=== PATIENT | female | born 2000 | race Hispanic/Latino ===

== ENCOUNTER 2022-11-05 12:38 | Emergency (ER) | payer OTHER ==
--- OUTSIDE RECORDS SUMMARY | 2022-11-05 12:47 | XMS REPORT | Continuity of Care Document ---
:2000 Author Organization [facility] t Address [address] [place] [address] Care Team Providers Name Role Phone MICHELLE HEATON Primary Care Physician Unavailable ROM PETERSON Attending Clinician Unavailable MICHELLE HEATON Attending Clinician Unavailable Michelle Cullen Attending Clinician TASHI CUEVAS Attending Clinician Unavailable Tashi Cuevas MD Attending Clinician Johnathan De Los Santos MD Attending Clinician Yehuda Segura MD Attending Clinician Doctor Unassigned, [place] Attending Clinician Unavailable AILIN GANN Attending Clinician Unavailable Risk, Cfz-Ifsoo-He/High Attending Clinician Unavailable Ailin Monte Attending Clinician Ivone Castañeda Attending Clinician [phone] IVONE NAYAK Attending Clinician Unavailable UltrasoundDillon Attending Clinician Unavailable Latonya Townsend MD Attending Clinician [phone] LATONYA TOWNSEND Attending Clinician Unavailable White_M Attending Clinician Unavailable VISIT, NURSE SCO RN NEW GRAD Attending Clinician Unavail able Archana Chung Attending Clinician Scarlet Caraballo Attending Clinician Chase Douglas Attending Clinician TASHI CUEVAS Admitting Clinician Unavailable Tashi Cuevas MD Admitting Clinician White_M Admitting Clinician Unavailable Scarlet Caraballo Admitting Clinician Payers Payer Name Policy Type Policy Number Effective Date Expiration Date S ourharriet SUPERIOR STAR [id number] 2021 00:00:00 [place] - SUPERIOR [id number] HEALTHPLAN - STAR (MEDICAID REPLACEMENT - [place] [id number] [place] Problems Condition Condition Condition Status Onset Resolution Last Treating Co mments Source Name Details Category Date Date Treatment Clinician Date Group B 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 06-29 it y of cus cus 00:00: [place] carrier, carrier, 00 Medica l +RV +RV Branch culture, culture, currently currently Disease Active Univers (spontaneo (spontaneo 06-29 it y of [place] vaginal [place] delivery[place] delivery[place] 00 [facility] Single Single Disease Active Univers liveborn liveborn 06-29 ity of infant 00:00: [place] 00 Medical Branch Obstetrica Obstetrica Disease Active U nivers l l 06-29 ity of laceration laceration 00:00: [place] 00 [place] Rubella Rubella Disease Active Univers nonimmune nonimmune 06-29 ity of status, status, 00:00: [place] delivered, delivered, 00 Me dical current current Branch hospitaliz hospitaliz ation ation Encounter Encounter Disease Active Uni vers for for 06-28 ity of induction induction 00:[place] of labor of labor 00 Medica l Branch Obesity Obesity Disease Active Univers (BMI (BMI 06-28 ity of 30-39.9) 30-39.9) 00:00: [place] 00 Medical Branch Supervisio Supervisio Disease Active U nivers n of high n of high 05-29 ity of risk risk 00:00: [place] 00 Medi debbie in third in third Branch trimester trimester Multiparit Multiparit Disease Active U nivers y y 05-29 ity of 00:00: Medical Branch Insufficie Insufficie Disease Active U nivers nt nt 8 ity of 00:00: [place] care in care in 00 Medical third third Branch trimester trimester Diet Diet Disease Active Univers controlled controlled 05-29 it y of gestationa gestationa 00:00[place] l diabetes l diabetes 00 Me dical mellitus mellitus Branch (GDM) in (GDM) in third third trimester trimester Obesity in Obesity in Disease Active U nivers 05-29 ity of 00:00: [place] 00 Medical Branch BMI BMI Disease Active Univers 34.0-34.9, 34.0-34.9, 8 it y of adult adult 00:00: [place] Medical [facility] Large for Large for Problem Active [facility] [place] gestation Gestation 6-16 da age fetus Age Fetus 00:00: Medi debbie 00 Group Gastroesop Gastroesop Problem Active M at[place] hageal hageal 6-15 da reflux Reflux 00:00: Medical disease Disease 00 Group without without esophagiti Esophagiti s s Rubella Rubella Problem Active [place] non-immune Non-immune 2-03 da 00:00: Medical 00 Group URETEROLIT Diagnosis Active 2018-01-28 [facility] HIASIS URETEROLIT 01-20 15:37:00 l HIASIS 00:00: [place] Active 01/20/2018 [facility] ABD ABD Diagnosis Active 2018-01-20 Mem oria PAIN/FLANK PAIN/FLANK 01-20 12:54:00 l PAIN PAIN 00:00: [place] Active 00 01/20/2018 [facility] BACK PAIN BACK PAIN Diagnosis Active 2018-01-04 Memoria Active 01-04 21:40:00 l 01/04/2018 00:00: Mervin perez [address] Family Family Problem Active [place] history of History of da cleft Cleft Medical palate Palate Group with cleft with Cleft lip Lip Personal Personal [facility] of history of 12:35:49 l urinary urinary [place] calculi calculi 04/12/2018 [facility] Bacteremia Bacteremi Problem 2018-05-01 Memoria a 12:43:01 l 05/01/2018 Mervin perez [facility] Hematuria, Hematuria Problem 2018-05-01 Memoria unspecifie , 12:43:01 l d unspecifie Mervin perez d 05/01/2018 [facility] CALCULUS CALCULUS Diagnosis Active 2018-01-28 Memoria OF URETER OF URETER 15:37:00 l Active [facility] History of Past Illness Condition Condition Condition Status Onset Resolution Last Treating Co mments Source Name Details Category Date Date Treatment Clinician Date Pyonephros Pyonephro Problem 2017-2018-05-01 2018-05-01 Memoria is sis 4-05 12:43:01 12:43:01 l 01/29/2018 04:11: Mervin peerz 05/01/2018 18 [facility] Urinary Urinary Problem 2017-2018-04-12 2018-04-12 Memoria tract tract 01-04 12:35:49 12:35:49 l infection, infection, 06:00: [place] site not site not 00 specified specified 01/04/2018 8 [facility] Unspecifie Unspecifi Problem 2018-04-12 2018-04-12 Memoria d ed 01-04 12:35:49 12:35:49 l abdominal abdominal 06:00: Herm paul pain pain 00 01/04/2018 8 [facility] Fatty Fatty Problem 2017-2018-04-12 2018-04-12 M emoria (change (change 01-04 12:35:49 12:35:49 l of) liver, of) liver, 06:00: [place] not not 00 elsewhere elsewhere classified classified 01/04/2018 04/12/2018 [facility] Allergies, Adverse Reactions, Alerts Allergy Allergy Status Severity Reaction(s) Onset Inactive Treating Comm ents Source Name Type Date Date Clinician NO KNOWN Drug Active Univers ALLERGIE Class ity of S [place] [facility] Social History Social Habit Start Date Stop Date Quantity Comments Source ASSERTION 2021-10-10 University of 00:00:00 [place] [facility] History SDOH University o f Alcohol Frequency [place] M edical Branch History SDME University o f Alcohol Std [place] Medical Drinks Branch History SDME University o f Alcohol Binge [place] Medic al Branch Exposure to 2022-07-12 2022-07-22 Not sure [facility] SARS-CoV-2 00:00:00 11:04:00 [facility] (event) [place] Alcohol intake 2022-06-29 2022-06-29 Ex-drinker [facility] 00:00:00 00:00:00 (finding) [facility] Education 2022-06-28 2022-06-28 13 [facility] 00:00:00 00:00:00 [facility] Tobacco use and 2022-05-29 2022-05-29 Smokeless tobacco Un iversity of exposure 00:00:00 00:00:00 non-user [facility] Alcohol Comment 2022-05-29 2022-05-29 on occassion, not Un iversity of 00:00:00 00:00:00 during [facility] Social History 2018-01-21 2018-01-21 [facility] 02:06:56 02:06:56 Sex Assigned At [birth year] Universit y of 00:00:00 00:00:00 [facility] Smoking Status Start Date Stop Date Source Never smoked tobacco [facility] Medications Ordered Filled Start Stop Current Ordering Indication Dosage Frequency Signature Comments Components Source Medication Medication Date Date Medication? Clinician (SIG) Name Name 2021- Take by Unive rs vit 9-04 - mouth. ity of no.124/iron 06:40: 00:00 [place] /folic 57 :00 Medical ( Branch VITAMIN ORAL) Yes [id number] 1{tbl} Take 1 Univers vitamin 9-04 tablet by ity of w/FA tablet 00:00: mouth in [place] 00 the Medical morning. Branch docusate Yes [id number] 200mg Take 2 U nivers 100 mg 9-04 capsules ity of capsule 00:00: by mouth [place] 00 once daily Medical as needed Branch for Constipati on. ferrous Yes [id number] 325mg Take 1 Un juliette sulfate 325 9-04 tablet by ity of mg (65 mg 00:00: [facility] Medical tablet morning Branch and 1 tablet in the evening. ibuprofen Yes [id number] 600mg Take 1 Univers 600 mg 9-04 tablet by ity of tablet 00:00: mouth [place] 00 every 6 Medical (six) Branch hours as needed (Pain). Take with food or milk. 2021-0 Yes [id number] 1{tbl} Take 1 Univers vitamin 9-04 tablet by ity of w/FA tablet 00:00: mouth in [place] 00 the Medical morning. Branch docusate 0 Yes [id number] 200mg Take 2 U nivers 100 mg 9-04 capsules ity of capsule 00:00: by mouth [place] 00 once daily Medical as needed Branch for Constipati on. ferrous 0 Yes [id number] 325mg Take 1 Un juliette sulfate 325 9-04 tablet by ity of mg (65 mg 00:00: [place] iron[place] 00 the Medical tablet morning Branch and 1 tablet in the evening. ibuprofen 0 Yes [id number] 600mg Take 1 Univers 600 mg 9-04 tablet by ity of tablet 00:00: mouth [place] 00 every 6 Medical (six) Branch hours as needed (Pain). Take with food or milk. 2021-0 Yes [id number] 1{tbl} Take 1 Univers vitamin 9-04 tablet by ity of w/FA tablet 00:00: mouth in [place] 00 the Medical morning. Branch docusate 0 Yes [id number] 200mg Take 2 U nivers 100 mg 9-04 capsules ity of capsule 00:00: by mouth [place] 00 once daily Medical as needed Branch for Constipati on. ferrous 2021-0 Yes [id number] 325mg Take 1 Un juliette sulfate 325 9-04 tablet by ity of mg (65 mg 00:00: mouth [place] iron[place] 00 the Medical tablet morning Branch and 1 tablet in the evening. ibuprofen 2021-0 Yes [id number] 600mg Take 1 Univers 600 mg 9-04 tablet by ity of tablet 00:00: mouth [place] 00 every 6 Medical (six) Branch hours as needed (Pain). Take with food or milk. 2021-0 Yes [id number] 1{tbl} Take 1 Univers vitamin 9-04 tablet by ity of w/FA tablet 00:00: mouth in [place] 00 the Medical morning. Branch docusate 0 Yes [id number] 200mg Take 2 U nivers 100 mg 9-04 capsules ity of capsule 00:00: by mouth [place] 00 once daily Medical as needed Branch for Constipati on. ferrous Yes [id number] 325mg Take 1 Un [place] sulfate 325 06-30 tablet by ity of mg (65 mg 00:00: [place] iron[place] 00 the Medical tablet morning Branch and 1 tablet in the evening. ibuprofen Yes [id number] 600mg Take 1 Univers 600 mg 06-30 tablet by ity of tablet 00:00: mouth [place] 00 every 6 Medical (six) Branch hours as needed (Pain). Take with food or milk. oxytocin Yes 300mL/h 300 mL/hr, Univers (PITOCIN) 06-29 IV ity of 30 units in 20:15: Infusion, [place] NS 500 mL 57 SEE-INSTRU Medi debbie IV infusion CTIONS, Branc h Starting on 06/29/[address] art at 300 mL/hr for 1 hr then 150 mL/hr for 1 hr. & nbsp; For post delivery uterotonic
rho(D) Yes 300ug 300 mcg, Univer s immune 06-29 Intramuscu ity of globulin 17:11: lar, ONCE, [place] as (RHOGAM) 17 For 1 Medical syringe 300 dose, Branch mcg Conditiona l, Routine HYDROcodone Yes 1{tbl} 1 tablet, Univers -acetaminop 06-29 Oral, ity of hen (NORCO 17:11: Q6HPRN, [place] 5) 5-325 mg 11 Starting Medi debbie tablet 1 on Sat Branch tablet 06/29/22 at 1211, Until Discontinu ed, Routine, Pain (scale 7-10) ibuprofen Yes 600mg 600 mg, Univ ers (IBU) 06-29 Oral, ity of tablet 600 17:11: Q6HPRN, [place] mg 11 Starting Medical on Sat Branch 06/29/22 at 1211, Until Discontinu ed, Routine, Pain (scale 4-6) acetaminoph Yes 650mg 650 mg, Un juliette en 06-29 Oral, ity of (TYLENOL) 17:11: Q6HPRN, [place] tablet 650 11 Starting Medic al mg on Sat Branch 06/29/22 at 1211, Until Discontinu ed, Routine, Pain (scale 1-3) diphenhydrA 2021-0 Yes 25mg 25 mg, Univ ers MINE 06-29 Oral, ity of (BENADRYL) 17:11: Q6HPRN, [place] tablet 25 11 Starting Medica l mg on [facility] Branch 06/29/22 at 1211, Until Discontinu ed, Routine, Sleep, Itching ondansetron 2021-0 Yes 4mg 4 mg, Slow Univers (ZOFRAN 06-29 IV Push, ity of (PF)) 17:11: Q8HPRN, [place] injection 4 11 Starting Medi debbie mg on Sat Branch 06/29/22 at 1211, Until Discontinu ed, Routine, Nausea and Vomiting (N/V) simethicone 2021-0 Yes 160mg 160 mg, Un juliette (GAS RELIEF 06-29 Oral, ity of (SIMETHICON 17:11: PC+HSPRN, [place] E)) 11 Starting Medical chewable on [facility] Branch tablet 160 06/29/22 at mg 1211, Until Discontinu ed, Routine, Gas docusate 2021-0 Yes 200mg 200 mg, Unive rs (COLACE) 06-29 Oral, ity of capsule 200 17:11: QDAILYPRN, [place] mg 11 Starting Medical on [facility] Branch 06/29/22 at 1211, Until Discontinu ed, Routine, Constipati on magnesium 2021-0 Yes 30mL 30 mL, Univer s hydroxide 06-29 Oral, ity of (MILK OF 17:11: QDAILYPRN, [place] MAGNESIA) 11 Starting Medica l 400 mg/5 mL on [facility] Branch suspension 06/29/22 at 30 mL 1211, Until Discontinu ed, Routine, Constipati on benzocaine- 2021-0 Yes Topical, Un juliette menthol 06-29 PRN, ity of (DERMOPLAST 17:11: Starting [place] ) 20-0.5 % 11 on [facility] Medical topical 06/29/22 at Branch spray 1211, Until Discontinu ed, Routine, Perineum discomfort ondansetron 2021-0 2022- No 4mg 4 mg, Slow Univers (ZOFRAN 06-29- IV Push, ity of (PF)) 14:45: 15:08 ONCE, On [place] injection 4 00 :00 06/29/22 Me dical mg at 0945, Branch For 1 dose
Do ses of ondansetro n 16 mg and above need to be administer ed via IV piggyback. For Dose >=24mg ECG monitoring is advisable.
lactated 2021- No 500mL at 999 Unive rs ringers IV 06-29 mL/hr, 500 it y of infusion 07:45: 07:21 mL, IV [place] 500 mL 00 :00 Infusion, Medical ONCE, 1 Branch dose, On 06/29/22 at 0245, Routine ropivacaine 2021- No Epidural, Univers 0.2 % 06-29 ONCE INTRA ity of (NAROPIN 07:20: 16:09 PROCEDURE, [place] (PF)) 00 :23 Starting Medical epidural on [facility] Branch infusion 06/29/22 at 0220, Until 06/29/22 at 1109, Routine, Intra-op lidocaine-e No Epidural, Univers pinephrine 06-29 ONCE INTRA it y of (XYLOCAINE 07:20: 16:09 PROCEDURE, [place] W/EPINEPHRI 00 :23 Starting Medi debbie NE) 1.5 on [facility] Branch %-1:200,000 06/29/22 at injection 0220, Until 06/29/22 at 1109, Routine, Intra-op butorphanol 2021- No 1mg 1 mg, IV U nivers (STADOL) 06-29 Push, ity of injection 1 05:00: 03:57 ONCE, 1 [place] mg 00 :00 dose, On Medical 06/29/22 Branch at 0000, Routine oxytocin 2021- No 2mU/min at 2-40 Un juliette (PITOCIN) 06-29 mL/hr, IV ity of 30 units in 01:40: 17:11 Infusion, [place] NS 500 mL 04 :13 TITRATE, Medica l IV infusion Starting Bran ch on Fri06/28/22 at 2040, Until 06/29/22 at 1211, NILAY butorphanol 2021- No 1mg 1 mg, IV U nivers (STADOL) 06-28 Push, ity of injection 1 21:45: 21:13 ONCE, 1 [place] mg 00 :00 dose, On Medical 06/28/22 Branch at 1645, Routine sodium 2021- No 30mL 30 mL, Univers citrate-cit 06-28 Oral, ity of dave acid 14:12: 07:21 PRE-PROCED [place] (BICITRA) 35 :00 URE ONCE, Medic al 500-334 1 dose, Branch mg/5 mL Starting solution 30 on Fri mL 06/28/22 at 0912, Until Discontinu ed, Routine, Surgery/Pr ocedure [id number] IV 2021- No 1000mL at 1-125 U nivers infusion 06-28 mL/hr, IV ity o f 1,000 mL 14:12: 17:11 Infusion, [place] as 35 :13 TITRATE, Medical Starting Branch on 06/28/22 at 0912, Until 06/29/22 at 1211, Routine Yes Take by [employer] vit 06-28 mouth. ity of no.124/iron 09:14: [place] /folic 22 Medical ( Branch VITAMIN ORAL) Yes Take by [employer] vit 8-03 mouth. ity of no.124/iron 09:53: [place] /folic 12 Medical ( Branch VITAMIN ORAL) Yes Take by [employer] vit 8-03 mouth. ity of no.124/iron 09:53: [place] /folic 12 Medical ( Branch VITAMIN ORAL) Yes Take by [employer] vit 8-03 mouth. ity of no.124/iron 09:53: [place] /folic 12 Medical ( Branch VITAMIN ORAL) Yes Take by [employer] vit 8-03 mouth. ity of no.124/iron 09:53: [place] /folic 12 Medical ( Branch VITAMIN ORAL) Yes Take by [employer] vit 8-03 mouth. ity of no.124/iron 09:53: [place] /folic 12 Medical ( Branch VITAMIN ORAL) Yes Take by [employer] vit 8-03 mouth. ity of no.124/iron 09:53: [place] /folic 12 Medical ( Branch VITAMIN ORAL) Yes Take by [employer] vit 8-03 mouth. ity of no.124/iron 09:53: [place] /folic 12 Medical ( Branch VITAMIN ORAL) Yes Take by [employer] vit 8-03 mouth. ity of no.124/iron 09:53: [place] /folic 12 Medical ( Branch VITAMIN ORAL) Yes Take by [employer] vit 8-03 mouth. ity of no.124/iron 09:53: [place] /folic 12 Medical ( Branch VITAMIN ORAL) Blood-Gluco Yes [id number] Use as Univers se Meter 8-03 directed ity of (FREESTYLE 00:00: [place] FREEDOM 00 Medical LITE) Kit Branch blood sugar Yes [id number] Use as Univers diagnostic 8-03 directed ity o f (FREESTYLE 00:00: [place] LITE 00 Medical STRIPS) Branch strip lancets 17 Yes [id number] Use as U nivers gauge Misc 8-03 directed ity o f 00:00: [place] 00 Medical Branch Blood-Gluco Yes [id number] Use as Univers se Meter 8-03 directed ity of (FREESTYLE 00:00: [place] FREEDOM 00 Medical LITE) Kit Branch blood sugar Yes [id number] Use as Univers diagnostic 8-03 directed ity o f (FREESTYLE 00:00: [place] LITE 00 Medical STRIPS) Branch strip lancets 17 0 Yes [id number] Use as U nivers gauge Misc 8-03 directed ity o f 00:00: [place] 00 Medical Branch Blood-Gluco Yes [id number] Use as Univers se Meter 8-03 directed ity of (FREESTYLE 00:00: [place] FREEDOM 00 Medical LITE) Kit Branch blood sugar Yes [id number] Use as Univers diagnostic 8-03 directed ity o f (FREESTYLE 00:00: [place] LITE 00 Medical STRIPS) Branch strip lancets 17 0 Yes [id number] Use as U nivers gauge Misc 8-03 directed ity o f 00:00: [place] 00 Medical Branch Blood-Gluco 0 Yes [id number] Use as Univers se Meter 8-03 directed ity of (FREESTYLE 00:00: [place] FREEDOM 00 Medical LITE) Kit Branch blood sugar 2021-0 Yes [id number] Use as Univers diagnostic 8-03 directed ity o f (FREESTYLE 00:00: [place] LITE 00 Medical STRIPS) Branch strip lancets 17 2021-0 Yes [id number] Use as U nivers gauge Misc 8-03 directed ity o f 00:00: [place] 00 Medical Branch Blood-Gluco 2021-0 Yes [id number] Use as Univers se Meter 8-03 directed ity of (FREESTYLE 00:00: [place] FREEDOM 00 Medical LITE) Kit Branch blood sugar 0 Yes [id number] Use as Univers diagnostic 8-03 directed ity o f (FREESTYLE 00:00: [place] LITE 00 Medical STRIPS) Branch strip lancets 17 2021-0 Yes [id number] Use as U nivers gauge Misc 8-03 directed ity o f 00:00: [place] 00 Medical Branch Blood-Gluco 2021-0 Yes [id number] Use as Univers se Meter 8-03 directed ity of (FREESTYLE 00:00: [place] FREEDOM 00 Medical LITE) Kit Branch blood sugar 2021-0 Yes [id number] Use as Univers diagnostic 8-03 directed ity o f (FREESTYLE 00:00: [place] LITE 00 Medical STRIPS) Branch strip lancets 17 2021-0 Yes [id number] Use as U nivers gauge Misc 8-03 directed ity o f 00:00: [place] 00 Medical Branch Blood-Gluco 2021-0 Yes [id number] Use as Univers se Meter 8-03 directed ity of (FREESTYLE 00:00: [place] FREEDOM 00 Medical LITE) Kit Branch blood sugar 2021-0 Yes [id number] Use as Univers diagnostic 8-03 directed ity o f (FREESTYLE 00:00: [place] LITE 00 Medical STRIPS) Branch strip lancets 17 2021-0 Yes [id number] Use as U nivers gauge Misc 8-03 directed ity o f 00:00: [place] 00 Medical Branch Blood-Gluco 2021-0 Yes [id number] Use as Univers se Meter 8-03 directed ity of (FREESTYLE 00:00: [place] FREEDOM 00 Medical LITE) Kit Branch blood sugar 2021-0 Yes [id number] Use as Univers diagnostic 8-03 directed ity o f (FREESTYLE 00:00: [place] LITE 00 Medical STRIPS) Branch strip lancets 17 2021-0 Yes [id number] Use as U nivers gauge Misc 8-03 directed ity o f 00:00: [place] 00 Medical Branch Blood-Gluco 0 Yes [id number] Use as Univers se Meter - directed ity of (FREESTYLE 00:00: [place] FREEDOM 00 Medical LITE) Kit Branch blood sugar 0 Yes [id number] Use as Univers diagnostic 05-29 directed ity o f (FREESTYLE 00:00: [place] LITE 00 Medical STRIPS) Branch strip lancets 17 2021-0 Yes [id number] Use as U nivers gauge Misc 8- directed ity o f 00:00: [place] 00 Medical Branch Blood-Gluco 0 Yes [id number] Use as Univers se Meter - directed ity of (FREESTYLE 00:00: [place] FREEDOM 00 Medical LITE) Kit Branch blood sugar 0 Yes [id number] Use as Univers diagnostic - directed ity o f (FREESTYLE 00:00: [place] LITE 00 Medical STRIPS) Branch strip lancets 17 2021-0 Yes [id number] Use as U nivers gauge Misc 8- directed ity o f 00:00: [place] 00 Medical Branch Blood-Gluco 2021-0 2021- No [id number] Use as Univers se Meter 05-29- directed ity of (FREESTYLE 00:00: 00:00 [place] FREEDOM 00 :00 Medical LITE) Kit Branch blood sugar 2021-0 2021- No [id number] Use as Univers diagnostic 05-29 directed ity of (FREESTYLE 00:00: 00:00 [place] LITE 00 :00 Medical STRIPS) Branch strip lancets 17 2021-0 2021- No [id number] Use as Univers gauge Misc 05-29 directed ity of 00:00: 00:00 [place] 00 :00 Medical Branch vancomycin 2017-0 No vancomycin M emoria 3- , trough l 13:00: due, Drug [place] form: MISC, Route: MISC, ONCE, 01/24/18 8:00:00 CDT, Stop date: 01/24/18 8:00:00 CDT vancomycin 2017-0 No vancomycin M emoria 3-31 , trough l 13:00: due, Drug form: MISC, Route: MISC, ONCE, 01/24/18 8:00:00 CDT, Stop date: 01/24/18 8:00:00 CDT tramadol 2018-0 Yes 50 mg = 1 Christiano avelino hydrochlori 3-30 tab, PO, l de 50 MG 15:36: Q6H, PRN [place] nn Oral Tablet 00 Pain Score 7-10, # 24 tab, 0 Refill(s) Promethazin 2018-0 Yes 12.5 mg = M emoria e 3-30 1 tab, PO, l Hydrochlori 15:36: Q6H, PRN He rmann de 12.5 MG 00 Nausea & Oral Tablet Vomiting, [Phenergan] # 28 tab, 0 Refill(s), Pharmacy: [facility] Re[facility] Sulfamethox 2017- No 1 tab, PO, Memoria azole 800 3-30 BID, X 10 l MG / 15:36: day, # 20 [place] Trimethopri 00 tab, 0 m 160 MG Refill(s), Oral Tablet Pharmacy: [Bactri] [facility] tramadol 2017-0 Yes 50 mg = 1 Christiano avelino hydrochlori 3-30 tab, PO, l de 50 MG 15:36: Q6H, PRN [place] nn Oral Tablet 00 Pain Score 7-10, # 24 tab, 0 Refill(s) Promethazin 2018-0 Yes 12.5 mg = M emoria e 3-30 1 tab, PO, l Hydrochlori 15:36: Q6H, PRN He rmann de 12.5 MG 00 Nausea & Oral Tablet Vomiting, [Phenergan] # 28 tab, 0 Refill(s), Pharmacy: [facility] Replaced [facility] Sulfamethox 2018-0 No 1 tab, PO, Memoria azole 800 3-30 BID, X 10 l MG / 15:36: day, # 20 [place] Trimethopri 00 tab, 0 m 160 MG Refill(s), Oral Tablet Pharmacy: [Bactri] [facility]placed [facility] vancomycin No vancomycin M emoria 3-30 , trough l 13:00: due, Drug form: MISC, Route: MISC, ONCE, 01/23/18 8:00:00 CDT, Stop date: 01/23/18 8:00:00 CDT vancomycin 2017- No vancomycin M emoria 3-30 , trough l 13:00: due, Drug form: MISC, Route: MISC, ONCE, 01/23/18 8:00:00 CDT, Stop date: 01/23/18 8:00:00 CDT vancomycin 2017- No 2000 mg: Me moria + Dextrose 3-29 infuse l 5% in Water 14:00: over 2.5 He rmann IV 250 mL 00 hours For adult patients only: Round to nearest 250 mg per Medical Staff approval MEDICATION WASTE Product Size: 1000 mg Product Wasted: ___ mg vancomycin 2017- No 2000 mg: Me moria + Dextrose 3-29 infuse l 5% in Water 14:00: over 2.5 He rmann IV 250 mL 00 hours For adult patients only: Round to nearest 250 mg per Medical Staff approval MEDICATION WASTE Product Size: 1000 mg Product Wasted: ___ mg Benadryl 2017-0 No Notes: Memoria - (Same as: l 02:37: Benadryl) Benadryl 2017-0 No Notes: Memoria 3-29 (Same as: l 02:37: Benadryl) Vancomycin 2017-0 No 1 gm, Memori a 01-22 Route: IV, l 02:00: Q12H, Dosing Weight 93.864, kg, Start date: 01/21/18 21:00:00 CDT, Duration: 14 day, Stop date: 02/04/18 9:00:00 CDT, Pharmacy to dose, ABX Indication : Bacteremia vancomycin 2017-0 No Notes: Memor ia 3-29 TIME l 02:00: CRITICAL MEDICATION Same as: Vancocin Vancomycin 0 No 1 gm, Memori a 01-22 Route: IV, l 02:00: Q12H, Dosing Weight 93.864, kg, Start date: 01/21/18 21:00:00 CDT, Duration: 14 day, Stop date: 02/04/18 9:00:00 CDT, Pharmacy to dose, ABX Indication : Bacteremia vancomycin No Notes: Memor ia -29 TIME l 02:00: CRITICAL [place] 00 MEDICATION Same as: Vancocin Ceftriaxone No Notes: Christiano avelino - (Same As: l 01:00: Rocephin). [place] 00 Use with 100 mL NS and infuse over 30 min MEDICATION WASTE Product Size: 1000 mg Product Wasted: ___ mg Ceftriaxone No Notes: Christiano avelino 01-22 (Same As: l 01:00: Rocephin). [place] 00 Use with 100 mL NS and infuse over 30 min MEDICATION WASTE Product Size: 1000 mg Product Wasted: ___ mg influenza No Notes: Memori a virus - (Same as: l vaccine, 14:00: Fluzone Mervin n inactivated 00 Quadrivale nt, Fluarix Quadrivale nt) For 3 years of age and older (0.5 mL IM) Shake well before use influenza No Notes: Memori a virus - (Same as: l vaccine, 14:00: Fluzone Mervin n inactivated 00 Quadrivale nt, Fluarix Quadrivale nt) For 3 years of age and older (0.5 mL IM) Shake well before use Saline No Notes: Memoria Flush 0.9% 01-21 (Same as: l :28: BD [place] 00 Posiflush) Sodium No 1,000 mL, Memori a Chloride 01-21 Rate: 125 l 0.9% IV 01:28: ml/hr, [place] 1,000 mL 00 Infuse over: 8 hr, Route: IV, Dosing Weight 93.045 kg, Total Volume: 1,000, Start date: 01/20/18 20:28:00 CDT, Duration: 30 day, Stop date: 02/19/18 20:27:00 CDT, 2.07, m2 Morphine No Notes: Memoria 3-28 (Same l :28: as:MORPhin [place] 00 e Sulfate) Ondansetron No Notes: Christiano avelino - (Same as: l :28: Zofran) [place] 00 MEDICATION WASTE Product Size: 4 mg Product Wasted: ___ mg Acetaminoph No Notes: Christiano avelino en 325 MG / 01-21 (Same as: l Hydrocodone 01:28: [place] nn Bitartrate 00 325/5) Do 5 MG Oral not exceed Tablet 4gm/day of acetaminop hen. Acetaminoph No Notes: Do M emoria en 01-21 not exceed l 01:28: 4 gm/day. [place] 00 (Same as: Tylenol) Saline No Notes: Memoria Flush 0.9% 01-21 (Same as: l 01:28: BD [place] 00 Posiflush) Sodium No 1,000 mL, Memori a Chloride 01-21 Rate: 125 l 0.9% IV 01:28: ml/hr, [place] 1,000 mL 00 Infuse over: 8 hr, Route: IV, Dosing Weight 93.045 kg, Total Volume: 1,000, Start date: 01/20/18 20:28:00 CDT, Duration: 30 day, Stop date: 02/19/18 20:27:00 CDT, 2.07, m2 Morphine No Notes: Memoria 01-21 (Same l :28: as:MORPhin [place] 00 e Sulfate) Ondansetron No Notes: Christiano avelino 01-21 (Same as: l :28: Zofran) [place] 00 MEDICATION WASTE Product Size: 4 mg Product Wasted: ___ mg Acetaminoph No Notes: Christiano avelino en 325 MG / 01-21 (Same as: l Hydrocodone 01:28: [place] nn Bitartrate 00 325/5) Do 5 MG Oral not exceed Tablet 4gm/day of acetaminop hen. Acetaminoph No Notes: Do M emoria en 01-21 not exceed l 01:28: 4 gm/day. [place] 00 (Same as: Tylenol) NS 1,000 mL No 1,000 mL, M emoria 01-21 Rate: 150 l 00:46: ml/hr, [place] 00 Infuse over: 6.7 hr, Route: IV, Dosing Weight 93.045 kg, Total Volume: 1,000, Start date: 01/20/18 19:46:00 CDT, Duration: 30 day, Stop date: 02/19/18 19:45:00 CDT, 2.07, m2 NS 1,000 mL 2017- No 1,000 mL, M emoria 01-21 Rate: 150 l 00:46: ml/hr, Infuse over: 6.7 hr, Route: IV, Dosing Weight 93.045 kg, Total Volume: 1,000, Start date: 01/20/18 19:46:00 CDT, Duration: 30 day, Stop date: 02/19/18 19:45:00 CDT, 2.07, m2 Ceftriaxone No Notes: Christiano avelino 3-28 (Same As: l 00:45: Rocephin). Use with 100 mL NS and infuse over 30 min MEDICATION WASTE Product Size: 1000 mg Product Wasted: 0 mg Ceftriaxone No Notes: Christiano avelino 3-28 (Same As: l 00:45: Rocephin). Use with 100 mL NS and infuse over 30 min MEDICATION WASTE Product Size: 1000 mg Product Wasted: 0 mg Prochlorper 2017-0 No 10 mg, Christiano avelino azine 01-21 Route: l 00:36: IVP, ONCE, Dosing Weight 93.045, kg, Priority: STAT, Start date: 01/20/18 19:36:00 CDT, Stop date: 01/20/18 19:36:00 CDT Prochlorper 2017-0 No 10 mg, Christiano avelino azine 01-21 Route: l 00:36: IVP, ONCE, Dosing Weight 93.045, kg, Priority: STAT, Start date: 01/20/18 19:36:00 CDT, Stop date: 01/20/18 19:36:00 CDT Promethazin 2017- No 12.5 mg, Me moria e 01-20 50 mL, l 21:57: Route: IVPB, Drug form: SOLN, ONCE, Dosing Weight 93.045, kg, Priority: STAT, Start date: 01/20/18 16:57:00 CDT, Stop date: 01/20/18 16:57:00 CDT Promethazin 2017-0 No 12.5 mg, Me moria e 3-27 50 mL, l 21:57: Route: [place] 00 IVPB, Drug form: SOLN, ONCE, Dosing Weight 93.045, kg, Priority: STAT, Start date: 01/20/18 16:57:00 CDT, Stop date: 01/20/18 16:57:00 CDT Ondansetron 2017-0 No Notes: Christiano avelino 3-27 (Same as: l 21:32: Zofran) [place] 00 MEDICATION WASTE Product Size: 4 mg Product Wasted:0mg Ondansetron 2017-0 No Notes: Christiano avelino 3-27 (Same as: l 21:32: Zofran) MEDICATION WASTE Product Size: 4 mg Product Wasted:0mg Omnipaque 2017-0 No Notes: Memori a 300 3-27 (Same l injectable 20:44: as:Omnipaq H ermann solution 00 ue 300). WASTE: F/P - Black; E - Municipal Trash Bin Omnipaque 2017-0 No Notes: Memori a 300 3-27 (Same l injectable 20:44: as:Omnipaq H ermann solution 00 ue 300). WASTE: F/P - Black; E - Municipal Trash Bin Morphine 2018-0 No 15 mg, 1 Memor ia Sulfate 15 3-27 tab, l MG Oral 20:24: Route: PO, Herm paul Tablet 00 ONCE, Dosing Weight 93.045, kg, Start date: 01/20/18 15:24:00 CDT, Stop date: 01/20/18 15:24:00 CDT Morphine 2018-0 No 15 mg, 1 Memor ia Sulfate 15 3-27 tab, l MG Oral 20:24: Route: PO, Herm paul Tablet 00 ONCE, Dosing Weight 93.045, kg, Start date: 01/20/18 15:24:00 CDT, Stop date: 01/20/18 15:24:00 CDT Ketorolac 2018-0 No 4 days. Christiano avelino 3-27 l 18:16: [place] Ketorolac 2018-0 No 4 days. Christiano avelino 3-27 l 18:16: [place] 00 Ondansetron 2018-0 No Notes: Christiano avelino 3-27 (Same as: l 18:08: Zofran) [place] 00 MEDICATION WASTE Product Size: 4 mg Product Wasted: 0 mg Ondansetron 2018-0 No Notes: Christiano avelino 3-27 (Same as: l 18:08: Zofran) [place] 00 MEDICATION WASTE Product Size: 4 mg Product Wasted: 0 mg Sodium 2018-0 No 1,000 mL, Memori a Chloride 3-27 1000 l 0.9% 17:24: ml/hr, [place] (Bolus) IV 00 Infuse Over: 1 hr, Route: IV, 1,000, Drug form: INJ, ONCE, Priority: STAT, Dosing Weight 93.045 kg, Start date: 01/20/18 12:24:00 CDT, Stop date: 01/20/18 12:24:00 CDT Sodium 2018-0 No 1,000 mL, Memori a Chloride 3-27 1000 l 0.9% 17:24: ml/hr, [place] (Bolus) IV 00 Infuse Over: 1 hr, Route: IV, 1,000, Drug form: INJ, ONCE, Priority: STAT, Dosing Weight 93.045 kg, Start date: 01/20/18 12:24:00 CDT, Stop date: 01/20/18 12:24:00 CDT Ketorolac 2018-0 No 4 days Memor ia 3-11 l 22:46: MEDICATION [place] WASTE Product Size: 30 mg Product Wasted: 0 mg Ketorolac 2018-0 No 4 days Memor ia 3-11 l 22:46: MEDICATION [place] WASTE Product Size: 30 mg Product Wasted: 0 mg Cephalexin 2018-0 No 500 mg = 1 M emoria 500 MG Oral 3-11 cap, PO, l Capsule 22:21: QID, X 10 [place] nn [Keflex] 00 day, # 40 cap, 0 Refill(s) Cephalexin 2018-0 No 500 mg = 1 M emoria 500 MG Oral 3-11 cap, PO, l Capsule 22:21: QID, X 10 [place] nn [Keflex] 00 day, # 40 cap, 0 Refill(s) Omnipaque 2018-0 No 45 Memoria 300 3-11 mL/min, l injectable 21:28: STAT, Mervin n solution 00 Start date: 01/04/18 16:28:00 CDT, Stop date: 01/04/18 16:28:00 CDT Omnipaque 0 No 45 Memoria 300 3-11 mL/min, l injectable 21:28: STAT, Mervin n solution 00 Start date: 01/04/18 16:28:00 CDT, Stop date: 01/04/18 16:28:00 CDT Saline No Notes: Memoria Flush 0.9% 3-11 (Same as: l 19:21: BD [place] Posiflush) Saline No Notes: Memoria Flush 0.9% 3-11 (Same as: l 19:21: BD [place] Posiflush) metoclopram metoclopram No metoclopra [facility] rosalia 10 mg rosalia 10 mg mide 10 mg da tablet TAKE tablet TAKE tablet Medical 1 TABLET BY 1 TABLET BY TAKE 1 Group MOUTH EVERY MOUTH EVERY TABLET BY 6 HOURS 6 HOURS MOUTH NEEDED FOR NEEDED FOR EVERY 6 FOR NAUSEA FOR NAUSEA HOURS AND AND NEEDED FOR VOMITING VOMITING FOR NAUSEA AND VOMITING omeprazole omeprazole No omeprazole [place] 40 mg 40 mg 40 mg da capsule,del capsule,del capsule,de Medical ayed ayed layed Group release release release TAKE 1 TAKE 1 TAKE 1 CAPSULE BY CAPSULE BY CAPSULE BY MOUTH EVERY MOUTH EVERY MOUTH DAY DAY EVERY DAY + + No + [facility] Medical Group Vitafol-One Vitafol-One No Vitafol-On [place] 29 mg 29 mg e 29 mg da iron-1 iron-1 iron-1 Medical mg-200 mg mg-200 mg mg-200 mg Group capsule capsule capsule TAKE 1 TAKE 1 TAKE 1 CAPSULE BY CAPSULE BY CAPSULE BY MOUTH MOUTH MOUTH EVERYDAY AT EVERYDAY AT EVERYDAY BEDTIME BEDTIME AT BEDTIME Immunizations Ordered Filled Immunization Date Status Comments Sourc e Immunization Name Name [facility] 2022-05-29 Completed [facility] 00:00:00 [facility] 2022-05-29 Completed [facility] 00:00:00 [facility] 2022-05-29 Completed [facility] 00:00:00 [facility] 2022-05-29 Completed [facility] 00:00:00 [facility] 2022-05-29 Completed [facility] 00:00:00 [facility] 2022-05-29 Completed [facility] 00:00:00 [facility] TDAP 2022-05-29 Completed [facility] 00:00:00 [facility] TDAP 2022-05-29 Completed [facility] 00:00:00 [facility] TDAP 2022-05-29 Completed [facility] 00:00:00 [facility] TDAP 2022-05-29 Completed [facility] 00:00:00 [facility] TDAP 2022-05-29 Completed [facility] 00:00:00 [facility] TDAP 2022-05-29 Completed [facility] 00:00:00 [facility] TDAP 2022-05-29 Completed [facility] 00:00:00 [facility] TDAP 2022-05-29 Completed [facility] 00:00:00 [facility] Vital Signs Vital Name Observation Time Observation Value Comments Source Systolic blood 2022-07-22 16:05:00 113 mm[Hg] Univer sity of pressure [facility] Diastolic blood 2022-07-22 16:05:00 65 mm[Hg] Unive rsity of pressure [facility] Heart rate 2022-07-22 16:05:00 67 /min [facility] ty [facility] Body temperature 2022-07-22 16:05:00 36.56 [place] Respiratory rate 2022-07-22 16:05:00 18 /min [facility] 2022-07-22 16:05:00 81.285 kg [facility] BMI 2022-07-22 16:05:00 31.74 kg/m2 [facility] Systolic blood 2022-06-30 13:59:00 112 mm[Hg] Univer sity of pressure [facility] Diastolic blood 2022-06-30 13:59:00 76 mm[Hg] Unive rsity of pressure [facility] Heart rate 2022-06-30 13:59:00 82 [facility] 2022-06-30 13:59:00 36.33 [place] [facility] Res[facility] rate 2022-06-30 13:59:00 18 /min Univ ersity [facility] Oxygen saturation in 2022-06-30 13:59:00 98 /min [facility] of Arterial blood by [employer] Pulse oximetry Branch Body height 2022-06-28 14:27:00 160 cm [facility] Body weight 2022-06-28 14:27:00 91.173 kg [facility] BMI 2022-06-28 14:27:00 35.61 kg/m2 [facility] Systolic blood 2022-06-25 19:04:00 131 mm[Hg] Univer sity of pressure [facility] Diastolic blood 2022-06-25 19:04:00 81 mm[Hg] Unive rsity of pressure [facility] Heart rate 2022-06-25 19:04:00 79 /min [facility] Body temperature 2022-06-25 19:04:00 35.94 [place]ie Univ [facility] Respiratory rate 2022-06-25 19:04:00 18 /min Univ ers[facility] Body weight 2022-06-25 19:04:00 91.218 kg [facility] BMI 2022-06-25 19:04:00 35.62 kg/m2 [facility] Systolic blood 2022-06-20 15:23:00 138 mm[Hg] Univer sity of pressure [facility] Diastolic blood 2022-06-20 15:23:00 81 mm[Hg] Unive rsity of pressure [facility] Heart rate 2022-06-20 15:23:00 77 /min [facility] Body temperature 2022-06-20 15:23:00 36.22 [place] Univ [facility] Respiratory rate 2022-06-20 15:23:00 17 /min Univ ers[facility] Body height 2022-06-20 15:23:00 160 cm [facility] Body weight 2022-06-20 15:23:00 89.858 kg [facility] BMI 2022-06-20 15:23:00 35.09 kg/m2 [facility] Oxygen saturation in 2022-06-20 15:23:00 100 /min University of Arterial blood by [facility] Pulse oximetry Branch Systolic blood 2022-06-18 14:48:00 128 mm[Hg] Univer sity of pressure [facility] Diastolic blood 2022-06-18 14:48:00 85 mm[Hg] Unive rsity of pressure [facility] Heart rate 2022-06-18 14:45:00 87 /min [facility] Respiratory rate 2022-06-18 14:45:00 18 /min Univ ersity [facility] Body weight 2022-06-18 14:45:00 88.996 kg [facility] BMI 2022-06-18 14:45:00 34.76 kg/m2 Universi ty of [facility] Systolic blood 2022-06-14 14:07:00 123 mm[Hg] Univer sity of pressure [facility] Diastolic blood 2022-06-14 14:07:00 83 mm[Hg] Unive rsity of pressure [facility] Heart rate 2022-06-14 14:05:00 89 /min [facility] Body temperature 2022-06-14 14:05:00 35.61 [place]ie Univ ers[facility] Respiratory rate 2022-06-14 14:05:00 18 /min Univ ers[facility] Body weight 2022-06-14 14:05:00 89.721 kg [facility] BMI 2022-06-14 14:05:00 35.04 kg/m2 [facility] Systolic blood 2022-06-10 17:55:00 120 mm[Hg] Univer sity of pressure [facility] Diastolic blood 2022-06-10 17:55:00 76 mm[Hg] Unive rsity of pressure [facility] Heart rate 2022-06-10 17:55:00 87 /min [facility] Respiratory rate 2022-06-10 17:55:00 18 /min Univ ers[facility] Body weight 2022-06-10 17:55:00 88.361 kg [facility] BMI 2022-06-10 17:55:00 34.51 kg/m2 [facility] BP Diastolic 2022-04-11 00:00:00 64 mm[Hg] [facility] Height 2022-04-11 00:00:00 63 [in_i] [facility] BMI (Body Mass 2022-04-11 00:00:00 32.8 kg/m2 [facility] Index) Group BP Systolic 2022-04-11 00:00:00 115 mm[Hg] [facility] Body Weight 2022-04-11 00:00:00 185.3 [lb_av] [facility] BP Diastolic 2022-03-14 00:00:00 70 mm[Hg] [facility] Height 2022-03-14 00:00:00 63 [in_i] [facility] BMI (Body Mass 2022-03-14 00:00:00 33.2 kg/m2 [facility] Medical Index) Group BP Systolic 2022-03-14 00:00:00 114 mm[Hg] [facility] Body Weight 2022-03-14 00:00:00 187.4 [facility]av[facility] Diastolic 2022-02-14 00:00:00 63 mm[Hg] [facility] Height 2022-02-14 00:00:00 63 [in_i] [facility] BMI (Body Mass 2022-02-14 00:00:00 31.9 kg/m2 [facility] Medical Index) Group BP Systolic 2022-02-14 00:00:00 102 mm[Hg] [facility] Body Weight 2022-02-14 00:00:00 180.2 [facility]lb_av] [facility] BP Diastolic 2022-02-05 00:00:00 64 mm[Hg] [facility] Height 2022-02-05 00:00:00 63 [in_i] [facility] BMI (Body Mass 2022-02-05 00:00:00 32 kg/m2 [facility] Medical Index) Group BP Systolic 2022-02-05 00:00:00 100 mm[Hg] [facility] Body Weight 2022-02-05 00:00:00 180.8 [lb_av] [facility] Height 2022-01-17 00:00:00 63 [in_i] [facility] BMI (Body Mass 2022-01-17 00:00:00 31.5 kg/m2 [facility] Medical Index) Group Body Weight 2022-01-17 00:00:00 177.7 [lb_av] [facility] BP Diastolic 2021-12-20 00:00:00 78 mm[Hg] [facility] Height 2021-12-20 00:00:00 63 [in_i] [facility] BMI (Body Mass 2021-12-20 00:00:00 31.2 kg/m2 [facility] Medical Index) Group BP Systolic 2021-12-20 00:00:00 126 mm[Hg] [facility] Body Weight 2021-12-20 00:00:00 176 [lb_av] [facility] Temperature Oral (F) 2018-01-23 17:00:00 98.2 F [facility] [place] Heart Rate 2018-01-23 17:00:00 [facility] [place] Systolic (mm Hg) 2018-01-23 17:00:00 Christiano rial [place] Diastolic (mm Hg) 2018-01-23 17:00:00 Mem o[facility] [place] Respitory Rate 2018-01-23 17:00:00 Memori al [place] Respitory Rate 2018-01-23 12:34:00 Memori al [place] Systolic (mm Hg) 2018-01-23 12:34:00 Christiano rial [place] Diastolic (mm Hg) 2018-01-23 12:34:00 Mem orial [place] Heart Rate 2018-01-23 12:34:00 [facility] [place] Temperature Oral (F) 2018-01-23 12:34:00 97.5 F [facility] [place] Respitory Rate 2018-01-23 12:30:00 Memori al [place] Systolic (mm Hg) 2018-01-23 04:39:00 Christiano rial [place] Diastolic (mm Hg) 2018-01-23 04:39:00 Mem orial [place] Heart Rate 2018-01-23 04:39:00 [facility] [place] Temperature Oral (F) 2018-01-23 04:39:00 98.2 F [facility] [place] BMI Calculated 2018-01-21 02:03:00 Memori al [place] Weight 2018-01-21 02:03:00 [facility] [place] Height 2018-01-21 02:03:00 160.02 cm [facility] [place] Weight 2018-01-20 16:57:00 [facility] [place] Height 2018-01-20 16:57:00 160.02 cm [facility] [place] BMI Calculated 2018-01-20 16:57:00 Memori al [place] Systolic (mm Hg) 2018-01-04 23:18:00 Christiano rial [place] Diastolic (mm Hg) 2018-01-04 23:18:00 Mem orial [place] Respitory Rate 2018-01-04 23:18:00 Memori al [place] Heart Rate 2018-01-04 23:18:00 [facility] [place] Respitory Rate 2018-01-04 22:01:00 Memori al [place] Heart Rate 2018-01-04 22:01:00 [facility] [place] Systolic (mm Hg) 2018-01-04 22:01:00 Christiano rial [place] Diastolic (mm Hg) 2018-01-04 22:01:00 Mem orial [place] Respitory Rate 2018-01-04 21:00:00 Memori [facility] [place] Heart Rate 2018-01-04 21:00:00 [facility] [place] Systolic (mm Hg) 2018-01-04 21:00:00 Christiano rial [place] Diastolic (mm Hg) 2018-01-04 21:00:00 Mem orial [place] Temperature Oral (F) 2018-01-04 19:20:00 98.1 F [facility] [place] Weight 2018-01-04 19:20:00 [facility] [place] BMI Calculated 2018-01-04 19:20:00 Memori al [place] Height 2018-01-04 19:20:00 160.02 cm [facility] [place] Procedures Procedure Date / Time Performing Clinician Source Performed POCT GLUCOSE (AUTOMATED) 2022-06-30 11:18:00 Tashi Cuevas [facility] CBC WITH DIFF 2022-06-30 09:45:00 Jasmin Murphy [facility] VENOUS CORD GAS 2022-06-29 14:00:00 Martha Ochoa [facility] POCT GLUCOSE (AUTOMATED) 2022-06-29 12:18:00 Tashi Cuevas [facility] POCT GLUCOSE (AUTOMATED) 2022-06-29 07:49:00 [facility] 2022-06-29 07:28:51 Johnathan De Los Santos [facility] POCT GLUCOSE (AUTOMATED) 2022-06-29 06:00:00 [facility] ([facility]OMATED) 2022-06-29 03:42:00 Mason [facility] POCT GLUCOSE (AUTOMATED) 2022-06-29 00:55:00 Mason [facility] POCT GLUCOSE (AUTOMATED) 2022-06-28 20:28:00 Mason [facility] POCT GLUCOSE (AUTOMATED) 2022-06-28 16:55:00 Mason [facility] CBC WITH DIFF 2022-06-28 15:02:00 [facility]FACE 2022-06-28 15:02:00 Gabriela [facility] ANTIGEN [facility] HIV 1/2 AG-AB WITH REFLEX 2022-06-28 15:02:00 [facility] GALV ONLY - SYPHILIS 2022-06-28 15:02[facility] HB ABO GROUPING 2022-06-28 15:01:00 [facility] RHO (D) IMMUNE GLOBULIN 2022-06-28 15:01:00 Jasmin Murphy [facility] DIABETES TESTING REPORTS 2022-06-26 05:01:00 Doctor Unassigned, [facility] [place] [facility] POCT URINALYSIS 2022-06-25 19:04:[address] [facility] POCT URINALYSIS 2022-06-20 00:00:[address] [facility] NON-STRESS TEST 2022-06-18 15:39:34 Michelle Heaton [facility] POCT URINALYSIS 2022-06-18 14:49:[address] [facility] DIABETES TESTING REPORTS 2022-06-18 05:01:00 Doctor Unassigned, [facility] NON-STRESS TEST 2022-06-14 15:18:57 Michelle Heaton [facility] POCT URINALYSIS 2022-06-14 14:17:[address] [facility] DIABETES TESTING REPORTS 2022-06-14 05:01:00 Doctor Unassigned, [facility] NON-STRESS TEST 2022-06-10 18:54:08 Michelle Heaton [facility] POCT URINALYSIS 2022-06-10 18:01:[address] [facility] DIABETES TESTING REPORTS 2022-06-10 05:01:00 Doctor Tanishassigned, [facility] ULTRASOUND REPEAT 2022-04-11 00:00:00 [facility] non-stress test 2022-03-14 00:00:[facility] ULTRASOUND, 2022-01-17 00:00:00 Archana Yenifer UTERUS REAL TIME WITH Group IMAGE DOC, AND MATERNAL EVAL PLUS DETAILED ANATOMIC EXAMINATION, TRANSABDOMINAL APPROACH; SINGLE OR FIRST GESTATION US, obstetric, limited 2022-01-17 00:00:00 [facility] US, obstetric, limited 2021-12-20 00:00:00 [facility] US, obstetric, limited 2021-11-28 00:00:00 [facility] Plan of Care Planned Activity Planned Date Details Comments Source Diagnostic Test 2022-04-11 urinalysis, [facility] 00:00:00 dipstick [code = Group urinalysis, dipstick] Diagnostic Test 2022-04-11 CBC w/ auto diff [facility] Pending 00:00:00 [code = CBC w/ auto Group diff] Diagnostic Test 2022-04-11 HIV (1+2) Ab [facility] 00:00:00 screen, serum [code Group = HIV (1+2) Ab screen, serum] Diagnostic Test 2022-04-11 glucose tolerance [facility] Pending 00:00:00 test, 1-hour [code Group = glucose tolerance test, 1-hour] Diagnostic Test 2022-04-11 RPR (rapid plasma [facility] Pending 00:00:00 reagin), serum Group [code = RPR (rapid plasma reagin), serum] Diagnostic Test 2022-04-11 Blood group [facility] 00:00:00 antibody screen Group [Presence] in Serum or Plasma [code = 890-4] Diagnostic Test 2022-04-11 culture, urine [facility] Pending 00:00:00 [code = culture, Group urine] Encounters Start End Encounter Admission Attending Care Care Encounter Source Date/Time Date/Time Type Type Clinicians Facility Department ID 2022-09-02 2022-09-02 Outpatient R [facility] [id number] Univers 09:00:00 09:00:00 ity [facility] 2022-08-31 2022-08-31 [id number] Univers 10:15:00 10:15:00 [facility]22-[facility]-12 2022-08-12 Outpatient Job HEATON [facility] [id number] Univers 08:30:00 08:30:00 MICHELLE waite o [facility] 2022-07-22 2022-07-22 [facility] [id number] Univers 11:00:00 11:15:06 ROBERNDA itolivia o f [facility] 2022-07-22 2022-07-22 [facility] [id number] Univers 11:00:00 11:15:06 Michelle Kaiser [employer] [id number] ity of [facility] [id number] Nakul as MATERNAL [id number] Med ical & CHILD [address] [place] [address] 2022-06-28 2022-06-30 Inpatient P [facility] [id number] Univers 08:37:00 15:21:00 TASHI ity of [facility] 2022-06-28 2022-06-30 Hospital GRECIA Cuevas [id number] Univers 08:37:00 15:21:00 Encounter Tashi Hoffmann ANDREW [id number] ity of HOSPITAL [id number] Nakul as [id number] [facility] [address] 2022-06-29 2022-06-29 Anesthesia Filiberto Alejenna PAIGE [id number] Univers 02:15:00 11:09:00 Event Yehuda Segura ANDREW [id number] ity of HOSPITAL [id number] Nakul as [id number] [facility] [address] 2022-06-26 2022-06-26 Orders Doctor GRECIA 1.2.840.114 [id number] Univers 00:00:00 00:00:00 Only Unassigned, ANDREW 350.1.13.10 ity of [place] [employer] [facility] [facility] 4.2.7.2.686 Nakul as [phone] [facility] [address] 2022-06-25 2022-06-25 Routine Florina TNLYUDMILA 1.2.840.114 [id number] Univers 14:00:00 14:15:00 Annaleea R SOLAR MANUFACTURER'S REPRESENTATIVE 350.1.13.10 ity of Visit [facility] 4.2.7.2.686 Nakul as MATERNAL [phone] [facility] ical & CHILD [address] [place] [address] 2022-06-25 2022-06-25 Outpatient Job HEATON [facility] [id number] Univers 14:00:00 14:00:00 ROSHUNDA itolivia o f [facility] 2022-06-21 2022-06-21 Outpatient R FLORINA [facility] [id number] Univers 10:30:00 10:30:00 ROSHUNDA ity o f [facility] 2022-06-20 2022-06-20 Outpatient R SANJUANITA [facility] [id number] Univers 10:15:00 10:33:41 AILIN ity [facility] 2022-06-20 2022-06-20 Routine Risk, Skv-Uxhoe-Wv/High [facility] 1. 2.840.114 [id number] Univers 10:15:00 10:33:41 Ailin Gann SOLAR MANUFACTURER'S REPRESENTATIVE 350.1.13.10 ity of Visit [facility] 4.2.7.2.686 Nakul as MATERNAL [id number] [facility] [address] [place] [address] 2022-06-18 2022-06-18 Routine [facility] 1.2.840.114 [id number] Univers 10:30:00 10:45:00 Roshunda R SOLAR MANUFACTURER'S REPRESENTATIVE 350.1.13.10 ity of Visit [facility] 4.2.7.2.686 Nakul as MATERNAL [id number] [facility] & [address] 2022-06-18 2022-06-18 [facility] [id number] Univers 10:15:00 10:15:00 MICHELLE waite o f [facility] 2022-06-18 2022-06-18 Orders Doctor PAIGE 1.2.840.114 [id number] Univers 00:00:00 00:00:00 Only Unassigned, ANDREW 350.1.13.10 ity of [place] [employer] [facility] 4.2.7.2.686 Nakul as [phone] [address] 2022-06-14 2022-06-14 Outpatient [facility] [id number] Univers 09:30:00 09:51:04 ROSGIOVANYNDGerson waite o f [facility] 2022-06-14 2022-06-14 Routine [facility] 1.2.840.114 [id number] Univers 09:30:00 09:51:04 Roshunda R SOLAR MANUFACTURER'S REPRESENTATIVE 350.1.13.10 ity of Visit [facility] 4.2.7.2.686 Nakul as MATERNAL [id number] [facility] & CHILD [address] [place] [address] 2022-06-14 2022-06-14 Outpatient [facility] [id number] Univers 09:00:00 09:00:00 ROSCLIFFA mariann o f [facility] 2022-06-14 2022-06-14 Orders Doctor GRECIA 1.2.840.114 [id number] Univers 00:00:00 00:00:00 Only Unassigned, ANDREW 350.1.13.10 ity of [place] [employer] [facility] 4.2.7.2.686 Nakul as [phone] [address] 2022-06-13 2022-06-13 Outpatient R FLORINA [facility] [id number] Univers 15:15:00 15:15:00 ROSHUNDA ity o [facility] 2022-06-13 2022-06-13 [facility] [id number] Univers 14:45:00 14:45:00 ROSHUNDA ity o [facility] 2022-06-13 2022-06-13 Outpatient R [facility] [id number] Univers 09:00:00 09:00:00 ity of [facility] 2022-06-10 2022-06-10 Outpatient Job HEATON [facility] [id number] Univers 15:45:00 15:45:00 ROSHUNDA ity o [facility] 2022-06-10 2022-06-10 [facility] 1.2.840.114 [id number] Univers 15:45:00 15:45:00 Roshunda R SOLAR MANUFACTURER'S REPRESENTATIVE 350.1.13.10 ity of Visit [facility] 4.2.7.2.686 Nakul as MATERNAL [id number] [facility] [address] [place] [address] 2022-06-10 2022-06-10 Outpatient R FLORINA [facility] [id number] Univers 15:15:00 15:15:00 ROSHUNDA ity o [facility] 2022-06-10 2022-06-10 Outpatient R FLORINA [facility] [id number] Univers 15:45:00 14:25:10 ROSHUNDA ity o [facility] 2022-06-10 2022-06-10 Telephone Florina TNLYUDMILA 1.2.286.243 [id number] Univers 00:00:00 00:00:00 Roshunda R SOLAR MANUFACTURER'S REPRESENTATIVE 350.1.13.10 ity of REGIONAL 4.2.7.2.686 Nakul as MATERNAL [phone] [facility] & CHILD [address] [place] [address] 2022-06-10 2022-06-10 Orders Doctor GRECIA 1.2.840.114 [id number] Univers 00:00:00 00:00:00 Only Unassigned, ANDREW 350.1.13.10 ity of [place] [employer] 4.2.7.2.686 Nakul as [id number] [address] 2022-06-07 2022-06-07 Telephone [facility] 1.2.011.997 [id number] Univers 00:00:00 00:00:00 Roshunda R SOLAR MANUFACTURER'S REPRESENTATIVE 350.1.13.10 ity of [facility] 4.2.7.2.686 Nakul as MATERNAL [id number] [address] 2022-06-06 2022-06-06 [facility] [id number] Univers 15:30:00 16:25:59 ROSHUNDA ity o f [facility] 2022-06-06 2022-06-06 Routine [facility] 1.2.840.114 [id number] Univers 15:30:00 16:25:59 Roshunda R SOLAR MANUFACTURER'S REPRESENTATIVE 350.1.13.10 ity of Visit [facility] 4.2.7.2.686 Nakul as MATERNAL [id number] [address] 2022-06-06 2022-06-06 [facility] [id number] Univers 15:30:00 15:30:00 ROSHUNDA ity o f [facility] 2022-06-04 2022-06-04 Abstract [facility] 1.2.840.114 [id number] Univers 00:00:00 00:00:00 Roshunda R SOLAR MANUFACTURER'S REPRESENTATIVE 350.1.13.10 ity of [facility] 4.2.7.2.686 Nakul as MATERNAL [id number] [address] 2022-06-04 2022-06-04 Telephone [facility] 1.2.840.114 [id number] Univers 00:00:00 00:00:00 Ivone C SOLAR MANUFACTURER'S REPRESENTATIVE 350.1.13.10 ity of REGIONAL 4.2.7.2.686 Nakul as MATERNAL [id number] [facility] & [address] 2022-06-03 2022-06-03 Outpatient [facility] [id number] Univers 10:00:00 10:00:00 ROSNDA mariann o [facility] 2022-05-31 2022-05-31 [facility] 1.2.608.984 [id number] Univers 14:00:00 14:33:25 Ivone C SOLAR MANUFACTURER'S REPRESENTATIVE 350.1.13.10 ity of Visit REGIONAL 4.2.7.2.686 Nakul as MATERNAL [id number] [facility] & [address] 2022-05-31 2022-05-31 Outpatient R AKINGEORGEPE, [facility] [id number] Univers 14:00:00 14:00:00 IVONE waite o [facility] 2022-05-31 2022-05-31 Outpatient R AKINSIPE, [facility] [id number] Univers 14:00:00 14:00:00 IVONE waite o [facility] 2022-05-31 2022-05-31 Injection Machine Operator Ultrasound, [facility] 1.2 .840.114 [id number] Univers 10:00:00 11:00:00 Visit Latonya Townsend SOLAR MANUFACTURER'S REPRESENTATIVE 350.1. 13.10 ity of [place]ION[place] 4.2.7.2.686 Nakul as MATERNAL [id number] [facility] & CHILD [address] [place] [address] 2022-05-31 2022-05-31 Outpatient P KRISTIAN [facility] [id number] Univers 10:00:00 10:47:14 LATONYA y [facility] 2022-05-31 2022-05-31 Outpatient P [facility] [id number] Univers 10:00:00 10:00:00 ity [facility] 2022-05-30 2022-05-30 [facility]icitas [facility] 1.2.725.131 [id number] Univers 00:00:00 00:00:00 Roshunda R SOLAR MANUFACTURER'S REPRESENTATIVE 350.1.13.10 ity of [facility] 4.2.7.2.686 Nakul as MATERNAL [id number] [facility] & CHILD [address] [place] [address] 2022-05-29 2022-05-29 [facility] 1.2.840.114 [id number] Univers 09:15:00 11:35:26 Roshunda R SOLAR MANUFACTURER'S REPRESENTATIVE 350.1.13.10 ity of Visit [facility] 4.2.7.2.686 Nakul as MATERNAL [id number] [address] 2022-05-29 2022-05-29 Outpatient Job HEATON [facility] [id number] Univers 09:15:00 11:35:26 [facility] 2022-05-29 2022-05-29 Outpatient Job HEATON [facility] [id number] Univers 09:15:00 11:35:26 [facility] wilnery o [facility] 2022-05-29 2022-05-29 Outpatient Job GÓMEZE [facility] [id number] Univers 08:45:00 09:11:38 [facility] 2022-05-29 2022-05-29 Orders Doctor GRECIA 1.2.840.114 [id number] Univers 00:00:00 00:00:00 Only Unassigned, ANDREW 350.1.13.10 ity of [place] [employer] 4.2.7.2.686 Nakul as [id number] [address] 2022-05-03 2022-05-03 Outpatient White_M MMG [facility] [id number] [place] 12:15:00 12:15:00 0708 [facility] 2022-04-11 2022-04-11 [place] [id number] 022 [place] 09:52:00 09:52:00 0616 [facility] 2022-04-11 2022-04-11 Outpatient White_M MMG [facility] [id number] [place] 09:52:00 09:52:00 0617 [facility] 2022-04-11 2022-04-11 Selvin MMG [place] - [id number] M atagor 00:00:00 00:00:00 Discovery elizabeth Castro MD: [address] [place] [address] , Ph. [phone] 2022-03-14 2022-03-14 Outpatient White_M MMG MMG [id number] [place] 09:03:00 09:03:00 0520 [facility] 2022-03-14 2022-03-14 Outpatient White_M MMG MMG [id number] [place] 09:03:00 09:03:00 0523 [facility] 2022-03-14 2022-03-14 Outpatient White_M MMG MMG [id number] [place] 09:03:00 09:03:00 0614 [facility] 2022-03-14 2022-03-14 Outpatient White_M MMG MMG [id number] [place] 01:59:00 01:59:00 0519 [facility] 2022-03-14 2022-03-14 Selvin MMG [place] - [id number] M at[place]or 00:00:00 00:00:00 Discovery elizabeth Castro MD: [address] [place] [address] , Ph. [phone] 2022-03-08 2022-03-08 Outpatient White_M MMG MMG [id number] 022 [place] 02:30:00 02:30:00 0513 [facility] 2022-02-14 2022-02-14 Outpatient White_M MMG MMG [id number] 022 [place] 02:45:00 02:45:00 0421 [facility] 2022-02-14 2022-02-14 Ladan TRANG [place] - [id number] M at[place]or 00:00:00 00:00:00 Discovery elizabeth Schwartz [facility]-: [address] [address] , Ph. [phone] 2022-02-08 2022-02-08 [place] [id number] 022 [place] 06:47:00 06:47:00 0415 [facility] 2022-02-05 2022-02-05 Outpatient White_M MMG MMG [id number] 022 [place] 03:19:00 03:19:00 0412 [facility] 2022-02-05 2022-02-05 Ladan [facility] [place] - [id number] M atagor 00:00:00 00:00:00 Discovery elizabeth Schwartz [facility]: [address] [address] , Ph. [phone] 2022-02-04 2022-02-04 Outpatient White_M MMG MMG [id number] [place] 04:14:00 04:14:00 0411 [facility] 2022-01-17 2022-01-17 [place] [id number] 022 [place] 02:24:00 02:24:00 0324 [facility] 2022-01-17 2022-01-17 Selvin [facility] [place] - [id number] M atagor 00:00:00 00:00:00 Discovery elizabeth Castro MD: [address] [place] [address] , Ph. [phone] 2022-01-14 2022-01-14 [place] [id number] 022 [place] 11:46:00 11:46:00 0321 [facility] 2021-12-20 2021-12-20 [place] [id number] [place] 02:39:00 02:39:00 0224 [facility] 2021-12-20 2021-12-20 Selvin TRAN [place] - [id number] M at[place]or 00:00:00 00:00:00 Discovery elizabeth Castro MD: [address] [place] [address] , Ph. [phone] 2021-12-14 2021-12-14 Outpatient White_M MMG MMG [id number] [place] 01:45:00 01:45:00 0218 Medical Group 2021-11-28 2021-11-28 Outpatient White_M MMG MMG [id number] 022 [place] 03:09:00 03:09:00 0202 [facility] Group 2021-11-28 2021-11-28 Ladan MMG [place] - [id number] M at[place]or 00:00:00 00:00:00 Discovery Efren da [facility]: [address], [place] [address] , Ph. [phone] 2021-11-27 2021-11-27 Outpatient White_M MMG MMG [id number] [place] 02:12:00 02:12:00 0201 [facility] 2021-11-26 2021-11-26 Outpatient White_M MMG MMG [id number] 022 [place] 11:08:00 11:08:00 0131 [facility] 2018-02-10 2018-02-10 Ambulatory nullFlavo MG engineering programmer 4 [id number] Memoria 20:30:00 20:30:00 Pre-Reg r [facility] 2018-02-10 2018-02-10 Ambulatory nullFlavo MHMG engineering programmer 4 [id number] Memoria 20:30:00 20:30:00 Pre-Reg r [facility] 2018-02-10 2018-02-10 Ambulatory nullFlavo [facility]MG engineering programmer 4 [id number] Memoria 20:00:00 20:00:00 Pre-Reg r [facility] 2018-02-10 2018-02-10 Ambulatory nullFlavo [facility] engineering programmer 4 [id number] Memoria 20:00:00 20:00:00 Pre-Reg r [facility] 2018-02-10 2018-02-10 Outpatient VISIT, [facility] [id number] 15:30:00 15:30:00 NURSE SCO 01 RN [facility] GR[facility] 2018-02-10 2018-02-10 Outpatient Sheldon, [facility] [id number] 15:00:00 15:00:00 Archana Rider 2018-01-20 2018-01-23 Inpatient [facility]Flavo [facility] [id number] Memoria 16:54:00 17:24:00 r Tulio 01 l [facility] 2018-01-20 2018-01-23 Inpatient nullFlavo [facility] [id number] Memoria 16:54:00 17:24:00 r Tulio 01 l [facility] 2018-01-20 2018-01-23 Outpatient Ilya, [facility] [id number] 11:54:00 12:24:00 Scarlet 2018-01-04 2018-01-04 Emergency nullFlavo [facility] [id number] Memoria 19:10:00 23:59:00 r Tulio 00 l [facility] 2018-01-04 2018-01-04 Emergency nullFlavo [facility] [id number] Memoria 19:10:00 23:59:00 r Tulio 00 l [facility] 2018-01-04 2018-01-04 Outpatient Misael, [facility] [id number] 14:10:00 18:59:00 Cahse Paige 00 Results Test Description Test Time Test Comments Results Result Comments Source CBC with Differential 2022-06-30 11:42:46 Test Item Value Reference Range Interpretation Comme nts WBC (test code = 6690-2) See_Comment H [A utomated message] The system which [email or web address] nerated this result transmit abdoul reference range: 4.30 - 1 1.10 10*3/?L. The reference r kary was not used to interpr et this result as normal/abnor mal. RBC (test code = 789-8) See_Comment L [Au tomated message] The system which [email or web address] nerated this result transmit abdoul reference range: 3.93 - 5 .25 10*6/?L. The reference r kary was not used to interpr et this result as normal/abnor mal. HGB (test code = 718-7) 7.2 g/dL 11.6-15 L HCT (test code = 4544-3) 21.7 % 35.7-45.2 L MCV (test code = 787-2) 86.5 fL 80.6-95.5 MCH (test code = 785-6) 28.7 pg 25.9-32.8 MCHC (test code = 786-4) 33.2 g/dL 31.6-35.1 RDW-SD (test code = 19591-8) 43.2 fL 39-49.9 RDW-CV (test code = 788-0) 13.8 % 12-15.5 PLT (test code = 777-3) See_Comment [Au tomated message] The system which ge nerated this result transmit abdoul reference range: 166 - 35 8 10*3/?L. The reference range was not used to interpret th is result as normal/abnormal . MPV (test code = 66557-5) 12.1 fL 9.5-12.9 NRBC/100 WBC (test code = See_Comment [ Automated message] The 0082481409) system which ge nerated this result transmit abdoul reference range: 0.0 - 10 .0 /100 WBCs. The reference r kary was not used to interpr et this result as normal/abnor mal. NRBC x10^3 (test code = See_Comment [Au tomated message] The 4301219661) system which ge nerated this result transmit abdoul reference range: 10*3/?L. The reference range was not u sed to interpret this result as normal/abnormal . GRAN MAT (NEUT) % (test code 69.5 % = 770-8) IMM GRAN % (test code = 0.50 % 5968626344) LYMPH % (test code = 736-9) 22.8 % MONO % (test code = 5905-5) 5.9 % EOS % (test code = 713-8) 1.0 % BASO % (test code = 706-2) 0.3 % GRAN MAT x10^3(ANC) (test 8.61 10*3/uL 1.88-7.09 H code = 8264022516) IMM GRAN x10^3 (test code = 0.06 10*3/uL 0-0.06 5440818596) LYMPH x10^3 (test code = 2.83 10*3/uL 1.32-3.29 731-0) MONO x10^3 (test code = 0.73 10*3/uL 0.33-0.92 742-7) EOS x10^3 (test code = 0.12 10*3/uL 0.03-0.39 711-2) BASO x10^3 (test code = 0.04 10*3/uL 0.01-0.07 704-7) Lab Interpretation (test Abnormal code = 21920-4) [facility]2022-06-30 11:19:29 Test Item Value Reference Range Interpretation Comments POCT GLU (test code = 0889402692) 80 mg/dL 70-110 Lab Interpretation (test code = Normal 18096-8) [facility]D) IMMUNE [id number] 17:37:49 Test Item Value Reference Range Interpretation Comments RHIG CANDIDATE? No- see comment Patient i s not a (test code = candidate for R hIg- 5055) Patient is Rh Positive.Perfor med at [facility] Laboratory Services - [facility] Blood [address] [address]Piop Free: [phone] A No. [id number] [facility] ONLY - SYPHILIS [id number] 15:57:19 Test Item Value Reference Range Interpretation Comments Syphilis IgG/IgM (test Non-reactive Non-reactive code = 40061-0) YAYA (test code = YAYA) Non-reactive - No serologic evidence of T. pallidum infection. Cannot exclude incubating or early syphilis. Submit a second specimen in 2-4 weeks if syphilis is clinically suspected. Equivocal - Further testing to follow. Reactive - Further testing to follow. Lab Interpretation (test Normal code = 94141-4) [facility]ORD [id number] 14:30:40 Test Item Value Reference Range Interpretation Comments VENOUS BASE EXCESS, mEq/L CORD (test code = 2425441220) VENOUS PH, CORD (test 7.25-7.45 code = 0237204875) VENOUS PC02, CORD See_Comment [Automate d message] The (test code = system which ge nerated 8777920577) this result tra nsmitted reference range : 27 - 49 mmHg. The refer ence range was not used to interpret this result as normal/abnormal . VENOUS PO2, CORD (test See_Comment [Aut omated message] The code = 7802477748) system [facility] generated this result tra nsmitted reference range : 17 - 41 mmHg. The refer ence range was not used to interpret this result as normal/abnormal . VENOUS BICARBONATE, See_Comment [Automa abdoul message] The CORD (test code = system whi ch generated 8736101147) this result tra nsmitted reference range : 12 - 29 mEq/L. The refe rence range was not used to interpret this result as normal/abnormal . [facility] CORD [id number] 14:30:10 Test Item Value Reference Range Interpretation Comments BASE EXCESS, CORD mEq/L (test code = 6923787271) AC PH, CORD (BEAKER) 7.18-7.38 (test code = 2847303617) PC02, CORD (test code See_Comment [Auto mated message] The = 6469151712) system which g enerated this result transmit abdoul reference range : 32 - 66 mmHg. The refer ence range was not used to interpret this result as normal/abnormal . PO2, CORD (test code See_Comment [Autom ated message] The = 7332887043) system which g enerated this result transmit abdoul reference range : 10 - 30 mmHg. The refer ence range was not used to interpret this result as normal/abnormal . BICARBONATE, CORD See_Comment [Automate d message] The (test code = system which ge nerated this 0005699161) result transmit abdoul reference range : 17 - 27 mEq/L. The refe rence range was not used to interpret this result as normal/abnormal . [facility] GLUCOSE (AUTOMATED)2022-06-29 12:19:17 Test Item Value Reference Range Interpretation Comments POCT GLU (test code = 3752278701) 108 mg/dL 70-110 Lab Interpretation (test code = Normal 27653-9) [facility] GLUCOSE (AUTOMATED)2022-06-29 07:50:08 Test Item Value Reference Range Interpretation Comments POCT GLU (test code = 1995289617) 106 mg/dL 70-110 Lab Interpretation (test code = Normal 96850-5) [facility] GLUCOSE (AUTOMATED)2022-06-29 06:01:55 Test Item Value Reference Range Interpretation Comments POCT GLU (test code = 7192236734) 89 mg/dL 70-110 Lab Interpretation (test code = Normal 43149-3) [facility] GLUCOSE (AUTOMATED)2022-06-29 03:42:54 Test Item Value Reference Range Interpretation Comments POCT GLU (test code = 8665568110) 85 mg/dL 70-110 Lab Interpretation (test code = Normal 74813-3) [facility] GLUCOSE (AUTOMATED)2022-06-29 00:56:49 Test Item Value Reference Range Interpretation Comments POCT GLU (test code = 9322525192) 78 mg/dL 70-110 Lab Interpretation (test code = Normal 13304-2) [facility] GLUCOSE (AUTOMATED)2022-06-28 20:29:37 Test Item Value Reference Range Interpretation Comments POCT GLU (test code = 2382031933) 88 mg/dL 70-110 Lab Interpretation (test code = Normal 48745-3) [facility]HIV [facility]/2 AG-AB WITH [id number] 19:39:07 Test Item Value Reference Range Interpretation Comments HIV Negative Negative Semi-quantitative (test code = 65259-9) YAYA (test code = Non-reactive for HIV-1 YAYA) antigen and HIV-1/HIV-2 antibodies. ?No laboratory evidence of HIV infection. ?Repeat in 2-4 weeks if acute HIV infection is suspected. [facility] GLUCOSE (AUTOMATED)2022-06-28 16:56:56 Test Item Value Reference Range Interpretation Comments POCT GLU (test code = 1606188438) 84 mg/dL 70-110 Lab Interpretation (test code = Normal 94976-5) [facility] DistrictHepatitis B Surface [id number] 16:36:03 Test Item Value Reference Range Interpretation Comments HBsAg Semi-Quantitative (test code = Negative Negative 5195-3) [facility] DistrictType and Screen - ONCE [id number] 16:07:16 Test Item Value Reference Range Interpretation Comments ABO & RH (test code O POSITIVE Performe d at [facility] = 20) Laboratory Serv [facility] Blood [facility] [place] [address]Lwnl Free: [phone] A No. [id number] IAT (test code = Negative Performed a t [facility] 1185) Laboratory Serv [facility] [address] [place], [place] [address]Valencia rudolph [id number] Free: [phone] A No. [id number] [facility] with [id number] 15:43:14 Test Item Value Reference Range Interpretation Comments WBC (test code = See_Comment [Automated 6690-2) message] The sy stem which generated this result transmitted reference range : 4.30 - 11.10 10*3/?L. The reference range was not used to interpret this result as normal/abnormal . RBC (test code = See_Comment L [Automated 789-8) message] The sy stem which generated this result transmitted reference range : 3.93 - 5.25 10*6/?L. The reference range was not used to interpret this result as normal/abnormal . HGB (test code = 10.2 g/dL 11.6-15 L 718-7) HCT (test code = 30.7 % 35.7-45.2 L 4544-3) MCV (test code = 86.2 fL 80.6-95.5 787-2) MCH (test code = 28.7 pg 25.9-32.8 785-6) MCHC (test code = 33.2 g/dL 31.6-35.1 786-4) RDW-SD (test code = 42.5 fL 39-49.9 42949-8) RDW-CV (test code = 13.4 % 12-15.5 788-0) PLT (test code = See_Comment [Automated 777-3) message] The sy stem which generated this result transmitted reference range : 166 - 358 10*3/ ?L. The reference r kary was not used to interpret this result as normal/abnormal . MPV (test code = 12.3 fL 9.5-12.9 89442-6) NRBC/100 WBC (test See_Comment [Automat ed code = [id number]) message] The system which generated this result transmitted reference range : 0.0 - 10.0 /100 WBCs. The refer ence range was not u sed to interpret th is result as normal/abnormal . NRBC x10^3 (test code See_Comment [Auto mated = [id number]) message] The s ystem which generated this result transmitted reference range : 10*3/?L. The reference range was not used to interpret this result as normal/abnormal . GRAN MAT (NEUT) % 56.8 % (test code = 770-8) IMM GRAN % (test code 1.10 % = [id number]) LYMPH % (test code = 33.5 % 736-9) MONO % (test code = 7.5 % 5905-5) EOS % (test code = 0.8 % 713-8) BASO % (test code = 0.3 % 706-2) GRAN MAT x10^3(ANC) 3.73 10*3/uL 1.88-7.09 (test code = 0024499909) IMM GRAN x10^3 (test 0.07 10*3/uL 0-0.06 H code = [id number]) LYMPH x10^3 (test code 2.20 10*3/uL 1.32-3.29 = 731-0) MONO x10^3 (test code 0.49 10*3/uL 0.33-0.92 = 742-7) EOS x10^3 (test code = 0.05 10*3/uL 0.03-0.39 711-2) BASO x10^3 (test code 0.01-0.07 = 704-7) Lab Interpretation Abnormal (test code = 09087-2) [facility] URINALYSIS W SPECIFIC [id number] 19:04:00 Test Item Value Reference Range Interpretation Comments POCT U SP GRAV (test code = * 1.005-1.025 3255) POCT PH U (test code = 3254) * 5-8 POCT U LEUK EST (test code = * Negative - Negative 3263) POCT U NIT (test code = 3262) * Negative - Negative POCT U PROT (test code = 3259) 1+ Negative - Negative POCT U GLU (test code = 3256) negative Negative - Negative POCT U KETONE (test code = 3258) * Negative - Negative POCT U UROBILI (test code = * 0.2-1 3260) POCT U BILI (test code = 3261) * Negative - Negative POCT U BLD (test code = 3257) * Negative - Negative POCT U COLOR (test code = 3266) POCT U APPEAR (test code = 3267) [facility] URINALYSIS W SPECIFIC [id number] 15:26:00 Test Item Value Reference Range Interpretation Comments POCT U SP GRAV (test code = . 1.005-1.025 3255) POCT PH U (test code = 3254) 6 mg/dl 5-8 POCT U LEUK EST (test code = ++ Negative - Negative 3263) POCT U NIT (test code = 3262) negative Negative - Negative POCT U PROT (test code = 3259) trace Negative - Negative POCT U GLU (test code = 3256) negative Negative - Negative POCT U KETONE (test code = 3258) negative Negative - Negative POCT U UROBILI (test code = negative 0.2-1 3260) POCT U BILI (test code = 3261) negative Negative - Negative POCT U BLD (test code = 3257) negative Negative - Negative POCT U COLOR (test code = 3266) yellow POCT U APPEAR (test code = 3267) [facility] URINALYSIS W SPECIFIC [id number] 14:49:00 Test Item Value Reference Range Interpretation Comments POCT U SP GRAV (test code = * 1.005-1.025 3255) POCT PH U (test code = 3254) * 5-8 POCT U LEUK EST (test code = * Negative - Negative 3) POCT U NIT (test code = 3262) * Negative - Negative POCT U PROT (test code = 3259) trace Negative - Negative POCT U GLU (test code = 3256) negative Negative - Negative POCT U KETONE (test code = 3258) * Negative - Negative POCT U UROBILI (test code = * 0.2-1 3260) POCT U BILI (test code = 3261) * Negative - Negative POCT U BLD (test code = 3257) * Negative - Negative POCT U COLOR (test code = 3266) POCT U APPEAR (test code = 3267) [facility] URINALYSIS W SPECIFIC [id number] 14:18:00 Test Item Value Reference Range Interpretation Comments POCT U SP GRAV (test code = * 1.005-1.025 3255) POCT PH U (test code = 3254) * 5-8 POCT U LEUK EST (test code = Negative - Negative 3263) POCT U NIT (test code = 3262) * Negative - Negative POCT U PROT (test code = 3259) trace Negative - Negative POCT U GLU (test code = 3256) negative Negative - Negative POCT U KETONE (test code = 3258) * Negative - Negative POCT U UROBILI (test code = * 0.2-1 3260) POCT U BILI (test code = 3261) * Negative - Negative POCT U BLD (test code = 3257) * Negative - Negative POCT U COLOR (test code = 3266) * POCT U APPEAR (test code = 3267) * [facility] [id number] 18:01:00 Test Item Value Reference Range Interpretation Comments POCT U SP GRAV (test code = * 1.005-1.025 3255) POCT PH U (test code = 3254) * 5-8 POCT U LEUK EST (test code = * Negative - Negative 3263) POCT U NIT (test code = 3262) * Negative - Negative POCT U PROT (test code = 3259) Negative - Negative POCT U GLU (test code = 3256) negative Negative - Negative POCT U KETONE (test code = 3258) * Negative - Negative POCT U UROBILI (test code = * 0.2-1 3260) POCT U BILI (test code = 3261) * Negative - Negative POCT U BLD (test code = 3257) * Negative - Negative POCT U COLOR (test code = 3266) * POCT U APPEAR (test code = 3267) * [facility] [Mass/volume] in Serum or Plasma --1 hour post dose [id number] 11:26:00 Test Item Value Reference Range Interpretation Comments Results (test code = Results) 143 [facility] GroupUrinalysis macro (dipstick) panel - [id number] 09:45:40 Test Item Value Reference Range Interpretation Comments Leukocytes (test code = Large Leukocytes) Nitrite (test code = Nitrite) negative Urobilinogen (test code = 1 Urobilinogen) Protein (test code = Protein) Trace pH (test code = pH) 6.0 Blood (test code = Blood) Moderate Specific [place] (test code = 1.025 Specific [place]) Ketone (test code = Ketone) Large (80) Bilirubin (test code = Bilirubin) Small Glucose (test code = Glucose) Negative Appearance (test code = Clear Appearance) Color (test code = Color) Yellow [place] [facility] GroupMicroscopic observation [Identifier] in Vaginal fluid by Wet [id number] 14:21:09 Test Item Value Reference Range Interpretation Comments Clue Cells (test code = Clue Cells) positive WBCs (test code = WBCs) negative Trichomonads (test code = negative Trichomonads) Epithelial cells (test code = abnormal Epithelial cells) RBCs (test code = RBCs) negative [place] [facility] GroupMicroscopic observation [Identifier] in Vaginal fluid by Wet [id number] 14:21:09 Test Item Value Reference Range Interpretation Comments Clue Cells (test code = Clue Cells) positive WBCs (test code = WBCs) negative Trichomonads (test code = negative Trichomonads) Epithelial cells (test code = abnormal Epithelial cells) RBCs (test code = RBCs) negative [place] [facility] GroupUrinalysis macro (dipstick) panel - [id number] 13:32:42 Test Item Value Reference Range Interpretation Comments Leukocytes (test code = Leukocytes) Small Nitrite (test code = Nitrite) negative Urobilinogen (test code = 1 Urobilinogen) Protein (test code = Protein) 30 pH (test code = pH) 7.5 Blood (test code = Blood) Small Specific [place] (test code = 1.020 Specific [place]) Ketone (test code = Ketone) Trace Bilirubin (test code = Bilirubin) Small Glucose (test code = Glucose) Negative Appearance (test code = Appearance) Clear Color (test code = Color) Yellow [place] [facility] GroupUrinalysis macro (dipstick) panel - [id number] 13:32:42 Test Item Value Reference Range Interpretation Comments Leukocytes (test code = Leukocytes) Small Nitrite (test code = Nitrite) negative Urobilinogen (test code = 1 Urobilinogen) Protein (test code = Protein) 30 pH (test code = pH) 7.5 Blood (test code = Blood) Small Specific [place] (test code = 1.020 Specific [place]) Ketone (test code = Ketone) Trace Bilirubin (test code = Bilirubin) Small Glucose (test code = Glucose) Negative Appearance (test code = Appearance) Clear Color (test code = Color) Yellow [facility] macro (dipstick) panel - [id number] 14:19:38 Test Item Value Reference Range Interpretation Comments Leukocytes (test code = Small Leukocytes) Nitrite (test code = negative Nitrite) Urobilinogen (test code = .2 Urobilinogen) Protein (test code = Trace Protein) pH (test code = pH) 7.0 Blood (test code = Blood) Hemolyzed: Trace Specific [place] (test code 1.020 = Specific [place]) Ketone (test code = Ketone) Negative Bilirubin (test code = Negative Bilirubin) Glucose (test code = Negative Glucose) Appearance (test code = Clear Appearance) Color (test code = Color) Dark Yellow [facility]aks[facility]inalysis macro (dipstick) panel - [id number] 14:19:38 Test Item Value Reference Range Interpretation Comments Leukocytes (test code = Small Leukocytes) Nitrite (test code = negative Nitrite) Urobilinogen (test code = .2 Urobilinogen) Protein (test code = Trace Protein) pH (test code = pH) 7.0 Blood (test code = Blood) Hemolyzed: Trace Specific [place] (test code 1.020 = Specific [place]) Ketone (test code = Ketone) Negative Bilirubin (test code = Negative Bilirubin) Glucose (test code = Negative Glucose) Appearance (test code = Clear Appearance) Color (test code = Color) Dark Yellow [facility]CT + NG + TV, DNA, urine/[id number] 00:00:00 Test Item Value Reference Range Interpretation Comments lacy - swab (test code = lacy abnormal A - swab) gardnerella (test code = abnormal A gardnerella) CT/NG (test code = CT/NG) normal trichomonas vaginalis addon - swab abnormal A (test code = trichomonas vaginalis addon - swab) [facility]aks[facility]ysis macro (dipstick) panel - [id number] 15:47:23 Test Item Value Reference Range Interpretation Comments Leukocytes (test code = Leukocytes) Large Nitrite (test code = Nitrite) negative Urobilinogen (test code = .2 Urobilinogen) Protein (test code = Protein) Negative pH (test code = pH) 7.0 Blood (test code = Blood) Small Specific [place] (test code = 1.020 Specific [place]) Ketone (test code = Ketone) Negative Bilirubin (test code = Bilirubin) Negative Glucose (test code = Glucose) Negative Appearance (test code = Appearance) Clear Color (test code = Color) [facility] macro (dipstick) panel - [id number] 15:47:23 Test Item Value Reference Range Interpretation Comments Leukocytes (test code = Leukocytes) Large Nitrite (test code = Nitrite) negative Urobilinogen (test code = .2 Urobilinogen) Protein (test code = Protein) Negative pH (test code = pH) 7.0 Blood (test code = Blood) Small Specific [place] (test code = 1.020 Specific [place]) Ketone (test code = Ketone) Negative Bilirubin (test code = Bilirubin) Negative Glucose (test code = Glucose) Negative Appearance (test code = Appearance) Clear Color (test code = Color) Yellow [facility]aksUrinalysis macro (dipstick) panel - [id number] 13:54:05 Test Item Value Reference Range Interpretation Comments Leukocytes (test code = Small Leukocytes) Nitrite (test code = negative Nitrite) Urobilinogen (test code = 1 Urobilinogen) Protein (test code = Negative Protein) pH (test code = pH) 8.0 Blood (test code = Blood) Non-Hemolyzed: Trace Specific [place] (test 1.020 code = Specific [place]) Ketone (test code = Negative Ketone) Bilirubin (test code = Negative Bilirubin) Glucose (test code = Negative Glucose) Appearance (test code = Clear Appearance) Color (test code = Color) Yellow [facility] HealthUrinalysis macro (dipstick) panel - [id number] 13:54:05 Test Item Value Reference Range Interpretation Comments Leukocytes (test code = Small Leukocytes) Nitrite (test code = negative Nitrite) Urobilinogen (test code = 1 Urobilinogen) Protein (test code = Negative Protein) pH (test code = pH) 8.0 Blood (test code = Blood) Non-Hemolyzed: Trace Specific [place] (test 1.020 code = Specific [place]) Ketone (test code = Negative Ketone) Bilirubin (test code = Negative Bilirubin) Glucose (test code = Negative Glucose) Appearance (test code = Clear Appearance) Color (test code = Color) Yellow [facility]aksUrinalysis macro (dipstick) panel - [id number] 13:54:05 Test Item Value Reference Range Interpretation Comments Leukocytes (test code = Small Leukocytes) Nitrite (test code = negative Nitrite) Urobilinogen (test code = 1 Urobilinogen) Protein (test code = Negative Protein) pH (test code = pH) 8.0 Blood (test code = Blood) Non-Hemolyzed: Trace Specific [place] (test 1.020 code = Specific [place]) Ketone (test code = Negative Ketone) Bilirubin (test code = Negative Bilirubin) Glucose (test code = Negative Glucose) Appearance (test code = Clear Appearance) Color (test code = Color) Yellow [facility]aksUrinalysis macro (dipstick) panel - [id number] 14:16:13 Test Item Value Reference Range Interpretation Comments Leukocytes (test code = Small Leukocytes) Nitrite (test code = negative Nitrite) Urobilinogen (test code = .2 Urobilinogen) Protein (test code = Negative Protein) pH (test code = pH) 7.5 Blood (test code = Blood) Hemolyzed: Trace Specific [place] (test code 1.020 = Specific [place]) Ketone (test code = Ketone) Negative Bilirubin (test code = Negative Bilirubin) Glucose (test code = Negative Glucose) Appearance (test code = Clear Appearance) Color (test code = Color) Yellow [facility]aksUrinalysis macro (dipstick) panel - [id number] 14:16:13 Test Item Value Reference Range Interpretation Comments Leukocytes (test code = Small Leukocytes) Nitrite (test code = negative Nitrite) Urobilinogen (test code = .2 Urobilinogen) Protein (test code = Negative Protein) pH (test code = pH) 7.5 Blood (test code = Blood) Hemolyzed: Trace Specific [place] (test code 1.020 = Specific [place]) Ketone (test code = Ketone) Negative Bilirubin (test code = Negative Bilirubin) Glucose (test code = Negative Glucose) Appearance (test code = Clear Appearance) Color (test code = Color) Yellow [facility]aksChromosome 13+18+21+X+Y aneuploidy in Blood by Molecular genetics method [id number] 00:00:00 Test Item Value Reference Range Interpretation Comments report summary (test code see notes = report summary) report note (test code = see notes report note) trisomy 13 age-based risk 17,826 (0.01%) text (test code = trisomy 13 age-based risk text) trisomy 13 risk score text <1/10,000 (<0.01%) (test code = trisomy 13 risk score text) trisomy 13 result text low risk (test code = trisomy 13 result text) trisomy 18 age-based risk 1/2,484 (0.04%) text (test code = trisomy 18 age-based risk text) trisomy 18 risk score text <1/10,000 (<0.01%) (test code = trisomy 18 risk score text) trisomy 18 result text low risk (test code = trisomy 18 result text) trisomy 21 age-based risk 1/1,068 (0.09%) text (test code = trisomy 21 age-based risk text) trisomy 21 risk score text <1/10,000 (<0.01%) (test code = trisomy 21 risk score text) trisomy 21 result text low risk (test code = trisomy 21 result text) monosomy X age-based risk 1/255 (0.39%) text (test code = monosomy X age-based risk text) monosomy X risk score text <1/10,000 (<0.01%) (test code = monosomy X risk score text) monosomy X result text low risk (test code = monosomy X result text) triploidy result text low risk (test code = triploidy result text) gender of fetus (test code female = gender of fetus) fraction (test code 10.0% = fraction) footnotes (test code = see notes footnotes) [facility] screen in Specimen by Molecular genetics method [id number] 00:00:00 Test Item Value Reference Range Interpretation Comments report summary (test code = report negative summary) alpha-thalassemia (test code = negative alpha-thalassemia) beta-hemoglobinopathies (test code negative = beta-hemoglobinopathies) darleen disease (test code = negative darleen disease) cystic fibrosis (test code = cystic negative fibrosis) duchenne/hutson muscular dystrophy negative (test code = duchenne/hutson muscular dystrophy) familial dysautonomia (test code = negative familial dysautonomia) fragile X syndrome (test code = negative fragile X syndrome) galactosemia (test code = negative galactosemia) gaucher disease (test code = negative gaucher disease) medium chain acyl-coa dehydrogenase negative deficiency (test code = medium chain acyl-coa dehydrogenase deficiency) polycystic kidney disease, negative autosomal recessive (test code = polycystic kidney disease, autosomal recessive) dtwyc-neqwe-voltg syndrome (test negative code = jtdjd-ldmlu-cazhc syndrome) spinal muscular atrophy (test code negative = spinal muscular atrophy) wanda-sachs disease (test code = negative wanda-sachs disease) panel notes (test code = panel see notes notes) report note (test code = report see notes note) footnotes (test code = footnotes) see notes [facility] Oakspap, LB + reflex to HR HPV if [id number] 00:00:00 Test Item Value Reference Range Interpretation Comments liquid Pap test with reflex to HPV normal type-detect 4.0 if ASCUS or greater (test code = liquid Pap test with reflex to HPV type-detect 4.0 if ASCUS or greater) [facility] + NG + TV, DNA, urine/[id number] 00:00:00 Test Item Value Reference Range Interpretation Comments chlamydia trachomatis by real-time negative PCR (reflex to azithromycin resistance by pyrosequencing) (test code = chlamydia trachomatis by real-time PCR (reflex to azithromycin resistance by pyrosequencing)) trichomonas vaginalis by real-time positive A PCR (reflex to metronidazole resistance) (test code = trichomonas vaginalis by real-time PCR (reflex to metronidazole resistance)) neisseria gonorrhoeae by real-time negative PCR (reflex to antibiotic resistance by molecular analysis) (test code = neisseria gonorrhoeae by real-time PCR (reflex to antibiotic resistance by molecular analysis)) [facility]aksUrinalysis macro (dipstick) panel - [id number] 13:57:00 Test Item Value Reference Range Interpretation Comments Leukocytes (test code = Leukocytes) Trace Nitrite (test code = Nitrite) negative Urobilinogen (test code = .2 Urobilinogen) Protein (test code = Protein) Negative pH (test code = pH) 8.0 Blood (test code = Blood) Negative Specific [place] (test code = 1.020 Specific [place]) Ketone (test code = Ketone) Negative Bilirubin (test code = Bilirubin) Negative Glucose (test code = Glucose) Negative Appearance (test code = Appearance) Clear Color (test code = Color) Yellow [facility] Oakspregnancy test, [id number] 13:56:00 Test Item Value Reference Range Interpretation Comments Test (test code = positive Test) [facility]aksBacteria identified in Urine by [id number] 02:17:00Bacteria Ur [facility] W Auto Differential panel - [id number] 02:17:00 Test Item Value Reference Range Interpretation Comments white blood count (test code = 11.8 K/uL 4.0-11.5 H white blood count) red blood count (test code = red 4.28 M/uL 3.80-5.20 blood count) hemoglobin (test code = 13.2 g/dL 10.5-15.7 hemoglobin) hematocrit (test code = 40.3 % 34.0-50.0 hematocrit) MCV [Entitic volume] (test code = 94.2 fL 86.0-100.0 64462-4) mean corpuscular hemoglobin (test 30.8 pg 26.2-33.4 code = mean corpuscular hemoglobin) mean corpuscular HGB conc (test 32.8 g/dL 30.0-34.0 code = mean corpuscular HGB conc) red cell distribution width (test 13.0 % 12.0-15.5 code = red cell distribution width) platelet count (test code = 329 K/uL 165-450 platelet count) mean platelet volume (test code = 9.3 fL 9.4-12.6 L mean platelet volume) Segmented neutrophils/100 75.4 % 44.4-80.1 leukocytes in Blood (test code = 74682-1) Immature granulocytes [#/volume] 0.09 K/uL 0.00-0.03 H in Blood (test code = 79018-1) lymphocyte% (test code = 16.2 % 10.0-50.0 lymphocyte%) mono % (test code = mono %) 5.7 % 3.6-12.0 eos % (test code = eos %) 1.4 % 0.0-5.4 Basophils/100 leukocytes in 0.5 % 0.1-1.2 Specimen (test code = 57912-8) Band form neutrophils [#/volume] 8.89 K/uL 1.56-6.13 H in Blood (test code = 01023-0) Lymphocytes [#/volume] in Specimen 1.91 K/uL 1.18-3.74 by Automated count (test code = 52521-2) mono # (test code = mono #) 0.67 K/uL 0.24-0.86 eos # (test code = eos #) 0.17 K/uL 0.04-0.36 basophil # (test code = basophil 0.06 K/uL 0.01-0.08 #) NRBC% (test code = NRBC%) 0 /100 WBC 0-0.2 NRBC# (test code = NRBC#) 0 K/uL [facility]aksAB[facility] Rh group [Type] in [id number] 02:17:00 Test Item Value Reference Range Interpretation Comments Rh [Type] in Blood (test code = 4+ 34866-9) ABO and Rh group panel - Blood O positive (test code = 01056-5) [facility] antibody screen [Presence] in Serum or Plasma 2021-11-28 02:17:00 Test Item Value Reference Range Interpretation Comments Blood group antibody screen negative [Presence] in Serum or Plasma (test code = 890-4) [facility]aksTSH, serum, reflex free [id number] 00:00:00 Test Item Value Reference Range Interpretation Comments TSH w/reflex (test code = TSH 0.74 uIU/mL 0.36-3.74 w/reflex) [facility]aksHIV 1+2 Ab [Presence] in [id number] 00:00:00HIV P24 AgHIV-1/2 [facility]MaPark[facility] SystemHepatitis B virus surface Ag [Presence] in [id number] 00:00:00 Test Item Value Reference Range Interpretation Comments .hepatitis B surface antigen (test negative negative code = .hepatitis B surface antigen) [facility]aksReagin Ab [Presence] in Serum by [id number] 00:00:00 Test Item Value Reference Range Interpretation Comments Reagin Ab [Presence] in Serum by nonreactive nonreactive RPR (test code = 43787-8) [facility] [id number] 13:04:00 Test Item Value Reference Range Interpretation Comments Vanco Tr TND (test code = Vanco Tr see EMAR TND) [place] [id number] 13:04:00 Test Item Value Reference Range Interpretation Comments Vanco Tr (test code = Vanco Tr) 7.5 [place] [id number] 13:04:00 Test Item Value Reference Range Interpretation Comments Vanco Tr TND (test code = Vanco Tr see EMAR TND) [place] [id number] 13:04:00 Test Item Value Reference Range Interpretation Comments Vanco Tr (test code = Vanco Tr) 7.[address] [facility] [place] [place]2018-03-30 07:53:00 Test Item Value Reference Range Interpretation Comments Chloride Lvl (test code = Chloride Lvl) 108 95-[address] [facility] [place]2018-03-30 07:53:00 Test Item Value Reference Range Interpretation Comments Sodium Lvl (test code = Sodium Lvl) 141 135-[address] [facility] [place]2018-03-30 07:53:00 Test Item Value Reference Range Interpretation Comments BUN (test code = BUN) 5 7-[address] [facility] [place]2018-03-30 07:53:00 Test Item Value Reference Range Interpretation Comments Creatinine Lvl (test code = Creatinine 0.69 0.50-1.40 Lvl) [facility] [place] [place]2018-03-30 07:53:00 Test Item Value Reference Range Interpretation Comments Calcium Lvl (test code = Calcium Lvl) 8.7 8.5-10.[address] [facility] [place]2018-03-30 07:53:00 Test Item Value Reference Range Interpretation Comments CO2 (test code = CO2) 26 24-[address] [facility] [place]2018-03-30 07:53:00 Test Item Value Reference Range Interpretation Comments Glucose Lvl (test code = Glucose Lvl) 84 70-[address] [facility] [place]2018-03-30 07:53:00 Test Item Value Reference Range Interpretation Comments AGAP (test code = AGAP) 10.5 10.0-20.0 [id number] 07:53:00 Test Item Value Reference Range Interpretation Comments RDW (test code = RDW) 13.3 11.5-14.5 [id number] 07:53:00 Test Item Value Reference Range Interpretation Comments Platelet (test code = Platelet) 287 133-450 [id number] 07:53:00 Test Item Value Reference Range Interpretation Comments MPV (test code = MPV) 8.6 7.4-10.4 [facility] [place]SvedhyjACIYYLHBZI9486-19-52 07:53:00 Test Item Value Reference Range Interpretation Comments Hgb (test code = Hgb) 13.4 12.0-16.0 [facility] McAllenYadtguoKWZNUYWMNB5634-56-51 07:53:00 Test Item Value Reference Range Interpretation Comments Hct (test code = Hct) 40.1 36.0-48.0 [facility] [place]AllenSugjqhcTOCAQBQGJW7141-44-54 07:53:00 Test Item Value Reference Range Interpretation Comments RBC (test code = RBC) 4.52 4.20-5.40 [facility] McAllenZeywprsAMPMENGFJQ1211-82-06 07:53:00 Test Item Value Reference Range Interpretation Comments WBC (test code = WBC) 11.5 3.7-10.4 [facility] McAllenQyawmboTIYGVLEGAJ4904-21-56 07:53:00 Test Item Value Reference Range Interpretation Comments MCV (test code = MCV) 88.8 80.0-98.0 [facility] McAllenRvsjuhnWBUKCLSSQN1276-34-64 07:53:00 Test Item Value Reference Range Interpretation Comments MCH (test code = MCH) 29.6 pg 27.0-31.0 [facility] McAllenBhzkvucSTKCPENCKA2254-47-25 07:53:00 Test Item Value Reference Range Interpretation Comments MCHC (test code = MCHC) 33.3 32.0-36.0 [facility] McAllenLvahenyANANRSWTMP8499-90-89 07:53:00 Test Item Value Reference Range Interpretation Comments Segs-Bands # (test code = Segs-Bands #) 6.2 1.5-8.1 [facility] McAllenJfdujbqDYVNRTHKMI4730-29-43 07:53:00 Test Item Value Reference Range Interpretation Comments Basophils (test code = 0.4 See_Comment [Aut omated message] The Basophils) system which ge nerated this result tra nsmitted reference range : <=1.0. The reference r kary was not used to int erpret this result as normal/abnormal . [facility] McAllenKmbmqmdJMFQYNSKYN6620-37-68 07:53:00 Test Item Value Reference Range Interpretation Comments Lymphocytes # (test code = Lymphocytes 4.0 1.0-5.5 #) [facility] McAllenSirwbxnDAETULFFUB0600-62-65 07:53:00 Test Item Value Reference Range Interpretation Comments Monocytes # (test code 0.8 See_Comment [Aut omated message] The = Monocytes #) system which generated this result tra nsmitted reference range : <=0.8. The reference r kary was not used to int erpret this result as normal/abnormal . [facility] McAllenFfaotcpNLKIYSJZAA3205-08-61 07:53:00 Test Item Value Reference Range Interpretation Comments Eosinophils # (test code 0.4 See_Comment [A utomated message] The = Eosinophils #) system whic h generated this result tra nsmitted reference range : <=0.5. The reference r kary was not used to int erpret this result as normal/abnormal . [facility] McAllenBlhcmhyZXYSDLARMP1438-27-14 07:53:00 Test Item Value Reference Range Interpretation Comments Segs (test code = Segs) 53.9 45.0-75.0 [facility] McAllenDxhahysLQDFEGJKUK6352-20-21 07:53:00 Test Item Value Reference Range Interpretation Comments Lymphocytes (test code = Lymphocytes) 35.1 20.0-40.0 [facility] McAllenGehqamwPZOUQXKCGF9339-32-57 07:53:00 Test Item Value Reference Range Interpretation Comments Monocytes (test code = Monocytes) 7.2 2.0-12.0 [facility] McAllenJbtejwrZMFFVZIQOO5134-09-51 07:53:00 Test Item Value Reference Range Interpretation Comments Eosinophils (test code = 3.4 See_Comment [A utomated message] The Eosinophils) system which ge nerated this result tra nsmitted reference range : <=4.0. The reference r kary was not used to int erpret this result as normal/abnormal . [facility] [place] [place]2018-03-30 07:53:00 Test Item Value Reference Range Interpretation Comments eGFR (test code = eGFR) [address] [facility] [place] [place]2018-03-30 07:53:00 Test Item Value Reference Range Interpretation Comments eGFR (test code = eGFR) [address] [facility] [place] [place]2018-03-30 07:53:00 Test Item Value Reference Range Interpretation Comments Potassium Lvl (test code = Potassium 3.5 3.5-5.1 Lvl) [facility] [place] [place]2018-03-30 07:53:00 Test Item Value Reference Range Interpretation Comments Chloride Lvl (test code = Chloride Lvl) 108 95-[address] [facility] [place] [place]2018-03-30 07:53:00 Test Item Value Reference Range Interpretation Comments Sodium Lvl (test code = Sodium Lvl) 141 135-[address] [facility] [place] [place]2018-03-30 07:53:00 Test Item Value Reference Range Interpretation Comments BUN (test code = BUN) 5 7-[address] [facility] [place] [place]2018-03-30 07:53:00 Test Item Value Reference Range Interpretation Comments Creatinine Lvl (test code = Creatinine 0.69 0.50-1.40 Lvl) [facility] [place] [place]2018-03-30 07:53:00 Test Item Value Reference Range Interpretation Comments Calcium Lvl (test code = Calcium Lvl) 8.7 8.5-10.[address] [facility] [place] [place]2018-03-30 07:53:00 Test Item Value Reference Range Interpretation Comments CO2 (test code = CO2) 26 24-[address] [facility] [place] [place]2018-03-30 07:53:00 Test Item Value Reference Range Interpretation Comments Glucose Lvl (test code = Glucose Lvl) 84 70-[address] [facility] [place] [place]2018-03-30 07:53:00 Test Item Value Reference Range Interpretation Comments AGAP (test code = AGAP) 10.5 10.0-20.0 [facility] McAllenAjfkhnlFTPPJYNHKW1006-02-97 07:53:00 Test Item Value Reference Range Interpretation Comments RDW (test code = RDW) 13.3 11.5-14.5 [facility] McAllenTbeadpyMLSSRXHWPO9122-77-11 07:53:00 Test Item Value Reference Range Interpretation Comments Platelet (test code = Platelet) 287 133-450 [facility] McAllenVfxnozvZTJRFRIZMS3947-29-20 07:53:00 Test Item Value Reference Range Interpretation Comments MPV (test code = MPV) 8.6 7.4-10.4 [facility] McAllenXkjcfitHDYKZHEPDB2227-41-21 07:53:00 Test Item Value Reference Range Interpretation Comments Hgb (test code = Hgb) 13.4 12.0-16.0 [facility] McAllenIcfmqkyTASNZPDVWR5935-59-31 07:53:00 Test Item Value Reference Range Interpretation Comments Hct (test code = Hct) 40.1 36.0-48.0 [facility] McAllenJxevrmjSRYIOQIDBE1323-39-74 07:53:00 Test Item Value Reference Range Interpretation Comments RBC (test code = RBC) 4.52 4.20-5.40 [facility] McAllenUumwzfoWNCWPHFWNH1392-79-20 07:53:00 Test Item Value Reference Range Interpretation Comments WBC (test code = WBC) 11.5 3.7-10.4 [facility] [place]AllenXswwdubUDGHGHEVYN0714-60-95 07:53:00 Test Item Value Reference Range Interpretation Comments MCV (test code = MCV) 88.8 80.0-98.0 [facility] McAllenQmirzwrKXQOAWQWYB6374-04-41 07:53:00 Test Item Value Reference Range Interpretation Comments MCH (test code = MCH) 29.6 pg 27.0-31.0 [facility] McAllenJhkaejaQIGSJELVDD6903-04-32 07:53:00 Test Item Value Reference Range Interpretation Comments MCHC (test code = MCHC) 33.3 32.0-36.0 [facility] McAllenEtltijpNYWJDQZMBT4070-13-72 07:53:00 Test Item Value Reference Range Interpretation Comments Segs-Bands # (test code = Segs-Bands #) 6.2 1.5-8.1 [facility] McAllenFdwlgmiOLSNVFTAYT6107-18-84 07:53:00 Test Item Value Reference Range Interpretation Comments Basophils (test code = 0.4 See_Comment [Aut omated message] The Basophils) system which ge nerated this result tra nsmitted reference range : <=1.0. The reference r kary was not used to int erpret this result as normal/abnormal . [facility] McAllenKikpmswJWADIRVSSM7608-40-54 07:53:00 Test Item Value Reference Range Interpretation Comments Lymphocytes # (test code = Lymphocytes 4.0 1.0-5.5 #) [facility] McAllenYwmmgqsUKXLRFUWOE8368-80-39 07:53:00 Test Item Value Reference Range Interpretation Comments Monocytes # (test code 0.8 See_Comment [Aut omated message] The = Monocytes #) system which generated this result tra nsmitted reference range : <=0.8. The reference r kary was not used to int erpret this result as normal/abnormal . [facility] McAllenKvyrchhJIOMSVOHOA0093-90-06 07:53:00 Test Item Value Reference Range Interpretation Comments Eosinophils # (test code 0.4 See_Comment [A utomated message] The = Eosinophils #) system whic h generated this result tra nsmitted reference range : <=0.5. The reference r kary was not used to int erpret this result as normal/abnormal . [facility] McAllenDmpqpnmHBTNFXJVIV7201-17-19 07:53:00 Test Item Value Reference Range Interpretation Comments Segs (test code = Segs) 53.9 45.0-75.0 [facility] McAllenLuwpbalZELZHIZFAU8347-89-49 07:53:00 Test Item Value Reference Range Interpretation Comments Lymphocytes (test code = Lymphocytes) 35.1 20.0-40.0 [facility] McAllenJisxjeiZGDAJLMYJP2468-98-35 07:53:00 Test Item Value Reference Range Interpretation Comments Monocytes (test code = Monocytes) 7.2 2.0-12.0 [facility] McAllenUhtllfwELEBOTABLI9280-48-47 07:53:00 Test Item Value Reference Range Interpretation Comments Eosinophils (test code = 3.4 See_Comment [A utomated message] The Eosinophils) system which ge nerated this result tra nsmitted reference range : <=4.0. The reference r kary was not used to int erpret this result as normal/abnormal . [facility] ALWGQ5728-98-59 07:53:00 Test Item Value Reference Range Interpretation Comments Potassium Lvl (test code = Potassium 3.5 3.5-5.1 Lvl) [facility] [place] [place]2018-03-29 07:56:00 Test Item Value Reference Range Interpretation Comments eGFR (test code = eGFR) [address] [facility] [place] [place]2018-03-29 07:56:00 Test Item Value Reference Range Interpretation Comments CO2 (test code = CO2) 24 24-32 [facility] MGXND7508-68-63 07:56:00 Test Item Value Reference Range Interpretation Comments Calcium Lvl (test code = Calcium Lvl) 8.5 8.5-10.[address] [facility] [place] [place]2018-03-29 07:56:00 Test Item Value Reference Range Interpretation Comments AGAP (test code = AGAP) 12.9 10.0-20.0 [place] [id number] 07:56:00 Test Item Value Reference Range Interpretation Comments Glucose Lvl (test code = Glucose Lvl) 86 70-[address] [facility] [place] [place]2018-03-29 07:56:00 Test Item Value Reference Range Interpretation Comments Chloride Lvl (test code = Chloride Lvl) 111 95-109 [place] 985168-03-29 07:56:00 Test Item Value Reference Range Interpretation Comments Sodium Lvl (test code = Sodium Lvl) 144 135-145 [place] 985168-03-29 07:56:00 Test Item Value Reference Range Interpretation Comments Potassium Lvl (test code = Potassium 3.9 3.5-5.1 Lvl) [facility] [place] [place]2018-03-29 07:56:00 Test Item Value Reference Range Interpretation Comments Creatinine Lvl (test code = Creatinine 0.64 0.50-1.40 Lvl) [facility] [place] [place]2018-03-29 07:56:00 Test Item Value Reference Range Interpretation Comments BUN (test code = BUN) 7 7-22 [facility] McAllenKqwfwjdSVAXKINHBT7610-25-55 07:56:00 Test Item Value Reference Range Interpretation Comments Basophils # (test code 0.1 See_Comment [Aut omated message] The = Basophils #) system which generated this result tra nsmitted reference range : <=0.2. The reference r kary was not used to int erpret this result as normal/abnormal . [facility] McAllenJzzmnuuNKKZJLXHKS9346-86-26 07:56:00 Test Item Value Reference Range Interpretation Comments Eosinophils # (test code 0.3 See_Comment [A utomated message] The = Eosinophils #) system whic h generated this result tra nsmitted reference range : <=0.5. The reference r kary was not used to int erpret this result as normal/abnormal . [facility] McAllenTlmvwkqLWTWMDUPOD0303-89-88 07:56:00 Test Item Value Reference Range Interpretation Comments Basophils (test code = 0.7 See_Comment [Aut omated message] The Basophils) system which ge nerated this result tra nsmitted reference range : <=1.0. The reference r kary was not used to int erpret this result as normal/abnormal . [facility] McAllenNbgjoucWDHZEZVDAN4040-00-61 07:56:00 Test Item Value Reference Range Interpretation Comments Eosinophils (test code = 2.9 See_Comment [A utomated message] The Eosinophils) system which ge nerated this result tra nsmitted reference range : <=4.0. The reference r kary was not used to int erpret this result as normal/abnormal . [facility] McAllenNhlnclfZFMHCDRSXW2310-45-37 07:56:00 Test Item Value Reference Range Interpretation Comments Monocytes # (test code 0.8 See_Comment [Aut omated message] The = Monocytes #) system which generated this result tra nsmitted reference range : <=0.8. The reference r kary was not used to int erpret this result as normal/abnormal . [facility] McAllenCdglagfAZAKBSNUDX9391-88-91 07:56:00 Test Item Value Reference Range Interpretation Comments Lymphocytes # (test code = Lymphocytes 4.2 1.0-5.5 #) [facility] McAllenAlcmcqaJQMBRNFQFO0531-61-07 07:56:00 Test Item Value Reference Range Interpretation Comments Segs-Bands # (test code = Segs-Bands #) 6.1 1.5-8.1 [facility] McAllenYzewprhDGZBELMHJR0325-06-28 07:56:00 Test Item Value Reference Range Interpretation Comments Monocytes (test code = Monocytes) 7.0 2.0-12.0 [facility] McAllenJzqegigMVYGRRARUE7987-90-34 07:56:00 Test Item Value Reference Range Interpretation Comments Lymphocytes (test code = Lymphocytes) 36.5 20.0-40.0 [facility] McAllenEaalhrkGRWPLYYHWL2130-69-47 07:56:00 Test Item Value Reference Range Interpretation Comments Segs (test code = Segs) 52.9 45.0-75.0 [facility] McAllenHlswxywFRKAYZUZQP0299-39-19 07:56:00 Test Item Value Reference Range Interpretation Comments RDW (test code = RDW) 13.7 11.5-14.5 [facility] McAllenMpsjwpaODRNFKKMUC8488-68-46 07:56:00 Test Item Value Reference Range Interpretation Comments MCHC (test code = MCHC) 33.5 32.0-36.0 [facility] McAllenWfkjlsjTNBBBNQZXC6603-24-34 07:56:00 Test Item Value Reference Range Interpretation Comments MCH (test code = MCH) 30.1 pg 27.0-31.0 [facility] McAllenMizrjmvGVDDLUULTE1099-16-63 07:56:00 Test Item Value Reference Range Interpretation Comments MCV (test code = MCV) 89.9 80.0-98.0 [facility] McAllenWserjywHYBLMTCVLQ1410-73-88 07:56:00 Test Item Value Reference Range Interpretation Comments MPV (test code = MPV) 8.9 7.4-10.4 [facility] McAllenZpxccumTMTIJUMBOK2152-43-15 07:56:00 Test Item Value Reference Range Interpretation Comments Platelet (test code = Platelet) 272 133-450 [facility] McAllenUvrvkqbSYRRAYNBQG2165-92-66 07:56:00 Test Item Value Reference Range Interpretation Comments WBC (test code = WBC) 11.6 3.7-10.4 [facility] McAllenFgmfjmnQYUZMHXJHX2264-42-50 07:56:00 Test Item Value Reference Range Interpretation Comments Segs (test code = Segs) 52.9 45.0-75.0 [facility] McAllenHefidrqBPEFPROYLX2169-70-27 07:56:00 Test Item Value Reference Range Interpretation Comments RDW (test code = RDW) 13.7 11.5-14.5 [facility] McAllenRyixyhsFSXBKHHIJR2957-84-08 07:56:00 Test Item Value Reference Range Interpretation Comments Hct (test code = Hct) 39.1 36.0-48.0 [facility] McAllenJaamfitJPWDRCDSIB9824-17-64 07:56:00 Test Item Value Reference Range Interpretation Comments MCHC (test code = MCHC) 33.5 32.0-36.0 [facility] McAllenYrplqoqFSEDIPXXGL5484-13-28 07:56:00 Test Item Value Reference Range Interpretation Comments MCH (test code = MCH) 30.1 pg 27.0-31.0 [facility] McAllenLjceimcLWBXQJYGFT6004-45-79 07:56:00 Test Item Value Reference Range Interpretation Comments MCV (test code = MCV) 89.9 80.0-98.0 [facility] McAllenDjhnvrsOMWXNWQSVV2682-72-52 07:56:00 Test Item Value Reference Range Interpretation Comments MPV (test code = MPV) 8.9 7.4-10.4 [place] 573548-03-29 07:56:00 Test Item Value Reference Range Interpretation Comments Platelet (test code = Platelet) 272 133-450 [facility] McAllenJlngqmvGXJOYHYXPW4182-83-31 07:56:00 Test Item Value Reference Range Interpretation Comments WBC (test code = WBC) 11.6 3.7-10.4 [facility] McAllenWzurlvgJNSDOOLPDC7184-38-27 07:56:00 Test Item Value Reference Range Interpretation Comments Hct (test code = Hct) 39.1 36.0-48.0 [facility] McAllenJpmkemjZTRCFHNKSE6297-83-95 07:56:00 Test Item Value Reference Range Interpretation Comments Hgb (test code = Hgb) 13.1 12.0-16.0 [facility] McAllenPmyqhlgFSVCZMMQED9123-40-10 07:56:00 Test Item Value Reference Range Interpretation Comments RBC (test code = RBC) 4.35 4.20-5.[address] [facility] [place] [place]2018-03-29 07:56:00 Test Item Value Reference Range Interpretation Comments eGFR (test code = eGFR) [address] [facility] [place] [place]2018-03-29 07:56:00 Test Item Value Reference Range Interpretation Comments CO2 (test code = CO2) 24 24-[address] [facility] [place] [place]2018-03-29 07:56:00 Test Item Value Reference Range Interpretation Comments Calcium Lvl (test code = Calcium Lvl) 8.5 8.5-10.[address] [facility] [place] [place]2018-03-29 07:56:00 Test Item Value Reference Range Interpretation Comments AGAP (test code = AGAP) 12.9 10.0-20.[address] [facility] [place] [place]2018-03-29 07:56:00 Test Item Value Reference Range Interpretation Comments Glucose Lvl (test code = Glucose Lvl) 86 70-[address] [facility] [place] [place]2018-03-29 07:56:00 Test Item Value Reference Range Interpretation Comments Chloride Lvl (test code = Chloride Lvl) 111 95-[address] [facility] [place] [place]2018-03-29 07:56:00 Test Item Value Reference Range Interpretation Comments Sodium Lvl (test code = Sodium Lvl) 144 135-[address] [facility] [place] [place]2018-03-29 07:56:00 Test Item Value Reference Range Interpretation Comments Potassium Lvl (test code = Potassium 3.9 3.5-5.1 Lvl) [facility] [place] [place]2018-03-29 07:56:00 Test Item Value Reference Range Interpretation Comments Creatinine Lvl (test code = Creatinine 0.64 0.50-1.40 Lvl) [facility] [place] [place]2018-03-29 07:56:00 Test Item Value Reference Range Interpretation Comments BUN (test code = BUN) 7 7-22 [facility] McAllenXmrulmkTQLBGHKNEW2848-15-75 07:56:00 Test Item Value Reference Range Interpretation Comments Basophils # (test code 0.1 See_Comment [Aut omated message] The = Basophils #) system which generated this result tra nsmitted reference range : <=0.2. The reference r kary was not used to int erpret this result as normal/abnormal . [facility] McAllenAwajpbaZKQVZIAOXG4631-83-90 07:56:00 Test Item Value Reference Range Interpretation Comments Hgb (test code = Hgb) 13.1 12.0-16.0 [facility] McAllenBsoqxwbBGYHOWPCTA0996-76-24 07:56:00 Test Item Value Reference Range Interpretation Comments Eosinophils # (test code 0.3 See_Comment [A utomated message] The = Eosinophils #) system whic h generated this result tra nsmitted reference range : <=0.5. The reference r kary was not used to int erpret this result as normal/abnormal . [facility] McAllenNzqtouiYWUYFEGKFU2912-38-72 07:56:00 Test Item Value Reference Range Interpretation Comments Basophils (test code = 0.7 See_Comment [Aut omated message] The Basophils) system which ge nerated this result tra nsmitted reference range : <=1.0. The reference r kary was not used to int erpret this result as normal/abnormal . [facility] McAllenUhjkuciGCIOLJCUMP5098-31-48 07:56:00 Test Item Value Reference Range Interpretation Comments Eosinophils (test code = 2.9 See_Comment [A utomated message] The Eosinophils) system which ge nerated this result tra nsmitted reference range : <=4.0. The reference r kary was not used to int erpret this result as normal/abnormal . [facility] McAllenUcxtprmWLJDSYYOTZ5122-57-61 07:56:00 Test Item Value Reference Range Interpretation Comments Monocytes # (test code 0.8 See_Comment [Aut omated message] The = Monocytes #) system which generated this result tra nsmitted reference range : <=0.8. The reference r kary was not used to int erpret this result as normal/abnormal . [facility] McAllenZklfexnQIUAHKFIQX2518-41-54 07:56:00 Test Item Value Reference Range Interpretation Comments Lymphocytes # (test code = Lymphocytes 4.2 1.0-5.5 #) [facility] McAllenEtinfxxCAZMKCXFET2123-42-93 07:56:00 Test Item Value Reference Range Interpretation Comments Segs-Bands # (test code = Segs-Bands #) 6.1 1.5-8.1 [facility] McAllenNmvuqczPYIEUZKETE5692-19-50 07:56:00 Test Item Value Reference Range Interpretation Comments Monocytes (test code = Monocytes) 7.0 2.0-12.0 [facility] McAllenWblgyqoJBKUHXHAYO8544-60-03 07:56:00 Test Item Value Reference Range Interpretation Comments Lymphocytes (test code = Lymphocytes) 36.5 20.0-40.0 [facility] McAllenTkqurdrMCGWLGXHOJ6991-94-65 07:56:00 Test Item Value Reference Range Interpretation Comments RBC (test code = RBC) 4.35 4.20-5.40 [facility] [id number] 22:00:00 Test Item Value Reference Range Interpretation Comments Culture: Urine (test code = No Growth Culture: Urine) [facility]: [id number] 22:00:00 Test Item Value Reference Range Interpretation Comments Culture: Urine (test code = No Growth Culture: Urine) [facility] [id number] 07:57:00 Test Item Value Reference Range Interpretation Comments Glucose Lvl (test code = Glucose Lvl) 102 70-[address] [facility] [place] [place]2018-03-28 07:57:00 Test Item Value Reference Range Interpretation Comments BUN (test code = BUN) 7 7-[address] [facility] [place] [place]2018-03-28 07:57:00 Test Item Value Reference Range Interpretation Comments CO2 (test code = CO2) 25 24-[address] [facility] [place] [place]2018-03-28 07:57:00 Test Item Value Reference Range Interpretation Comments Chloride Lvl (test code = Chloride Lvl) 111 95-109 [facility] [id number] 07:57:00 Test Item Value Reference Range Interpretation Comments Potassium Lvl (test code = Potassium 4.1 3.5-5.1 Lvl) [facility] [place] [place]2018-03-28 07:57:00 Test Item Value Reference Range Interpretation Comments AGAP (test code = AGAP) 10.1 10.0-20.[address] [facility] [place] [place]2018-03-28 07:57:00 Test Item Value Reference Range Interpretation Comments Phosphorus (test code = Phosphorus) 3.8 2.5-4.5 [facility] McAllenHvvxiipVXLASKQVJB5010-77-02 07:57:00 Test Item Value Reference Range Interpretation Comments Basophils # (test code 0.1 See_Comment [Aut omated message] The = Basophils #) system which generated this result tra nsmitted reference range : <=0.2. The reference r kary was not used to int erpret this result as normal/abnormal . [place] [id number] 07:57:00 Test Item Value Reference Range Interpretation Comments Segs-Bands # (test code = Segs-Bands #) 11.4 1.5-8.1 [facility] McAllenZmmbzywXBCVGUCFDE2308-69-08 07:57:00 Test Item Value Reference Range Interpretation Comments Lymphocytes (test code = Lymphocytes) 14.6 20.0-40.0 [facility] McAllenMicgtfnJLEFDMCPCY0186-41-38 07:57:00 Test Item Value Reference Range Interpretation Comments Monocytes # (test code 1.1 See_Comment [Aut omated message] The = Monocytes #) system which generated this result tra nsmitted reference range : <=0.8. The reference r kary was not used to int erpret this result as normal/abnormal . [facility] McAllenIdteancGFWXNZHWYX9872-89-25 07:57:00 Test Item Value Reference Range Interpretation Comments Lymphocytes # (test code = Lymphocytes 2.1 1.0-5.5 #) [facility]JS[facility]OXTJED6842[facility]-05 07:57:00 Test Item Value Reference Range Interpretation Comments Basophils (test code = 0.5 See_Comment [Aut omated message] The Basophils) system which ge nerated this result tra nsmitted reference range : <=1.0. The reference r kary was not used to int erpret this result as normal/abnormal . [facility]AllenMzqtckuFKEFVMVEXP9354-53-11 07:57:00 Test Item Value Reference Range Interpretation Comments Eosinophils (test code = 0.3 See_Comment [A utomated message] The Eosinophils) system which ge nerated this result tra nsmitted reference range : <=4.0. The reference r kary was not used to int erpret this result as normal/abnormal . [facility]AllenIchmjfvLNWPGCOHRK9999-35-50 07:57:00 Test Item Value Reference Range Interpretation Comments Monocytes (test code = Monocytes) 7.7 2.0-12.0 [facility]AllenUdrzrceGVPHNEIQFV0107-18-29 07:57:00 Test Item Value Reference Range Interpretation Comments Segs (test code = Segs) 76.9 45.0-75.0 [facility]AllenJrysfzaDALIBMNCFW4656-84-03 07:57:00 Test Item Value Reference Range Interpretation Comments Hgb (test code = Hgb) 13.3 12.0-16.0 [facility]AllenZegshadOJRJARHRKX7374-26-20 07:57:00 Test Item Value Reference Range Interpretation Comments Hct (test code = Hct) 38.9 36.0-48.0 [facility]AllenBctibyqVXOLPMNEGL3398-14-03 07:57:00 Test Item Value Reference Range Interpretation Comments RBC (test code = RBC) 4.40 4.20-5.40 [facility]AllenJutlsluBKZKNMFINA5563-94-16 07:57:00 Test Item Value Reference Range Interpretation Comments Platelet (test code = Platelet) 288 133-450 [facility] McAllenJzuupovPMAAVAMPPU1412-06-55 07:57:00 Test Item Value Reference Range Interpretation Comments MCV (test code = MCV) 88.6 80.0-98.0 [facility]AllenQfibkyvFHDPPEWBDH1828-00-95 07:57:00 Test Item Value Reference Range Interpretation Comments MPV (test code = MPV) 8.6 7.4-10.4 [facility]AllenAsjiiztDVJMXZNTKN4429-00-95 07:57:00 Test Item Value Reference Range Interpretation Comments MCHC (test code = MCHC) 34.1 32.0-36.0 [facility]AllenTqdbwrjGBLZKGZSXC0026-52-68 07:57:00 Test Item Value Reference Range Interpretation Comments RDW (test code = RDW) 13.4 11.5-14.5 [facility]AllenHghfdfgGVUFHOERJD9789-21-33 07:57:00 Test Item Value Reference Range Interpretation Comments MCH (test code = MCH) 30.2 pg 27.0-31.0 [facility]AllenDbkokvsOJOGNYOZPZ5863-45-27 07:57:00 Test Item Value Reference Range Interpretation Comments WBC (test code = WBC) 14.7 3.7-10.[address] [facility] [place] [place]2018-03-28 07:57:00 Test Item Value Reference Range Interpretation Comments Magnesium Lvl (test code = Magnesium 1.8 1.8-2.4 Lvl) [facility] [place] [place]2018-03-28 07:57:00 Test Item Value Reference Range Interpretation Comments eGFR (test code = eGFR) [address] [facility] [place] [place]2018-03-28 07:57:00 Test Item Value Reference Range Interpretation Comments Calcium Lvl (test code = Calcium Lvl) 8.6 8.5-10.[address] [facility] [place] [place]2018-03-28 07:57:00 Test Item Value Reference Range Interpretation Comments Creatinine Lvl (test code = Creatinine 1.07 0.50-1.40 Lvl) [facility] [place] [place]2018-03-28 07:57:00 Test Item Value Reference Range Interpretation Comments Sodium Lvl (test code = Sodium Lvl) 142 135-[address] [facility] [place] [place]2018-03-28 07:57:00 Test Item Value Reference Range Interpretation Comments Glucose Lvl (test code = Glucose Lvl) 102 70-[address] [facility] [place] [place]2018-03-28 07:57:00 Test Item Value Reference Range Interpretation Comments BUN (test code = BUN) 7 7-[address] [facility] [place] [place]2018-03-28 07:57:00 Test Item Value Reference Range Interpretation Comments CO2 (test code = CO2) 25 24-[address] [facility] [place] [place]2018-03-28 07:57:00 Test Item Value Reference Range Interpretation Comments Chloride Lvl (test code = Chloride Lvl) 111 95-[address] [facility] [place] [place]2018-03-28 07:57:00 Test Item Value Reference Range Interpretation Comments Potassium Lvl (test code = Potassium 4.1 3.5-5.1 Lvl) [facility] [place] [place]2018-03-28 07:57:00 Test Item Value Reference Range Interpretation Comments AGAP (test code = AGAP) 10.1 10.0-20.[address] [facility] [place] [place]2018-03-28 07:57:00 Test Item Value Reference Range Interpretation Comments Phosphorus (test code = Phosphorus) 3.8 2.5-4.5 [facility]All[id number] 07:57:00 Test Item Value Reference Range Interpretation Comments Basophils # (test code 0.1 See_Comment [Aut omated message] The = Basophils #) system which generated this result tra nsmitted reference range : <=0.2. The reference r kary was not used to int erpret this result as normal/abnormal . [facility]AllenUzxjatrCUVZUKIEZT4568-76-54 07:57:00 Test Item Value Reference Range Interpretation Comments Segs-Bands # (test code = Segs-Bands #) 11.4 1.5-8.1 [facility]AllenSwzrokkSVVMSNNUWH7225-81-00 07:57:00 Test Item Value Reference Range Interpretation Comments Lymphocytes (test code = Lymphocytes) 14.6 20.0-40.0 [facility]AllenWurcnjxMBOMMTXTPG8670-71-33 07:57:00 Test Item Value Reference Range Interpretation Comments Monocytes # (test code 1.1 See_Comment [Aut omated message] The = Monocytes #) system which generated this result tra nsmitted reference range : <=0.8. The reference r kary was not used to int erpret this result as normal/abnormal . [facility] McAllenXaqbeqhXTDGKTHJCJ1924-71-98 07:57:00 Test Item Value Reference Range Interpretation Comments Lymphocytes # (test code = Lymphocytes 2.1 1.0-5.5 #) [facility]AllenBwzqdphOYVIZTTEMG0757-98-92 07:57:00 Test Item Value Reference Range Interpretation Comments Basophils (test code = 0.5 See_Comment [Aut omated message] The Basophils) system which ge nerated this result tra nsmitted reference range : <=1.0. The reference r kary was not used to int erpret this result as normal/abnormal . [facility] McAllenKeyhdawJVKAJUOPQM8109-92-43 07:57:00 Test Item Value Reference Range Interpretation Comments Eosinophils (test code = 0.3 See_Comment [A utomated message] The Eosinophils) system which ge nerated this result tra nsmitted reference range : <=4.0. The reference r kary was not used to int erpret this result as normal/abnormal . [facility]AllenHdejjzjJMXQFXXVVQ6733-33-92 07:57:00 Test Item Value Reference Range Interpretation Comments Monocytes (test code = Monocytes) 7.7 2.0-12.0 [place] [id number] 07:57:00 Test Item Value Reference Range Interpretation Comments Segs (test code = Segs) 76.9 45.0-75.0 [facility]AllenOfzouzwKAIJQVLKDE2140-70-23 07:57:00 Test Item Value Reference Range Interpretation Comments Hgb (test code = Hgb) 13.3 12.0-16.0 [facility] McAllenPyguyraRFKBWJRJRA7759-63-19 07:57:00 Test Item Value Reference Range Interpretation Comments Hct (test code = Hct) 38.9 36.0-48.0 [facility]AllenKefjqdjHLXWGLIYWG7979-59-51 07:57:00 Test Item Value Reference Range Interpretation Comments RBC (test code = RBC) 4.40 4.20-5.40 [facility]AllenPffyfoaWPLIKRFGZE6067-73-74 07:57:00 Test Item Value Reference Range Interpretation Comments Platelet (test code = Platelet) 288 133450 [facility] McAllenJnpjaqpDDTENYECWF8485-40-62 07:57:00 Test Item Value Reference Range Interpretation Comments MCV (test code = MCV) 88.6 80.0-98.0 [facility]AllenOdrwrxhLDUDFBLPBU4626-13-97 07:57:00 Test Item Value Reference Range Interpretation Comments MPV (test code = MPV) 8.6 7.4-10.4 [facility]AllenOlakktnIKVEFVIAZF9820-88-44 07:57:00 Test Item Value Reference Range Interpretation Comments MCHC (test code = MCHC) 34.1 32.0-36.0 [facility]AllenThdsjciHENANJNSET9771-26-24 07:57:00 Test Item Value Reference Range Interpretation Comments RDW (test code = RDW) 13.4 11.5-14.5 [facility]AllenQnkzkabJFETGLSKIG4069-45-84 07:57:00 Test Item Value Reference Range Interpretation Comments MCH (test code = MCH) 30.2 pg 27.0-31.0 [facility] McAllenOnoygskHLDJRZLWXL1900-40-45 07:57:00 Test Item Value Reference Range Interpretation Comments WBC (test code = WBC) 14.7 3.7-10.[address] [facility] [place] [place]2018-03-28 07:57:00 Test Item Value Reference Range Interpretation Comments Magnesium Lvl (test code = Magnesium 1.8 1.8-2.4 Lvl) [facility] [place] [place]2018-03-28 07:57:00 Test Item Value Reference Range Interpretation Comments eGFR (test code = eGFR) [address] [facility] [place] [place]2018-03-28 07:57:00 Test Item Value Reference Range Interpretation Comments Calcium Lvl (test code = Calcium Lvl) 8.6 8.5-10.[address] [facility] [place] [place]2018-03-28 07:57:00 Test Item Value Reference Range Interpretation Comments Creatinine Lvl (test code = Creatinine 1.07 0.50-1.40 Lvl) [facility] [place] [place]2018-03-28 07:57:00 Test Item Value Reference Range Interpretation Comments Sodium Lvl (test code = Sodium Lvl) 142 135-[address] [facility] [place] [place]2018-03-28 02:49:00 Test Item Value Reference Range Interpretation Comments Lactic Acid Lvl (test code = Lactic 1.3 0.5-2.2 Acid Lvl) [facility] [place] [place]2018-03-28 02:49:00 Test Item Value Reference Range Interpretation Comments Lactic Acid Lvl (test code = Lactic 1.3 0.5-2.2 Acid Lvl) [facility] [place] [place]2018-03-28 01:04:00 Test Item Value Reference Range Interpretation Comments Lactic Acid Lvl (test code = Lactic 1.6 0.5-2.2 Acid Lvl) [facility]2018-03-28 01:04:00 Test Item Value Reference Range Interpretation Comments S. aureus (test code = Not Detected (01/20/18 S. aureus) 8:04 PM) [facility]2018-03-28 01:04:00 Test Item Value Reference Range Interpretation Comments Andrey Vancomycin Not Detected (01/20/18 Resistance (test code = 8:04 PM) Andrey Vancomycin Resistance) [facility]2018-03-28 01:04:00 Test Item Value Reference Range Interpretation Comments vanB Vancomycin Not Detected (01/20/18 Resistance (test code = 8:04 PM) vanB Vancomycin Resistance) [facility]2018-03-28 01:04:00 Test Item Value Reference Range Interpretation Comments S. anginosus grp (test Not Detected (01/20/18 code = S. anginosus 8:04 PM) grp) [facility]2018-03-28 01:04:00 Test Item Value Reference Range Interpretation Comments S. agalactiae (test code Not Detected (01/20/18 = S. agalactiae) 8:04 PM) [facility]2018-03-28 01:04:00 Test Item Value Reference Range Interpretation Comments S. pyogenes (test code Not Detected (01/20/18 = S. pyogenes) 8:04 PM) [facility]2018-03-28 01:04:00 Test Item Value Reference Range Interpretation Comments S. pneumoniae (test code Not Detected (01/20/18 = S. pneumoniae) 8:04 PM) [facility]2018-03-28 01:04:00 Test Item Value Reference Range Interpretation Comments S. epidermidis (test Detected code = S. epidermidis) *ABN*(01/20/18 8:04 PM) [facility]2018-03-28 01:04:00 Test Item Value Reference Range Interpretation Comments S. lugdunensis (test Not Detected (01/20/18 code = S. lugdunensis) 8:04 PM) [facility]2018-03-28 01:04:00 Test Item Value Reference Range Interpretation Comments Listeria spp. (test Not Detected (01/20/18 code = Listeria spp.) 8:04 PM) [facility]2018-03-28 01:04:00 Test Item Value Reference Range Interpretation Comments mecA Methicillin Not Detected (01/20/18 Resistance (test code = 8:04 PM) mecA Methicillin Resistance) [facility]2018-03-28 01:04:00 Test Item Value Reference Range Interpretation Comments E. faecalis (test code Not Detected (01/20/18 = E. faecalis) 8:04 PM) [facility]2018-03-28 01:04:00 Test Item Value Reference Range Interpretation Comments Streptococcus spp. (test Not Detected code = Streptococcus (01/20/18 8:04 PM) spp.) [facility]2018-03-28 01:04:00 Test Item Value Reference Range Interpretation Comments Staphylococcus spp. (test Detected code = Staphylococcus *ABN*(01/20/18 8:04 spp.) PM) [facility]2018-03-28 01:04:00 Test Item Value Reference Range Interpretation Comments E. faecium (test code Not Detected (01/20/18 = E. faecium) 8:04 PM) [facility] [place] [place]2018-03-28 01:04:00 Test Item Value Reference Range Interpretation Comments Lactic Acid Lvl (test code = Lactic 1.6 0.5-2.2 Acid Lvl) [facility]2018-03-28 01:04:00 Test Item Value Reference Range Interpretation Comments S. aureus (test code = Not Detected (01/20/18 S. aureus) 8:04 PM) [facility]2018-03-28 01:04:00 Test Item Value Reference Range Interpretation Comments Andrey Vancomycin Not Detected (01/20/18 Resistance (test code = 8:04 PM) Andrey Vancomycin Resistance) [facility]2018-03-28 01:04:00 Test Item Value Reference Range Interpretation Comments vanB Vancomycin Not Detected (01/20/18 Resistance (test code = 8:04 PM) vanB Vancomycin Resistance) [facility]2018-03-28 01:04:00 Test Item Value Reference Range Interpretation Comments S. anginosus grp (test Not Detected (01/20/18 code = S. anginosus 8:04 PM) grp) [facility]2018-03-28 01:04:00 Test Item Value Reference Range Interpretation Comments S. agalactiae (test code Not Detected (01/20/18 = S. agalactiae) 8:04 PM) [facility]2018-03-28 01:04:00 Test Item Value Reference Range Interpretation Comments S. pyogenes (test code Not Detected (01/20/18 = S. pyogenes) 8:04 PM) [facility]2018-03-28 01:04:00 Test Item Value Reference Range Interpretation Comments S. pneumoniae (test code Not Detected (01/20/18 = S. pneumoniae) 8:04 PM) [facility]2018-03-28 01:04:00 Test Item Value Reference Range Interpretation Comments S. epidermidis (test Detected code = S. epidermidis) *ABN*(01/20/18 8:04 PM) [facility]2018-03-28 01:04:00 Test Item Value Reference Range Interpretation Comments S. lugdunensis (test Not Detected (01/20/18 code = S. lugdunensis) 8:04 PM) [facility]2018-03-28 01:04:00 Test Item Value Reference Range Interpretation Comments Listeria spp. (test Not Detected (01/20/18 code = Listeria spp.) 8:04 PM) [facility]2018-03-28 01:04:00 Test Item Value Reference Range Interpretation Comments mecA Methicillin Not Detected (01/20/18 Resistance (test code = 8:04 PM) mecA Methicillin Resistance) [facility]2018-03-28 01:04:00 Test Item Value Reference Range Interpretation Comments E. faecalis (test code Not Detected (01/20/18 = E. faecalis) 8:04 PM) [facility]2018-03-28 01:04:00 Test Item Value Reference Range Interpretation Comments Streptococcus spp. (test Not Detected code = Streptococcus (01/20/18 8:04 PM) spp.) [facility]2018-03-28 01:04:00 Test Item Value Reference Range Interpretation Comments Staphylococcus spp. (test Detected code = Staphylococcus *ABN*(01/20/18 8:04 spp.) PM) [facility]2018-03-28 01:04:00 Test Item Value Reference Range Interpretation Comments E. faecium (test code Not Detected (01/20/18 = E. faecium) 8:04 PM) [facility] [id number] 17:00:00 Test Item Value Reference Range Interpretation Comments Lactic Acid Lvl (test code = Lactic 2.7 0.5-2.2 Acid Lvl) [facility] [id number] 17:00:00 Test Item Value Reference Range Interpretation Comments Bili Total (test code = Bili Total) 0.4 0.2-1.[address] [facility] [place] [place]2018-03-27 17:00:00 Test Item Value Reference Range Interpretation Comments Alk Phos (test code = Alk Phos) 81 39-[address] [facility] [place] [place]2018-03-27 17:00:00 Test Item Value Reference Range Interpretation Comments AST (test code = AST) 68 See_Comment [Auto mated message] The system which ge nerated this result transmit abdoul reference range : <=37. The reference range was not used to interpr et this result as neftali l/abnormal. [facility] [place] [place]2018-03-27 17:00:00 Test Item Value Reference Range Interpretation Comments Albumin Lvl (test code = Albumin Lvl) 4.1 3.5-5.0 [facility] [id number] 17:00:00 Test Item Value Reference Range Interpretation Comments Total Protein (test code = Total 8.3 6.4-8.4 Protein) [facility] [place] [place]2018-03-27 17:00:00 Test Item Value Reference Range Interpretation Comments ALT (test code = ALT) 116 See_Comment [Auto mated message] The system which ge nerated this result transmit abdoul reference range : <=65. The reference range was not used to interpr et this result as neftali l/abnormal. [facility] [id number] 17:00:00 Test Item Value Reference Range Interpretation Comments B/C Ratio (test code = B/C Ratio) 9 1 6-[address] [facility] [place] [place]2018-03-27 17:00:00 Test Item Value Reference Range Interpretation Comments Globulin (test code = Globulin) 4.2 2.7-4.[address] [facility] [place] [place]2018-03-27 17:00:00 Test Item Value Reference Range Interpretation Comments A/G Ratio (test code = A/G Ratio) 1.0 1 0.7-1.6 [id number] 17:00:00 Test Item Value Reference Range Interpretation Comments S Preg (test code = S Negative *NA*(01/20/18 Preg) 12:00 PM) [facility] [id number] 17:00:00 Test Item Value Reference Range Interpretation Comments UA Bacteria (test code = UA Occasional /HPF Bacteria) [facility] [id number] 17:00:00 Test Item Value Reference Range Interpretation Comments UA RBC (test code = 52 See_Comment [Automa abdoul message] The UA RBC) system which ge nerated this result transmit abdoul reference range : <=2. The reference range was not used to interpr et this result as neftali l/abnormal. [facility] AND [id number] 17:00:00 Test Item Value Reference Range Interpretation Comments UA WBC (test code = 4 See_Comment [Automa abdoul message] The UA WBC) system which ge nerated this result transmit abdoul reference range : <=5. The reference range was not used to interpr et this result as neftali l/abnormal. [facility] AND [id number] 17:00:00 Test Item Value Reference Range Interpretation Comments UA Leuk Est (test Negative (01/20/18 12:00 code = UA Leuk Est) PM) [facility] [id number] 17:00:00 Test Item Value Reference Range Interpretation Comments UA Sq Epi (test code = UA Sq Epi) Few /LPF [facility] [id number] 17:00:00 Test Item Value Reference Range Interpretation Comments UA Nitrite (test code Negative (01/20/18 12:00 = UA Nitrite) PM) [facility] AND [id number] 17:00:00 Test Item Value Reference Range Interpretation Comments UA Blood (test code = Moderate *ABN*(01/20/18 UA Blood) 12:00 PM) [facility] AND [id number] 17:00:00 Test Item Value Reference Range Interpretation Comments UA Spec Grav (test code = UA Spec 1.024 1 Grav) [facility] [id number] 17:00:00 Test Item Value Reference Range Interpretation Comments UA pH (test code = UA pH) 5.0 1 5.0-8.0 [facility] [id number] 17:00:00 Test Item Value Reference Range Interpretation Comments UA Protein (test code = UA Protein) 30 mg/dL [facility] [id number] 17:00:00 Test Item Value Reference Range Interpretation Comments UA Color (test code = Yellow *NA*(01/20/18 UA Color) 12:00 PM) [facility] AND [id number] 17:00:00 Test Item Value Reference Range Interpretation Comments UA Mucus (test code = UA Mucus) Few /LPF [facility] [id number] 17:00:00 Test Item Value Reference Range Interpretation Comments UA Turbidity (test code = Clear (01/20/18 12:00 UA Turbidity) PM) [facility] AND [id number] 17:00:00 Test Item Value Reference Range Interpretation Comments UA Urobilinogen (test code = UA <=1.0 mg/dL 0.1-1.0 Urobilinogen) [facility] [id number] 17:00:00 Test Item Value Reference Range Interpretation Comments UA Ketones (test code = UA Negative mg/dL Ketones) [facility] AND [id number] 17:00:00 Test Item Value Reference Range Interpretation Comments UA Bili (test code = Negative *NA*(01/20/18 UA Bili) 12:00 PM) [facility] AND [id number] 17:00:00 Test Item Value Reference Range Interpretation Comments UA Glucose (test code = UA Negative mg/dL Glucose) [facility] [place] [place]2018-03-27 17:00:00 Test Item Value Reference Range Interpretation Comments Lactic Acid Lvl (test code = Lactic 2.7 0.5-2.2 Acid Lvl) [facility] [place] [place]2018-03-27 17:00:00 Test Item Value Reference Range Interpretation Comments Bili Total (test code = Bili Total) 0.4 0.2-1.[address] [facility] [place] [place]2018-03-27 17:00:00 Test Item Value Reference Range Interpretation Comments Alk Phos (test code = Alk Phos) 81 39-[address] [facility] [place] [place]2018-03-27 17:00:00 Test Item Value Reference Range Interpretation Comments AST (test code = AST) 68 See_Comment [Auto mated message] The system which ge nerated this result transmit abdoul reference range : <=37. The reference range was not used to interpr et this result as neftali l/abnormal. [facility] [id number] 17:00:00 Test Item Value Reference Range Interpretation Comments Albumin Lvl (test code = Albumin Lvl) 4.1 3.5-5.[address] [facility] [place] [place]2018-03-27 17:00:00 Test Item Value Reference Range Interpretation Comments Total Protein (test code = Total 8.3 6.4-8.4 Protein) [facility] [id number] 17:00:00 Test Item Value Reference Range Interpretation Comments ALT (test code = ALT) 116 See_Comment [Auto mated message] The system which ge nerated this result transmit abdoul reference range : <=65. The reference range was not used to interpr et this result as neftali l/abnormal. [facility] [id number] 17:00:00 Test Item Value Reference Range Interpretation Comments B/C Ratio (test code = B/C Ratio) 9 1 6-25 [facility] [id number] 17:00:00 Test Item Value Reference Range Interpretation Comments Globulin (test code = Globulin) 4.2 2.7-4.2 [facility] [id number] 17:00:00 Test Item Value Reference Range Interpretation Comments A/G Ratio (test code = A/G Ratio) 1.0 1 0.7-1.6 [place] [id number] 17:00:00 Test Item Value Reference Range Interpretation Comments S Preg (test code = S Negative *NA*(01/20/18 Preg) 12:00 PM) [facility] AND [id number] 17:00:00 Test Item Value Reference Range Interpretation Comments UA Bacteria (test code = UA Occasional /HPF Bacteria) [facility] [id number] 17:00:00 Test Item Value Reference Range Interpretation Comments UA RBC (test code = 52 See_Comment [Automa abdoul message] The UA RBC) system which ge nerated this result transmit abdoul reference range : <=2. The reference range was not used to interpr et this result as neftali l/abnormal. [facility] [facility] [id number] 17:00:00 Test Item Value Reference Range Interpretation Comments UA WBC (test code = 4 See_Comment [Automa abdoul message] The UA WBC) system which ge nerated this result transmit abdoul reference range : <=5. The reference range was not used to interpr et this result as neftali l/abnormal. [facility] [id number] 17:00:00 Test Item Value Reference Range Interpretation Comments UA Leuk Est (test Negative (01/20/18 12:00 code = UA Leuk Est) PM) [facility] [id number] 17:00:00 Test Item Value Reference Range Interpretation Comments UA Sq Epi (test code = UA Sq Epi) Few /LPF [facility] [id number] 17:00:00 Test Item Value Reference Range Interpretation Comments UA Nitrite (test code Negative (01/20/18 12:00 = UA Nitrite) PM) [facility] [id number] 17:00:00 Test Item Value Reference Range Interpretation Comments UA Blood (test code = Moderate *ABN*(01/20/18 UA Blood) 12:00 PM) [facility] [id number] 17:00:00 Test Item Value Reference Range Interpretation Comments UA Spec Grav (test code = UA Spec 1.024 1 Grav) [facility] [id number] 17:00:00 Test Item Value Reference Range Interpretation Comments UA pH (test code = UA pH) 5.0 1 5.0-8.0 [facility] [id number] 17:00:00 Test Item Value Reference Range Interpretation Comments UA Protein (test code = UA Protein) 30 mg/dL [facility] [id number] 17:00:00 Test Item Value Reference Range Interpretation Comments UA Color (test code = Yellow *NA*(01/20/18 UA Color) 12:00 PM) [facility] [id number] 17:00:00 Test Item Value Reference Range Interpretation Comments UA Mucus (test code = UA Mucus) Few /LPF [facility] [id number] 17:00:00 Test Item Value Reference Range Interpretation Comments UA Turbidity (test code = Clear (01/20/18 12:00 UA Turbidity) PM) [facility] [id number] 17:00:00 Test Item Value Reference Range Interpretation Comments UA Urobilinogen (test code = UA <=1.0 mg/dL 0.1-1.0 Urobilinogen) [facility] [id number] 17:00:00 Test Item Value Reference Range Interpretation Comments UA Ketones (test code = UA Negative mg/dL Ketones) [facility] [id number] 17:00:00 Test Item Value Reference Range Interpretation Comments UA Bili (test code = Negative *NA*(01/20/18 UA Bili) 12:00 PM) [facility] [id number] 17:00:00 Test Item Value Reference Range Interpretation Comments UA Glucose (test code = UA Negative mg/dL Glucose) [facility] [id number] 20:29:00 Test Item Value Reference Range Interpretation Comments Lipase Lvl (test code = Lipase Lvl) 134 73-393 [facility]YjsjhhmDBBKNPAKQEGM0338-05-94 20:29:00 Test Item Value Reference Range Interpretation Comments AGAP (test code = AGAP) 11.7 10.0-20.0 [facility] HospitalZafhrtcYPDJTNRXQURI3733-15-48 20:29:00 Test Item Value Reference Range Interpretation Comments B/C Ratio (test code = B/C Ratio) 9 1 6-25 [facility] HospitalNkugjfnPGIRMKZQKKPR8045-22-06 20:29:00 Test Item Value Reference Range Interpretation Comments A/G Ratio (test code = A/G Ratio) 1.0 1 0.7-1.6 [facility] HospitalRncebxdNEPFJCIWUEYO6094-64-44 20:29:00 Test Item Value Reference Range Interpretation Comments Globulin (test code = Globulin) 4.5 2.7-4.2 [facility] HospitalVpclcpxQNXSYWSSORGY5811-21-32 20:29:00 Test Item Value Reference Range Interpretation Comments eGFR (test code = eGFR) 128 [facility] HospitalItwikldVLPEZQKIGTIJ0081-05-78 20:29:00 Test Item Value Reference Range Interpretation Comments Albumin Lvl (test code = Albumin Lvl) 4.4 3.5-5.0 [facility] HospitalFfjptjgUUYEAMHRGOWK2793-17-90 20:29:00 Test Item Value Reference Range Interpretation Comments ALT (test code = ALT) 145 See_Comment [Auto mated message] The system which ge nerated this result transmit abdoul reference range : <=65. The reference range was not used to interpr et this result as neftali l/abnormal. [facility] RockZjbgpvbMOEBQLARIHUO5159-52-67 20:29:00 Test Item Value Reference Range Interpretation Comments AST (test code = AST) 84 See_Comment [Auto mated message] The system which ge nerated this result transmit abdoul reference range : <=37. The reference range was not used to interpr et this result as neftali l/abnormal. [facility] HospitalKmsjicqVEVDICAIAXCA5068-26-94 20:29:00 Test Item Value Reference Range Interpretation Comments Alk Phos (test code = Alk Phos) 92 39-136 [facility] HospitalAziiajcJCXBLBBZFXHL9957-70-61 20:29:00 Test Item Value Reference Range Interpretation Comments Bili Total (test code = Bili Total) 0.5 0.2-1.3 [facility] HospitalHvldxceRVITGQZNHSZK7376-61-15 20:29:00 Test Item Value Reference Range Interpretation Comments Creatinine Lvl (test code = Creatinine 0.69 0.50-1.40 Lvl) [facility] HospitalEycraceDLZLIKQOYBOP6228-78-15 20:29:00 Test Item Value Reference Range Interpretation Comments Sodium Lvl (test code = Sodium Lvl) 139 135-145 [facility] HospitalIitpaflEASNJLWNTJGS5227-26-65 20:29:00 Test Item Value Reference Range Interpretation Comments Chloride Lvl (test code = Chloride Lvl) 104 95-109 [facility] HospitalAyrgxybXSROHUENGVUL0109-32-57 20:29:00 Test Item Value Reference Range Interpretation Comments Calcium Lvl (test code = Calcium Lvl) 9.5 8.5-10.5 [facility] HospitalRokndbdLWTGEOOCXBCX5063-27-76 20:29:00 Test Item Value Reference Range Interpretation Comments Total Protein (test code = Total 8.9 6.4-8.4 Protein) [facility] HospitalHmevxsqMSLVKEVQZHMT3959-73-87 20:29:00 Test Item Value Reference Range Interpretation Comments CO2 (test code = CO2) 27 24-32 [facility] HospitalTitjfggOSLVXUAZXXQB8965-71-75 20:29:00 Test Item Value Reference Range Interpretation Comments Potassium Lvl (test code = Potassium 3.7 3.5-5.1 Lvl) [facility] HospitalVdcdnyoVDHORBNRRDMV9714-61-61 20:29:00 Test Item Value Reference Range Interpretation Comments BUN (test code = BUN) 6 7-22 [facility] HospitalRanhlvwKKWGKWUQJWGS1448-28-32 20:29:00 Test Item Value Reference Range Interpretation Comments Glucose Lvl (test code = Glucose Lvl) 95 70-99 [facility] HospitalUlgmmizUXEMGMJKZNEWW8982-51-59 20:29:00 Test Item Value Reference Range Interpretation Comments S Preg (test code = S Negative *NA*(01/04/18 Preg) 3:29 PM) [facility]AllenDlbammcQJTJOTAFIB5921-23-96 20:29:00 Test Item Value Reference Range Interpretation Comments Lymphocytes # (test code = Lymphocytes 2.6 1.0-5.5 #) [facility] McAllenAgampytSBOLCVJNXW4264-11-34 20:29:00 Test Item Value Reference Range Interpretation Comments Monocytes # (test code 0.6 See_Comment [Aut omated message] The = Monocytes #) system which generated this result tra nsmitted reference range : <=0.8. The reference r kary was not used to int erpret this result as normal/abnormal . [facility] McAllenDhwbdcnECZRTKQVPA7545-80-96 20:29:00 Test Item Value Reference Range Interpretation Comments Eosinophils # (test code 0.2 See_Comment [A utomated message] The = Eosinophils #) system whic h generated this result tra nsmitted reference range : <=0.5. The reference r kary was not used to int erpret this result as normal/abnormal . [facility] McAllenLautttiDJWCPBKRCN2110-29-87 20:29:00 Test Item Value Reference Range Interpretation Comments Basophils # (test code 0.1 See_Comment [Aut omated message] The = Basophils #) system which generated this result tra nsmitted reference range : <=0.2. The reference r kary was not used to int erpret this result as normal/abnormal . [facility] McAllenUvbmkyxEKNXEKTNVA9199-27-17 20:29:00 Test Item Value Reference Range Interpretation Comments Eosinophils (test code = 1.8 See_Comment [A utomated message] The Eosinophils) system which ge nerated this result tra nsmitted reference range : <=4.0. The reference r kary was not used to int erpret this result as normal/abnormal . [facility]AllenHmmquuoWKEVUVTALC0817-84-91 20:29:00 Test Item Value Reference Range Interpretation Comments Monocytes (test code = Monocytes) 5.7 2.0-12.0 [facility] McAllenLgsloebLGDQSQDBNT0099-26-35 20:29:00 Test Item Value Reference Range Interpretation Comments Lymphocytes (test code = Lymphocytes) 23.3 20.0-40.0 [facility] McAllenSepabpdVBKBNPSZGO1788-39-05 20:29:00 Test Item Value Reference Range Interpretation Comments Segs (test code = Segs) 68.7 45.0-75.0 [facility] McAllenZcpvvrtZYGDWQCUOH0207-58-63 20:29:00 Test Item Value Reference Range Interpretation Comments Segs-Bands # (test code = Segs-Bands #) 7.7 1.5-8.1 [facility] McAllenKhwohfyIGZYSFXMOM7553-50-45 20:29:00 Test Item Value Reference Range Interpretation Comments Basophils (test code = 0.5 See_Comment [Aut omated message] The Basophils) system which ge nerated this result tra nsmitted reference range : <=1.0. The reference r kary was not used to int erpret this result as normal/abnormal . [facility] McAllenSihzfdqKDWRLODVAK1683-00-01 20:29:00 Test Item Value Reference Range Interpretation Comments MPV (test code = MPV) 8.4 7.4-10.4 [facility] McAllenPcpabwxNGTSSAORPG8695-04-73 20:29:00 Test Item Value Reference Range Interpretation Comments WBC (test code = WBC) 11.2 3.7-10.4 [facility] McAllenPelsfmiHHGINNPKPB4579-51-47 20:29:00 Test Item Value Reference Range Interpretation Comments Hgb (test code = Hgb) 16.2 12.0-16.0 [facility] McAllenWmnnbgtNHVNKNDSRW5138-13-25 20:29:00 Test Item Value Reference Range Interpretation Comments RBC (test code = RBC) 5.39 4.20-5.40 [facility] McAllenBdfpeeaRHBZLYJBDO2739-62-10 20:29:00 Test Item Value Reference Range Interpretation Comments RDW (test code = RDW) 13.4 11.5-14.5 [facility] McAllenUkzauzyBLWVDRNLPT5136-97-10 20:29:00 Test Item Value Reference Range Interpretation Comments MCH (test code = MCH) 30.1 pg 27.0-31.0 [facility] McAllenJhxiqicMORHIICFIA7906-82-78 20:29:00 Test Item Value Reference Range Interpretation Comments MCHC (test code = MCHC) 33.9 32.0-36.0 [facility] McAllenCslreidENGOFESXTV8230-20-44 20:29:00 Test Item Value Reference Range Interpretation Comments Platelet (test code = Platelet) 311 133-450 [facility] McAllenYkjfhjoIDECFDWZPJ9290-10-36 20:29:00 Test Item Value Reference Range Interpretation Comments Hct (test code = Hct) 47.8 36.0-48.0 [facility] McAllenKhbnxfiUHNZIERDMH2334-20-28 20:29:00 Test Item Value Reference Range Interpretation Comments MCV (test code = MCV) 88.6 80.0-98.0 [facility] [id number] 20:29:00 Test Item Value Reference Range Interpretation Comments UA Urobilinogen (test code = UA <=1.0 mg/dL 0.1-1.0 Urobilinogen) [facility] AND [id number] 20:29:00 Test Item Value Reference Range Interpretation Comments UA Sq Epi (test code = UA Sq Occasional /LPF Epi) [facility] AND [id number] 20:29:00 Test Item Value Reference Range Interpretation Comments UA Leuk Est (test code Small *ABN*(01/04/18 = UA Leuk Est) 3:29 PM) [facility] AND [id number] 20:29:00 Test Item Value Reference Range Interpretation Comments UA Nitrite (test code Negative (01/04/18 3:29 = UA Nitrite) PM) [facility] [id number] 20:29:00 Test Item Value Reference Range Interpretation Comments UA Blood (test code = Moderate *ABN*(01/04/18 UA Blood) 3:29 PM) [facility] [id number] 20:29:00 Test Item Value Reference Range Interpretation Comments UA Bacteria (test code = UA Few /HPF Bacteria) [facility] [id number] 20:29:00 Test Item Value Reference Range Interpretation Comments UA RBC (test code = 17 See_Comment [Automa abdoul message] The UA RBC) system which ge nerated this result transmit abdoul reference range : <=2. The reference range was not used to interpr et this result as neftali l/abnormal. [facility] [id number] 20:29:00 Test Item Value Reference Range Interpretation Comments UA WBC (test code = 60 See_Comment [Automa abdoul message] The UA WBC) system which ge nerated this result transmit abdoul reference range : <=5. The reference range was not used to interpr et this result as neftali l/abnormal. [facility] [id number] 20:29:00 Test Item Value Reference Range Interpretation Comments UA [place] Yeast (test code = UA [place] Few /HPF Yeast) [facility] AND [id number] 20:29:00 Test Item Value Reference Range Interpretation Comments UA Amorph Shanna (test code = Occasional /HPF UA Amorph Shanna) [facility] AND [id number] 20:29:00 Test Item Value Reference Range Interpretation Comments UA Mucus (test code = UA Mucus) Few /LPF [facility] [id number] 20:29:00 Test Item Value Reference Range Interpretation Comments UA Spec Grav (test code = UA Spec 1.012 1 Grav) [facility] [id number] 20:29:00 Test Item Value Reference Range Interpretation Comments UA pH (test code = UA pH) 7.0 1 5.0-8.0 [facility] [id number] 20:29:00 Test Item Value Reference Range Interpretation Comments UA Protein (test code = UA Negative mg/dL Protein) [facility] [id number] 20:29:00 Test Item Value Reference Range Interpretation Comments UA Glucose (test code = UA Negative mg/dL Glucose) [facility] [id number] 20:29:00 Test Item Value Reference Range Interpretation Comments UA Bili (test code = Negative *NA*(01/04/18 UA Bili) 3:29 PM) [facility] [id number] 20:29:00 Test Item Value Reference Range Interpretation Comments UA Ketones (test code = UA Negative mg/dL Ketones) [facility] [id number] 20:29:00 Test Item Value Reference Range Interpretation Comments UA Color (test code = Yellow *NA*(01/04/18 UA Color) 3:29 PM) [facility] AND [id number] 20:29:00 Test Item Value Reference Range Interpretation Comments UA Turbidity (test code Slight *ABN*(01/04/18 = UA Turbidity) 3:29 PM) [facility] [id number] 20:29:00 Test Item Value Reference Range Interpretation Comments Lipase Lvl (test code = Lipase Lvl) 134 73-393 [facility] QkvhsbuWGMVSCRAENVF7090-56-60 20:29:00 Test Item Value Reference Range Interpretation Comments AGAP (test code = AGAP) 11.7 10.0-20.0 [facility] JjubobkBNQWUQUOLMMY8769-16-10 20:29:00 Test Item Value Reference Range Interpretation Comments B/C Ratio (test code = B/C Ratio) 9 1 6-25 [facility] HospitalSqswaahMOBDHMQWGWYI7595-70-96 20:29:00 Test Item Value Reference Range Interpretation Comments A/G Ratio (test code = A/G Ratio) 1.0 1 0.7-1.6 [facility] HospitalIejmfxaOGDRKDQHXBPS4475-67-46 20:29:00 Test Item Value Reference Range Interpretation Comments Globulin (test code = Globulin) 4.5 2.7-4.2 [facility] HospitalTvueonsBWXWJUGDNSJV0663-51-92 20:29:00 Test Item Value Reference Range Interpretation Comments eGFR (test code = eGFR) 128 [facility] HospitalBzdfcbcPCGKHGMIDNKG5461-96-96 20:29:00 Test Item Value Reference Range Interpretation Comments Albumin Lvl (test code = Albumin Lvl) 4.4 3.5-5.0 [facility] HospitalOdiggeqFWNIDQZNZZWZ2523-53-39 20:29:00 Test Item Value Reference Range Interpretation Comments ALT (test code = ALT) 145 See_Comment [Auto mated message] The system which ge nerated this result transmit abdoul reference range : <=65. The reference range was not used to interpr et this result as neftali l/abnormal. [facility] HospitalZzafdgbEPLXPYEVACWM7404-17-45 20:29:00 Test Item Value Reference Range Interpretation Comments AST (test code = AST) 84 See_Comment [Auto mated message] The system which ge nerated this result transmit abdoul reference range : <=37. The reference range was not used to interpr et this result as neftali l/abnormal. [facility] HospitalQailcubRIBUZHARNDSI4656-97-49 20:29:00 Test Item Value Reference Range Interpretation Comments Alk Phos (test code = Alk Phos) 92 39-136 [facility] HospitalJjkvamyPWQWZARTLBGG0672-81-19 20:29:00 Test Item Value Reference Range Interpretation Comments Bili Total (test code = Bili Total) 0.5 0.2-1.3 [facility] HospitalEifkcwmUPFNUHEDLMHX5280-21-26 20:29:00 Test Item Value Reference Range Interpretation Comments Creatinine Lvl (test code = Creatinine 0.69 0.50-1.40 Lvl) [facility] HospitalAfpbxrhFDBXRQLWOMZE1665-56-00 20:29:00 Test Item Value Reference Range Interpretation Comments Sodium Lvl (test code = Sodium Lvl) 139 135-145 [facility] HospitalYefpzofDHITHJCGUYSC2250-03-94 20:29:00 Test Item Value Reference Range Interpretation Comments Chloride Lvl (test code = Chloride Lvl) 104 95-109 [facility] HospitalYzlgdnmKVCEODPFECOV8878-61-49 20:29:00 Test Item Value Reference Range Interpretation Comments Calcium Lvl (test code = Calcium Lvl) 9.5 8.5-10.5 [facility] HospitalHpbisunDJLJYCUONXBP7782-77-96 20:29:00 Test Item Value Reference Range Interpretation Comments Total Protein (test code = Total 8.9 6.4-8.4 Protein) [facility] HospitalXrcskidVEVHGGFCVKWY8014-23-43 20:29:00 Test Item Value Reference Range Interpretation Comments CO2 (test code = CO2) 27 24-32 [facility] HospitalPgxyaweDCCSXHZSKGAM9692-21-54 20:29:00 Test Item Value Reference Range Interpretation Comments Potassium Lvl (test code = Potassium 3.7 3.5-5.1 Lvl) [facility] HospitalSunwegxAKMOWVGNACSG8112-33-88 20:29:00 Test Item Value Reference Range Interpretation Comments BUN (test code = BUN) 6 7-22 [facility] HospitalLbhfrswKOPSMDHPJCBG6378-90-19 20:29:00 Test Item Value Reference Range Interpretation Comments Glucose Lvl (test code = Glucose Lvl) 95 70-99 [place] [id number] 20:29:00 Test Item Value Reference Range Interpretation Comments S Preg (test code = S Negative *NA*(01/04/18 Preg) 3:29 PM) [facility]AllenNrhuxwzYWGMDZDNEA0232-01-76 20:29:00 Test Item Value Reference Range Interpretation Comments Lymphocytes # (test code = Lymphocytes 2.6 1.0-5.5 #) [facility]AllenUkddvqlSAZZRGODFY9014-38-81 20:29:00 Test Item Value Reference Range Interpretation Comments Monocytes # (test code 0.6 See_Comment [Aut omated message] The = Monocytes #) system which generated this result tra nsmitted reference range : <=0.8. The reference r kary was not used to int erpret this result as normal/abnormal . [facility] McAllenAwrfbqmXITQZOERYH0432-30-40 20:29:00 Test Item Value Reference Range Interpretation Comments Eosinophils # (test code 0.2 See_Comment [A utomated message] The = Eosinophils #) system whic h generated this result tra nsmitted reference range : <=0.5. The reference r kary was not used to int erpret this result as normal/abnormal . [facility] McAllenNhwvlucNOLWPSJXIR7878-68-43 20:29:00 Test Item Value Reference Range Interpretation Comments Basophils # (test code 0.1 See_Comment [Aut omated message] The = Basophils #) system which generated this result tra nsmitted reference range : <=0.2. The reference r kary was not used to int erpret this result as normal/abnormal . [facility] McAllenNekwmoyDIWCUEUXWO6049-19-61 20:29:00 Test Item Value Reference Range Interpretation Comments Eosinophils (test code = 1.8 See_Comment [A utomated message] The Eosinophils) system which ge nerated this result tra nsmitted reference range : <=4.0. The reference r kary was not used to int erpret this result as normal/abnormal . [facility] McAllenGopgbnoENYEPTWKXZ9670-79-33 20:29:00 Test Item Value Reference Range Interpretation Comments Monocytes (test code = Monocytes) 5.7 2.0-12.0 [facility] McAllenPfrqiecWEMODSYJGP5480-79-76 20:29:00 Test Item Value Reference Range Interpretation Comments Lymphocytes (test code = Lymphocytes) 23.3 20.0-40.0 [facility] McAllenUojysevTMJKLDXAUD1449-47-35 20:29:00 Test Item Value Reference Range Interpretation Comments Segs (test code = Segs) 68.7 45.0-75.0 [facility] McAllenJarwpztIXSACDRAVP7246-48-93 20:29:00 Test Item Value Reference Range Interpretation Comments Segs-Bands # (test code = Segs-Bands #) 7.7 1.5-8.1 [facility] McAllenHnhvexjHWIJIAGFCP8375-74-94 20:29:00 Test Item Value Reference Range Interpretation Comments Basophils (test code = 0.5 See_Comment [Aut omated message] The Basophils) system which ge nerated this result tra nsmitted reference range : <=1.0. The reference r kary was not used to int erpret this result as normal/abnormal . [facility] McAllenUntihhvXQOFLXIITR5301-41-51 20:29:00 Test Item Value Reference Range Interpretation Comments MPV (test code = MPV) 8.4 7.4-10.4 [facility] McAllenFqvqarwUSNVKLZZQD4707-67-51 20:29:00 Test Item Value Reference Range Interpretation Comments WBC (test code = WBC) 11.2 3.7-10.4 [facility] McAllenQutcdjbPYYUXYMFRY4281-24-43 20:29:00 Test Item Value Reference Range Interpretation Comments Hgb (test code = Hgb) 16.2 12.0-16.0 [facility] McAllenNsujculHBGRDFPHTJ2789-72-63 20:29:00 Test Item Value Reference Range Interpretation Comments RBC (test code = RBC) 5.39 4.20-5.40 [facility] McAllenKxfxrkzJKIPCCZHOY7524-34-66 20:29:00 Test Item Value Reference Range Interpretation Comments RDW (test code = RDW) 13.4 11.5-14.5 [facility] McAllenYwyqrtfXCQDVVYGDP2636-42-94 20:29:00 Test Item Value Reference Range Interpretation Comments MCH (test code = MCH) 30.1 pg 27.0-31.0 [facility] McAllenPzjxnroUZDQAUGXMY2135-63-92 20:29:00 Test Item Value Reference Range Interpretation Comments MCHC (test code = MCHC) 33.9 32.0-36.0 [facility] McAllenHzwcymxYBMUTHBWVQ4634-62-01 20:29:00 Test Item Value Reference Range Interpretation Comments Platelet (test code = Platelet) 311 133-450 [facility] McAllenThghlcnQDFRBDPTTW1155-04-48 20:29:00 Test Item Value Reference Range Interpretation Comments Hct (test code = Hct) 47.8 36.0-48.0 [facility] McAllenSdswwbyPCXVDJOWZW1889-77-83 20:29:00 Test Item Value Reference Range Interpretation Comments MCV (test code = MCV) 88.6 80.0-98.0 [facility] AND [id number] 20:29:00 Test Item Value Reference Range Interpretation Comments UA Urobilinogen (test code = UA <=1.0 mg/dL 0.1-1.0 Urobilinogen) [facility] [id number] 20:29:00 Test Item Value Reference Range Interpretation Comments UA Sq Epi (test code = UA Sq Occasional /LPF Epi) [facility] AND [id number] 20:29:00 Test Item Value Reference Range Interpretation Comments UA Leuk Est (test code Small *ABN*(01/04/18 = UA Leuk Est) 3:29 PM) [facility] AND [id number] 20:29:00 Test Item Value Reference Range Interpretation Comments UA Nitrite (test code Negative (01/04/18 3:29 = UA Nitrite) PM) [facility] AND [id number] 20:29:00 Test Item Value Reference Range Interpretation Comments UA Blood (test code = Moderate *ABN*(01/04/18 UA Blood) 3:29 PM) [facility] [facility] AND [id number] 20:29:00 Test Item Value Reference Range Interpretation Comments UA Bacteria (test code = UA Few /HPF Bacteria) [facility] AND [id number] 20:29:00 Test Item Value Reference Range Interpretation Comments UA RBC (test code = 17 See_Comment [Automa abdoul message] The UA RBC) system which ge nerated this result transmit abdoul reference range : <=2. The reference range was not used to interpr et this result as neftali l/abnormal. [facility] AND [id number] 20:29:00 Test Item Value Reference Range Interpretation Comments UA WBC (test code = 60 See_Comment [Automa abdoul message] The UA WBC) system which ge nerated this result transmit abdoul reference range : <=5. The reference range was not used to interpr et this result as neftali l/abnormal. [facility] AND [id number] 20:29:00 Test Item Value Reference Range Interpretation Comments UA [place] Yeast (test code = UA [place] Few /HPF Yeast) [facility] AND [id number] 20:29:00 Test Item Value Reference Range Interpretation Comments UA Amorph Shanna (test code = Occasional /HPF UA Amorph Shanna) [facility] AND [id number] 20:29:00 Test Item Value Reference Range Interpretation Comments UA Mucus (test code = UA Mucus) Few /LPF [facility] AND [id number] 20:29:00 Test Item Value Reference Range Interpretation Comments UA Spec Grav (test code = UA Spec 1.012 1 Grav) [facility] AND [id number] 20:29:00 Test Item Value Reference Range Interpretation Comments UA pH (test code = UA pH) 7.0 1 5.0-8.0 [facility] AND [id number] 20:29:00 Test Item Value Reference Range Interpretation Comments UA Protein (test code = UA Negative mg/dL Protein) [facility] AND [id number] 20:29:00 Test Item Value Reference Range Interpretation Comments UA Glucose (test code = UA Negative mg/dL Glucose) [facility] AND [id number] 20:29:00 Test Item Value Reference Range Interpretation Comments UA Bili (test code = Negative *NA*(01/04/18 UA Bili) 3:29 PM) [facility] AND [id number] 20:29:00 Test Item Value Reference Range Interpretation Comments UA Ketones (test code = UA Negative mg/dL Ketones) [facility] AND [id number] 20:29:00 Test Item Value Reference Range Interpretation Comments UA Color (test code = Yellow *NA*(01/04/18 UA Color) 3:29 PM) [facility] AND [id number] 20:29:00 Test Item Value Reference Range Interpretation Comments UA Turbidity (test code Slight *ABN*(01/04/18 = UA Turbidity) 3:29 PM) [facility]
[2022-11-05] MEDS ORDERED: PROMETHAZINE INJ 25 MG/ML AMP ONE (13:51)
[2022-11-05] MEDS ORDERED: NA CHLORIDE 0.9% 1,000 ML ONE (13:51)
[2022-11-05 14:17] LABS: Absolute Lymphocytes (CBC) 1.9 K/uL (0.7-4.9); Hematocrit 35.2 % (36.0-45.0); Lymphocytes % 22.6 % (15.3-44.8); MCV 82.1 fL (80-100); MPV 7.7 fL (7.6-11.3); RBC Red Blood Cell Count 4.28 M/uL (3.86-4.86)
[2022-11-05 14:50] LABS: Urine Blood Negative (Negative); Urine Glucose Negative (Negative); Urine Protein Negative (Negative); Urine Specific Gravity 1.015 (1.005-1.030); Urine pH 7.5 (5.0-7.0)
[2022-11-05 15:00] LABS: Urine Bacteria None Seen /HPF (<20); Urine Mucus Slight /HPF (None Seen); Urine RBC <5 /HPF (None Seen)
[2022-11-05 15:03] LABS: Urine Specific Gravity/Preg 1.015 (1.005-1.030)
--- NOTE | 2022-11-05 16:41 | RAD REPORT ---
EXAM DESCRIPTION: US - Pelvis Complete - 11/05/2022 4:01 pm CLINICAL HISTORY: FLANK PAIN COMPARISON: Transvaginal OB dated 11/05/2022 TECHNIQUE: Transabdominal pelvic sonography was performed. FINDINGS: Transabdominal and endovaginal pelvic sonography performed. Findings from both examination s are incorporated into a single report attached to this transabdominal examination. Normal size uterus is identifiable with no myometrial mass identifiable. There is a single normal sha ped intrauterine gestational sac containing yolk sac and pole. [place]-rump length measurements c orrespond to a 7 week 2 day gestational age. Cardiac activity is seen at a rate of 154 BPM. No hemato ma or mass within the endometrial cavity. Cervical canal appears closed. No blood or fluid in the cul de sac. Left ovary was not identifiable on either transabdominal or endovaginal approach. Ovary may be obscur ed by bowel. There is no left adnexal mass identifiable. Normal size right ovary is identified with blood flow seen in the ovarian stroma. Small sub centimete r cysts or follicles are present. In the right adnexa there is a 5 x 3 centimeter oval mixed echogenicity focus of tissue that appears to be discrete from the right ovary. This was seen only on transabdominal approach. An adnexal terato ma or dermoid would be possible. This does not have the typical appearance for bowel. Hemorrhagic mat erial in the cyst would be possible. No fallopian tube dilatation. IMPRESSION: A single 7 week 2 day IUP is seen with heart rate of 154 BPM. No intrauterine hematoma o r mass. Nonvisualization of the left ovary possibly due to prominent bowel in the adnexa. There is no adnexal mass. A normal right ovary with normal blood flow was seen. There is an additional right adnexal 5 x 3 cent imeter mixed echogenicity mass that appears discrete from the ovary. Complex or hemorrhagic adnexal c yst is possible. Dermoid/ teratoma is possible. With normal blood flow in the right ovary, this is probably not an emergent finding and could be yasmeen tored with follow-up imaging over the course of the .
--- NOTE | 2022-11-05 16:42 | RAD REPORT ---
EXAM DESCRIPTION: US - Transvaginal OB - 11/05/2022 4:12 pm CLINICAL HISTORY: FLANK PAIN COMPARISON: Transabdominal pelvic sonography same-day FINDINGS: Transabdominal and endovaginal sonogram examinations were performed. Findings from both ex aminations were incorporated into a single report and attached to the transabdominal examination. IMPRESSION: Please see separate transabdominal pelvic ultrasound report.
[2022-11-05] MEDS ORDERED: ACETAMINOPHEN 500 MG TAB ONE (17:20)
--- NOTE | 2022-11-05 17:20 | ER ---
Nurse's Notes [facility] Name: Tiffany Chaudhry Age: 21 yrs Sex: Female : 2000 Arrival Date: 11/05/2022 Time: 12:41 Bed 11 Private MD: Diagnosis: Syncope Near;Low back pain;7 weeks of gestation prregnancy - IUP Presentation: 11/05 12:47 Chief complaint: Patient states: B lower back pain for 1 week. Worse today. Syncopal ll1 event Friday. LMP , wants to make sure she isn't . Coronavirus screen: Vaccine status: Patient reports being unvaccinated. Client denies travel out of the [place] in the last 14 days. At this time, the client does not indicate any symptoms associated with coronavirus-19. Ebola Screen: Patient denies travel to an Ebola-affected area in the 21 days before illness onset. Initial Sepsis Screen: Does the patient meet any 2 criteria? No. Patient's initial sepsis screen is negative. Does the patient have a suspected source of infection? No. Patient's initial sepsis screen is negative. Risk Assessment: Do you want to hurt yourself or someone else? Patient reports no desire to harm self or others. Onset of symptoms was October 29, 2022. 12:47 Method Of Arrival: Wheelchair ll1 12:47 Acuity: AMRIK 3 ll1 Historical: - Allergies: 12:48 No Known Allergies; ll1 - PSHx: 12:48 None; ll1 - Immunization history:: Client reports having NOT received the Covid vaccine. - Social history:: Smoking status: Patient denies any tobacco usage or history of. Screenin:45 [facility] ED Fall Risk Assessment (Adult) History of falling in the last 3 months, eh3 including since admission No falls in past 3 months (0 pts) Confusion or Disorientation No (0 pts) Intoxicated or Sedated No (0 pts) Impaired Gait No (0 pts) Mobility Assist Device Used No (0 pt) Altered Elimination Yes (1 pt) Score/Fall Risk Level 0 - 2 = Low Risk. Abuse screen: Denies threats or abuse. Denies injuries from another. Nutritional screening: Has had N/V for 3 or more days. Tuberculosis screening: No symptoms or risk factors identified. Assessment: 13:45 General: Appears in no apparent distress. uncomfortable, Behavior is calm, cooperative, eh3 appropriate for age. Pain: Complains of pain in left low back and right low back Pain currently is 8 out of 10 on a pain scale. Neuro: Level of Consciousness is awake, alert, obeys commands, Oriented to person, place, time, situation. Cardiovascular: Capillary refill < 3 seconds Patient's skin is warm and dry. Respiratory: Airway is patent Respiratory effort is even, unlabored, Respiratory pattern is regular, symmetrical. GI: Abdomen is round non-distended, Reports intolerance of fluids, intolerance of food, nausea, vomiting. : No signs and/or symptoms were reported regarding the genitourinary system. EENT: No signs and/or symptoms were reported regarding the EENT system. Derm: No signs and/or symptoms reported regarding the dermatologic system. Musculoskeletal: No signs and/or symptoms reported regarding the musculoskeletal system. 14:45 Reassessment: Patient appears in no apparent distress at this time. Patient and/or 3 family updated on plan of care and expected duration. Pain level reassessed. Patient is alert, oriented x 3, equal unlabored respirations, skin warm/dry/pink. Patient states symptoms have improved. 15:45 Reassessment: Patient appears in no apparent distress at this time. Patient and/or eh3 family updated on plan of care and expected duration. Pain level reassessed. Patient is alert, oriented x 3, equal unlabored respirations, skin warm/dry/pink. 16:45 Reassessment: Patient appears in no apparent distress at this time. Patient and/or eh3 family updated on plan of care and expected duration. Pain level reassessed. Patient is alert, oriented x 3, equal unlabored respirations, skin warm/dry/pink. Vital Signs: 12:47 BP 116 / 70; Pulse 80; Resp 17; Temp 97.7; Pulse Ox 100% ; Weight 81.65 kg; Height 5 ll1 ft. 2 in. (157.48 cm); Pain 10/10; 13:46 BP 106 / 71; Pulse 86; Resp 18; Pulse Ox 99% on R/A; eh3 14:45 BP 107 / 70; Pulse 78; Resp 18; Pulse Ox 100% on R/A; eh3 15:45 BP 100 / 59; Pulse 68; Resp 16; Pulse Ox 100% on R/A; eh3 16:45 BP 104 / 57; Pulse 64; Resp 16; Pulse Ox 100% on R/A; eh3 12:47 Body Mass Index 32.92 (81.65 kg, 157.48 cm) ll1 ED Course: 12:41 Patient arrived in ED. rg4 12:48 Triage completed. ll1 12:49 Arm band placed on. ll1 13:22 Italo Berrios, JOSHUA is PHCP. pm1 13:23 Jose De Los Santos MD is Attending Physician. pm1 13:25 Abiola Lima, JUAQUIN is Primary Nurse. eh3 13:45 Patient has correct armband on for positive identification. Bed in low position. Call 3 light in reach. Side rails up X2. Adult w/ patient. Pulse ox on. NIBP on. Door closed. Noise minimized. Lights dimmed. Warm blanket given. 13:56 Initial lab(s) drawn, by id, sent to lab. Inserted saline lock: 20 gauge in right tm3 antecubital area, using aseptic technique. 16:02 Pelvis Complete In Process Unspecified. EDMS 16:14 Transvaginal OB In Process Unspecified. EDMS 17:32 No provider procedures requiring assistance completed. IV discontinued, intact, eh3 bleeding controlled, No redness/swelling at site. Pressure dressing applied. Administered Medications: 14:03 Drug: NS 0.9% 1000 ml Route: IV; Rate: 1000 ml; Site: right antecubital; eh3 17:32 Follow up: IV Status: Completed infusion; IV Intake: 900ml eh3 14:03 Drug: Phenergan (promethazine) 12.5 mg Route: IVP; Site: right antecubital; eh3 15:00 Follow up: Response: Nausea is decreased eh3 17:19 Drug: Tylenol 500 mg Route: PO; eh3 17:31 Follow up: Response: Medication administered at discharge. eh3 Medication: 17:32 VIS not applicable for this client. eh3 Intake: 17:32 IV: 900ml; Total: 900ml. eh3 Outcome: 17:19 Discharge ordered by . pm1 17:32 Discharged to home ambulatory, with significant other. eh3 17:32 Condition: stable 17:32 Discharge instructions given to patient, significant other, Instructed on discharge instructions, follow up and referral plans. medication usage, Demonstrated understanding of instructions, follow-up care, medications, Prescriptions given X 1. 17:32 Patient left the ED. eh3 Signatures: Dispatcher [employer] EDTelly Coronel tm3 Italo Berrios, JOSHUA BARREL RIFLER OPERATOR pm1 Ivelisse Rivera rg4 Wilmer Young, JUAQUIN RN 1 Abiola Lima RN RN 3 Corrections: (The following items were deleted from the chart) 12:49 12:47 Chief complaint: Patient states: B lower back pain for 1 week. Worse today. ll1 Syncopal event Friday. ll1 13:23 12:47 Chief complaint: Patient states: B lower back pain for 1 week. Worse today. eh3 Syncopal event Friday. LMP Nov. 10, wants to iverson sure she isn't . ll1
--- NOTE | 2022-11-05 17:20 | EDPHYS ---
Physician Documentation [facility] Name: Tiffany Chaudhry Age: 21 yrs Sex: Female : 2000 Arrival Date: 11/05/2022 Time: 12:41 Bed 11 Private MD: ED Physician Jose De Los Santos HPI: 11/05 13:42 This 21 yrs old Female presents to ER via Wheelchair with complaints of Back pm1 Pain. 13:42 The patient presents with pain that is acute. The symptoms are located in the low back. pm1 Onset: The symptoms/episode began/occurred 1 week(s) ago. The pain does not radiate. Associated signs and symptoms: Pertinent positives: abdominal pain, suprapubic area, Pertinent negatives: dysuria. The problem was sustained during a fall, syncopal episode one week ago with fall onto low back. Patient reports decreased PO intake as a result of nausea. Patient is concerned she may be . LMP mid August. Patient took test at home and came back positive. Modifying factors: The patient symptoms are alleviated by nothing, the patient symptoms are aggravated by nothing. Severity of symptoms: in the emergency department the symptoms are unchanged. The patient has not experienced similar symptoms in the past. The patient has not recently seen a physician. Historical: - Allergies: 12:48 No Known Allergies; ll1 - PSHx: 12:48 None; ll1 - Immunization history:: Client reports having NOT received the Covid vaccine. - Social history:: Smoking status: Patient denies any tobacco usage or history of. ROS: 13:42 Constitutional: Negative for fever, chills, and weight loss, Cardiovascular: Negative pm1 for chest pain, palpitations, and edema, Respiratory: Negative for shortness of breath, cough, wheezing, and pleuritic chest pain, Abdomen/GI: Negative for abdominal pain, nausea, vomiting, diarrhea, and constipation. 13:42 MS/Extremity: Negative for injury and deformity, Skin: Negative for injury, rash, and discoloration. 13:42 Back: Positive for of the low back area. 13:42 : Positive for missed period, Negative for urinary symptoms, vaginal bleeding, vaginal discharge. 13:42 Neuro: Positive for syncope, 1 week ago, Negative for headache. 13:42 All other systems are negative. Exam: 13:42 Constitutional: This is a well developed, well nourished patient who is awake, alert, pm1 and in no acute distress. Head/Face: Normocephalic, atraumatic. 13:42 Skin: Warm, dry with normal turgor. Normal color with no rashes, no lesions, and no evidence of cellulitis. MS/ Extremity: Pulses equal, no cyanosis. Neurovascular intact. Full, normal range of motion. 13:42 Cardiovascular: Exam negative for acute changes, Rate: normal, Rhythm: regular, Pulses: no pulse deficits are appreciated. 13:42 Respiratory: Exam negative for acute changes, respiratory distress, shortness of breath. 13:42 Abdomen/GI: Inspection: abdomen appears normal, Palpation: abdomen is soft and non-tender, in all quadrants. 13:42 Back: muscle spasm, is appreciated in the left low back and right low back. 13:42 Neuro: Exam negative for acute changes, Orientation: is normal, Mentation: is normal, Motor: is normal, moves all fours, Sensation: no obvious gross deficits. Vital Signs: 12:47 BP 116 / 70; Pulse 80; Resp 17; Temp 97.7; Pulse Ox 100% ; Weight 81.65 kg; Height 5 ll1 ft. 2 in. (157.48 cm); Pain 10/10; 13:46 BP 106 / 71; Pulse 86; Resp 18; Pulse Ox 99% on R/A; eh3 14:45 BP 107 / 70; Pulse 78; Resp 18; Pulse Ox 100% on R/A; eh3 15:45 BP 100 / 59; Pulse 68; Resp 16; Pulse Ox 100% on R/A; eh3 16:45 BP 104 / 57; Pulse 64; Resp 16; Pulse Ox 100% on R/A; eh3 12:47 Body Mass Index 32.92 (81.65 kg, 157.48 cm) ll1 MDM: 13:26 Patient medically screened. pm1 13:43 ED course: Patient reports positive home test will order lab works as pm1 appropriate and pending verification with beta-hCG will order ultrasound if required. 17:14 Data reviewed: vital signs. pm1 17:14 Differential diagnosis: ectopic , IUP, UTI, ovarian cyst. pm1 17:14 I considered the following discharge prescriptions or medication management in the pm1 emergency department Pain Medications: At this time, prescription pain medications are not recommended, due to patient's diagnosis of , recommended Tylenol only as needed for pain. 17:14 Test considered but Not performed: X-ray: Due to of 7 weeks and patient pm1 without any signs of spinal cord injury, recommended therapeutic measures to address back pain and follow up with OB. 17:14 Counseling: I had a detailed discussion with the patient and/or guardian regarding: the pm1 historical points, exam findings, and any diagnostic results supporting the discharge/admit diagnosis, lab results, radiology results, the need for outpatient follow up, an OB/Gyne specialist, to return to the emergency department if symptoms worsen or persist or if there are any questions or concerns that arise at home. 17:14 Special discussion: I discussed with the patient the need to follow-up with the pm1 PCP/specialist for the noted incidental finding on X-ray/CT scanning. U/S finding of mass next to right ovary for further evaluation by OB. 11/05 12:56 Order name: Urine Microscopic Only; Complete Time: 15:03 kb 11/05 13:42 Order name: Abo/rh Typing; Complete Time: 15:03 pm1 11/05 13:42 Order name: Basic Metabolic Panel; Complete Time: 15:03 pm1 11/05 13:42 Order name: CBC with Diff; Complete Time: 15:03 pm1 11/05 13:42 Order name: Quantitative Hcg; Complete Time: 15:03 pm1 11/05 14:50 Order name: Urine --Ancillary (enter results); Complete Time: 15:03 bd 11/05 14:51 Order name: Urine Dipstick-Ancillary; Complete Time: 15:03 EDMS 11/05 15:07 Order name: ABO/RH no charge; Complete Time: 15:07 EDMS 11/05 16:02 Order name: Pelvis Complete; Complete Time: 16:43 EDMS 11/05 16:04 Order name: Transvaginal OB; Complete Time: 16:43 EDMS 11/05 12:56 Order name: Urine Dipstick-Ancillary (obtain specimen); Complete Time: 16:58 kb 11/05 12:56 Order name: Urine Test (obtain specimen); Complete Time: 16:58 kb 11/05 13:42 Order name: IV Saline Lock; Complete Time: 13:53 pm1 11/05 13:42 Order name: Labs collected and sent; Complete Time: 13:53 pm1 11/05 13:42 Order name: NPO; Complete Time: 13:47 pm1 Administered Medications: 14:03 Drug: NS 0.9% 1000 ml Route: IV; Rate: 1000 ml; Site: right antecubital; 3 17:32 Follow up: IV Status: Completed infusion; IV Intake: 900ml 3 14:03 Drug: Phenergan (promethazine) 12.5 mg Route: IVP; Site: right antecubital; 3 15:00 Follow up: Response: Nausea is decreased 3 17:19 Drug: Tylenol 500 mg Route: PO; 3 17:31 Follow up: Response: Medication administered at discharge. 3 Disposition Summary: 11/05/22 17:19 Discharge Ordered Location: Home pm1 Problem: new pm1 Symptoms: have improved pm1 Condition: Stable pm1 Diagnosis - Syncope Near pm1 - Low back pain pm1 - 7 weeks of gestation prregnancy - IUP pm1 Followup: pm1 - With: Emergency Department - When: As needed - Reason: Worsening of condition Followup: pm1 - With: Private Physician - When: 2 - 3 days - Reason: Recheck today's complaints, Continuance of care, Re-evaluation by your physician Discharge Instructions: - Discharge Summary Sheet pm1 - Near-Syncope pm1 - Back Pain in pm1 - First Trimester of pm1 Forms: - Medication Reconciliation Form pm1 - Thank You Letter pm1 - Antibiotic Education pm1 - Prescription Opioid Use pm1 Prescriptions: - promethazine 25 mg Oral Tablet - take 1 tablet by ORAL route every 6 hours As needed; 20 tablet; Refills: 0, pm1 Product Selection Permitted Signatures: Dispatcher [employer] EDMS Georgia Lofton, JONAHC RESIN PAINTER-Italo Avelar, JOSHUA SOFTWARE PROJECT MANAGER pm1 Wilmer Young RN RN 1 Abiola Lima RN RN 3 Corrections: (The following items were deleted from the chart) 16:02 15:05 Transvaginal Ob+US.RAD.BRZ ordered. EDMS EDMS
[2022-11-05 17:37] VITALS: TEMP 97.7
[2022-11-05 17:39] VITALS: O2SAT 100
[2022-11-05 17:41] VITALS: BP 104/57
== END 2022-11-05 17:32 | disposition home or self-care (01) ==
LOC: ER 12:38
DX: M54.50 Low back pain, unspecified (principal); R55 Syncope and collapse; Z33.1 Pregnant state, incidental
CPT/HCPCS: 85025; 80048; 36415; 86900; 81025; 86901; 84702; 76856; 76817; J2550; J7030; 81003; 81015; 96361; 96374; 99284

== ENCOUNTER 2023-01-13 21:38 | Emergency (ER) | payer OTHER ==
--- OUTSIDE RECORDS SUMMARY | 2023-01-13 21:54 | XMS REPORT | Continuity of Care Document ---
:2000 Author Organization [facility] t Address [address] [place] [address] [address] [place] [address] Care Team Providers Name Role Phone MUNIRA WATSON Primary Care Physician Unavailable IVONE NAYAK Attending Clinician Unavailable MUNIRA WATSON Attending Clinician Unavailable Mer Costa RN Attending Clinician Unavailable Munira Watson CNM Attending Clinician Provider, Mary Flores Attending Clinician Unavailable Doctor Unassigned, [place] Attending Clinician Unavailable Selvin Castro Attending Clinician Unavailable White_M Attending Clinician Unavailable ROM PETERSON Attending Clinician Unavailable MICHELLE HEATON Attending Clinician Unavailable Michelle Cullen Attending Clinician TASHI CUEVAS Attending Clinician Unavailable Tashi Cuevas MD Attending Clinician Johnathan De Los Santos MD Attending Clinician Yehuda Segura MD Attending Clinician AILIN GANN Attending Clinician Unavailable Risk, Upf-Fdstl-Yq/High Attending Clinician Unavailable Gann WHAilin JAEGER Attending Clinician Akinsipe WHCNP, Ivone David Attending Clinician [phone] Ultrasound, [place] Attending Clinician Unavailable Latonya Townsend MD Attending Clinician [phone] LATONYA TOWNSEND Attending Clinician Unavailable LADAN SCHWARTZ Attending Clinician Unavailable VISIT, NURSE SCO ENGINEER AND GEOLOGIST Attending Clinician Unavail able Archana Chung Attending Clinician Scarlet Caraballo Attending Clinician Chase Douglas Attending Clinician Rubén Admitting Clinician Unavailable TASHI CUEVAS Admitting Clinician Unavailable Tashi Cuevas MD Admitting Clinician Scarlet Caraballo Admitting Clinician Payers Payer Name Policy Type Policy Number Effective Date Expiration Date [facility] [id number] 2021 00:00:00 [facility] [id number] [facility] (MEDICAID REPLACEMENT - HMO) MEDICAID-ID [id number] (MEDICAID) Problems Condition Condition Condition Status Onset Resolution Last Treating Co mments Source Name Details Category Date Date Treatment Clinician Date ASCUS with ASCUS with Disease Active Overview : Univers positive positive 2-24 Formattin ity of high risk high risk 00:00: [place] HPV HPV 00 note Medical cervical cervical might be Bran ch different from the original. 3 see external records, repeat 1 year History of History of Disease Active U nivers gestationa gestationa 2-23 it y of l diabetes l diabetes 00:[place] in prior in prior 00 Medica l , , Br anch currently currently Family Family Disease Active Overview: Univer s history of history of 2-23 Formattin ity of congenital congenital 00:00: g of this [place] anomalies anomalies 00 note Medi debbie might be Branch different from the original. 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-29 it y of cus cus 00:00: [place] carrier, carrier, 00 Medica l +RV +RV Branch culture, culture, currently currently Disease Active Univers (spontaneo (spontaneo 06-29 it y of us vaginal [place] vaginal 00:[place]: [place] delivery[place] delivery[place] 00 [facility] Branch Single Single Disease Active Univers liveborn liveborn 06-29 ity of infant 00:00: [place] 00 Medical Branch Obstetrica Obstetrica Disease Active U nivers l l 06-29 ity of laceration laceration 00:00: [place] 00 [place] Rubella Rubella Disease Active Univers nonimmune nonimmune 06-29 ity of status, status, 00:00: [place] delivered, delivered, 00 Me dical current current Branch hospitaliz hospitaliz ation ation Encounter Encounter Disease Active Uni vers for for 06-28 ity of induction induction 00:00[place] of labor of labor 00 Medica l Branch Obesity Obesity Disease Active Univers (BMI (BMI 06-28 ity of 30-39.9) 30-39.9) 00:00: [place] 00 Medical Branch Supervisio Supervisio Disease Active Overview : Univers n of n of 8-03 Formattin ity of high-risk high-risk 00:00: [place] 00 note [facility] might be Branch different from the original. Reviewed records from [facility] in [place]. Labs: 3 O+/neg, RPR NR, UC neg, Hep B neg, HIV neg, GC/CH neg, RNI, PAP ASCUS with +HPV Multiparit Multiparit Disease Active U nivers y y 05-29 ity of 00:00: [place] [address] Medical Branch Insufficie Insufficie Disease Active U nivers nt nt 05-29 ity of 00:00: [place] care in care in 00 Medical third third Branch trimester trimester Diet Diet Disease Active Univers controlled controlled 05-29 it y of gestationa gestationa 00:00[place] l diabetes l diabetes 00 Me dical mellitus mellitus Branch (GDM) in (GDM) in third third trimester trimester Obesity in Obesity in Disease Active U nivers 05-29 ity of 00:00: [address] Branch BMI BMI Disease Active Univers 34.0-34.9, 34.0-34.9, 05-29 it y of adult adult 00:00: [address] Branch URETEROLIT Diagnosis Active 2018-01-28 [facility] HIASIS URETEROLIT 01-20 15:37:00 l HIASIS 00:00: [place] Active 00 01/20/2018 [facility] ABD ABD Diagnosis Active 2018-01-20 [facility] oria PAIN/FLANK PAIN/FLANK 01-20 12:54:00 l PAIN PAIN 00:00: [place] Active 00 01/20/2018 [facility] BACK PAIN BACK PAIN Diagnosis Active 2018-01-04 Memoria Active 01-04 21:40:00 l 01/04/2018 00:00: Mervin perez [address] Personal Personal Problem 2018-04-12 [facility] history of history of 12:35:49 l urinary urinary [place] calculi calculi 04/12/2018 [facility] Bacteremia Bacteremi Problem 2018-05-01 Memoria a 12:43:01 l 05/01/2018 Mervin perez [facility] Hematuria, Hematuria Problem 2018-05-01 [facility] unspecifie , 12:43:01 l d unspecifie Mervin perez d 05/01/2018 [facility] CALCULUS CALCULUS Diagnosis Active 2018-01-28 [facility]oria OF URETER OF URETER 15:37:00 l Active Mervin perez [facility] Family Family Problem Active [place] history of History of da cleft Cleft Medical palate Palate Group with cleft with Cleft lip Lip History of Past Illness Condition Condition Condition Status Onset Resolution Last Treating Co mments Source Name Details Category Date Date Treatment Clinician Date Pyonephros Pyonephro Problem 2018-05-01 2018-05-01 [facility] is sis 4-05 12:43:01 12:43:01 l 01/29/2018 04:11: Mervin n 05/01/2018 18 [facility] Urinary Urinary Problem 2018-04-12 2018-04-12 Memoria tract tract 01-04 12:35:49 12:35:49 l infection, infection, 06:00: [place] r[place] site not site not 00 specified specified 01/04/2018 04/12/2018 [facility] Unspecifie Unspecifi Problem 2018-04-12 2018-04-12 Memoria d ed 01-04 12:35:49 12:35:49 l abdominal abdominal 06:00: Herm paul pain pain 00 01/04/2018 04/12/2018 [facility] Fatty Fatty Problem 2018-04-12 2018-04-12 [facility]oria (change (change 01-04 12:35:49 12:35:49 l of) liver, of) liver, 06:00: [place] r[place] not not 00 elsewhere elsewhere classified classified 01/04/2018 04/12/2018 [facility] Allergies, Adverse Reactions, Alerts Allergy Allergy Status Severity Reaction(s) Onset Inactive Treating Comm ents Source Name Type Date Date Clinician NO KNOWN Drug Active Univers ALLERGIE Class ity of S [place] [facility] [place] Social History Social Habit Start Date Stop Date Quantity Comments Source ASSERTION 2022-09-26 [facility] 00:00:00 [place] [facility] History [facility] o f Alcohol Frequency [place] M edical Branch History [facility] o f Alcohol Std [place] Medical Drinks Branch History [facility] o f Alcohol Binge [place] Medic al Branch Alcohol intake 2022-12-20 2022-12-20 Ex-drinker [facility] 00:00:00 00:00:00 (finding) [facility] Exposure to 2022-12-09 2022 Not sure [facility] SARS-CoV-2 00:00:00 12:27:00 [facility] (event) Branch Education 2022-06-28 2022-06-[address] [place] [address] 00:00:00 00:00:00 [facility] Tobacco use and 2022-05-29 2022-05-29 Smokeless tobacco Un iversity of exposure 00:00:00 00:00:00 non-user [facility] Alcohol Comment 2022-05-29 2022-05-29 on occassion, not Un iversity of 00:00:00 00:00:[address] [facility] Social History 2018-01-21 2018-01-21 [facility] carter 02:06:56 02:06:56 Sex Assigned At [birth year] Universit y of 00:00:00 00:00:00 [facility] Smoking Status Start Date Stop Date Source Never smoked tobacco [facility] Medications Ordered Filled Start Stop Current Ordering Indication Dosage Frequency Signature Comments Components Source Medication Medication Date Date Medication? Clinician (SIG) Name Name Yes [id number] 1{tbl} Take 1 U nivers vit 2-27 tablet by ity of no.130-iron 00:00: [place] -folic 00 the Medical ( morning. Branch VITAMIN) Dispense insurance preferred. promethazin 2022- No Take by Un juliette e HCl 2-23 02-23 mouth. ity of (PROMETHAZI 14:45: 00:00 [place] NE ORAL) 08 :00 [facility] FOLIC ACID Yes Take by [facility] ers ORAL 2-23 mouth. ity of 14:21: [address] FOLIC ACID 0 Yes [id number] Take by [facility] ORAL 2-23 mouth. ity of 14:21: [address] FOLIC ACID 2022-0 Yes [id number] Take by Univers ORAL 2-23 mouth. ity of 14:21: [address] FOLIC ACID 2022-0 Yes [id number] Take by [facility] ORAL 2-23 mouth. ity of 14:21: [address] proMETHazin 2022-0 Yes [id number] 25mg Insert 1 Univers e 25 mg 2-23 Suppositor ity of suppository 00:[place] rectum Medical every 4 Branch (four) hours as needed for Nausea and Vomiting (N/V). proMETHazin 2022-0 Yes [id number] 25mg Insert 1 Univers e 25 mg 2-23 Suppositor ity of suppository 00:00: [place] 00 rectum Medical every 4 Branch (four) hours as needed for Nausea and Vomiting (N/V). proMETHazin Yes [id number] 25mg Insert 1 Univers e 25 mg 2-23 Suppositor ity of suppository 00:00: [place] 00 rectum Medical every 4 Branch (four) hours as needed for Nausea and Vomiting (N/V). proMETHazin Yes [id number] 25mg Insert 1 Univers e 25 mg 2-23 Suppositor ity of suppository 00:00: [place] 00 rectum Medical every 4 Branch (four) hours as needed for Nausea and Vomiting (N/V). 2021- No Take by Unive rs vit 9-04 09-04 mouth. ity of no.124/iron 06:40: 00:00 [place] /folic 57 :00 Medical ( Branch VITAMIN ORAL) Yes [id number] 1{tbl} Take 1 Univers vitamin 9-04 tablet by ity of w/FA tablet 00:00: [place] 00 the Medical morning. Branch docusate Yes [id number] 200mg Take 2 U nivers 100 mg 9-04 capsules ity of capsule 00:00: by mouth [place] 00 once daily Medical as needed Branch for Constipati on. ferrous Yes [id number] 325mg Take 1 Un juliette sulfate 325 9-04 tablet by ity of mg (65 mg 00:00: [place] iron) 00 the Medical tablet morning Branch and 1 tablet in the evening. ibuprofen Yes [id number] 600mg Take 1 Univers 600 mg 9-04 tablet by ity of tablet 00:00: mouth [place] 00 every 6 Medical (six) Branch hours as needed (Pain). Take with food or milk. 0 Yes [id number] 1{tbl} Take 1 Univers vitamin 9-04 tablet by ity of w/FA tablet 00:00: [place] 00 the Medical morning. Branch docusate 0 Yes [id number] 200mg Take 2 U nivers 100 mg 9-04 capsules ity of capsule 00:00: by mouth [place] 00 once daily Medical as needed Branch for Constipati on. ferrous 2021-0 Yes [id number] 325mg Take 1 Un juliette sulfate 325 9-04 tablet by ity of mg (65 mg 00:00: [place] iron) 00 the Medical tablet morning Branch and 1 tablet in the evening. ibuprofen 2021-0 Yes [id number] 600mg Take 1 Univers 600 mg 9-04 tablet by ity of tablet 00:00: mouth [place] 00 every 6 Medical (six) Branch hours as needed (Pain). Take with food or milk. 2021-0 Yes [id number] 1{tbl} Take 1 Univers vitamin 9-04 tablet by ity of w/FA tablet 00:00: [place] 00 the Medical morning. Branch docusate 0 Yes [id number] 200mg Take 2 U nivers 100 mg 9-04 capsules ity of capsule 00:00: by mouth [place] 00 once daily Medical as needed Branch for Constipati on. ferrous 2021-0 Yes [id number] 325mg Take 1 Un juliette sulfate 325 9-04 tablet by ity of mg (65 mg 00:00: [place] iron) 00 the Medical tablet morning Branch and 1 tablet in the evening. ibuprofen 2021-0 Yes [id number] 600mg Take 1 Univers 600 mg 9-04 tablet by ity of tablet 00:00: mouth [place] 00 every 6 Medical (six) Branch hours as needed (Pain). Take with food or milk. 2021-0 Yes [id number] 1{tbl} Take 1 Univers vitamin 9-04 tablet by ity of w/FA tablet 00:00: [place] 00 the Medical morning. Branch docusate 2021-0 Yes [id number] 200mg Take 2 U nivers 100 mg 9-04 capsules ity of capsule 00:00: by mouth [place] 00 once daily Medical as needed Branch for Constipati on. ferrous 2021-0 Yes [id number] 325mg Take 1 Un juliette sulfate 325 9-04 tablet by ity of mg (65 mg 00:00: [place] iron) 00 the Medical tablet morning Branch and 1 tablet in the evening. ibuprofen 2021-0 Yes [id number] 600mg Take 1 Univers 600 mg 9-04 tablet by ity of tablet 00:00: mouth [place] 00 every 6 Medical (six) Branch hours as needed (Pain). Take with food or milk. 2022- No [id number] 1{tbl} Take 1 Univers vitamin 06-30 tablet by ity of w/FA tablet 00:00: 00:00 [place] 00 :00 the Medical morning. Branch docusate 2022- No [id number] 200mg Take 2 Univers 100 mg 06-30 capsules ity of capsule 00:00: 00:00 by mouth [place] 00 :00 once daily Medical as needed Branch for Constipati on. ferrous 2022- No [id number] 325mg Take 1 U nivers sulfate 325 06-30 tablet by it y of mg (65 mg 00:00: 00:00 mouth in [place] as iron) 00 :00 the Medical tablet morning Branch and 1 tablet in the evening. ibuprofen 2022- No [id number] 600mg Take 1 Univers 600 mg 06-30 tablet by ity of tablet 00:00: 00:00 mouth [place] 00 :00 every 6 Medical (six) Branch hours as [...] Discontinu ed, Routine, Pain (scale 7-10) ibuprofen 2022-0 Yes 600mg 600 mg, Univ ers (IBU) 06-29 Oral, ity of tablet 600 17:11: Q6HPRN, [place] mg 11 Starting Medical on [facility] Branch 06/29/22 at 1211, Until Discontinu ed, Routine, Pain (scale 4-6) acetaminoph 202-0 Yes 650mg 650 mg, Un juliette en 06-29 Oral, ity of (TYLENOL) 17:11: Q6HPRN, [place] tablet 650 11 Starting Medic al mg on [facility] Branch 06/29/22 at 1211, Until Discontinu ed, Routine, Pain (scale 1-3) diphenhydrA 2021-0 Yes 25mg 25 mg, Univ ers MINE 06-29 Oral, ity of (BENADRYL) 17:11: Q6HPRN, [place] tablet 25 11 Starting Medica l mg on [facility] Branch 06/29/22 at 1211, Until Discontinu ed, Routine, Sleep, Itching ondansetron 2021-0 Yes 4mg 4 mg, Slow Univers (ZOFRAN 06-29 IV Push, ity of (PF)) 17:11: Q8HPRN, [place] injection 4 11 Starting Medi debbie mg on [facility] Branch 06/29/22 at 1211, Until Discontinu ed, Routine, Nausea and Vomiting (N/V) simethicone 2021-0 Yes 160mg 160 mg, Un juliette (GAS RELIEF 06-29 Oral, ity of (SIMETHICON 17:11: PC+HSPRN, [place] E)) 11 Starting Medical chewable on [facility] tablet 160 06/29/22 at mg 1211, Until Discontinu ed, Routine, Gas docusate 2021-0 Yes 200mg 200 mg, Unive rs (COLACE) 06-29 Oral, ity of capsule 200 17:11: QDAILYPRN, [place] mg 11 Starting Medical on [facility] Branch 06/29/22 at 1211, Until Discontinu ed, Routine, Constipati on magnesium 2021-0 Yes 30mL 30 mL, Univer s hydroxide 06-29 Oral, ity of (MILK OF 17:11: QDAILYPRN, [place] as MAGNESIA) 11 Starting Medica l 400 mg/5 mL on [facility] Branch suspension 06/29/22 at 30 mL 1211, Until Discontinu ed, Routine, Constipati on benzocaine- Yes Topical, Un juliette menthol 06-29 PRN, ity of (DERMOPLAST 17:11: Starting [place] ) 20-0.5 % 11 on Sat Medical topical 06/29/22 at Branch spray 1211, Until Discontinu ed, Routine, Perineum discomfort ondansetron 2021- No 4mg 4 mg, Slow Univers (ZOFRAN 06-29 IV Push, ity of (PF)) 14:45: 15:08 ONCE, On [place] injection 4 00 :00 06/29/22 Me dical [...] (PF)) 00 :23 Starting Medical epidural on [facility] Branch infusion 06/29/22 at 0220, Until 06/29/22 at 1109, Routine, Intra-op lidocaine-e 2021- No Epidural, Univers pinephrine 06-29 ONCE INTRA it y of (XYLOCAINE 07:20: 16:09 PROCEDURE, [place] W/EPINEPHRI 00 :23 Starting Medi debbie NE) 1.5 on Sat Branch %-1:200,000 06/29/22 at injection 0220, Until [...] of 30 units in 01:40: 17:11 Infusion, [place] NS 500 mL 04 :13 TITRATE, Medica [...] 35 :13 TITRATE, Medical Starting Branch on Fri06/28/22 at 0912, Until 06/29/22 at 1211, Routine Yes Take by [facility] labs vit 06-28 mouth. ity of no.124/iron 09:14: [place] /folic 22 Medical ( Branch VITAMIN ORAL) Yes Take by [facility] labs vit 8- mouth. ity of no.124/iron 09:53: [place] /folic 12 Medical ( Branch VITAMIN ORAL) Yes Take by [facility] labs vit 8- mouth. ity of no.124/iron 09:53: [place] /folic 12 Medical ( Branch VITAMIN ORAL) Yes Take by [facility] labs vit 8- mouth. ity of no.124/iron 09:53: [place] /folic 12 Medical ( Branch VITAMIN ORAL) Yes Take by [facility] vit 8-03 mouth. ity of no.124/iron 09:53: [place] /folic 12 Medical ( Branch VITAMIN ORAL) Yes Take by [facility] vit 8-03 mouth. ity of no.124/iron 09:53: [place] /folic 12 Medical ( Branch VITAMIN ORAL) Yes Take by [facility] vit 8-03 mouth. ity of no.124/iron 09:53: [place] /folic 12 Medical ( Branch VITAMIN ORAL) Yes Take by [facility] vit 8-03 mouth. ity of no.124/iron 09:53: [place] /folic 12 Medical ( Branch VITAMIN ORAL) Yes Take by [facility] vit 8-03 mouth. ity of no.124/iron 09:53: [place] /folic 12 Medical ( Branch VITAMIN ORAL) Yes Take by [facility] vit 8-03 mouth. ity of no.124/iron 09:53: [place] /folic 12 Medical ( Branch VITAMIN ORAL) Blood-Gluco Yes [id number] Use as Univers se Meter 8-03 directed ity of (FREESTYLE 00:00: [place] FREEDOM 00 Medical LITE) Kit Branch blood sugar Yes [id number] Use as Univers diagnostic 8-03 directed ity o f (FREESTYLE 00:00: [place] LITE 00 Medical STRIPS) Branch strip lancets 17 Yes [id number] Use as U nivers gauge Misc 8-03 directed ity o f 00:00: [place] 00 Medical Branch Blood-Gluco Yes [id number] Use as Univers se Meter 8-03 directed ity of (FREESTYLE 00:00: [place] FREEDOM 00 Medical LITE) Kit Branch blood sugar Yes [id number] Use as Univers diagnostic 8-03 directed ity o f (FREESTYLE 00:00: [place] LITE 00 Medical STRIPS) Branch strip lancets 17 Yes [id number] Use as U nivers gauge Misc 8-03 directed ity o f 00:00: [place] 00 Medical Branch Blood-Gluco Yes [id number] Use as Univers se Meter 8-03 directed ity of (FREESTYLE 00:00: [place] FREEDOM 00 Medical LITE) Kit Branch blood sugar 2021-0 Yes [id number] Use as Univers diagnostic 8-03 directed ity o f (FREESTYLE 00:00: [place] LITE 00 Medical STRIPS) Branch strip lancets 17 2021-0 Yes [id number] Use as U nivers gauge Misc 8-03 directed ity o f 00:00: [place] 00 Medical Branch Blood-Gluco Yes [id number] Use as Univers se Meter 8-03 directed ity of (FREESTYLE 00:00: [place] FREEDOM 00 Medical LITE) Kit Branch blood sugar Yes [id number] Use as Univers diagnostic 8-03 directed ity o f (FREESTYLE 00:00: [place] LITE 00 Medical STRIPS) Branch strip lancets 17 Yes [id number] Use as U nivers gauge Misc 8-03 directed ity o f 00:00: [place] 00 Medical Branch Blood-Gluco Yes [id number] Use as Univers se Meter 8-03 directed ity of (FREESTYLE 00:00: [place] FREEDOM 00 Medical LITE) Kit Branch blood sugar Yes [id number] Use as Univers diagnostic 8-03 directed ity o f (FREESTYLE 00:00: [place] LITE 00 Medical STRIPS) Branch strip lancets 17 2021-0 Yes [id number] Use as U nivers gauge Misc 8-03 directed ity o f 00:00: [place] 00 Medical Branch Blood-Gluco 2021-0 Yes [id number] Use as Univers se Meter 8-03 directed ity of (FREESTYLE 00:00: [place] FREEDOM 00 Medical LITE) Kit Branch blood sugar 2021-0 Yes [id number] Use as Univers diagnostic 8-03 directed ity o f (FREESTYLE 00:00: [place] LITE 00 Medical STRIPS) Branch strip lancets 17 2021-0 Yes [id number] Use as U nivers gauge Misc 8-03 directed ity o f 00:00: [place] 00 Medical Branch Blood-Gluco 2021-0 Yes [id number] Use as Univers se Meter 8-03 directed ity of (FREESTYLE 00:00: [place] FREEDOM 00 Medical LITE) Kit Branch blood sugar 2021- Yes [id number] Use as Univers diagnostic 8-03 directed ity o f (FREESTYLE 00:00: [place] LITE 00 Medical STRIPS) Branch strip lancets 17 2021-0 Yes [id number] Use as U nivers gauge Misc 8-03 directed ity o f 00:00: [place] 00 Medical Branch Blood-Gluco 2021-0 Yes [id number] Use as Univers se Meter 8-03 directed ity of (FREESTYLE 00:00: [place] FREEDOM 00 Medical LITE) Kit Branch blood sugar 0 Yes [id number] Use as Univers diagnostic 8- directed ity o f (FREESTYLE 00:00: [place] LITE 00 Medical STRIPS) Branch strip lancets 17 2021-0 Yes [id number] Use as U nivers gauge Misc 8-03 directed ity o f 00:00: [place] 00 Medical Branch Blood-Gluco 0 Yes [id number] Use as Univers se Meter 8- directed ity of (FREESTYLE 00:00: [place] FREEDOM 00 Medical LITE) Kit Branch blood sugar 2021-0 Yes [id number] Use as Univers diagnostic 8- directed ity o f (FREESTYLE 00:00: [place] LITE 00 Medical STRIPS) Branch strip lancets 17 2021-0 Yes [id number] Use as U nivers gauge Misc 8-03 directed ity o f 00:00: [place] 00 Medical Branch Blood-Gluco 2021-0 Yes [id number] Use as Univers se Meter 8-03 directed ity of (FREESTYLE 00:00: [place] FREEDOM 00 Medical LITE) Kit Branch blood sugar 2021-0 Yes [id number] Use as Univers diagnostic 8- directed ity o f (FREESTYLE 00:00: [place] LITE 00 Medical STRIPS) Branch strip lancets 17 2021-0 Yes [id number] Use as U nivers gauge Misc 8-03 directed ity o f 00:00: [place] 00 Medical Branch Blood-Gluco 2021-0 2021- No [id number] Use as Univers se Meter 8-06-30 directed ity of (FREESTYLE 00:00: 00:00 [place] FREEDOM 00 :00 Medical LITE) Kit Branch blood sugar 2021-0 2021- No [id number] Use as Univers diagnostic 05-29 directed ity of (FREESTYLE 00:00: 00:00 [place] LITE 00 :00 Medical STRIPS) Branch strip lancets 17 2021-0 2021- No [id number] Use as Univers gauge Misc 05-29 directed ity of 00:00: 00:00 [place] 00 :00 Medical Branch vancomycin No vancomycin M emoria 3-31 , trough l 13:00: due, Drug [place] 00 form: MISC, Route: MISC, ONCE, 01/24/18 8:00:00 CDT, Stop date: 01/24/18 8:00:00 CDT vancomycin No vancomycin M emoria 3-31 , trough l 13:00: due, Drug [place] 00 form: MISC, Route: MISC, ONCE, 01/24/18 8:00:00 CDT, Stop date: 01/24/18 8:00:00 CDT vancomycin No vancomycin M emoria 3-31 , trough l 13:00: due, Drug [place] 00 form: MISC, Route: MISC, ONCE, 01/24/18 8:00:00 CDT, Stop date: 01/24/18 8:00:00 CDT vancomycin No vancomycin M emoria 3-31 , trough l 13:00: due, Drug [place] 00 form: MISC, Route: MISC, ONCE, 01/24/18 8:00:00 CDT, Stop date: 01/24/18 8:00:00 CDT tramadol Yes 50 mg = 1 Christiano avelino hydrochlori 3-30 tab, PO, l de 50 MG 15:36: Q6H, PRN [place] nn Oral Tablet 00 Pain Score 7-10, # 24 tab, 0 Refill(s) Promethazin Yes 12.5 mg = M emoria e 3-30 1 tab, PO, l Hydrochlori 15:36: Q6H, PRN Yury hinson de 12.5 MG 00 Nausea & Oral Tablet Vomiting, [Phenergan] # 28 tab, 0 Refill(s), Pharmacy: [facility] [id number] Sulfamethox No 1 tab, PO, Memoria azole 800 3-30 BID, X 10 l MG / 15:36: day, # 20 [place] Trimethopri 00 tab, 0 m 160 MG Refill(s), Oral Tablet Pharmacy: [Bactri] [facility] tramadol 2017- Yes 50 mg = 1 Christiano avelino hydrochlori 3-30 tab, PO, l de 50 MG 15:36: Q6H, PRN [place] nn Oral Tablet 00 Pain Score 7-10, # 24 tab, 0 Refill(s) Promethazin Yes 12.5 mg = M emoria e 3-30 1 tab, PO, l Hydrochlori 15:36: Q6H, PRN He rmann de 12.5 MG 00 Nausea & Oral Tablet Vomiting, [Phenergan] # 28 tab, 0 Refill(s), Pharmacy: [facility] Sulfamethox No 1 tab, PO, Memoria azole 800 3-30 BID, X 10 l MG / 15:36: day, # 20 [place] Trimethopri 00 tab, 0 m 160 MG Refill(s), Oral Tablet Pharmacy: [Bactri] [facility] tramadol Yes 50 mg = 1 Christiano avelino hydrochlori 3-30 tab, PO, l de 50 MG 15:36: Q6H, PRN [place] nn Oral Tablet 00 Pain Score 7-10, # 24 tab, 0 Refill(s) Promethazin 2017- Yes 12.5 mg = M emoria e 3-30 1 tab, PO, l Hydrochlori 15:36: Q6H, PRN He rmann de 12.5 MG 00 Nausea & Oral Tablet Vomiting, [Phenergan] # 28 tab, 0 Refill(s), Pharmacy: [facility] Sulfamethox 0 No 1 tab, PO, Memoria azole 800 3-30 BID, X 10 l MG / 15:36: day, # 20 [place] Trimethopri 00 tab, 0 m 160 MG Refill(s), [facility] tramadol 0 Yes 50 mg = 1 Christiano avelino hydrochlori 3-30 tab, PO, l de 50 MG 15:36: Q6H, PRN [place] nn Oral Tablet 00 Pain Score 7-10, # 24 tab, 0 Refill(s) Promethazin 2017-0 Yes 12.5 mg = M emoria e 3-30 1 tab, PO, l Hydrochlori 15:36: Q6H, PRN He rmann de 12.5 MG 00 Nausea & Oral Tablet Vomiting, [Phenergan] # 28 tab, 0 Refill(s), Pharmacy: [facility] Sulfamethox 2017-0 No 1 tab, PO, Memoria azole 800 3-30 BID, X 10 l MG / 15:36: day, # 20 [place] Trimethopri 00 tab, 0 m 160 MG Refill(s), Oral Tablet Pharmacy: [Bactrim] [facility] vancomycin No vancomycin M emoria 3-30 , trough l 13:00: due, Drug [place] 00 form: MISC, Route: MISC, ONCE, 01/23/18 8:00:00 CDT, Stop date: 01/23/18 8:00:00 CDT vancomycin 2017-0 No vancomycin M emoria 3-30 , trough l 13:00: due, Drug [place] 00 form: MISC, Route: MISC, ONCE, 01/23/18 8:00:00 CDT, Stop date: 01/23/18 8:00:00 CDT vancomycin 2017-0 No vancomycin M emoria 3-30 , trough l 13:00: due, Drug [place] 00 form: MISC, Route: MISC, ONCE, 01/23/18 8:00:00 CDT, Stop date: 01/23/18 8:00:00 CDT vancomycin 0 No vancomycin M emoria 3-30 , trough l 13:00: due, Drug [place] 00 form: MISC, Route: MISC, ONCE, 01/23/18 8:00:00 CDT, Stop date: 01/23/18 8:00:00 CDT vancomycin 2017-0 No 2000 mg: Me moria + Dextrose 3-29 infuse l 5% in Water 14:00: over 2.5 He rmann IV 250 mL 00 hours For adult patients only: Round to nearest 250 mg per Medical Staff approval MEDICATION WASTE Product Size: 1000 mg Product Wasted: ___ mg vancomycin 2017-0 No 2000 mg: Me moria + Dextrose 3-29 infuse l 5% in Water 14:00: over 2.5 He rmann IV 250 mL 00 hours For adult patients only: Round to nearest 250 mg per Medical Staff approval MEDICATION WASTE Product Size: 1000 mg Product Wasted: ___ mg vancomycin 2017-0 No 2000 mg: Me moria + Dextrose 3-29 infuse l 5% in Water 14:00: over 2.5 He rmann IV 250 mL 00 hours For adult patients only: Round to nearest 250 mg per Medical Staff approval MEDICATION WASTE Product Size: 1000 mg Product Wasted: ___ mg vancomycin 2017-0 No 2000 mg: Me moria + Dextrose 3-29 infuse l 5% in Water 14:00: over 2.5 He rmann IV 250 mL 00 hours For adult patients only: Round to nearest 250 mg per Medical Staff approval MEDICATION WASTE Product Size: 1000 mg Product Wasted: ___ mg Benadryl 2017- No Notes: Memoria 3-29 (Same as: l 02:37: Benadryl) Benadryl No Notes: Memoria 3-29 (Same as: l 02:37: Benadryl) [place] 00 Benadryl No Notes: Memoria 3-29 (Same as: l 02:37: Benadryl) [place] 00 Benadryl No Notes: Memoria 3-29 (Same as: l 02:37: Benadryl) Vancomycin No 1 gm, Memori a 01-22 Route: IV, l 02:00: Q12H, Dosing Weight 93.864, kg, Start date: 01/21/18 21:00:00 CDT, Duration: 14 day, Stop date: 02/04/18 9:00:00 CDT, Pharmacy to dose, ABX Indication : Bacteremia vancomycin No Notes: Memor ia 3- TIME l 02:00: CRITICAL MEDICATION Same as: Vancocin Vancomycin No 1 gm, Memori a 01-22 Route: IV, l 02:00: Q12H, Dosing Weight 93.864, kg, Start date: 01/21/18 21:00:00 CDT, Duration: 14 day, Stop date: 02/04/18 9:00:00 CDT, Pharmacy to dose, ABX Indication : Bacteremia vancomycin 2018-0 No Notes: Memor ia 3-29 TIME l 02:00: CRITICAL [place] 00 MEDICATION Same as: Vancocin Vancomycin 2018-0 No 1 gm, Memori a 3-29 Route: IV, l 02:00: Q12H, [place] 00 Dosing Weight 93.864, kg, Start date: 01/21/18 21:00:00 CDT, Duration: 14 day, Stop date: 02/04/18 9:00:00 CDT, Pharmacy to dose, ABX Indication : Bacteremia vancomycin 2018-0 No Notes: Memor ia 3-29 TIME l 02:00: CRITICAL [place] 00 MEDICATION Same as: Vancocin Vancomycin 2018-0 No 1 gm, Memori a 3-29 Route: IV, l 02:00: Q12H, [place] 00 Dosing Weight 93.864, kg, Start date: 01/21/18 21:00:00 CDT, Duration: 14 day, Stop date: 02/04/18 9:00:00 CDT, Pharmacy to dose, ABX Indication : Bacteremia vancomycin 2018-0 No Notes: Memor ia 3-29 TIME l 02:00: CRITICAL MEDICATION Same as: Vancocin Ceftriaxone 2018-0 No Notes: Christiano avelino 3-29 (Same As: l 01:00: Rocephin). [place] 00 Use with 100 mL NS and infuse over 30 min MEDICATION WASTE Product Size: 1000 mg Product Wasted: ___ mg Ceftriaxone 2018-0 No Notes: Christiano avelino 3-29 (Same As: l 01:00: Rocephin). [place] 00 Use with 100 mL NS and infuse over 30 min MEDICATION WASTE Product Size: 1000 mg Product Wasted: ___ mg Ceftriaxone 2018-0 No Notes: Christiano avelino 3-29 (Same As: l 01:00: Rocephin). [place] 00 Use with 100 mL NS and infuse over 30 min MEDICATION WASTE Product Size: 1000 mg Product Wasted: ___ mg Ceftriaxone 2018-0 No Notes: Christiano aveilno 3-29 (Same As: l 01:00: Rocephin). [place] 00 [...] Memoria Flush 0.9% 01-21 (Same as: l 28: BD [place] 00 Posiflush) Sodium No 1,000 mL, Memori a Chloride 01-21 Rate: 125 l 0.9% IV 01:28: ml/hr, [place] 1,000 mL 00 Infuse over: 8 hr, Route: IV, Dosing Weight 93.045 kg, Total Volume: 1,000, Start date: 01/20/18 20:28:00 CDT, Duration: 30 day, Stop date: 02/19/18 20:27:00 CDT, 2.07, m2 Morphine No Notes: Memoria 01-21 (Same l :28: as:MORPhin [place] 00 e Sulfate) Ondansetron No Notes: Christiano avelino 01-21 (Same as: jenna :28: Zofran) [place] 00 MEDICATION WASTE Product Size: 4 mg Product Wasted: ___ mg Acetaminoph No Notes: Christiano avelino en 325 MG / 01-21 (Same as: l Hydrocodone 01:28: [place] nn Bitartrate 00 325/5) Do 5 MG Oral not exceed Tablet 4gm/day of acetaminop hen. Acetaminoph No Notes: Do M emoria en 01-21 not exceed l 01:28: 4 gm/day. [place] 00 (Same as: Tylenol) Saline No Notes: Memoria Flush 0.9% 01-21 (Same as: l 01:28: BD [place] 00 Posiflush) Sodium No 1,000 mL, Memori a Chloride 01-21 Rate: 125 l 0.9% IV 01:28: ml/hr, [place] 1,000 mL 00 Infuse over: 8 hr, Route: IV, Dosing Weight 93.045 kg, Total Volume: 1,000, Start date: 01/20/18 20:28:00 CDT, Duration: 30 day, Stop date: 02/19/18 20:27:00 CDT, 2.07, m2 Morphine No Notes: Memoria - (Same l 01:28: as:MORPhin [place] 00 e Sulfate) Ondansetron No Notes: Christiano avelino 01-21 (Same as: l 01:28: Zofran) [place] 00 MEDICATION WASTE Product Size: 4 mg Product Wasted: ___ mg Acetaminoph No Notes: Christiano avelino en 325 MG / 01-21 (Same as: l Hydrocodone 01:28: [place] Marion nn Bitartrate 00 325/5) Do 5 MG Oral not exceed Tablet 4gm/day of acetaminop hen. Acetaminoph No Notes: Do M emoria en 01-21 not exceed l 01:28: 4 gm/day. [place] 00 (Same as: Tylenol) Saline No Notes: Memoria Flush 0.9% 01-21 (Same as: l 01:28: BD [place] 00 Posiflush) Sodium No 1,000 mL, Memori a Chloride 01-21 Rate: 125 l 0.9% IV 01:28: ml/hr, [place] 1,000 mL 00 Infuse over: 8 hr, Route: IV, Dosing Weight 93.045 kg, Total Volume: 1,000, Start date: 01/20/18 20:28:00 CDT, Duration: 30 day, Stop date: 02/19/18 20:27:00 CDT, 2.07, m2 Morphine No Notes: Memoria - (Same l 01:28: as:MORPhin [place] 00 e Sulfate) Ondansetron No Notes: Christiano avelino 01-21 (Same as: l :28: Zofran) [place] 00 MEDICATION WASTE Product Size: 4 mg Product Wasted: ___ mg Acetaminoph No Notes: Christiano avelino en 325 MG / 01-21 (Same as: l Hydrocodone :28: [place] Marion nn Bitartrate 00 325/5) Do 5 MG Oral not exceed Tablet 4gm/day of acetaminop hen. Acetaminoph No Notes: Do M emoria en 01-21 not exceed l :28: 4 gm/day. [place] 00 (Same as: Tylenol) Saline No Notes: Memoria Flush 0.9% 01-21 (Same as: l :28: BD [place] 00 Posiflush) Sodium No 1,000 mL, Memori a Chloride 01-21 Rate: 125 l 0.9% IV 01:28: ml/hr, [place] 1,000 mL 00 Infuse over: 8 hr, Route: IV, Dosing Weight 93.045 kg, Total Volume: 1,000, Start date: 01/20/18 20:28:00 CDT, Duration: 30 day, Stop date: 02/19/18 20:27:00 CDT, 2.07, m2 Morphine No Notes: Memoria - (Same l :28: as:MORPhin [place] 00 e Sulfate) Ondansetron No Notes: Christiano avelino - (Same as: l :28: Zofran) [place] 00 MEDICATION WASTE Product Size: 4 mg Product Wasted: ___ mg Acetaminoph No Notes: Christiano avelino en 325 MG / 01-21 (Same as: l Hydrocodone 01:28: [place] Marion nn Bitartrate 00 325/5) Do 5 MG Oral not exceed Tablet 4gm/day of acetaminop hen. Acetaminoph 2017- No Notes: Do M emoria en 01-21 not exceed l 01:28: 4 gm/day. [place] 00 (Same as: Tylenol) NS 1,000 mL 0 No 1,000 mL, M emoria 01-21 Rate: 150 l 00:46: ml/hr, [place] 00 Infuse over: 6.7 hr, Route: IV, Dosing Weight 93.045 kg, Total Volume: 1,000, Start date: 01/20/18 19:46:00 CDT, Duration: 30 day, Stop date: 02/19/18 19:45:00 CDT, 2.07, m2 NS 1,000 mL No 1,000 mL, M emoria 01-21 Rate: 150 l 00:46: ml/hr, [place] 00 Infuse over: 6.7 hr, Route: IV, Dosing Weight 93.045 kg, Total Volume: 1,000, Start date: 01/20/18 19:46:00 CDT, Duration: 30 day, Stop date: 02/19/18 19:45:00 CDT, 2.07, m2 NS 1,000 mL No 1,000 mL, [place] emoria 01-21 Rate: 150 l 00:46: ml/hr, [place] 00 Infuse over: 6.7 hr, Route: IV, Dosing Weight 93.045 kg, Total Volume: 1,000, Start date: 01/20/18 19:46:00 CDT, Duration: 30 day, Stop date: 02/19/18 19:45:00 CDT, 2.07, m2 NS 1,000 mL 0 No 1,000 mL, M emoria 01-21 Rate: 150 l 00:46: ml/hr, [place] 00 Infuse over: 6.7 hr, Route: IV, Dosing Weight 93.045 kg, Total Volume: 1,000, Start date: 01/20/18 19:46:00 CDT, Duration: 30 day, Stop date: 02/19/18 19:45:00 CDT, 2.07, m2 Ceftriaxone 2018-0 No Notes: Christiano avelino 3-28 (Same As: l 00:45: Rocephin). [place] 00 Use with 100 mL NS and infuse over 30 min MEDICATION WASTE Product Size: 1000 mg Product Wasted: 0 mg Ceftriaxone 2018-0 No Notes: Christiano avelino 3-28 (Same As: l 00:45: Rocephin). [place] 00 Use with 100 mL NS and infuse over 30 min MEDICATION WASTE Product Size: 1000 mg Product Wasted: 0 mg Ceftriaxone 2018-0 No Notes: Christiano avelino 3-28 (Same As: l 00:45: Rocephin). [place] 00 Use with 100 mL NS and infuse over 30 min MEDICATION WASTE Product Size: 1000 mg Product Wasted: 0 mg Ceftriaxone 2018-0 No Notes: Christiano avelino 3-28 (Same As: l 00:45: Rocephin). [place] 00 Use with 100 mL NS and infuse over 30 min MEDICATION WASTE Product Size: 1000 mg Product Wasted: 0 mg Prochlorper 2018-0 No 10 mg, Christiano avelino azine 3-28 Route: l 00:36: IVP, ONCE, Dosing Weight 93.045, kg, Priority: STAT, Start date: 01/20/18 19:36:00 CDT, Stop date: 01/20/18 19:36:00 CDT Prochlorper 2018-0 No 10 mg, Christiano avelino azine 3-28 Route: l 00:36: IVP, ONCE, Dosing Weight 93.045, kg, Priority: STAT, Start date: 01/20/18 19:36:00 CDT, Stop date: 01/20/18 19:36:00 CDT Prochlorper 2018-0 No 10 mg, Christiano avelino azine 3-28 Route: l 00:36: IVP, ONCE, Dosing Weight 93.045, kg, Priority: STAT, Start date: 01/20/18 19:36:00 CDT, Stop date: 01/20/18 19:36:00 CDT Prochlorper 2018-0 No 10 mg, Christiano avelino azine 3-28 Route: l 00:36: IVP, ONCE, Dosing Weight 93.045, kg, Priority: STAT, Start date: 01/20/18 19:36:00 CDT, Stop date: 01/20/18 19:36:00 CDT Promethazin 2018-0 No 12.5 mg, Me moria e 3-27 50 mL, l 21:57: Route: IVPB, Drug form: SOLN, ONCE, Dosing Weight 93.045, kg, Priority: STAT, Start date: 01/20/18 16:57:00 CDT, Stop date: 01/20/18 16:57:00 CDT Promethazin 2018-0 No 12.5 mg, Me moria e 3-27 50 mL, l 21:57: Route: IVPB, Drug form: SOLN, ONCE, Dosing Weight 93.045, kg, Priority: STAT, Start date: 01/20/18 16:57:00 CDT, Stop date: 01/20/18 16:57:00 CDT Promethazin 2018-0 No 12.5 mg, Me moria e 3-27 50 mL, l 21:57: Route: IVPB, Drug form: SOLN, ONCE, Dosing Weight 93.045, kg, Priority: STAT, Start date: 01/20/18 16:57:00 CDT, Stop date: 01/20/18 16:57:00 CDT Promethazin 2018-0 No 12.5 mg, Me moria e 3-27 50 mL, l 21:57: Route: IVPB, Drug form: SOLN, ONCE, Dosing Weight 93.045, kg, Priority: STAT, Start date: 01/20/18 16:57:00 CDT, Stop date: 01/20/18 16:57:00 CDT Ondansetron 2017-0 No Notes: Christiano avelino 3-27 (Same as: l 21:32: Zofran) [place] MEDICATION WASTE Product Size: 4 mg Product Wasted:0mg Ondansetron 2018-0 No Notes: Christiano avelino 3-27 (Same as: l 21:32: Zofran) [place] MEDICATION WASTE Product Size: 4 mg Product Wasted:0mg Ondansetron 2017- No Notes: Christiano avelino 3-27 (Same as: l 21:32: Zofran) [place] MEDICATION WASTE Product Size: 4 mg Product Wasted:0mg Ondansetron 2017- No Notes: Christiano avelino 3-27 (Same as: l 21:32: Zofran) [place] MEDICATION WASTE Product Size: 4 mg Product Wasted:0mg Omnipaque No Notes: Memori a 300 3-27 (Same l injectable 20:44: as:Omnipaq H ermann solution 00 ue 300). WASTE: F/P - Black; E - Municipal Trash Bin Omnipaque No Notes: Memori a 300 3-27 (Same l injectable 20:44: as:Omnipaq H ermann solution 00 ue 300). WASTE: F/P - Black; E - Municipal Trash Bin Omnipaque No Notes: Memori a 300 3-27 (Same l injectable 20:44: as:Omnipaq H ermann solution 00 ue 300). WASTE: F/P - Black; E - Municipal Trash Bin Omnipaque No Notes: Memori a 300 3-27 (Same l injectable 20:44: as:Omnipaq H ermann solution 00 ue 300). WASTE: F/P - Black; E - Municipal Trash Bin Morphine 2017-0 No 15 mg, 1 Memor ia Sulfate [...] Christiano avelino 3-27 l 18:16: [place] 00 Ketorolac 2018-0 No 4 days. Christiano avelino 3-27 l 18:16: [place] 00 Ketorolac 2018-0 No 4 days. Christiano avelino 3-27 l 18:16: [place] 00 Ketorolac 2018-0 No 4 days. Christiano avelino 3-27 l 18:16: [place] 00 Ondansetron 2018-0 No Notes: Christiano avelino [...] days Memor ia 3-11 l 22:46: MEDICATION [place] 00 WASTE Product Size: 30 mg Product Wasted: 0 mg Ketorolac 2018-0 No 4 days Memor ia 3-11 l 22:46: MEDICATION [place] 00 WASTE Product Size: 30 mg Product Wasted: 0 mg Ketorolac 2018-0 No 4 days Memor ia 3-11 l 22:46: MEDICATION [place] 00 WASTE Product Size: 30 mg Product Wasted: 0 mg Ketorolac 2018-0 No 4 days Memor ia 3-11 l 22:46: MEDICATION [place] 00 WASTE Product Size: 30 mg Product Wasted: 0 mg Cephalexin 2018-0 No 500 mg = 1 M emoria 500 MG Oral 3-11 cap, PO, l Capsule 22:21: QID, X 10 [place] nn [Keflex] 00 day, # 40 cap, 0 Refill(s) Cephalexin No 500 mg = 1 M emoria 500 MG Oral 3-11 cap, PO, l Capsule 22:21: QID, X 10 [place] nn [Keflex] 00 day, # 40 cap, 0 Refill(s) Cephalexin No 500 mg = 1 M emoria 500 MG Oral 3-11 cap, PO, l Capsule 22:21: QID, X 10 [place] nn [Keflex] 00 day, # 40 cap, 0 Refill(s) Cephalexin No 500 mg = 1 M emoria 500 MG Oral 3-11 cap, PO, l Capsule 22:21: QID, X 10 [place] nn [Keflex] day, # 40 cap, 0 Refill(s) Omnipaque 0 No 45 Memoria 300 3-11 [...] 0.9% 3-11 (Same as: l 19:21: BD [place] 00 Posiflush) Saline No Notes: Memoria Flush 0.9% 3-11 (Same as: l 19:21: BD [place] 00 Posiflush) Saline No Notes: [facility] Flush 0.9% 3-11 (Same as: l 19:21: BD [place] 00 Posiflush) Saline No Notes: [facility] Flush 0.9% 3-11 (Same as: l 19:21: BD Posiflush) metoclopram metoclopram No metoclopra [place] rosalia [...] EVERY DAY + + No + [place] [facility] Vitafol-One Vitafol-One No Vitafol-On [place] 29 mg 29 mg e 29 mg da iron-1 iron-1 iron-1 Medical mg-200 mg mg-200 mg mg-200 mg Group capsule capsule capsule TAKE 1 TAKE 1 TAKE 1 CAPSULE BY CAPSULE BY CAPSULE BY MOUTH MOUTH MOUTH EVERYDAY AT EVERYDAY AT EVERYDAY BEDTIME BEDTIME AT BEDTIME folic acid folic acid No 1 Q1D folic acid [place] 1 mg tablet 1 mg tablet 1 mg d a Take 1 Take 1 tablet Medical tablet tablet Take 1 Group every day every day tablet by oral by oral every day route. route. by oral route. ondansetron ondansetron No 1 BID ondansetro [place] 8 mg 8 mg n 8 mg da disintegrat disintegrat disintegra Medical ing tablet ing tablet ting [place] up Place 1 Place [address] 1 twice a day twice a day tablet by by twice a translingua translingua day by l route. l route. translingu al route. promethazin promethazin No promethazi [place] e 25 mg e 25 mg ne 25 mg da tablet TAKE tablet TAKE tablet Medical 1 TABLET BY 1 TABLET BY TAKE 1 Group MOUTH EVERY MOUTH EVERY TABLET BY 6 HOURS 6 HOURS MOUTH NEEDED FOR NEEDED FOR EVERY 6 NAUSEA NAUSEA HOURS NEEDED FOR NAUSEA Reglan 10 Reglan 10 No 1 Q6H Reglan 10 [place] mg tablet mg tablet mg tablet da Take 1 Take 1 Take 1 Medical tablet tablet tablet Group every 6 every 6 every 6 hours by hours by hours by oral route oral route oral route as needed. as needed. as needed. Vitafol-One Vitafol-One No Vitafol-On [place] 29 mg 29 mg e 29 mg da iron-1 iron-1 iron-1 Medical mg-200 mg mg-200 mg mg-200 mg Group capsule capsule capsule TAKE ONE TAKE ONE TAKE ONE (1) (1) (1) CAPSULE(S) CAPSULE(S) CAPSULE(S) BY MOUTH BY MOUTH BY MOUTH EVERY DAY EVERY DAY EVERY DAY AT BEDTIME. AT BEDTIME. AT BEDTIME. Immunizations Ordered Filled Immunization Date Status Comments [facility] e Immunization Name Name [facility] 2022-05-29 Completed [facility] 00:00:00 [facility] 2022-05-29 Completed [facility] 00:00: [facility] 2022-05-29 Completed [facility] 00:00:00 [facility] 2022-05-29 Completed [facility] 00:00:00 [facility] 2022-05-29 Completed [facility] of 00:00: [facility] 2022-05-29 Completed [facility] of 00:00:00 [facility] 2022-05-29 Completed [facility] of 00:00:00 [facility] 2022-05-29 Completed [facility] 00:00:00 [facility] 2022-05-29 Completed [facility] of 00:00:00 [facility] 2022-05-29 Completed [facility] of 00:00:00 [facility] 2022-05-29 Completed [facility] of 00:00:00 [facility] 2022-05-29 Completed [facility] of 00:00:00 [facility] 2022-05-29 Completed [facility] of 00:00:00 [facility] 2022-05-29 Completed [facility] of 00:00:00 [facility] 2022-05-29 Completed [facility] of 00:00:00 [facility] 2022-05-29 Completed [facility] of 00:00:00 [facility] TDAP 2022-05-29 Completed [facility] of 00:00:00 [facility] TDAP 2022-05-29 Completed [facility] of 00:00:00 [facility] Varicella 2012-02-21 Completed University of (varivax)(chicken 00:00:00 [place] [facility] pox[facility] Varicella 2012-02-21 Completed [facility] (varivax)(chicken 00:00:00 [place] [facility] pox[facility] Varicella 2012-02-21 Completed [facility] of (varivax)(chicken 00:00:00 [place] [facility] pox) [facility] Varicella 2012-02-21 Completed [facility] of (varivax)(chicken 00:00:00 [place] [facility] pox) [facility] Influenza Virus 2011-07-26 Completed Universit y [facility] Vaccine 00:00:00 [facility] Meningococcal,NOS 2011-07-26 [facility] 00:[facility]00 [facility] Influenza Virus 2011-07-26 Completed Universit y of Vaccine 00:00:00 [facility] Meningococcal,NOS 2011-07-26 Completed Univers ity of 00:00:00 [facility] TDAP 2011-07-26 Completed [facility] of 00:00:00 [facility] Influenza Virus 2011-07-26 Completed Universit y of Vaccine 00:00:00 [facility] Meningococcal,NOS 2011-07-26 Completed Univers ity of 00:00:00 [facility] TDAP 2011-07-26 Completed [facility] of 00:00:00 [facility] Influenza Virus 2011-07-26 Completed Universit y of Vaccine 00:00:00 [facility] Meningococcal,NOS 2011-07-26 Completed Univers ity of 00:00:00 [facility] TDAP 2011-07-26 Completed [facility] of 00:00:00 [facility] HEPA,NOS 2008-08-09 Completed [facility] of 00:00:00 [facility] HEPA,NOS 2008-08-09 Completed [facility] of 00:00:00 [facility] HEPA,NOS 2008-08-09 Completed [facility] of 00:00:00 [facility] HEPA,NOS 2008-08-09 Completed [facility] of 00:00:00 [facility] DTaP, Unspecified 2004-04-23 Completed Univers ity of Formulation 00:00:00 [facility] TDAP 2004-04-23 Completed [facility] of 00:00:00 [facility] HEPA,NOS 2004-04-23 Completed [facility] of 00:00:00 [facility] MMR 2004-04-23 Completed University of 00:00:00 [facility] Polio (IPV/OPV) 2004-04-23 Completed Universit y of 00:00:00 [facility] DTaP, Unspecified 2004-04-23 Completed Univers ity of Formulation 00:00:00 [facility] TDAP 2004-04-23 Completed University of 00:00:00 [facility] HEPA,NOS 2004-04-23 Completed University of 00:00:00 [facility] MMR 2004-04-23 Completed University of 00:00:00 [facility] Polio (IPV/OPV) 2004-04-23 Completed Universit y of 00:00:00 [facility] DTaP, Unspecified 2004-04-23 Completed Univers ity of Formulation 00:00:00 [facility] TDAP 2004-04-23 Completed University of 00:00:00 [facility] HEPA,NOS 2004-04-23 Completed University of 00:00:00 [facility] MMR 2004-04-23 Completed University of 00:00:00 [facility] Polio (IPV/OPV) 2004-04-23 Completed Universit y of 00:00:00 [facility] DTaP, Unspecified 2004-04-23 Completed Univers ity of Formulation 00:00:00 [facility] TDAP 2004-04-23 Completed University of 00:00:00 [facility] HEPA,NOS 2004-04-23 Completed University of 00:00:00 [facility] MMR 2004-04-23 Completed University of 00:00:00 [facility] Polio (IPV/OPV) 2004-04-23 Completed Universit [facility] of 00:00:00 [facility] DTaP, Unspecified 2001-04-14 Completed Univers ity of Formulation 00:00:00 [facility] TDAP 2001-04-14 Completed University of 00:00:00 [facility] Hep B, Unspecified 2001-04-14 Completed Univer sity of Formulation 00:00:00 [facility] MMR 2001-04-14 Completed University of 00:00:00 [facility] Polio (IPV/OPV) 2001-04-14 Completed [facility] 00:00:00 [facility] Varicella 2001-04-14 Completed University of (varivax)(chicken 00:00:00 [place] [facility]ox[facility] DTaP, Unspecified 2001-04-14 Completed Univers ity of Formulation 00:00:00 [facility] TDAP 2001-04-14 Completed [facility] of 00:00:00 [facility] Hep B, Unspecified 2001-04-14 Completed Univer sity of Formulation 00:00:00 [facility] MMR 2001-04-14 Completed University of 00:00:00 [facility] Polio (IPV/OPV) 2001-04-14 Completed Universit y of 00:00:00 [facility] Varicella 2001-04-14 Completed University of (varivax)(chicken 00:00:00 [facility] edical pox) Branch DTaP, Unspecified 2001-04-14 Completed Univers ity of Formulation 00:00:00 [facility] TDAP 2001-04-14 Completed [facility] of 00:00:00 [facility] Hep B, Unspecified 2001-04-14 Completed Univer sity of Formulation 00:00:00 [facility] MMR 2001-04-14 Completed University of 00:00:00 [facility] Polio (IPV/OPV) 2001-04-14 Completed Universit y of 00:00:00 [facility] Varicella 2001-04-14 Completed University of (varivax)(chicken 00:00:00 [facility] edical pox) Branch DTaP, Unspecified 2001-04-14 Completed Univers ity of Formulation 00:00:00 [facility] TDAP 2001-04-14 Completed University of 00:00:00 [facility] Hep B, Unspecified 2001-04-14 Completed Univer sity of Formulation 00:00:00 [facility] MMR 2001-04-14 Completed University of 00:00:00 [facility] Polio (IPV/OPV) 2001-04-14 Completed Universit y of 00:00:00 [facility] Varicella 2001-04-14 Completed University of (varivax)(chicken 00:00:00 [facility] edical pox) Branch DTaP, Unspecified 2000-10-06 Completed Univers ity of Formulation 00:00:00 [facility] Branch TDAP 2000-10-06 Completed University of 00:00:00 [facility] Polio (IPV/OPV) 2000-10-06 Completed Universit y of 00:00:00 [facility] Branch DTaP, Unspecified 2000-10-06 Completed Univers ity of Formulation 00:00:00 [facility] Branch TDAP 2000-10-06 Completed University of 00:00:00 [facility] Branch Polio (IPV/OPV) 2000-10-06 Completed Universit y of 00:00:00 [facility] Branch DTaP, Unspecified 2000-10-06 Completed Univers ity of Formulation 00:00:00 [facility] Branch TDAP 2000-10-06 Completed University of 00:00:00 [facility] Polio (IPV/OPV) 2000-10-06 Completed Universit y of 00:00:00 [facility] Branch DTaP, Unspecified 2000-10-06 Completed Univers ity of Formulation 00:00:00 [facility] TDAP 2000-10-06 Completed University of 00:00:00 [facility] Branch Polio (IPV/OPV) 2000-10-06 Completed Universit y of 00:00:00 [facility] Branch DTaP, Unspecified 2000-09-01 Completed Univers ity of Formulation 00:00:00 [facility] TDAP 2000-09-01 Completed University of 00:00:00 [facility] Hep B, Unspecified 2000-09-01 Completed Univer sity of Formulation 00:00:00 [facility] Polio (IPV/OPV) 2000-09-01 Completed Universit y of 00:00:00 [facility] Branch DTaP, Unspecified 2000-09-01 Completed Univers ity of Formulation 00:00:00 [facility] Branch TDAP 2000-09-01 Completed University of 00:00:00 [facility] Hep B, Unspecified 2000-09-01 Completed Univer sity of Formulation 00:00:00 [facility] Polio (IPV/OPV) 2000-09-01 Completed Universit y of 00:00:00 [facility] DTaP, Unspecified 2000-09-01 Completed Univers ity of Formulation 00:00:00 [facility] TDAP 2000-09-01 Completed University of 00:00:00 [facility] Hep B, Unspecified 2000-09-01 Completed Univer sity of Formulation 00:00:00 [facility] Polio (IPV/OPV) 2000-09-01 Completed Universit y of 00:00:00 [facility] DTaP, Unspecified 2000-09-01 Completed Univers ity of Formulation 00:00:00 [facility] TDAP 2000-09-01 Completed University of 00:00:00 [facility] Hep B, Unspecified 2000-09-01 Completed Univer sity of Formulation 00:00:00 [facility] Polio (IPV/OPV) 2000-09-01 Completed Universit y of 00:00:00 [facility] Hep B, Unspecified 1999 Completed Univer sity of Formulation 00:00:00 [facility] Hep B, Unspecified 1999 Completed Univer sity of Formulation 00:00:00 [facility] Hep B, Unspecified 1999 Completed Univer sity of Formulation 00:00:00 [facility] Hep B, Unspecified 1999 Completed Univer sity of Formulation 00:00:00 [facility] Vital Signs Vital Name Observation Time Observation Value Comments Source Systolic blood 2022 19:56:00 107 mm[Hg] Univer sity of pressure [facility] Diastolic blood 2022 19:56:00 60 mm[Hg] Unive rsity of pressure [facility] Heart rate 2022 19:56:00 80 /min [facility] Body temperature 2022 19:56:00 36.78 Lacie [facility] Res[facility] rate 2022 19:56:00 18 /min [facility] Body height 2022 19:56:[address] [facility] Body weight 2022 19:56:[address] [facility] BMI 2022 19:56:00 33.30 kg/m2 [facility] BP Diastolic 2022-11-19 00:00:00 69 mm[Hg] [facility] Height 2022-11-19 00:00:00 63 [in_i] [facility] BMI (Body Mass 2022-11-19 00:00:00 32.6 kg/m2 [facility] BP Systolic 2022-11-19 00:00:00 128 mm[Hg] [facility] Body Weight 2022-11-19 00:00:00 184 [lb_av] [facility] Systolic blood 2022-07-22 16:05:00 113 mm[Hg] Univer sity of pressure [facility] Diastolic blood 2022-07-22 16:05:00 65 mm[Hg] Unive rsity of pressure [facility] Heart rate 2022-07-22 16:05:00 67 /min Universi ty of [facility] Body temperature 2022-07-22 16:05:00 36.[address] [facility] Branch Respiratory rate 2022-07-22 16:05:00 18 /min Univ ersity of [facility] Body weight 2022-07-22 16:05:00 81.285 kg Universi ty of [facility] BMI 2022-07-22 16:05:00 31.74 kg/m2 Universi ty of [facility] Systolic blood 2022-06-30 13:59:00 112 mm[Hg] Univer sity of pressure [facility] Branch Diastolic blood 2022-06-30 13:59:00 76 mm[Hg] Unive rsity of pressure [facility] Heart rate 2022-06-30 13:59:00 82 /min Universi ty of [facility] Body temperature 2022-06-30 13:59:00 36.33 Lac[address] [facility] Respiratory rate 2022-06-30 13:59:00 18 /min [facility] Oxygen saturation in 2022-06-30 13:59:00 98 /min [facility] Arterial blood by [facility] Pulse oximetry Branch Body height 2022-06-28 14:27:00 160 cm [facility]i [facility] of [facility] Body weight 2022-06-28 14:27:00 91.173 kg Universi ty of [facility] BMI 2022-06-28 14:27:00 35.61 kg/m2 Universi ty of [facility] Systolic blood 2022-06-25 19:04:00 131 mm[Hg] Univer sity of pressure [facility] Diastolic blood 2022-06-25 19:04:00 81 mm[Hg] Unive rsity of pressure [facility] Branch Heart rate 2022-06-25 19:04:00 79 /min Universi ty of [facility] Body temperature 2022-06-25 19:04:00 35.94 Lacie Univ ersity of [facility] Respiratory rate 2022-06-25 19:04:00 18 /min Univ ersity of [facility] Body weight 2022-06-25 19:04:00 91.218 kg Universi ty of [facility] BMI 2022-06-25 19:04:00 35.62 kg/m2 Universi ty of [facility] Systolic blood 2022-06-20 15:23:00 138 mm[Hg] Univer sity of pressure [facility] Diastolic blood 2022-06-20 15:23:00 81 mm[Hg] Unive rsity of pressure [facility] Heart rate 2022-06-20 15:23:00 77 /min Universi ty of [facility] Body temperature 2022-06-20 15:23:00 36.22 Lacie Univ ersity of [facility] Respiratory rate 2022-06-20 15:23:00 17 /min Univ ersity of [facility] Body height 2022-06-20 15:23:00 160 cm Universi ty of [facility] Body weight 2022-06-20 15:23:00 89.858 kg Universi ty of [facility] BMI 2022-06-20 15:23:00 35.09 kg/m2 Universi ty of [facility] Oxygen saturation in 2022-06-20 15:23:00 100 /min University Arterial blood by [facility] Pulse oximetry Branch Systolic blood 2022-06-18 14:48:00 128 mm[Hg] Univer sity of pressure [facility] Diastolic blood 2022-06-18 14:48:00 85 mm[Hg] Unive rsity of pressure [facility] Heart rate 2022-06-18 14:45:00 87 /min Universi ty of [facility] Respiratory rate 2022-06-18 14:45:00 18 /min Univ ersity of [facility] Body weight 2022-06-18 14:45:00 88.996 kg Universi ty of [facility] BMI 2022-06-18 14:45:00 34.76 kg/m2 Universi ty of [facility] Systolic blood 2022-06-14 14:07:00 123 mm[Hg] Univer sity of pressure [facility] Diastolic blood 2022-06-14 14:07:00 83 mm[Hg] Unive rsity of pressure [facility] Heart rate 2022-06-14 14:05:00 89 /min Universi ty of [facility] Body temperature 2022-06-14 14:05:00 35.61 Lacie [facility] Respiratory rate 2022-06-14 14:05:00 18 /min [facility] Body weight 2022-06-14 14:05:00 89.721 kg Universi ty [facility] BMI 2022-06-14 14:05:00 35.04 kg/m2 Universi ty [facility] Systolic blood 2022-06-10 17:55:00 120 mm[Hg] Univer sity of pressure [facility] Diastolic blood 2022-06-10 17:55:00 76 mm[Hg] Unive rsity of [facility] Heart rate 2022-06-10 17:55:00 87 /min Universi ty [facility] Respiratory rate 2022-06-10 17:55:00 18 /min [facility] Body weight 2022-06-10 17:55:00 88.361 kg Universi ty [facility] BMI 2022-06-10 17:55:00 34.51 kg/m2 [facility] BP Diastolic 2022-04-11 00:00:00 64 mm[Hg] [facility] Height 2022-04-11 00:00:00 63 [in_i] [facility] BMI (Body Mass 2022-04-11 00:00:00 32.8 kg/m2 [facility] BP Systolic 2022-04-11 00:00:00 115 mm[Hg] [facility] Body Weight 2022-04-11 00:00:00 185.3 [lb_av] [facility] BP Diastolic 2022-03-14 00:00:00 70 mm[Hg] [facility] Height 2022-03-14 00:00:00 63 [in_i] [facility] BMI (Body Mass 2022-03-14 00:00:00 33.2 kg/m2 [facility] Group BP Systolic 2022-03-14 00:00:00 114 mm[Hg] [facility] Body Weight 2022-03-14 00:00:00 187.4 [lb_av] [facility] BP Diastolic 2022-02-14 00:00:00 63 mm[Hg] [facility] Height 2022-02-14 00:00:00 63 [in_i] [facility] BMI (Body Mass 2022-02-14 00:00:00 31.9 kg/m2 [facility] Medical Index) Group BP Systolic 2022-02-14 00:00:00 102 mm[Hg] [facility] Body Weight 2022-02-14 00:00:00 180.2 [lb_av] [facility] BP Diastolic 2022-02-05 00:00:00 64 mm[Hg] [facility] Height 2022-02-05 00:00:00 63 [in_i] [facility] BMI (Body Mass 2022-02-05 00:00:00 32 kg/m2 [facility] Medical Index) Group BP Systolic 2022-02-05 00:00:00 100 mm[Hg] [facility] Body Weight 2022-02-05 00:00:00 180.8 [lb_av] [facility] Height 2022-01-17 00:00:00 63 [in_i] [facility] BMI (Body Mass 2022-01-17 00:00:00 31.5 kg/m2 [facility] Medical Index) Group Body Weight 2022-01-17 00:00:00 177.7 [lb_av] [facility] BP Diastolic 2021-12-20 00:00:00 78 mm[Hg] [facility] Height 2021-12-20 00:00:00 63 [in_i] [facility] BMI (Body Mass 2021-12-20 00:00:00 31.2 kg/m2 [facility] Medical Index) Group BP Systolic 2021-12-20 00:00:00 126 mm[Hg] [facility] Body Weight 2021-12-20 00:00:00 176 [lb_av] [facility] Temperature Oral (F) 2018-01-23 17:00:00 98.2 F [facility] Heart Rate 2018-01-23 17:00:00 [facility] [place] Systolic (mm Hg) 2018-01-23 17:00:00 [facility] Diastolic (mm Hg) 2018-01-23 17:00:00 [facility] Respitory Rate 2018-01-23 17:00:00 [facility] [place] Respitory Rate 2018-01-23 12:34:00 [facility] [place] Systolic (mm Hg) 2018-01-23 12:34:00 [facility] Diastolic (mm Hg) 2018-01-23 12:34:00 Mem orial [place] Heart Rate 2018-01-23 12:34:00 [facility] Temperature Oral (F) 2018-01-23 12:34:00 97.5 F [facility] Respitory Rate 2018-01-23 12:30:00 [facility] [place] Systolic (mm Hg) 2018-01-23 04:39:00 Christiano [facility] [place] Diastolic (mm Hg) 2018-01-23 04:39:00 [facility] [place] Heart Rate 2018-01-23 04:39:00 [facility] [place] Temperature Oral (F) 2018-01-23 04:39:00 98.2 F [facility] BMI Calculated 2018-01-21 02:03:00 [facility] Weight 2018-01-21 02:03:00 [facility] [place] Height 2018-01-21 02:03:00 160.02 cm [facility] Weight 2018-01-20 16:57:00 [facility] [place] Height 2018-01-20 16:57:00 160.02 cm [facility] BMI Calculated 2018-01-20 16:57:00 Memori [facility] [place] Systolic (mm Hg) 2018-01-04 23:18:00 Christiano rial [place] Diastolic (mm Hg) 2018-01-04 23:18:00 Mem orial [place] Respitory Rate 2018-01-04 23:18:00 [facility] Heart Rate 2018-01-04 23:18:00 [facility] Respitory Rate 2018-01-04 22:01:00 [facility] [place] Heart Rate 2018-01-04 22:01:00 [facility] Systolic (mm Hg) 2018-01-04 22:01:00 Christiano rosa [place] Diastolic (mm Hg) 2018-01-04 22:01:00 Mem orial [place] Respitory Rate 2018-01-04 21:00:00 Kory [facility] Heart Rate 2018-01-04 21:00:00 [facility] Systolic (mm Hg) 2018-01-04 21:00:00 Christiano rosa [place] Diastolic (mm Hg) 2018-01-04 21:00:00 Mem orial [place] Temperature Oral (F) 2018-01-04 19:20:00 98.1 F [facility] Weight 2018-01-04 19:20:00 [facility] [place] BMI Calculated 2018-01-04 19:20:00 Renealisha cristina [place] Height 2018-01-04 19:20:00 160.02 cm [facility] [place] Procedures Procedure Date / Time Performing Clinician Source Performed POCT URINALYSIS W/O 2022 21:14:00 Munira Watson [facility] SPECIFIC GRAVITY [facility] POCT TEST 2022 19:46:00 Munira Watson [facility] REPORT OF 2022 06:01:00 Doctor Unassigned, [facility] [place] [facility] US, obstetric, limited 2022-11-19 00:00:00 [facility] POCT GLUCOSE (AUTOMATED) 2022-06-30 11:18:00 Mason Tashialphonse Hoffmann [facility] CBC WITH DIFF 2022-06-30 09:45:00 Jasmin Murphy [facility] VENOUS CORD GAS 2022-06-29 14:00:00 Martha Ochoa [place] [facility] POCT GLUCOSE (AUTOMATED) 2022-06-29 12:18:00 Mason Tashialphonse Hoffmann [facility] POCT GLUCOSE (AUTOMATED) 2022-06-29 07:49:00 Mason [facility] CENTRAL NEURAXIAL BLOCK 2022-06-29 07:28:51 Johnathan De Los Santos [facility] POCT GLUCOSE (AUTOMATED) 2022-06-29 06:00:00 Tashi Cuevas [facility] POCT GLUCOSE (AUTOMATED) 2022-06-29 03:42:00 Mason [facility] POCT GLUCOSE (AUTOMATED) 2022-06-29 00:55:00 Mason [facility] POCT GLUCOSE (AUTOMATED) 2022-06-28 20:28:00 Mason [facility] POCT GLUCOSE (AUTOMATED) 2022-06-28 16:55:00 Mason [facility] CBC WITH DIFF 2022-06-28 [facility]:02[facility] HEPATITIS B SURFACE 2022-06-28 [facility]:02[facility] HIV 1/2 AG-AB WITH REFLEX 2022-06-28 15:02:00 [facility] GALV ONLY - SYPHILIS 2022-06-28 15:02:[facility]IGM [facility] HB ABO GROUPING 2022-06-28 15:01:00 [facility] RHO (D) IMMUNE GLOBULIN 2022-06-28 15:01:00 Jasmin Murphy Un [facility] DIABETES TESTING REPORTS 2022-06-26 05:01:00 Doctor Unassigned, [facility] POCT URINALYSIS 2022-06-25 19:04:00 Michelle [facility] POCT URINALYSIS 2022-06-20 00:00:00 Michelle [facility] NON-STRESS TEST 2022-06-18 15:39:34 Michelle [facility] POCT URINALYSIS 2022-06-18 14:49:00 Michelle [facility] DIABETES TESTING REPORTS 2022-06-18 05:01:00 Doctor Unassigned, [facility] NON-STRESS TEST 2022-06-14 15:18:57 Michelle [facility]aton [facility] POCT URINALYSIS 2022-06-14 14:17:00 Michelle [facility] DIABETES TESTING REPORTS 2022-06-14 05:01:00 Doctor Unassigned, [facility] Name [facility] NON-STRESS TEST 2022-06-10 18:54:08 Michelle Heaton [facility] POCT URINALYSIS 2022-06-10 18:01:00 Michelle [facility] DIABETES TESTING REPORTS 2022-06-10 05:01:00 Doctor Unassigned, [facility] ULTRASOUND REPEAT 2022-04-11 00:00:00 [facility] non-stress test 2022-03-14 00:00:00 [facility] ULTRASOUND, 2022-01-17 00:00[facility] UTERUS REAL TIME WITH Group IMAGE DOC, AND MATERNAL EVAL PLUS DETAILED ANATOMIC EXAMINATION, TRANSABDOMINAL APPROACH; SINGLE OR FIRST GESTATION US, obstetric, limited 2022-01-17 00:00:00 [facility] US, obstetric, limited 2021-12-20 00:00:00 [facility] US, obstetric, limited 2021-11-28 00:00:00 [facility] Plan of Care Planned Activity Planned Date Details Comments Source Diagnostic Test 2022-11-19 wet mount, vaginal [facility] Pending 00:00:00 [code = wet mount, Group vaginal] Diagnostic Test 2022-11-19 test, [facility] Pending 00:00:00 urine [code = Group test, urine] Diagnostic Test 2022-11-19 urinalysis, [facility] Pending 00:00:00 dipstick [code = Group urinalysis, dipstick] Diagnostic Test 2022-11-19 CBC w/ auto diff [facility] Pending 00:00:00 [code = CBC w/ auto Group diff] Diagnostic Test 2022-11-19 culture, urine [facility] Pending 00:00:00 [code = culture, Group urine] Diagnostic Test 2022-11-19 HIV (1+2) Ab [facility] Pending 00:00:00 screen, serum [code Group = HIV (1+2) Ab screen, serum] Diagnostic Test 2022-11-19 RPR (rapid plasma [facility] Pending 00:00:00 reagin), serum Group [code = RPR (rapid plasma reagin), serum] Diagnostic Test 2022-11-19 ABO and Rh group [facility] Pending 00:00:00 panel - Blood [code Group = 80045-6] Diagnostic Test 2022-11-19 rubella Ab, titer, [facility] Pending 00:00:00 serum [code = Group rubella Ab, titer, serum] Diagnostic Test 2022-11-19 HBsAg (hepatitis B [facility] Pending 00:00:00 surface Ag), serum Group [code = HBsAg (hepatitis B surface Ag), serum] Diagnostic Test 2022-11-19 Blood group [facility] Pending 00:00:00 antibody screen Group [Presence] in Serum or Plasma [code = 890-4] Diagnostic Test 2022-11-19 pap, LB + reflex to [facility] Pending 00:00:00 HR HPV if ASC-U Group [code = pap, LB + reflex to HR HPV if ASC-U] Diagnostic Test 2022-11-19 CT + NG DNA, PCR, [facility] Pending 00:00:00 cervical [code = CT Group + NG DNA, PCR, cervical] Diagnostic Test 2022-11-19 drug screen, urine [facility] Pending 00:00:00 [code = drug Group screen, urine] Encounters Start End Encounter Admission Attending Care Care Encounter Source Date/Time Date/Time Type Type Clinicians Facility Department ID 2023-01-13 2023-01-13 Outpatient Job NAYAK [facility] [id number] Univers 08:00:00 08:00:00 IVONE gross [facility] 2023-01-02 2023-01-02 Outpatient Job WATSON [facility] [id number] Univers 11:00:00 11:00:00 MUNIRA waite [facility] 2022-12-232022-12-23 Patient Julissa [facility] [id number] Univers 00:00:00 00:00:00 Secure Mer Peterson ASSISTANT TRACK COACH [id number] [facility] [id number] Nakul as MATERNAL [id number] [facility] & CHILD [address] [place] [address] 2022-12-20 2022-12-20 Case James [facility] [id number] Univers 00:00:00 00:00:00 Management Munira Nieto ASSISTANT TRACK COACH [id number] [facility] [id number] Nakul as MATERNAL [phone] [facility] & CHILD [address] [place] [address] 2022 2022 Outpatient R JAMES [facility] [id number] Univers 13:45:00 15:06:19 MUNIRA itolivia [facility] 2022 2022 Initial Provider, [facility] [id number] Univers 13:45:00 15:06:19 Munira Watson ASSISTANT TRACK COACH [id number]. [address] [facility] [id number] Nakul as MATERNAL [id number] [facility] & CHILD [address] [place] [address] 2022 2022 Orders Doctor GRECIA [id number] Univers 00:00:00 00:00:00 Only Unassigned, ANDREW [id number] ity of [place] [facility] [id number] Nakul as [id number] [address] 2022-12-03 2022-12-03 Outpatient Job NAYAK [facility] [id number] Univers 13:30:00 13:30:00 IVONE gross [facility] 2022-11-19 2022-11-19 Outpatient EUGENIA Castro [facility] [id number] [facility] 10:39:00 10:39:00 Selvin [id number] [facility] 2022-11-19 2022-11-19 [place]patient [place] [id number] [facility] 00:00:00 00:00:00 0124 Medical Group 2022-11-19 2022-11-19 Selvin MMG [place] - [id number] M atagor 00:00:00 00:00:00 Discovery elizabeth Castro MD: [address] [facility] [place] [address], [place] [address] , Ph. [phone] 2022-09-02 2022-09-02 Outpatient R [facility] [id number] Univers 09:00:00 09:00:00 ity [facility] 2022-08-31 2022-08-31 [facility] [id number] Univers 10:15:00 10:15:00 ROM [facility] 2022-08-12 2022-08-12 [facility] [id number] Univers 08:30:00 08:30:00 MICHELLE polo [facility] 2022-07-22 2022-07-22 [facility] [id number] Univers 11:00:00 11:15:06 MICHELLE polo [facility] 2022-07-22 2022-07-22 Routine [facility] [id number] Univers 11:00:00 11:15:06 Michelle Kaiser ASSISTANT TRACK COACH [id number] [facility] [id number] Nakul as MATERNAL [id number] Med ical & CHILD [address] [place] [address] 2022-06-28 2022-06-30 Inpatient P MASON [facility] GINGER [id number] Univers 08:37:00 15:21:00 TASHI waite [facility] 2022-06-28 2022-06-30 Hospital GRECIA Cuevas [id number] Univers 08:37:00 15:21:00 Encounter Tashi MORALES [id number] ity of HOSPITAL [id number] Nakul as [id number] [facility] [address] 2022-06-29 2022-06-29 Anesthesia Filiberto Alejenna PAIGE 1.2.840.11 [id number] Univers 02:15:00 11:09:00 Event Yehuda Segura 350.1.13.10 ity of HOSPITAL [facility].7.2.686 Nakul as [id number] [facility] [address] 2022-06-26 2022-06-26 Orders Doctor GRECIA [id number] Univers 00:00:00 00:00:00 Only Unassigned, ANDREW 350.1.13.10 ity of [place] [id number] Nakul as [id number] [facility] [facility] [address] 2022-06-25 2022-06-25 Routine Florina [facility] 1.2.840.114 [id number] Univers 14:00:00 14:15:00 Annaleea R ASSISTANT TRACK COACH 350.1.13.[address] [facility] 4.2.7.2.686 Nakul as MATERNAL [id number] Med ical & CHILD [address] [place] [address] 2022-06-25 2022-06-25 Outpatient R FLORINA [facility] [id number] Univers 14:00:00 14:00:00 MICHELLE waite o f [facility] 2022-06-21 2022-06-21 Outpatient Job HEATON [facility] [id number] Univers 10:30:00 10:30:00 MICHELLE waite o f [facility] 2022-06-20 2022-06-20 Outpatient R SANJUANITA [facility] [id number] Univers 10:15:00 10:33:41 AILIN waite [facility] 2022-06-20 2022-06-20 Routine Risk, Jhf-Vbyan-Pe/High [facility] 1. 2.840.114 [id number] Univers 10:15:00 10:33:41 Ailin Gann ASSISTANT TRACK COACH 350.1.13.[address] [facility] 4.2.7.2.686 Nakul as MATERNAL [id number] Med ical & CHILD [address] [place] [address] 2022-06-18 2022-06-18 Routine [facility] 1.2.840.114 [id number] Univers 10:30:00 10:45:00 Roshunda R ASSISTANT TRACK COACH 350.1.13.10 ity of Visit REGIONAL 4.2.7.2.686 Nakul as MATERNAL [id number] [facility] & CHILD [address] [place] [address] 2022-06-18 2022-06-18 Outpatient R [facility] [id number] Univers 10:15:00 10:15:00 ROSHUNDA ity o [facility] 2022-06-18 2022-06-18 Orders Doctor GRECIA 1.2.840.114 [id number] Univers 00:00:00 00:00:00 Only Unassigned, ANDREW 350.1.13.10 ity of [place] [facility] 4.2.7.2.686 Nakul as [id number] [address] 2022-06-14 2022-06-14 Outpatient R [facility] [id number] Univers 09:30:00 09:51:04 ROSHUNDA ity o f [facility] 2022-06-14 2022-06-14 [facility] 1.2.840.114 [id number] Univers 09:30:00 09:51:04 Roshunda R ASSISTANT TRACK COACH 350.1.13.10 ity of Visit REGIONAL 4.2.7.2.686 Nakul as MATERNAL [id number] [address] 2022-06-14 2022-06-14 Outpatient R [facility] [id number] Univers 09:00:00 09:00:00 ROSHUNDA ity o f [facility] 2022-06-14 2022-06-14 Orders Doctor PAIGE 1.2.840.114 [id number] Univers 00:00:00 00:00:00 Only Unassigned, ANDREW 350.1.13.10 ity of [place] [facility] 4.2.7.2.686 Nakul as [id number] [address] 2022-06-13 2022-06-13 Outpatient R FLORINA [facility] [id number] Univers 15:15:00 15:15:00 ROSGIOVANYNDA ity o [facility] 2022-06-13 2022-06-13 Outpatient R FLORINA [facility] [id number] Univers 14:45:00 14:45:00 ROBERNDA itolivia o [facility] 2022-06-13 2022-06-13 Outpatient R [facility] [id number] Univers 09:00:00 09:00:00 ity of [facility] 2022-06-10 2022-06-10 Outpatient R FLORINA [facility] [id number] Univers 15:45:00 15:45:00 ROSGIOVANYNDA mariann o [facility] 2022-06-10 2022-06-10 [facility] 1.2.840.114 [id number] Univers 15:45:00 15:45:00 Rosgiovanynda R ASSISTANT TRACK COACH 350.1.13.10 ity of Visit REGIONAL 4.2.7.2.686 Nakul as MATERNAL [id number] Med ical & CHILD [address] [place] [address] 2022-06-10 2022-06-10 Outpatient R FLORINA [facility] [id number] Univers 15:15:00 15:15:00 ROSGIOVANYNDA itolivia o [facility] 2022-06-10 2022-06-10 Outpatient R FLORINA [facility] [id number] Univers 15:45:00 14:25:10 ROSGIOVANYNDA ity o [facility] 2022-06-10 2022-06-10 Telephone [facility] 1.2.231.450 [id number] Univers 00:00:00 00:00:00 Roshunda R ASSISTANT TRACK COACH 350.1.13.10 ity of REGIONAL 4.2.7.2.686 Nakul as MATERNAL [id number] Med ical & CHILD [address] [place] [address] 2022-06-10 2022-06-10 Orders Doctor GRECIA 1.2.840.114 [id number] Univers 00:00:00 00:00:00 Only Unassigned, ANDREW 350.1.13.10 ity of [place] [facility] 4.2.7.2.686 Nakul as [id number] [address] 2022-06-07 2022-06-07 Telephone [facility] 1.2.055.890 [id number] Univers 00:00:00 00:00:00 Roshunda R ASSISTANT TRACK COACH 350.1.13.[address] [facility] 4.2.7.2.686 Nakul as MATERNAL [id number] Med ical & CHILD [address] [place] [address] 2022-06-06 2022-06-06 [facility] [id number] Univers 15:30:00 16:25:59 ROSHUNDA ity o [facility] 2022-06-06 2022-06-06 Routine [facility] 1.2.840.114 [id number] Univers 15:30:00 16:25:59 Roshunda R ASSISTANT TRACK COACH 350.1.13.10 ity of Visit REGIONAL 4.2.7.2.686 Nakul as MATERNAL [id number] [facility] & [address] 2022-06-06 2022-06-06 [facility] [id number] Univers 15:30:00 15:30:00 ROSHUNDA ity o f [facility] 2022-06-04 2022-06-04 Abstract [facility] 1.2.840.114 [id number] Univers 00:00:00 00:00:00 Roshunda R ASSISTANT TRACK COACH 350.1.13.10 ity of REGIONAL 4.2.7.2.686 Nakul as MATERNAL [id number] [facility] & CHILD [address] [place] [address] 2022-06-04 2022-06-04 Telephone [facility] 1.2.840.114 [id number] Univers 00:00:00 00:00:00 Ivone C ASSISTANT TRACK COACH 350.1.13.10 ity of REGIONAL 4.2.7.2.686 Nakul as MATERNAL [id number] [facility] & CHILD [address] [place] [address] 2022-06-03 2022-06-03 Out[facility] [id number] Univers 10:00:00 10:00:00 ROSCLIFFA wilnery o [facility] 2022-05-31 2022-05-31 Routine [facility] 1.2.533.707 [id number] Univers 14:00:00 14:33:25 Ivone Hernandez ASSISTANT TRACK COACH 350.1.13.10 ity of Visit REGIONAL 4.2.7.2.686 Nakul as MATERNAL [id number] [facility] & CHILD [address] [place] [address] 2022-05-31 2022-05-31 Outpatient R AKINDAVE, [facility] [id number] Univers 14:00:00 14:00:00 IVONE waite o [facility] 2022-05-31 2022-05-31 [facility] [id number] Univers 14:00:00 14:00:00 IVONE waite o [facility] 2022-05-31 2022-05-31 Mold S[facility], [facility] 1.2 .840.114 [id number] Univers 10:00:00 11:00:00 Visit Latonya Townsend Hansel ASSISTANT TRACK COACH 350.1. 13.10 ity of REGIONAL 4.2.7.2.686 Nakul as MATERNAL [id number] [facility] & CHILD [address] [place] [address] 2022-05-31 2022-05-31 Outpatient P KRISTIAN [facility] [id number] Univers 10:00:00 10:47:14 CHASEY ity [facility] 2022-05-31 2022-05-31 Outpatient P [facility] [id number] Univers 10:00:00 10:00:00 ity [facility] 2022-05-30 2022-05-30 Telephone [facility] 1.2.720.330 [id number] Univers 00:00:00 00:00:00 Rosdomenic Kaiser ASSISTANT TRACK COACH 350.1.13.10 ity of REGIONAL 4.2.7.2.686 Nakul as MATERNAL [id number] [facility] & CHILD [address] [place] [address] 2022-05-29 2022-05-29 Initial [facility] 1.2.840.114 [id number] Univers 09:15:00 11:35:26 Michelle Kaiser ASSISTANT TRACK COACH 350.1.13.[address] [facility] 4.2.7.2.686 Nakul as MATERNAL [id number] [facility] ical & CHILD [address] [place] [address] 2022-05-29 2022-05-29 Outpatient Job FLORINA [facility] [id number] Univers 09:15:00 11:35:26 ROBERMARY waite o [facility] 2022-05-29 2022-05-29 Outpatient Job [facility]ATON [facility] [id number] Univers 09:15:00 11:35:26 MICHELLE polo [facility] 2022-05-29 2022-05-29 Outpatient Job FLORINA [facility] [id number] Univers 08:45:00 09:11:38 [facility] 2022-05-29 2022-05-29 Orders Doctor GRECIA 1.2.840.114 [id number] Univers 00:00:00 00:00:00 Only Unassigned, ANDREW 350.1.13.10 ity of [place] [facility] 4.2.7.2.686 Nakul as [id number] [address] 2022-05-03 2022-05-03 Outpatient White_M MMG [facility] [id number] [place] 12:15:00 12:15:00 0708 [facility] 2022-04-11 2022-04-11 Outpatient EUGENIA Castro, [facility] [id number] [place] 10:15:00 10:15:00 Selvin [id number] [facility] 2022-04-11 2022-04-11 Outpatient White_M MMG MMG [id number] [place] 09:52:00 09:52:00 0616 [facility] 2022-04-11 2022-04-11 Outpatient White_M MMG MMG [id number] [place] 09:52:00 09:52:00 17 [facility] 2022-04-11 2022-04-11 Selvin [facility] [place] - [id number] M at[place]or 00:00:00 00:00:00 Discovery elizabeth Castro MD: [address] [address] , Ph. [phone] 2022-03-14 2022-03-14 [place] [id number] [place] 09:03:00 09:03:00 [facility] 2022-03-14 2022-03-14 [place] [id number] [place] 09:03:00 09:03:00 0523 [facility] 2022-03-14 2022-03-14 [place] [id number] [place] 09:03:00 09:03:00 0614 [facility] 2022-03-14 2022-03-14 [place] [id number] [place] 01:59:00 01:59:00 0519 [facility] 2022-03-14 2022-03-14 Selvin [facility] [place] - [id number] M at[place]or 00:00:00 00:00:00 Discovery elizabeth Castro MD: [address] [place] [address] , Ph. [phone] 2022-03-08 2022-03-08 [facility] [id number] [place] 02:30:00 02:30:00 0513 [facility] 2022-02-14 2022-02-14 Outpatient Gloria, [facility] [id number] [place] 12:37:00 12:37:00 Selvin [id number] [facility] 2022-02-14 2022-02-14 [place] [id number] [place] 02:45:00 02:45:00 0421 [facility] 2022-02-14 2022-02-14 Ladan TRAN [place] - [id number] M at[place]or 00:00:00 00:00:00 Discovery elizabeth Schwartz [facility]: [address] [address] , Ph. [phone] 2022-02-08 2022-02-08 Outpatient White_M MMG MMG [id number] [place] 06:47:00 06:47:00 0415 [facility] 2022-02-05 2022-02-05 Outpatient White_M MMG MMG [id number] [place] 03:19:00 03:19:00 0412 [facility] 2022-02-05 2022-02-05 Laadn [place] - [id number] M at[place]or 00:00:00 00:00:00 Discovery elizabeth Schwartz [facility]: [address] [address] , Ph. [phone] 2022-02-04 2022-02-04 Outpatient White_M MMG MMG [id number] [place] 04:14:00 04:14:00 0411 [facility] 2022-01-17 2022-01-17 Outpatient RADHA Infante [facility] [id number] [place] 14:22:00 14:22:00 Selvin [id number] [facility] 2022-01-17 2022-01-17 Outpatient White_M MMG MMG [id number] [place] 02:24:00 02:24:00 0324 [facility] 2022-01-17 2022-01-17 Selvin [facility] [place] - [id number] atagor 00:00:00 00:00:00 Discovery elizabeth Castro MD: [address] [place] [address] , Ph. [phone] 2022-01-14 2022-01-14 Outpatient White_M MMG MMG [id number] [place] 11:46:00 11:46:00 0321 [facility] 2021-12-20 2021-12-20 Outpatient White_M MMG MMG [id number] [place] 02:39:00 02:39:00 0224 [facility] 2021-12-20 2021-12-20 Selvin [facility] [place] - [id number] M at[place]or 00:00:00 00:00:00 Discovery elizabeth Castro MD: [address] [address] , Ph. [phone] 2021-12-14 2021-12-14 [place] [id number] [place] 01:45:00 01:45:00 0218 [facility] 2021-11-28 2021-11-28 Outpatient EL HANY [facility] [id number] [place] 15:02:00 15:02:00 LADAN [id number] [facility] 2021-11-28 2021-11-28 Outpatient White_M MMG MMG [id number] [place] 03:09:00 03:09:00 0202 [facility] 2021-11-28 2021-11-28 Ladan MM [place] - [id number] M at[place]or 00:00:00 00:00:00 Discovery elizabeth Schwartz [facility]-: [address] [address] , Ph. [phone] 2021-11-27 2021-11-27 Outpatient White_M MMG MMG [id number] [place] 02:12:00 02:12:00 0201 [facility] 2021-11-26 2021-11-26 Outpatient White_M MMG MMG [id number] [place] 11:08:00 11:08:00 0131 [facility] 2018-02-10 2018-02-10 Ambulatory nullFlavo [facility] dairy grazer 4 [id number] Memoria 20:30:00 20:30:00 Pre-Reg r Summer [facility] 2018-02-10 2018-02-10 Ambulatory nullFlavo [facility] dairy grazer 4 [id number] Memoria 20:30:00 20:30:00 Pre-Reg r Summer [facility] 2018-02-10 2018-02-10 Ambulatory nullFlavo [facility] dairy grazer 4 [id number] Memoria 20:00:00 20:00:00 Pre-Reg r summer l [facility] 2018-02-10 2018-02-10 Ambulatory nullFlavo [facility] dairy grazer 4 [id number] Memoria 20:00:00 20:00:00 Pre-Reg r summer [facility] 2018-02-10 2018-02-10 Outpatient VISIT, [facility] [id number] 15:30:00 15:30:00 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 2018-02-10 2018-02-10 Outpatient Sheldon, [facility] [id number] 15:00:00 15:00:00 Archana Rider 2018-01-20 2018-01-23 Inpatient nullFlavo [facility] [id number] Memoria 16:54:00 17:24:00 r [place] [facility] 2018-01-20 2018-01-23 Inpatient nullFlavo [facility] [id number] Memoria 16:54:00 17:24:00 r [facility] 2018-01-20 2018-01-23 Outpatient Ilya, [facility] [id number] 11:54:00 12:24:00 Scarlet 2018-01-04 2018-01-04 Emergency nullFlavo [facility] [id number] Memoria 19:10:00 23:59:00 r Tulio [facility] 2018-01-04 2018-01-04 Emergency nullFlavo [facility] 09093 [id number] Memoria 19:10:00 23:59:00 r [place] [facility] 2018-01-04 2018-01-04 Outpatient Misael, [facility] [id number] 14:10:00 18:59:00 Chase Paige 00 Results Test Description Test Time Test Comments Results Result Comments Source POCT URINALYSIS W/O SPECIFIC GRAVITY 2022 21:14:00 Test Item Value Reference Range Interpretation Comme nts POCT PH U (test code = 3254) . 5-8 POCT U LEUK EST (test code = 3263) . Negative - Negative POCT U NIT (test code = 3952) . Negative - Negative POCT U PROT (test code = 3259) . Negative - Negative POCT U GLU (test code = 3256) . Negative - Negative POCT U KETONE (test code = 3258) . Negative - Negative POCT U BLD (test code = 3257) . Negative - Negative [facility] [id number] 19:46:00 Test Item Value Reference Range Interpretation Comments POCT PREG (test code = 1605) Positive On board controls acceptable with C Yes Line (test code = 3574) POCT PREG LOT # (test code = 3575) POCT PREG TEST DATE (test code = 3576) [facility] SpringsMicroscopic observation [Identifier] in Vaginal fluid by Wet [id number] 10:05:38 Test Item Value Reference Range Interpretation Comments Clue Cells (test code = Clue Cells) negative WBCs (test code = WBCs) negative Trichomonads (test code = negative Trichomonads) Epithelial cells (test code = normal Epithelial cells) RBCs (test code = RBCs) negative [facility] CenterUrinalysis macro (dipstick) panel - [id number] 09:26:40 Test Item Value Reference Range Interpretation Comments Leukocytes (test code = Trace Leukocytes) Nitrite (test code = negative Nitrite) Urobilinogen (test code = .2 Urobilinogen) Protein (test code = Trace Protein) pH (test code = pH) 7.0 Blood (test code = Blood) Hemolyzed: Trace Specific Ovett (test code 1.025 = Specific [place]) Ketone (test code = Ketone) Negative Bilirubin (test code = Negative Bilirubin) Glucose (test code = Negative Glucose) Appearance (test code = Clear Appearance) Color (test code = Color) Yellow [facility] Centerpregnancy test, [id number] 09:26:01 Test Item Value Reference Range Interpretation Comments Test (test code = positive Test) [facility] CenterCBC with [id number] 11:42:46 Test Item Value Reference Range Interpretation Comments WBC (test code = See_Comment H [Automated 6690-2) message] The sy stem which [...] as normal/abnormal . HGB (test code = 7.2 g/dL 11.6-15 L 718-7) HCT (test code = 21.7 % 35.7-45.2 L 4544-3) MCV (test code = 86.5 fL 80.6-95.5 787-2) MCH (test code = 28.7 pg 25.9-32.8 785-6) MCHC (test code = 33.2 g/dL 31.6-35.1 786-4) RDW-SD (test code = 43.2 fL 39-49.9 65049-8) RDW-CV (test code = 13.8 % 12-15.5 788-0) PLT (test code = See_Comment [Automated 777-3) message] The sy stem which generated this result transmitted reference range : 166 - 358 10*3/ ?L. The reference r kary was not used to interpret this result as normal/abnormal . MPV (test code = 12.1 fL 9.5-12.9 51117-9) NRBC/100 WBC (test See_Comment [Automat ed code = 9972458085) message] The system which generated this result transmitted reference range : 0.0 - 10.0 /100 WBCs. The refer ence range was not u sed to interpret th is result as normal/abnormal . NRBC x10^3 (test code See_Comment [Auto mated = 7068989077) message] The s ystem which generated this result transmitted reference range : 10*3/?L. The reference range was not used to interpret this result as normal/abnormal . GRAN MAT (NEUT) % 69.5 % (test code = 770-8) IMM GRAN % (test code 0.50 % = 4803753552) LYMPH % (test code = 22.8 % 736-9) MONO % (test code = 5.9 % 5905-5) EOS % (test code = 1.0 % 713-8) BASO % (test code = 0.3 % 706-2) GRAN MAT x10^3(ANC) 8.61 10*3/uL 1.88-7.09 H (test code = 5213560776) IMM GRAN x10^3 (test 0.06 10*3/uL 0-0.06 code = 0635496435) LYMPH x10^3 (test code 2.83 10*3/uL 1.32-3.29 = 731-0) MONO x10^3 (test code 0.73 10*3/uL 0.33-0.92 = 742-7) EOS x10^3 (test code = 0.12 10*3/uL 0.03-0.39 711-2) BASO x10^3 (test code 0.04 10*3/uL 0.01-0.07 = 704-7) Lab Interpretation Abnormal (test code = 54618-2) [facility] GLU[facility]SE (AUTOMATED)2022-06-30 11:19:29 Test Item Value Reference Range Interpretation Comments POCT GLU (test code = 0096518539) 80 mg/dL 70-110 Lab Interpretation (test code = Normal 14015-2) [facility] SpringsRHO (D) IMMUNE [id number] 17:37:49 Test Item Value Reference Range Interpretation Comments RHIG CANDIDATE? No- see comment Patient i s not a (test code = candidate for R hIg- 5055) Patient is Rh Positive.Perfor med at [facility] Laboratory Services - [facility] Blood [address] [address]Vnyw Free: [phone] A No. [id number] [facility] SpringsGALV ONLY - SYPHILIS [id number] 15:57:19 Test Item Value Reference Range Interpretation Comments Syphilis IgG/IgM (test Non-reactive Non-reactive code = 53576-1) YAYA (test code = YAYA) Non-reactive - No serologic evidence of T. pallidum infection. Cannot exclude incubating or early syphilis. Submit a second specimen in 2-4 weeks if syphilis is clinically suspected. Equivocal - Further testing to follow. Reactive - Further testing to follow. Lab Interpretation (test Normal code = 76407-1) [facility] SpringsVENOUS CORD [id number] 14:30:40 Test Item Value Reference Range Interpretation Comments VENOUS BASE EXCESS, mEq/L CORD (test code = 5325414850) VENOUS PH, CORD (test 7.25-7.45 code = 9483145152) VENOUS PC02, CORD See_Comment [Automate d message] The (test code = system which ge nerated 0550761509) this result tra nsmitted reference range : 27 - 49 mmHg. The refer ence range was not used to interpret this result as normal/abnormal . VENOUS PO2, CORD (test See_Comment [Aut omated message] The code = 5090582153) system [facility] generated this result tra nsmitted reference range : 17 - 41 mmHg. The refer ence range was not used to interpret this result as normal/abnormal . VENOUS BICARBONATE, See_Comment [Automa abdoul message] The CORD (test code = system [facility] generated 4838338424) this result tra nsmitted reference range : 12 - 29 mEq/L. The refe rence range was not used to interpret this result as normal/abnormal . [facility] SpringsARTERIAL CORD [id number] 14:30:10 Test Item Value Reference Range Interpretation Comments BASE EXCESS, CORD mEq/L (test code = 4420047942) AC PH, CORD (BEAKER) 7.18-7.38 (test code = 1113510183) PC02, CORD (test code See_Comment [Auto mated message] The = 4438819006) system which g enerated this result transmit abdoul reference range : 32 - 66 mmHg. The refer ence range was not used to interpret this result as normal/abnormal . PO2, CORD (test code See_Comment [Autom ated message] The = 5898231079) system which g enerated this result transmit abdoul reference range : 10 - 30 mmHg. The refer ence range was not used to interpret this result as normal/abnormal . BICARBONATE, CORD See_Comment [Automate d message] The (test code = system which ge nerated this 2535259484) result transmit abdoul reference range : 17 - 27 mEq/L. The refe rence range was not used to interpret this result as normal/abnormal . [facility] GLUCOSE (AUTOMATED)2022-06-29 12:19:17 Test Item Value Reference Range Interpretation Comments POCT GLU (test code = 5044479094) 108 mg/dL 70-110 Lab Interpretation (test code = Normal 76879-3) [facility] GLUCOSE (AUTOMATED)2022-06-29 07:50:08 Test Item Value Reference Range Interpretation Comments POCT GLU (test code = 6685586887) 106 mg/dL 70-110 Lab Interpretation (test code = Normal 61194-7) [facility] GLUCOSE (AUTOMATED)2022-06-29 06:01:55 Test Item Value Reference Range Interpretation Comments POCT GLU (test code = 9067580201) 89 mg/dL 70-110 Lab Interpretation (test code = Normal 01695-4) [facility] GLUCOSE (AUTOMATED)2022-06-29 03:42:54 Test Item Value Reference Range Interpretation Comments POCT GLU (test code = 9154406082) 85 mg/dL 70-110 Lab Interpretation (test code = Normal 82531-6) [facility] GLUCOSE (AUTOMATED)2022-06-29 00:56:49 Test Item Value Reference Range Interpretation Comments POCT GLU (test code = 3293498724) 78 mg/dL 70-110 Lab Interpretation (test code = Normal 14581-3) [facility] GLUCOSE (AUTOMATED)2022-06-28 20:29:37 Test Item Value Reference Range Interpretation Comments POCT GLU (test code = 2898864605) 88 mg/dL 70-110 Lab Interpretation (test code = Normal 09311-5) [facility] WITH [id number] 19:39:07 Test Item Value Reference Range Interpretation Comments HIV Negative Negative Semi-quantitative (test code = 14645-3) YAYA (test code = Non-reactive for HIV-1 YAYA) antigen and HIV-1/HIV-2 antibodies. ?No laboratory evidence of HIV infection. ?Repeat in 2-4 weeks if acute HIV infection is suspected. [facility] GLUCOSE (AUTOMATED)2022-06-28 16:56:56 Test Item Value Reference Range Interpretation Comments POCT GLU (test code = 7984984313) 84 mg/dL 70-110 Lab Interpretation (test code = Normal 94199-1) [facility] [place] [place] Surface [id number] 16:36:03 Test Item Value Reference Range Interpretation Comments HBsAg Semi-Quantitative (test code = Negative Negative 5195-3) [facility] [place] - ONCE [id number] 16:07:16 Test Item Value Reference Range Interpretation Comments ABO & RH (test code O POSITIVE Performe d at [facility] = 20) Laboratory Serv [facility] Blood [facility]3 [address] [facility] s [id number] Free: [phone] A No. [id number] IAT (test code = Negative Performed a t [facility] 1185) Laboratory Serv [facility] Blood [facility]3 [address] [facility] s [id number] Free: [phone] A No. [id number] [facility] SpringsCBC with [id number] 15:43:14 Test Item Value Reference Range Interpretation [...] RDW-SD (test code = 42.5 fL 39-49.9 83511-8) RDW-CV (test code = 13.4 % 12-15.5 788-0) PLT (test code = See_Comment [Automated 777-3) message] The sy stem which generated this result transmitted reference range : 166 - 358 10*3/ ?L. The reference r kary was not used to interpret this result as normal/abnormal . MPV (test code = 12.3 fL 9.5-12.9 03661-9) NRBC/100 WBC (test See_Comment [Automat ed code = [id number]) message] The system which generated this result transmitted reference range : 0.0 - 10.0 /100 WBCs. The refer ence range was not u sed to interpret th is result as normal/abnormal . NRBC x10^3 (test code See_Comment [Auto mated = [id number]) message] The s ystem which generated this result transmitted reference range : 10*3/?L. The reference range was not used to interpret this result as normal/abnormal . GRAN MAT (NEUT) % 56.8 % (test code = 770-8) IMM GRAN % (test code 1.10 % = 7975213328) LYMPH % (test code = 33.5 % 736-9) MONO % (test code = 7.5 % 5905-5) EOS % (test code = 0.8 % 713-8) BASO % (test code = 0.3 % 706-2) GRAN MAT x10^3(ANC) 3.73 10*3/uL 1.88-7.09 (test code = 3500017726) IMM GRAN x10^3 (test 0.07 10*3/uL 0-0.06 H code = 1759073993) LYMPH x10^3 (test code 2.20 10*3/uL 1.32-3.29 = 731-0) MONO x10^3 (test code 0.49 10*3/uL 0.33-0.92 = 742-7) EOS x10^3 (test code = 0.05 10*3/uL 0.03-0.39 711-2) BASO x10^3 (test code 0.01-0.07 = 704-7) Lab Interpretation Abnormal (test code = 50278-1) [facility] URINALYSIS W SPECIFIC [id number] 19:04:00 Test Item Value Reference Range Interpretation [...] POCT U APPEAR (test code = 3267) [facility] URINALYSIS W SPECIFIC [id number] 15:26:00 Test Item Value Reference Range Interpretation Comments POCT U SP GRAV (test code = . 1.005-1.025 3255) POCT PH U (test code = 3254) 6 mg/dl 5-8 POCT U LEUK EST (test code = ++ Negative - Negative 3) POCT U NIT [...] POCT U APPEAR (test code = 3267) [facility] URINALYSIS W SPECIFIC [id number] 14:49:00 Test Item Value Reference Range Interpretation [...] POCT U APPEAR (test code = 3267) [facility] URINALYSIS W SPECIFIC [id number] 14:18:00 Test Item Value Reference Range Interpretation [...] U APPEAR (test code = 3267) * [facility] URINALYSIS W SPECIFIC [id number] 18:01:00 Test Item Value Reference Range Interpretation [...] U APPEAR (test code = 3267) * [facility] SpringsGlucose [Mass/volume] in Serum or Plasma --1 hour post dose [id number] 11:26:00 Test Item Value Reference Range Interpretation Comments Results (test code = Results) 143 [facility]Ur[facility] macro (dipstick) panel - [id number] 09:45:40 Test Item Value Reference Range Interpretation Comments Leukocytes (test code = Large Leukocytes) Nitrite (test code = Nitrite) negative Urobilinogen (test code = 1 Urobilinogen) Protein (test code = Protein) Trace pH (test code = pH) 6.0 Blood (test code = Blood) Moderate Specific Ovett (test code = 1.025 Specific Ovett) Ketone (test code = Ketone) Large (80) Bilirubin (test code = Bilirubin) Small Glucose (test code = Glucose) Negative Appearance (test code = Clear Appearance) Color (test code = Color) Yellow [facility] CenterMicroscopic observation [Identifier] in Vaginal fluid by Wet [id number] 14:21:09 Test Item Value Reference Range Interpretation Comments Clue Cells (test code = Clue Cells) positive WBCs (test code = WBCs) negative Trichomonads (test code = negative Trichomonads) Epithelial cells (test code = abnormal Epithelial cells) RBCs (test code = RBCs) negative [facility] CenterMicroscopic observation [Identifier] in Vaginal fluid by Wet [id number] 14:21:09 Test Item Value Reference Range Interpretation Comments Clue Cells (test code = Clue Cells) positive WBCs (test code = WBCs) negative Trichomonads (test code = negative Trichomonads) Epithelial cells (test code = abnormal Epithelial cells) RBCs (test code = RBCs) negative [facility] CenterUrinalysis macro (dipstick) panel - [id number] 13:32:42 Test Item Value Reference Range Interpretation Comments Leukocytes (test code = Leukocytes) Small Nitrite (test code = Nitrite) negative Urobilinogen (test code = 1 Urobilinogen) Protein (test code = Protein) 30 pH (test code = pH) 7.5 Blood (test code = Blood) Small Specific Ovett (test code = 1.020 Specific Ovett) Ketone (test code = Ketone) Trace Bilirubin (test code = Bilirubin) Small Glucose (test code = Glucose) Negative Appearance (test code = Appearance) Clear Color (test code = Color) Yellow [facility] CenterUrinalysis macro (dipstick) panel - [id number] 13:32:42 Test Item Value Reference Range Interpretation Comments Leukocytes (test code = Leukocytes) Small Nitrite (test code = Nitrite) negative Urobilinogen (test code = 1 Urobilinogen) Protein (test code = Protein) 30 pH (test code = pH) 7.5 Blood (test code = Blood) Small Specific Ovett (test code = 1.020 Specific Ovett) Ketone (test code = Ketone) Trace Bilirubin (test code = Bilirubin) Small Glucose (test code = Glucose) Negative Appearance (test code = Appearance) Clear Color (test code = Color) Yellow [facility] CenterUrinalysis macro (dipstick) panel - [id number] 14:19:38 Test Item Value Reference Range Interpretation Comments Leukocytes (test code = Small Leukocytes) Nitrite (test code = negative Nitrite) Urobilinogen (test code = .2 Urobilinogen) Protein (test code = Trace Protein) pH (test code = pH) 7.0 Blood (test code = Blood) Hemolyzed: Trace Specific Ovett (test code 1.020 = Specific Ovett) Ketone (test code = Ketone) Negative Bilirubin (test code = Negative Bilirubin) Glucose (test code = Negative Glucose) Appearance (test code = Clear Appearance) Color (test code = Color) Dark Yellow [facility] CenterUrinalysis macro (dipstick) panel - [id number] 14:19:38 Test Item Value Reference Range Interpretation Comments Leukocytes (test code = Small Leukocytes) Nitrite (test code = negative Nitrite) Urobilinogen (test code = .2 Urobilinogen) Protein (test code = Trace Protein) pH (test code = pH) 7.0 Blood (test code = Blood) Hemolyzed: Trace Specific Ovett (test code 1.020 = Specific Ovett) Ketone (test code = Ketone) Negative Bilirubin (test code = Negative Bilirubin) Glucose (test code = Negative Glucose) Appearance (test code = Clear Appearance) Color (test code = Color) Dark Yellow [facility] CenterCT + NG + TV, DNA, urine/[id number] 00:00:00 Test Item Value Reference Range Interpretation Comments lacy - swab (test code = lacy abnormal A - swab) gardnerella (test code = abnormal A gardnerella) CT/NG (test code = CT/NG) normal trichomonas vaginalis addon - swab abnormal A (test code = trichomonas vaginalis addon - swab) [facility] CenterUrinalysis macro (dipstick) panel - [id number] 15:47:23 Test Item Value Reference Range Interpretation Comments Leukocytes (test code = Leukocytes) Large Nitrite (test code = Nitrite) negative Urobilinogen (test code = .2 Urobilinogen) Protein (test code = Protein) Negative pH (test code = pH) 7.0 Blood (test code = Blood) Small Specific Ovett (test code = 1.020 Specific Ovett) Ketone (test code = Ketone) Negative Bilirubin (test code = Bilirubin) Negative Glucose (test code = Glucose) Negative Appearance (test code = Appearance) Clear Color (test code = Color) Yellow [facility] CenterUrinalysis macro (dipstick) panel - [id number] 15:47:23 Test Item Value Reference Range Interpretation Comments Leukocytes (test code = Leukocytes) Large Nitrite (test code = Nitrite) negative Urobilinogen (test code = .2 Urobilinogen) Protein (test code = Protein) Negative pH (test code = pH) 7.0 Blood (test code = Blood) Small Specific Ovett (test code = 1.020 Specific Ovett) Ketone (test code = Ketone) Negative Bilirubin (test code = Bilirubin) Negative Glucose (test code = Glucose) Negative Appearance (test code = Appearance) Clear Color (test code = Color) Yellow [facility] CenterUrinalysis macro (dipstick) panel - [id number] 13:54:05 Test Item Value Reference Range Interpretation Comments Leukocytes (test code = Small Leukocytes) Nitrite (test code = negative Nitrite) Urobilinogen (test code = 1 Urobilinogen) Protein (test code = Negative Protein) pH (test code = pH) 8.0 Blood (test code = Blood) Non-Hemolyzed: Trace Specific Ovett (test 1.020 code = Specific Ovett) Ketone (test code = Negative Ketone) Bilirubin (test code = Negative Bilirubin) Glucose (test code = Negative Glucose) Appearance (test code = Clear Appearance) Color (test code = Color) Yellow [facility] CenterUrinalysis macro (dipstick) panel - [id number] 13:54:05 Test Item Value Reference Range Interpretation Comments Leukocytes (test code = Small Leukocytes) Nitrite (test code = negative Nitrite) Urobilinogen (test code = 1 Urobilinogen) Protein (test code = Negative Protein) pH (test code = pH) 8.0 Blood (test code = Blood) Non-Hemolyzed: Trace Specific Ovett (test 1.020 code = Specific Ovett) Ketone (test code = Negative Ketone) Bilirubin (test code = Negative Bilirubin) Glucose (test code = Negative Glucose) Appearance (test code = Clear Appearance) Color (test code = Color) Yellow [facility] CenterUrinalysis macro (dipstick) panel - [id number] 13:54:05 Test Item Value Reference Range Interpretation Comments Leukocytes (test code = Small Leukocytes) Nitrite (test code = negative Nitrite) Urobilinogen (test code = 1 Urobilinogen) Protein (test code = Negative Protein) pH (test code = pH) 8.0 Blood (test code = Blood) Non-Hemolyzed: Trace Specific Ovett (test 1.020 code = Specific Ovett) Ketone (test code = Negative Ketone) Bilirubin (test code = Negative Bilirubin) Glucose (test code = Negative Glucose) Appearance (test code = Clear Appearance) Color (test code = Color) Yellow [facility] CenterUrinalysis macro (dipstick) panel - [id number] 14:16:13 Test Item Value Reference Range Interpretation Comments Leukocytes (test code = Small Leukocytes) Nitrite (test code = negative Nitrite) Urobilinogen (test code = .2 Urobilinogen) Protein (test code = Negative Protein) pH (test code = pH) 7.5 Blood (test code = Blood) Hemolyzed: Trace Specific Ovett (test code 1.020 = Specific Ovett) Ketone (test code = Ketone) Negative Bilirubin (test code = Negative Bilirubin) Glucose (test code = Negative Glucose) Appearance (test code = Clear Appearance) Color (test code = Color) Yellow [facility] CenterUrinalysis macro (dipstick) panel - [id number] 14:16:13 Test Item Value Reference Range Interpretation Comments Leukocytes (test code = Small Leukocytes) Nitrite (test code = negative Nitrite) Urobilinogen (test code = .2 Urobilinogen) Protein (test code = Negative Protein) pH (test code = pH) 7.5 Blood (test code = Blood) Hemolyzed: Trace Specific Ovett (test code 1.020 = Specific Ovett) Ketone (test code = Ketone) Negative Bilirubin (test code = Negative Bilirubin) Glucose (test code = Negative Glucose) Appearance (test code = Clear Appearance) Color (test code = Color) Yellow [facility] CenterChromosome 13+18+21+X+Y aneuploidy in Blood by Molecular genetics method [id number] 00:00:00 Test Item Value Reference Range Interpretation Comments report summary (test code see notes = report summary) report note (test code = see notes report note) trisomy 13 age-based risk 7,826 (0.01%) text (test code = trisomy 13 age-based risk text) trisomy 13 risk score text <1/10,000 (<0.01%) (test code = trisomy 13 risk score text) trisomy 13 result text low risk (test code = trisomy 13 result text) trisomy 18 age-based risk 12,484 (0.04%) text (test code = trisomy 18 age-based risk text) trisomy 18 risk score text <1/10,000 (<0.01%) (test code = trisomy 18 risk score text) trisomy 18 result text low risk (test code = trisomy 18 result text) trisomy 21 age-based risk 10/27,068 (0.09%) text (test code = trisomy 21 [...] footnotes (test code = see notes footnotes) [facility] CenterGenetic screen in Specimen by Molecular genetics method [id number] 00:00:00 Test Item Value Reference Range Interpretation [...] code = polycystic kidney disease, autosomal recessive) ynvin-nwytq-gsirz syndrome (test negative code = hflpa-acnfg-coqlx syndrome) spinal muscular atrophy (test code negative = spinal muscular atrophy) wanda-sachs disease (test code = negative wanda-sachs disease) panel notes (test code = panel see notes notes) report note (test code = report see notes note) footnotes (test code = footnotes) see notes [facility] Centerpap, LB + reflex to HR HPV if [id number] 00:00:00 Test Item Value Reference Range Interpretation Comments liquid Pap test with reflex to HPV normal type-detect 4.0 if ASCUS or greater (test code = liquid Pap test with reflex to HPV type-detect 4.0 if ASCUS or greater) [facility] CenterCT + NG + TV, DNA, urine/[id number] 00:00:00 Test Item Value Reference Range Interpretation [...] (reflex to antibiotic resistance by molecular analysis)) [facility] CenterUrinalysis macro (dipstick) panel - [id number] 13:57:00 Test Item Value Reference Range Interpretation Comments Leukocytes (test code = Leukocytes) Trace Nitrite (test code = Nitrite) negative Urobilinogen (test code = .2 Urobilinogen) Protein (test code = Protein) Negative pH (test code = pH) 8.0 Blood (test code = Blood) Negative Specific Ovett (test code = 1.020 Specific Ovett) Ketone (test code = Ketone) Negative Bilirubin (test code = Bilirubin) Negative Glucose (test code = Glucose) Negative Appearance (test code = Appearance) Clear Color (test code = Color) Yellow [facility] Centerpregnancy test, [id number] 13:56:00 Test Item Value Reference Range Interpretation Comments Test (test code = positive Test) [facility] CenterBacteria identified in Urine by [id number] 02:17:00Bacteria Ur [facility]CBC [facility] Auto Differential panel - [id number] 02:17:00 Test Item Value Reference Range Interpretation Comments white blood count (test code = 11.8 K/uL 4.0-11.5 H white blood count) red blood count (test code = red 4.28 M/uL 3.80-5.20 blood count) hemoglobin (test code = 13.2 g/dL 10.5-15.7 hemoglobin) hematocrit (test code = 40.3 % 34.0-50.0 hematocrit) MCV [Entitic volume] (test code = 94.2 fL 86.0-100.0 53227-4) mean corpuscular hemoglobin (test 30.8 pg 26.2-33.4 [...] 44.4-80.1 leukocytes in Blood (test code = 80830-2) Immature granulocytes [#/volume] 0.09 K/uL 0.00-0.03 H in Blood (test code = 88471-6) lymphocyte% (test code = 16.2 % 10.0-50.0 lymphocyte%) mono % (test code = mono %) 5.7 % 3.6-12.0 eos % (test code = eos %) 1.4 % 0.0-5.4 Basophils/100 leukocytes in 0.5 % 0.1-1.2 Specimen (test code = 14777-8) Band form neutrophils [#/volume] 8.89 K/uL 1.56-6.13 H in Blood (test code = 34318-1) Lymphocytes [#/volume] in Specimen 1.91 K/uL 1.18-3.74 by Automated count (test code = 61957-2) mono # (test code = mono #) 0.67 K/uL 0.24-0.86 eos # (test code = eos #) 0.17 K/uL 0.04-0.36 basophil # (test code = basophil 0.06 K/uL 0.01-0.08 #) NRBC% (test code = NRBC%) 0 /100 WBC 0-0.2 NRBC# (test code = NRBC#) 0 K/uL [facility] CenterABO and Rh group [Type] in [id number] 02:17:00 Test Item Value Reference Range Interpretation Comments Rh [Type] in Blood (test code = 4+ 99309-5) ABO and Rh group panel - Blood O positive (test code = 12413-2) [facility] CenterBlood group antibody screen [Presence] in Serum or Plasma 2021-11-28 02:17:00 Test Item Value Reference Range Interpretation Comments Blood group antibody screen negative [Presence] in Serum or Plasma (test code = 890-4) [facility] CenterTSH, serum, reflex free [id number] 00:00:00 Test Item Value Reference Range Interpretation Comments TSH w/reflex (test code = TSH 0.74 uIU/mL 0.36-3.74 w/reflex) [facility] CenterHIV 1+2 Ab [Presence] in [id number] 00:00:00HIV P24 AgHIV-1/2 [facility]MaEast [facility] HospitalHepatitis B virus surface Ag [Presence] in [id number] 00:00:00 Test Item Value Reference Range Interpretation Comments .hepatitis B surface antigen (test negative negative code = .hepatitis B surface antigen) [facility] CenterReagin Ab [Presence] in Serum by [id number] 00:00:00 Test Item Value Reference Range Interpretation Comments Reagin Ab [Presence] in Serum by nonreactive nonreactive RPR (test code = 20243-4) [facility] 13:04:00 Test Item Value Reference Range Interpretation Comments Vanco Tr TND (test code = Vanco Tr see EMAR TND) [place] [id number] 13:04:00 Test Item Value Reference Range Interpretation Comments Vanco Tr (test code = Vanco Tr) 7.5 [facility] CenterMoxhceaDRBBQVPQXQ9022-25-67 13:04:00 Test Item Value Reference Range Interpretation Comments Vanco Tr TND (test code = Vanco Tr see EMAR TND) [place] [id number] 13:04:00 Test Item Value Reference Range Interpretation Comments Vanco Tr (test code = Vanco Tr) 7.5 [facility] CenterLrfjcodTZCHWAXQPW7557-25-77 13:04:00 Test Item Value Reference Range Interpretation Comments Vanco Tr TND (test code = Vanco Tr see EMAR TND) [place] [id number] 13:04:00 Test Item Value Reference Range Interpretation Comments Vanco Tr (test code = Vanco Tr) 7.5 [facility] CenterZlwwrynAUINWCAMFA9169-81-58 13:04:00 Test Item Value Reference Range Interpretation Comments Vanco Tr TND (test code = Vanco Tr see EMAR TND) [place] [id number] 13:04:00 Test Item Value Reference Range Interpretation Comments Vanco Tr (test code = Vanco Tr) 7.5 [facility]2018-03-30 07:53:00 Test Item Value Reference Range Interpretation Comments eGFR (test code = eGFR) 128 [facility]2018-03-30 07:53:00 Test Item Value Reference Range Interpretation Comments Potassium Lvl (test code = Potassium 3.5 3.5-5.1 Lvl) [facility]2018-03-30 07:53:00 Test Item Value Reference Range Interpretation Comments Chloride Lvl (test code = Chloride Lvl) 108 95-109 [facility]2018-03-30 07:53:00 Test Item Value Reference Range Interpretation Comments Sodium Lvl (test code = Sodium Lvl) 141 135-145 [facility]2018-03-30 07:53:00 Test Item Value Reference Range Interpretation Comments BUN (test code = BUN) 5 7-22 [facility]2018-03-30 07:53:00 Test Item Value Reference Range Interpretation Comments Creatinine Lvl (test code = Creatinine 0.69 0.50-1.40 Lvl) [facility]2018-03-30 07:53:00 Test Item Value Reference Range Interpretation Comments Calcium Lvl (test code = Calcium Lvl) 8.7 8.5-10.5 [facility]2018-03-30 07:53:00 Test Item Value Reference Range Interpretation Comments CO2 (test code = CO2) 26 24-32 [facility]2018-03-30 07:53:00 Test Item Value Reference Range Interpretation Comments Glucose Lvl (test code = Glucose Lvl) 84 70-99 [facility]2018-03-30 07:53:00 Test Item Value Reference Range Interpretation Comments AGAP (test code = AGAP) 10.5 10.0-20.0 [facility]IhylapsXXYTICFUPD6112-50-34 07:53:00 Test Item Value Reference Range Interpretation Comments RDW (test code = RDW) 13.3 11.5-14.5 [facility] HospitalUmlnojfLDLBYKDZGX9995-33-92 07:53:00 Test Item Value Reference Range Interpretation Comments Platelet (test code = Platelet) 287 133-450 [facility] HospitalDpfpgfnCNVFSBZLVO1318-85-67 07:53:00 Test Item Value Reference Range Interpretation Comments MPV (test code = MPV) 8.6 7.4-10.4 [facility] HospitalNkxuugtJOLFNEXDCQ1325-73-56 07:53:00 Test Item Value Reference Range Interpretation Comments Hgb (test code = Hgb) 13.4 12.0-16.0 [facility] HospitalTwadensHMMSRLQTTM4694-67-38 07:53:00 Test Item Value Reference Range Interpretation Comments Hct (test code = Hct) 40.1 36.0-48.0 [facility] HospitalUhwnqxfAKJNZAIEVI8107-25-32 07:53:00 Test Item Value Reference Range Interpretation Comments RBC (test code = RBC) 4.52 4.20-5.40 [facility] HospitalNiqccxyDCQKFZJYVM1879-79-99 07:53:00 Test Item Value Reference Range Interpretation Comments WBC (test code = WBC) 11.5 3.7-10.4 [facility] HospitalLnlwvyvLNXPSRAYZL5333-31-63 07:53:00 Test Item Value Reference Range Interpretation Comments MCV (test code = MCV) 88.8 80.0-98.0 [facility] HospitalKdtmkbuZEJRXTRUGW6021-61-89 07:53:00 Test Item Value Reference Range Interpretation Comments MCH (test code = MCH) 29.6 pg 27.0-31.0 [facility] HospitalTyqhrktAMXRDIKGOJ8975-65-62 07:53:00 Test Item Value Reference Range Interpretation Comments MCHC (test code = MCHC) 33.3 32.0-36.0 [facility] HospitalDkocldiUWDUQTUJFK0501-09-21 07:53:00 Test Item Value Reference Range Interpretation Comments Segs-Bands # (test code = Segs-Bands #) 6.2 1.5-8.1 [facility] HospitalVlbtstxHCMGSUFXWA2824-89-69 07:53:00 Test Item Value Reference Range Interpretation Comments Basophils (test code = 0.4 See_Comment [Aut omated message] The Basophils) system which ge nerated this result tra nsmitted reference range : <=1.0. The reference r kary was not used to int erpret this result as normal/abnormal . [facility] HospitalJbdguriHDJQTNIWTL1730-68-98 07:53:00 Test Item Value Reference Range Interpretation Comments Lymphocytes # (test code = Lymphocytes 4.0 1.0-5.5 #) [facility] HospitalMqrntwcXVSMJAMSKI2710-60-85 07:53:00 Test Item Value Reference Range Interpretation Comments Monocytes # (test code 0.8 See_Comment [Aut omated message] The = Monocytes #) system which generated this result tra nsmitted reference range : <=0.8. The reference r kary was not used to int erpret this result as normal/abnormal . [facility] HospitalJicumyiPKIWYPUNNP1068-76-57 07:53:00 Test Item Value Reference Range Interpretation Comments Eosinophils # (test code 0.4 See_Comment [A utomated message] The = Eosinophils #) system whic h generated this result tra nsmitted reference range : <=0.5. The reference r kary was not used to int erpret this result as normal/abnormal . [facility] HospitalYcoejylNJMYJBHCKO7674-50-28 07:53:00 Test Item Value Reference Range Interpretation Comments Segs (test code = Segs) 53.9 45.0-75.0 [facility] HospitalCmylfraJYLTTTMMKC7131-76-00 07:53:00 Test Item Value Reference Range Interpretation Comments Lymphocytes (test code = Lymphocytes) 35.1 20.0-40.0 [facility] HospitalJtkukoiFFRHXHEGGD0213-20-22 07:53:00 Test Item Value Reference Range Interpretation Comments Monocytes (test code = Monocytes) 7.2 2.0-12.0 [facility] HospitalOjuzgalJWEMVCBCFY4625-56-28 07:53:00 Test Item Value Reference Range Interpretation Comments Eosinophils (test code = 3.4 See_Comment [A utomated message] The Eosinophils) system which ge nerated this result tra nsmitted reference range : <=4.0. The reference r kary was not used to int erpret this result as normal/abnormal . [facility]2018-03-30 07:53:00 Test Item Value Reference Range Interpretation Comments eGFR (test code = eGFR) 128 [facility]2018-03-30 07:53:00 Test Item Value Reference Range Interpretation Comments Potassium Lvl (test code = Potassium 3.5 3.5-5.1 Lvl) [facility]2018-03-30 07:53:00 Test Item Value Reference Range Interpretation Comments Chloride Lvl (test code = Chloride Lvl) 108 95-109 [facility]2018-03-30 07:53:00 Test Item Value Reference Range Interpretation Comments Sodium Lvl (test code = Sodium Lvl) 141 135-145 [facility]2018-03-30 07:53:00 Test Item Value Reference Range Interpretation Comments BUN (test code = BUN) 5 7-22 [facility]2018-03-30 07:53:00 Test Item Value Reference Range Interpretation Comments Creatinine Lvl (test code = Creatinine 0.69 0.50-1.40 Lvl) [facility]2018-03-30 07:53:00 Test Item Value Reference Range Interpretation Comments Calcium Lvl (test code = Calcium Lvl) 8.7 8.5-10.5 [facility]2018-03-30 07:53:00 Test Item Value Reference Range Interpretation Comments CO2 (test code = CO2) 26 24-32 [facility]2018-03-30 07:53:00 Test Item Value Reference Range Interpretation Comments Glucose Lvl (test code = Glucose Lvl) 84 70-99 [facility]2018-03-30 07:53:00 Test Item Value Reference Range Interpretation Comments AGAP (test code = AGAP) 10.5 10.0-20.0 [facility]GsmclsaORHRABQFFN4902-75-29 07:53:00 Test Item Value Reference Range Interpretation Comments RDW (test code = RDW) 13.3 11.5-14.5 [facility] HospitalPntsdrhPMJKOBVDAQ9937-16-69 07:53:00 Test Item Value Reference Range Interpretation Comments Platelet (test code = Platelet) 287 133-450 [facility] HospitalShziaytOCMBIYESHD3079-41-71 07:53:00 Test Item Value Reference Range Interpretation Comments MPV (test code = MPV) 8.6 7.4-10.4 [facility] HospitalTvhmwmoDMBKHLJMSC6118-16-99 07:53:00 Test Item Value Reference Range Interpretation Comments Hgb (test code = Hgb) 13.4 12.0-16.0 [facility] HospitalUfxctdoPVNNYYZJKP3131-61-11 07:53:00 Test Item Value Reference Range Interpretation Comments Hct (test code = Hct) 40.1 36.0-48.0 [facility] HospitalYibwhoyVVNSWTWNAH7901-02-55 07:53:00 Test Item Value Reference Range Interpretation Comments RBC (test code = RBC) 4.52 4.20-5.40 [facility] HospitalFuknkzpLMQJOHLJFT7572-93-31 07:53:00 Test Item Value Reference Range Interpretation Comments WBC (test code = WBC) 11.5 3.7-10.4 [facility] HospitalRdcrjcoFNLHDMNASM3755-85-87 07:53:00 Test Item Value Reference Range Interpretation Comments MCV (test code = MCV) 88.8 80.0-98.0 [facility] HospitalWvczrrfIHJDVVVTUQ5956-65-63 07:53:00 Test Item Value Reference Range Interpretation Comments MCH (test code = MCH) 29.6 pg 27.0-31.0 [facility] HospitalFbrstmgOVDFWZXSQR7213-19-33 07:53:00 Test Item Value Reference Range Interpretation Comments MCHC (test code = MCHC) 33.3 32.0-36.0 [facility] HospitalWpnukltFTYCFSHURT0317-55-30 07:53:00 Test Item Value Reference Range Interpretation Comments Segs-Bands # (test code = Segs-Bands #) 6.2 1.5-8.1 [facility] HospitalNclckiwSLIMGAOHPM3038-68-32 07:53:00 Test Item Value Reference Range Interpretation Comments Basophils (test code = 0.4 See_Comment [Aut omated message] The Basophils) system which ge nerated this result tra nsmitted reference range : <=1.0. The reference r kary was not used to int erpret this result as normal/abnormal . [facility] HospitalKnyblqtWNDBJGYLCE3180-84-38 07:53:00 Test Item Value Reference Range Interpretation Comments Lymphocytes # (test code = Lymphocytes 4.0 1.0-5.5 #) [facility] HospitalXygcjrsUUBJDFTROR7376-11-47 07:53:00 Test Item Value Reference Range Interpretation Comments Monocytes # (test code 0.8 See_Comment [Aut omated message] The = Monocytes #) system which generated this result tra nsmitted reference range : <=0.8. The reference r kary was not used to int erpret this result as normal/abnormal . [facility] HospitalDmciykhTNDMIEOOMU0983-69-86 07:53:00 Test Item Value Reference Range Interpretation Comments Eosinophils # (test code 0.4 See_Comment [A utomated message] The = Eosinophils #) system whic h generated this result tra nsmitted reference range : <=0.5. The reference r kary was not used to int erpret this result as normal/abnormal . [facility] HospitalDdocnsfRGYSPAJZPR2260-07-69 07:53:00 Test Item Value Reference Range Interpretation Comments Segs (test code = Segs) 53.9 45.0-75.0 [facility] HospitalYhslbyrOLJLPZLMZZ3622-18-92 07:53:00 Test Item Value Reference Range Interpretation Comments Lymphocytes (test code = Lymphocytes) 35.1 20.0-40.0 [facility] HospitalCmuzexdGCILFQDSUM6391-50-02 07:53:00 Test Item Value Reference Range Interpretation Comments Monocytes (test code = Monocytes) 7.2 2.0-12.0 [facility] HospitalLnuznvsDTIOIWLRJV7502-31-05 07:53:00 Test Item Value Reference Range Interpretation Comments Eosinophils (test code = 3.4 See_Comment [A utomated message] The Eosinophils) system which ge nerated this result tra nsmitted reference range : <=4.0. The reference r kary was not used to int erpret this result as normal/abnormal . [facility]2018-03-30 07:53:00 Test Item Value Reference Range Interpretation Comments eGFR (test code = eGFR) 128 [facility]2018-03-30 07:53:00 Test Item Value Reference Range Interpretation Comments Potassium Lvl (test code = Potassium 3.5 3.5-5.1 Lvl) [facility]2018-03-30 07:53:00 Test Item Value Reference Range Interpretation Comments Chloride Lvl (test code = Chloride Lvl) 108 95-109 [facility]2018-03-30 07:53:00 Test Item Value Reference Range Interpretation Comments Sodium Lvl (test code = Sodium Lvl) 141 135-145 [facility]2018-03-30 07:53:00 Test Item Value Reference Range Interpretation Comments BUN (test code = BUN) 5 7-22 [place] 806488-03-30 07:53:00 Test Item Value Reference Range Interpretation Comments Creatinine Lvl (test code = Creatinine 0.69 0.50-1.40 Lvl) [facility]2018-03-30 07:53:00 Test Item Value Reference Range Interpretation Comments Calcium Lvl (test code = Calcium Lvl) 8.7 8.5-10.5 [facility]2018-03-30 07:53:00 Test Item Value Reference Range Interpretation Comments CO2 (test code = CO2) 26 24-32 [place] 806488-03-30 07:53:00 Test Item Value Reference Range Interpretation Comments Glucose Lvl (test code = Glucose Lvl) 84 70-99 [facility]2018-03-30 07:53:00 Test Item Value Reference Range Interpretation Comments AGAP (test code = AGAP) 10.5 10.0-20.0 [facility] HospitalVdbfaleVPFJWCHTQY3100-15-50 07:53:00 Test Item Value Reference Range Interpretation Comments RDW (test code = RDW) 13.3 11.5-14.5 [facility] HospitalDwlnvttIZEWILPRRZ2366-64-61 07:53:00 Test Item Value Reference Range Interpretation Comments Platelet (test code = Platelet) 287 133-450 [facility] HospitalTikhujbDQHNNJWHWG8073-47-92 07:53:00 Test Item Value Reference Range Interpretation Comments MPV (test code = MPV) 8.6 7.4-10.4 [facility] HospitalNdftzzqSDCSJNEALA6849-75-03 07:53:00 Test Item Value Reference Range Interpretation Comments Hgb (test code = Hgb) 13.4 12.0-16.0 [facility] HospitalAxhnkggFUSFTUVZMI4061-79-92 07:53:00 Test Item Value Reference Range Interpretation Comments Hct (test code = Hct) 40.1 36.0-48.0 [facility] HospitalLwsyxvyIVVIAALYTU3991-53-34 07:53:00 Test Item Value Reference Range Interpretation Comments RBC (test code = RBC) 4.52 4.20-5.40 [facility] HospitalZpowbslGXERMSBTSH3794-46-25 07:53:00 Test Item Value Reference Range Interpretation Comments WBC (test code = WBC) 11.5 3.7-10.4 [facility] HospitalNzopxcuJTNWHONMUC9416-20-99 07:53:00 Test Item Value Reference Range Interpretation Comments MCV (test code = MCV) 88.8 80.0-98.0 [facility] HospitalZrjlszmBOQAPSPPBE2876-82-84 07:53:00 Test Item Value Reference Range Interpretation Comments MCH (test code = MCH) 29.6 pg 27.0-31.0 [facility] HospitalZjcyagzZHEIQKMATP6010-20-47 07:53:00 Test Item Value Reference Range Interpretation Comments MCHC (test code = MCHC) 33.3 32.0-36.0 [facility] HospitalZyuwjjwMHKBNDGOSA5437-17-84 07:53:00 Test Item Value Reference Range Interpretation Comments Segs-Bands # (test code = Segs-Bands #) 6.2 1.5-8.1 [facility] HospitalYmneodmTTRABNICTJ1798-79-22 07:53:00 Test Item Value Reference Range Interpretation Comments Basophils (test code = 0.4 See_Comment [Aut omated message] The Basophils) system which ge nerated this result tra nsmitted reference range : <=1.0. The reference r kary was not used to int erpret this result as normal/abnormal . [facility] HospitalHtdspbcKIYQGOBBDE0093-66-01 07:53:00 Test Item Value Reference Range Interpretation Comments Lymphocytes # (test code = Lymphocytes 4.0 1.0-5.5 #) [facility] HospitalEovrmzfTHGDMAFWWQ2208-39-08 07:53:00 Test Item Value Reference Range Interpretation Comments Monocytes # (test code 0.8 See_Comment [Aut omated message] The = Monocytes #) system which generated this result tra nsmitted reference range : <=0.8. The reference r kary was not used to int erpret this result as normal/abnormal . [facility] HospitalXevnxrkFDIKNNKQDW1027-09-65 07:53:00 Test Item Value Reference Range Interpretation Comments Eosinophils # (test code 0.4 See_Comment [A utomated message] The = Eosinophils #) system whic h generated this result tra nsmitted reference range : <=0.5. The reference r kary was not used to int erpret this result as normal/abnormal . [facility] HospitalApiflneTEMGUZNXBX1613-24-10 07:53:00 Test Item Value Reference Range Interpretation Comments Segs (test code = Segs) 53.9 45.0-75.0 [facility] HospitalIfhntkzFEQUMSMQNB3795-56-39 07:53:00 Test Item Value Reference Range Interpretation Comments Lymphocytes (test code = Lymphocytes) 35.1 20.0-40.0 [facility] HospitalVeguulcXRIPKDEVDT3113-63-15 07:53:00 Test Item Value Reference Range Interpretation Comments Monocytes (test code = Monocytes) 7.2 2.0-12.0 [facility] HospitalKnhoxtnCZGXLIMSEC8687-99-52 07:53:00 Test Item Value Reference Range Interpretation Comments Eosinophils (test code = 3.4 See_Comment [A utomated message] The Eosinophils) system which ge nerated this result tra nsmitted reference range : <=4.0. The reference r kary was not used to int erpret this result as normal/abnormal . [facility]2018-03-30 07:53:00 Test Item Value Reference Range Interpretation Comments eGFR (test code = eGFR) 128 [facility]2018-03-30 07:53:00 Test Item Value Reference Range Interpretation Comments Potassium Lvl (test code = Potassium 3.5 3.5-5.1 Lvl) [facility]2018-03-30 07:53:00 Test Item Value Reference Range Interpretation Comments Chloride Lvl (test code = Chloride Lvl) 108 95-109 [facility]2018-03-30 07:53:00 Test Item Value Reference Range Interpretation Comments Sodium Lvl (test code = Sodium Lvl) 141 135-145 [facility]2018-03-30 07:53:00 Test Item Value Reference Range Interpretation Comments BUN (test code = BUN) 5 7-22 [facility]2018-03-30 07:53:00 Test Item Value Reference Range Interpretation Comments Creatinine Lvl (test code = Creatinine 0.69 0.50-1.40 Lvl) [facility]2018-03-30 07:53:00 Test Item Value Reference Range Interpretation Comments Calcium Lvl (test code = Calcium Lvl) 8.7 8.5-10.5 [facility]2018-03-30 07:53:00 Test Item Value Reference Range Interpretation Comments CO2 (test code = CO2) 26 24-32 [facility]2018-03-30 07:53:00 Test Item Value Reference Range Interpretation Comments Glucose Lvl (test code = Glucose Lvl) 84 70-99 [facility]2018-03-30 07:53:00 Test Item Value Reference Range Interpretation Comments AGAP (test code = AGAP) 10.5 10.0-20.0 [facility] HospitalTigvsvcMMRXIMVLNJ7624-77-14 07:53:00 Test Item Value Reference Range Interpretation Comments RDW (test code = RDW) 13.3 11.5-14.5 [facility] HospitalZrhwgdgRQJWPPDRCO4678-78-80 07:53:00 Test Item Value Reference Range Interpretation Comments Platelet (test code = Platelet) 287 133-450 [facility] HospitalZifxozcDTPINWFYCH2952-63-89 07:53:00 Test Item Value Reference Range Interpretation Comments MPV (test code = MPV) 8.6 7.4-10.4 [facility] HospitalWeziwqpVHADBECPVV4906-44-95 07:53:00 Test Item Value Reference Range Interpretation Comments Hgb (test code = Hgb) 13.4 12.0-16.0 [facility] HospitalGmwkcrrDXNZTZHFME1439-65-91 07:53:00 Test Item Value Reference Range Interpretation Comments Hct (test code = Hct) 40.1 36.0-48.0 [facility] HospitalYbwckugQFIKZEXYTQ2205-29-33 07:53:00 Test Item Value Reference Range Interpretation Comments RBC (test code = RBC) 4.52 4.20-5.40 [facility] HospitalEyjzqltPSRRBOKKLX3927-20-68 07:53:00 Test Item Value Reference Range Interpretation Comments WBC (test code = WBC) 11.5 3.7-10.4 [facility] HospitalIssheqhHKWGGRNQJB4703-14-59 07:53:00 Test Item Value Reference Range Interpretation Comments MCV (test code = MCV) 88.8 80.0-98.0 [facility] HospitalSxksoxhRSEJFCXZYO9759-78-01 07:53:00 Test Item Value Reference Range Interpretation Comments MCH (test code = MCH) 29.6 pg 27.0-31.0 [facility] HospitalGkjpgbhSQASSNBNFR0796-59-65 07:53:00 Test Item Value Reference Range Interpretation Comments MCHC (test code = MCHC) 33.3 32.0-36.0 [facility] HospitalKwlreboQQHYSRSXKH9712-26-24 07:53:00 Test Item Value Reference Range Interpretation Comments Segs-Bands # (test code = Segs-Bands #) 6.2 1.5-8.1 [facility] HospitalPvotlftNHOFCPYVVE5431-04-30 07:53:00 Test Item Value Reference Range Interpretation Comments Basophils (test code = 0.4 See_Comment [Aut omated message] The Basophils) system which ge nerated this result tra nsmitted reference range : <=1.0. The reference r kary was not used to int erpret this result as normal/abnormal . [facility] HospitalJfggsikPYHSHUIKMX2664-18-28 07:53:00 Test Item Value Reference Range Interpretation Comments Lymphocytes # (test code = Lymphocytes 4.0 1.0-5.5 #) [facility] HospitalOapjmtiWPTBTERXBX5500-86-67 07:53:00 Test Item Value Reference Range Interpretation Comments Monocytes # (test code 0.8 See_Comment [Aut omated message] The = Monocytes #) system which generated this result tra nsmitted reference range : <=0.8. The reference r kary was not used to int erpret this result as normal/abnormal . [facility] HospitalIgskhtnBZOAHNKHBM6013-72-97 07:53:00 Test Item Value Reference Range Interpretation Comments Eosinophils # (test code 0.4 See_Comment [A utomated message] The = Eosinophils #) system whic h generated this result tra nsmitted reference range : <=0.5. The reference r kary was not used to int erpret this result as normal/abnormal . [facility] HospitalClgbinyHEXPDJBUSC3336-01-55 07:53:00 Test Item Value Reference Range Interpretation Comments Segs (test code = Segs) 53.9 45.0-75.0 [facility] HospitalZbtdqokXMWDXEYRFV9441-31-23 07:53:00 Test Item Value Reference Range Interpretation Comments Lymphocytes (test code = Lymphocytes) 35.1 20.0-40.0 [facility] HospitalKkxnxclLNLGHHSDVN0643-20-09 07:53:00 Test Item Value Reference Range Interpretation Comments Monocytes (test code = Monocytes) 7.2 2.0-12.0 [facility] HospitalDevrprvGPDJPHHOQA7104-44-14 07:53:00 Test Item Value Reference Range Interpretation Comments Eosinophils (test code = 3.4 See_Comment [A utomated message] The Eosinophils) system which ge nerated this result tra nsmitted reference range : <=4.0. The reference r kary was not used to int erpret this result as normal/abnormal . [facility] HospitalJkuglyxJCOYPJTRUP3427-25-02 07:56:00 Test Item Value Reference Range Interpretation Comments Segs (test code = Segs) 52.9 45.0-75.0 [facility] HospitalPseauymWNBYERIFJH4376-68-98 07:56:00 Test Item Value Reference Range Interpretation Comments RDW (test code = RDW) 13.7 11.5-14.5 [facility] HospitalCrhgjlxRMFPBDURVS5146-29-58 07:56:00 Test Item Value Reference Range Interpretation Comments MCHC (test code = MCHC) 33.5 32.0-36.0 [facility] HospitalAlbyynsPIAUCWAEFR2522-82-13 07:56:00 Test Item Value Reference Range Interpretation Comments MCH (test code = MCH) 30.1 pg 27.0-31.0 [facility] HospitalVwmkevzNCNFQEVQFQ9115-59-85 07:56:00 Test Item Value Reference Range Interpretation Comments MCV (test code = MCV) 89.9 80.0-98.0 [facility] HospitalEqtipfdNYGGZYAMOI3467-71-82 07:56:00 Test Item Value Reference Range Interpretation Comments MPV (test code = MPV) 8.9 7.4-10.4 [facility] HospitalHjkpyydZDWYITACBG5936-26-52 07:56:00 Test Item Value Reference Range Interpretation Comments Platelet (test code = Platelet) 272 133-450 [facility] HospitalHgrlgnaQVWBRHNDWB6593-68-75 07:56:00 Test Item Value Reference Range Interpretation Comments WBC (test code = WBC) 11.6 3.7-10.4 [facility] HospitalCwgqwijDTEZXWTBOQ6922-46-29 07:56:00 Test Item Value Reference Range Interpretation Comments Hct (test code = Hct) 39.1 36.0-48.0 [facility] HospitalUteuvmxTLOTIGYCZR4174-62-50 07:56:00 Test Item Value Reference Range Interpretation Comments Hgb (test code = Hgb) 13.1 12.0-16.0 [facility] HospitalZfzcseaYFLZFRQQJA9066-03-80 07:56:00 Test Item Value Reference Range Interpretation Comments RBC (test code = RBC) 4.35 4.20-5.40 [facility]2018-03-29 07:56:00 Test Item Value Reference Range Interpretation Comments eGFR (test code = eGFR) 131 [facility]2018-03-29 07:56:00 Test Item Value Reference Range Interpretation Comments CO2 (test code = CO2) 24 24-32 [facility]2018-03-29 07:56:00 Test Item Value Reference Range Interpretation Comments Calcium Lvl (test code = Calcium Lvl) 8.5 8.5-10.5 [facility]2018-03-29 07:56:00 Test Item Value Reference Range Interpretation Comments AGAP (test code = AGAP) 12.9 10.0-20.0 [facility]2018-03-29 07:56:00 Test Item Value Reference Range Interpretation Comments Glucose Lvl (test code = Glucose Lvl) 86 70-99 [facility]2018-03-29 07:56:00 Test Item Value Reference Range Interpretation Comments Chloride Lvl (test code = Chloride Lvl) 111 95-109 [facility]2018-03-29 07:56:00 Test Item Value Reference Range Interpretation Comments Sodium Lvl (test code = Sodium Lvl) 144 135-145 [facility]2018-03-29 07:56:00 Test Item Value Reference Range Interpretation Comments Potassium Lvl (test code = Potassium 3.9 3.5-5.1 Lvl) [facility]2018-03-29 07:56:00 Test Item Value Reference Range Interpretation Comments Creatinine Lvl (test code = Creatinine 0.64 0.50-1.40 Lvl) [facility]2018-03-29 07:56:00 Test Item Value Reference Range Interpretation Comments BUN (test code = BUN) 7 - [facility] HospitalRhwinpaIGUASNRBDT4648-50-06 07:56:00 Test Item Value Reference Range Interpretation Comments Basophils # (test code 0.1 See_Comment [Aut omated message] The = Basophils #) system which generated this result tra nsmitted reference range : <=0.2. The reference r kary was not used to int erpret this result as normal/abnormal . [facility] HospitalDzlotbjEWTRFNFRKJ8291-69-30 07:56:00 Test Item Value Reference Range Interpretation Comments Eosinophils # (test code 0.3 See_Comment [A utomated message] The = Eosinophils #) system whic h generated this result tra nsmitted reference range : <=0.5. The reference r kary was not used to int erpret this result as normal/abnormal . [facility] HospitalVcgqqklITXYUCNJOD1983-18-00 07:56:00 Test Item Value Reference Range Interpretation Comments Basophils (test code = 0.7 See_Comment [Aut omated message] The Basophils) system which ge nerated this result tra nsmitted reference range : <=1.0. The reference r kary was not used to int erpret this result as normal/abnormal . [facility] HospitalJcbamwbLREFCCPOUI6597-93-67 07:56:00 Test Item Value Reference Range Interpretation Comments Eosinophils (test code = 2.9 See_Comment [A utomated message] The Eosinophils) system which ge nerated this result tra nsmitted reference range : <=4.0. The reference r kary was not used to int erpret this result as normal/abnormal . [facility] HospitalXzgpvniNEHMTOHLJM7231-91-85 07:56:00 Test Item Value Reference Range Interpretation Comments Monocytes # (test code 0.8 See_Comment [Aut omated message] The = Monocytes #) system which generated this result tra nsmitted reference range : <=0.8. The reference r kary was not used to int erpret this result as normal/abnormal . [facility] HospitalKqeguykWJWNTPRTWY0562-60-83 07:56:00 Test Item Value Reference Range Interpretation Comments Lymphocytes # (test code = Lymphocytes 4.2 1.0-5.5 #) [facility] HospitalJtfbmitCMHRRLCVGZ6176-21-18 07:56:00 Test Item Value Reference Range Interpretation Comments Segs-Bands # (test code = Segs-Bands #) 6.1 1.5-8.1 [facility] HospitalXbvzgliFYCVAJLZMD9457-05-49 07:56:00 Test Item Value Reference Range Interpretation Comments Monocytes (test code = Monocytes) 7.0 2.0-12.0 [facility] HospitalLeogksmERUJKAMGSG8090-26-16 07:56:00 Test Item Value Reference Range Interpretation Comments Lymphocytes (test code = Lymphocytes) 36.5 20.0-40.0 [facility]2018-03-29 07:56:00 Test Item Value Reference Range Interpretation Comments eGFR (test code = eGFR) 131 [facility]2018-03-29 07:56:00 Test Item Value Reference Range Interpretation Comments CO2 (test code = CO2) 24 24-32 [facility]2018-03-29 07:56:00 Test Item Value Reference Range Interpretation Comments Calcium Lvl (test code = Calcium Lvl) 8.5 8.5-10.5 [facility]2018-03-29 07:56:00 Test Item Value Reference Range Interpretation Comments AGAP (test code = AGAP) 12.9 10.0-20.0 [facility]2018-03-29 07:56:00 Test Item Value Reference Range Interpretation Comments Glucose Lvl (test code = Glucose Lvl) 86 70-99 [facility]2018-03-29 07:56:00 Test Item Value Reference Range Interpretation Comments Chloride Lvl (test code = Chloride Lvl) 111 95-109 [facility]2018-03-29 07:56:00 Test Item Value Reference Range Interpretation Comments Sodium Lvl (test code = Sodium Lvl) 144 135-145 [facility]2018-03-29 07:56:00 Test Item Value Reference Range Interpretation Comments Potassium Lvl (test code = Potassium 3.9 3.5-5.1 Lvl) [facility]2018-03-29 07:56:00 Test Item Value Reference Range Interpretation Comments Creatinine Lvl (test code = Creatinine 0.64 0.50-1.40 Lvl) [facility]2018-03-29 07:56:00 Test Item Value Reference Range Interpretation Comments BUN (test code = BUN) 7 7-22 [facility] HospitalVhqmkgcLXHOJUZENR4894-53-80 07:56:00 Test Item Value Reference Range Interpretation Comments Basophils # (test code 0.1 See_Comment [Aut omated message] The = Basophils #) system which generated this result tra nsmitted reference range : <=0.2. The reference r kary was not used to int erpret this result as normal/abnormal . [facility]WztdhzjXTPRASYCYJ9743-62-94 07:56:00 Test Item Value Reference Range Interpretation Comments Eosinophils # (test code 0.3 See_Comment [A utomated message] The = Eosinophils #) system [facility] generated this result tra nsmitted reference range : <=0.5. The reference r kary was not used to int erpret this result as normal/abnormal . [facility] HospitalCruwilaWSNOHLBXIV9061-20-09 07:56:00 Test Item Value Reference Range Interpretation Comments Basophils (test code = 0.7 See_Comment [Aut omated message] The Basophils) system which ge nerated this result tra nsmitted reference range : <=1.0. The reference r kary was not used to int erpret this result as normal/abnormal . [facility] HospitalBfbamjxIWKBPIRJBC2769-80-32 07:56:00 Test Item Value Reference Range Interpretation Comments Eosinophils (test code = 2.9 See_Comment [A utomated message] The Eosinophils) system which ge nerated this result tra nsmitted reference range : <=4.0. The reference r kary was not used to int erpret this result as normal/abnormal . [facility] HospitalQotarjpMGPXLXTAPH1182-50-84 07:56:00 Test Item Value Reference Range Interpretation Comments Monocytes # (test code 0.8 See_Comment [Aut omated message] The = Monocytes #) system which generated this result tra nsmitted reference range : <=0.8. The reference r kary was not used to int erpret this result as normal/abnormal . [facility] HospitalAnyolqaJOIGNPWETG8273-18-37 07:56:00 Test Item Value Reference Range Interpretation Comments Lymphocytes # (test code = Lymphocytes 4.2 1.0-5.5 #) [facility] HospitalPfipwfqWALIJZXSTN3301-68-11 07:56:00 Test Item Value Reference Range Interpretation Comments Segs-Bands # (test code = Segs-Bands #) 6.1 1.5-8.1 [facility] HospitalJfhibogCJWAQMYIFW7797-33-29 07:56:00 Test Item Value Reference Range Interpretation Comments Monocytes (test code = Monocytes) 7.0 2.0-12.0 [facility] HospitalIjasfepQQOEVYCQTJ6648-78-35 07:56:00 Test Item Value Reference Range Interpretation Comments Lymphocytes (test code = Lymphocytes) 36.5 20.0-40.0 [facility] HospitalXaevvtmBNJQFTTWYR7097-01-13 07:56:00 Test Item Value Reference Range Interpretation Comments Segs (test code = Segs) 52.9 45.0-75.0 [facility] HospitalNhmomwaHNNZBHWJWP7626-22-51 07:56:00 Test Item Value Reference Range Interpretation Comments RDW (test code = RDW) 13.7 11.5-14.5 [facility] HospitalVnnnisiDXXBRDBFLS8951-76-68 07:56:00 Test Item Value Reference Range Interpretation Comments MCHC (test code = MCHC) 33.5 32.0-36.0 [facility] HospitalIuyyppgRRLFLFWTHV8562-35-48 07:56:00 Test Item Value Reference Range Interpretation Comments MCH (test code = MCH) 30.1 pg 27.0-31.0 [facility] HospitalInnhjwmKCZRLYXAXC9496-75-82 07:56:00 Test Item Value Reference Range Interpretation Comments MCV (test code = MCV) 89.9 80.0-98.0 [facility] HospitalChascdaZDJQYFTBOI6715-74-84 07:56:00 Test Item Value Reference Range Interpretation Comments MPV (test code = MPV) 8.9 7.4-10.4 [facility] HospitalOpznzbiUFYJMRYANE8136-89-68 07:56:00 Test Item Value Reference Range Interpretation Comments Platelet (test code = Platelet) 272 133-450 [facility] HospitalUnawjnlYYHYBLOZVA8913-67-22 07:56:00 Test Item Value Reference Range Interpretation Comments WBC (test code = WBC) 11.6 3.7-10.4 [facility] HospitalAytudnfKSGKQFLJKK6412-20-26 07:56:00 Test Item Value Reference Range Interpretation Comments Hct (test code = Hct) 39.1 36.0-48.0 [facility] HospitalTczalkvYKKERPGDXL1910-15-24 07:56:00 Test Item Value Reference Range Interpretation Comments Hgb (test code = Hgb) 13.1 12.0-16.0 [place] 521608-03-29 07:56:00 Test Item Value Reference Range Interpretation Comments RBC (test code = RBC) 4.35 4.20-5.40 [facility]2018-03-29 07:56:00 Test Item Value Reference Range Interpretation Comments eGFR (test code = eGFR) 131 [facility]2018-03-29 07:56:00 Test Item Value Reference Range Interpretation Comments CO2 (test code = CO2) 24 24-32 [facility]2018-03-29 07:56:00 Test Item Value Reference Range Interpretation Comments Calcium Lvl (test code = Calcium Lvl) 8.5 8.5-10.5 [facility]2018-03-29 07:56:00 Test Item Value Reference Range Interpretation Comments AGAP (test code = AGAP) 12.9 10.0-20.0 [facility]2018-03-29 07:56:00 Test Item Value Reference Range Interpretation Comments Glucose Lvl (test code = Glucose Lvl) 86 70-99 [facility]2018-03-29 07:56:00 Test Item Value Reference Range Interpretation Comments Chloride Lvl (test code = Chloride Lvl) 111 95-109 [facility]2018-03-29 07:56:00 Test Item Value Reference Range Interpretation Comments Sodium Lvl (test code = Sodium Lvl) 144 135-145 [facility]2018-03-29 07:56:00 Test Item Value Reference Range Interpretation Comments Potassium Lvl (test code = Potassium 3.9 3.5-5.1 Lvl) [facility]2018-03-29 07:56:00 Test Item Value Reference Range Interpretation Comments Creatinine Lvl (test code = Creatinine 0.64 0.50-1.40 Lvl) [facility]2018-03-29 07:56:00 Test Item Value Reference Range Interpretation Comments BUN (test code = BUN) 7 05-17 [facility] HospitalUlueyibOSXUYUNUDX6028-33-53 07:56:00 Test Item Value Reference Range Interpretation Comments Basophils # (test code 0.1 See_Comment [Aut omated message] The = Basophils #) system which generated this result tra nsmitted reference range : <=0.2. The reference r kary was not used to int erpret this result as normal/abnormal . [facility] HospitalPnqqullBZWPLTEPZH2154-94-63 07:56:00 Test Item Value Reference Range Interpretation Comments Eosinophils # (test code 0.3 See_Comment [A utomated message] The = Eosinophils #) system whic h generated this result tra nsmitted reference range : <=0.5. The reference r kary was not used to int erpret this result as normal/abnormal . [facility] HospitalYplmztxPJNKARJOWY8903-53-70 07:56:00 Test Item Value Reference Range Interpretation Comments Basophils (test code = 0.7 See_Comment [Aut omated message] The Basophils) system which ge nerated this result tra nsmitted reference range : <=1.0. The reference r kary was not used to int erpret this result as normal/abnormal . [facility] HospitalRygtevjANGIDLFMVU0754-05-62 07:56:00 Test Item Value Reference Range Interpretation Comments Eosinophils (test code = 2.9 See_Comment [A utomated message] The Eosinophils) system which ge nerated this result tra nsmitted reference range : <=4.0. The reference r kary was not used to int erpret this result as normal/abnormal . [facility] HospitalIczbrnhGNGOUOEZAJ3364-17-66 07:56:00 Test Item Value Reference Range Interpretation Comments Monocytes # (test code 0.8 See_Comment [Aut omated message] The = Monocytes #) system which generated this result tra nsmitted reference range : <=0.8. The reference r kray was not used to int erpret this result as normal/abnormal . [facility] HospitalTinlxshRNSXTQHGTS9442-85-39 07:56:00 Test Item Value Reference Range Interpretation Comments Lymphocytes # (test code = Lymphocytes 4.2 1.0-5.5 #) [facility] HospitalQkxdiuzCDAXUKVKXA6403-53-88 07:56:00 Test Item Value Reference Range Interpretation Comments Segs-Bands # (test code = Segs-Bands #) 6.1 1.5-8.1 [facility] HospitalTofedzbPVPBNUJRNN4456-27-88 07:56:00 Test Item Value Reference Range Interpretation Comments Monocytes (test code = Monocytes) 7.0 2.0-12.0 [facility] HospitalNufibjtFGQBFTKVJX9569-61-41 07:56:00 Test Item Value Reference Range Interpretation Comments Lymphocytes (test code = Lymphocytes) 36.5 20.0-40.0 [facility] HospitalYgnctxtWGZWEEPIZX2681-30-96 07:56:00 Test Item Value Reference Range Interpretation Comments Segs (test code = Segs) 52.9 45.0-75.0 [facility] HospitalIzrzrcfJFFWRBCDNN4333-31-88 07:56:00 Test Item Value Reference Range Interpretation Comments RDW (test code = RDW) 13.7 11.5-14.5 [facility] HospitalEuemrgiAIZXAKDEMC9180-25-27 07:56:00 Test Item Value Reference Range Interpretation Comments MCHC (test code = MCHC) 33.5 32.0-36.0 [facility] HospitalWrwpsytCKMYVXJUKC1126-89-00 07:56:00 Test Item Value Reference Range Interpretation Comments MCH (test code = MCH) 30.1 pg 27.0-31.0 [facility] HospitalWxvwigdCJGWJOSQQV8375-79-40 07:56:00 Test Item Value Reference Range Interpretation Comments MCV (test code = MCV) 89.9 80.0-98.0 [facility] HospitalAxzfabtDUKCRALSDZ8779-63-42 07:56:00 Test Item Value Reference Range Interpretation Comments MPV (test code = MPV) 8.9 7.4-10.4 [facility] HospitalLrgxmgdBNUVTXKGWK6067-15-51 07:56:00 Test Item Value Reference Range Interpretation Comments Platelet (test code = Platelet) 272 133-450 [facility] HospitalYqszntcDXBXCLELMG6378-92-92 07:56:00 Test Item Value Reference Range Interpretation Comments WBC (test code = WBC) 11.6 3.7-10.4 [facility] HospitalUwiamagGCZRMNPPOU9399-16-46 07:56:00 Test Item Value Reference Range Interpretation Comments Hct (test code = Hct) 39.1 36.0-48.0 [facility] HospitalWxgziwiMHSSXTCOON9359-77-87 07:56:00 Test Item Value Reference Range Interpretation Comments Hgb (test code = Hgb) 13.1 12.0-16.0 [facility] HospitalHijhiwuIVDSJBBJHV9463-38-58 07:56:00 Test Item Value Reference Range Interpretation Comments RBC (test code = RBC) 4.35 4.20-5.40 [facility]2018-03-29 07:56:00 Test Item Value Reference Range Interpretation Comments eGFR (test code = eGFR) 131 [facility]2018-03-29 07:56:00 Test Item Value Reference Range Interpretation Comments CO2 (test code = CO2) 24 24-32 [place] 806488-03-29 07:56:00 Test Item Value Reference Range Interpretation Comments Calcium Lvl (test code = Calcium Lvl) 8.5 8.5-10.5 [facility]2018-03-29 07:56:00 Test Item Value Reference Range Interpretation Comments AGAP (test code = AGAP) 12.9 10.0-20.0 [facility]2018-03-29 07:56:00 Test Item Value Reference Range Interpretation Comments Glucose Lvl (test code = Glucose Lvl) 86 70-99 [facility]2018-03-29 07:56:00 Test Item Value Reference Range Interpretation Comments Chloride Lvl (test code = Chloride Lvl) 111 95-109 [facility]2018-03-29 07:56:00 Test Item Value Reference Range Interpretation Comments Sodium Lvl (test code = Sodium Lvl) 144 135-145 [facility]2018-03-29 07:56:00 Test Item Value Reference Range Interpretation Comments Potassium Lvl (test code = Potassium 3.9 3.5-5.1 Lvl) [facility]2018-03-29 07:56:00 Test Item Value Reference Range Interpretation Comments Creatinine Lvl (test code = Creatinine 0.64 0.50-1.40 Lvl) [facility]2018-03-29 07:56:00 Test Item Value Reference Range Interpretation Comments BUN (test code = BUN) 7 7-22 [place] 521608-03-29 07:56:00 Test Item Value Reference Range Interpretation Comments Basophils # (test code 0.1 See_Comment [Aut omated message] The = Basophils #) system which generated this result tra nsmitted reference range : <=0.2. The reference r kary was not used to int erpret this result as normal/abnormal . [facility] HospitalGwvdjdfGIOWASARNY8807-34-51 07:56:00 Test Item Value Reference Range Interpretation Comments Eosinophils # (test code 0.3 See_Comment [A utomated message] The = Eosinophils #) system whic h generated this result tra nsmitted reference range : <=0.5. The reference r kary was not used to int erpret this result as normal/abnormal . [facility] HospitalEaixonkUWRKOJAXVF4716-87-81 07:56:00 Test Item Value Reference Range Interpretation Comments Basophils (test code = 0.7 See_Comment [Aut omated message] The Basophils) system which ge nerated this result tra nsmitted reference range : <=1.0. The reference r kary was not used to int erpret this result as normal/abnormal . [facility] HospitalOiajxazVALNGVBYBK0858-39-99 07:56:00 Test Item Value Reference Range Interpretation Comments Eosinophils (test code = 2.9 See_Comment [A utomated message] The Eosinophils) system which ge nerated this result tra nsmitted reference range : <=4.0. The reference r kary was not used to int erpret this result as normal/abnormal . [facility] HospitalDjudqboRJVRQDITPX5356-60-26 07:56:00 Test Item Value Reference Range Interpretation Comments Monocytes # (test code 0.8 See_Comment [Aut omated message] The = Monocytes #) system which generated this result tra nsmitted reference range : <=0.8. The reference r kary was not used to int erpret this result as normal/abnormal . [facility] HospitalDgptisuTBZHKYEXID2936-86-02 07:56:00 Test Item Value Reference Range Interpretation Comments Lymphocytes # (test code = Lymphocytes 4.2 1.0-5.5 #) [facility] HospitalQrzslwuKFESPYUICU4130-82-89 07:56:00 Test Item Value Reference Range Interpretation Comments Segs-Bands # (test code = Segs-Bands #) 6.1 1.5-8.1 [facility] HospitalFtptonbBKRDKTONDU8336-90-24 07:56:00 Test Item Value Reference Range Interpretation Comments Monocytes (test code = Monocytes) 7.0 2.0-12.0 [facility]BrutcptEEQSKMPMCX0622-99-32 07:56:00 Test Item Value Reference Range Interpretation Comments Lymphocytes (test code = Lymphocytes) 36.5 20.0-40.0 [facility] CenterSfindqcMBGUIGEENA9244-60-48 07:56:00 Test Item Value Reference Range Interpretation Comments Segs (test code = Segs) 52.9 45.0-75.0 [facility]PaannmkUUVEWHHLTR0189-31-17 07:56:00 Test Item Value Reference Range Interpretation Comments RDW (test code = RDW) 13.7 11.5-14.5 [facility] HospitalIlnbbpiVBEZXSNDSI6461-93-96 07:56:00 Test Item Value Reference Range Interpretation Comments MCHC (test code = MCHC) 33.5 32.0-36.0 [facility] HospitalBkgdkvnWGLBQQTGTA5724-76-67 07:56:00 Test Item Value Reference Range Interpretation Comments MCH (test code = MCH) 30.1 pg 27.0-31.0 [facility] HospitalNbspbrrTYJIDQVPSQ5341-39-50 07:56:00 Test Item Value Reference Range Interpretation Comments MCV (test code = MCV) 89.9 80.0-98.0 [facility] HospitalKrqufvaGXRIRPYFHU1271-53-43 07:56:00 Test Item Value Reference Range Interpretation Comments MPV (test code = MPV) 8.9 7.4-10.4 [facility] HospitalGwjhmarYYMBFPUJOE5780-11-03 07:56:00 Test Item Value Reference Range Interpretation Comments Platelet (test code = Platelet) 272 133-450 [facility] HospitalSegrqmhFCVWIKSRBA4369-20-03 07:56:00 Test Item Value Reference Range Interpretation Comments WBC (test code = WBC) 11.6 3.7-10.4 [facility] HospitalMkciuaxOMWYCGGDGN4825-85-36 07:56:00 Test Item Value Reference Range Interpretation Comments Hct (test code = Hct) 39.1 36.0-48.0 [facility] HospitalYsffxfdCFSKZBQHZT1144-39-07 07:56:00 Test Item Value Reference Range Interpretation Comments Hgb (test code = Hgb) 13.1 12.0-16.0 [facility] HospitalNxajgiiLDJMIYUDHP2931-87-38 07:56:00 Test Item Value Reference Range Interpretation Comments RBC (test code = RBC) 4.35 4.20-5.40 [facility] [id number] 22:00:00 Test Item Value Reference Range Interpretation Comments Culture: Urine (test code = No Growth Culture: Urine) [facility]: [id number] 22:00:00 Test Item Value Reference Range Interpretation Comments Culture: Urine (test code = No Growth Culture: Urine) [facility]: [id number] 22:00:00 Test Item Value Reference Range Interpretation Comments Culture: Urine (test code = No Growth Culture: Urine) [facility]: [id number] 22:00:00 Test Item Value Reference Range Interpretation Comments Culture: Urine (test code = No Growth Culture: Urine) [facility]2018-03-28 07:57:00 Test Item Value Reference Range Interpretation Comments Creatinine Lvl (test code = Creatinine 1.07 0.50-1.40 Lvl) [facility]2018-03-28 07:57:00 Test Item Value Reference Range Interpretation Comments Sodium Lvl (test code = Sodium Lvl) 142 135-145 [facility]2018-03-28 07:57:00 Test Item Value Reference Range Interpretation Comments Glucose Lvl (test code = Glucose Lvl) 102 70-99 [facility]2018-03-28 07:57:00 Test Item Value Reference Range Interpretation Comments BUN (test code = BUN) 7 7-22 [facility]2018-03-28 07:57:00 Test Item Value Reference Range Interpretation Comments CO2 (test code = CO2) 25 24-32 [facility]2018-03-28 07:57:00 Test Item Value Reference Range Interpretation Comments Chloride Lvl (test code = Chloride Lvl) 111 95-109 [facility]2018-03-28 07:57:00 Test Item Value Reference Range Interpretation Comments Potassium Lvl (test code = Potassium 4.1 3.5-5.1 Lvl) [facility]2018-03-28 07:57:00 Test Item Value Reference Range Interpretation Comments AGAP (test code = AGAP) 10.1 10.0-20.0 [facility]2018-03-28 07:57:00 Test Item Value Reference Range Interpretation Comments Phosphorus (test code = Phosphorus) 3.8 2.5-4.5 [facility] HospitalOlcsstgCOTGEEDXHE9838-23-87 07:57:00 Test Item Value Reference Range Interpretation Comments Basophils # (test code 0.1 See_Comment [Aut omated message] The = Basophils #) system which generated this result tra nsmitted reference range : <=0.2. The reference r kary was not used to int erpret this result as normal/abnormal . [facility] HospitalAtukpttFPQXAOQOGG9562-14-89 07:57:00 Test Item Value Reference Range Interpretation Comments Segs-Bands # (test code = Segs-Bands #) 11.4 1.5-8.1 [facility] HospitalVnmxfujKOJTQSEVWJ5049-98-76 07:57:00 Test Item Value Reference Range Interpretation Comments Lymphocytes (test code = Lymphocytes) 14.6 20.0-40.0 [facility] HospitalLmfugvqEGPGGKVXZK1862-57-58 07:57:00 Test Item Value Reference Range Interpretation Comments Monocytes # (test code 1.1 See_Comment [Aut omated message] The = Monocytes #) system which generated this result tra nsmitted reference range : <=0.8. The reference r kary was not used to int erpret this result as normal/abnormal . [facility] HospitalNbfdcvgKUJNILZXOE5405-13-93 07:57:00 Test Item Value Reference Range Interpretation Comments Lymphocytes # (test code = Lymphocytes 2.1 1.0-5.5 #) [facility] HospitalKrlfeifNURVOHEIWR3524-46-41 07:57:00 Test Item Value Reference Range Interpretation Comments Basophils (test code = 0.5 See_Comment [Aut omated message] The Basophils) system which ge nerated this result tra nsmitted reference range : <=1.0. The reference r kary was not used to int erpret this result as normal/abnormal . [facility] HospitalLyvvwchRKEVIRRNZQ5349-67-11 07:57:00 Test Item Value Reference Range Interpretation Comments Eosinophils (test code = 0.3 See_Comment [A utomated message] The Eosinophils) system which ge nerated this result tra nsmitted reference range : <=4.0. The reference r kary was not used to int erpret this result as normal/abnormal . [facility] HospitalJajrnlyNDPSDYGINN4665-94-75 07:57:00 Test Item Value Reference Range Interpretation Comments Monocytes (test code = Monocytes) 7.7 2.0-12.0 [facility] HospitalFnfpxzqFPZYQBYYPS7668-73-29 07:57:00 Test Item Value Reference Range Interpretation Comments Segs (test code = Segs) 76.9 45.0-75.0 [facility] HospitalExflampDOMTEEXYSO0147-36-78 07:57:00 Test Item Value Reference Range Interpretation Comments Hgb (test code = Hgb) 13.3 12.0-16.0 [facility] HospitalMmqyzewGLHBJZIIXE5681-34-89 07:57:00 Test Item Value Reference Range Interpretation Comments Hct (test code = Hct) 38.9 36.0-48.0 [facility] HospitalMeqeblfQGIGSJQPEY4804-33-24 07:57:00 Test Item Value Reference Range Interpretation Comments RBC (test code = RBC) 4.40 4.20-5.40 [facility] HospitalWcscgduKUZFMQZKTW4899-04-73 07:57:00 Test Item Value Reference Range Interpretation Comments Platelet (test code = Platelet) 288 133450 [facility] HospitalAdqymioAFWXZSSOZN5443-33-87 07:57:00 Test Item Value Reference Range Interpretation Comments MCV (test code = MCV) 88.6 80.0-98.0 [facility] HospitalSkwzkksNHXJEUFOZF0994-67-97 07:57:00 Test Item Value Reference Range Interpretation Comments MPV (test code = MPV) 8.6 7.4-10.4 [facility] HospitalFoqfmklGQDJHOPSKJ2977-63-73 07:57:00 Test Item Value Reference Range Interpretation Comments MCHC (test code = MCHC) 34.1 32.0-36.0 [facility] HospitalBgvkbpzNQCKTZVIBT1303-62-67 07:57:00 Test Item Value Reference Range Interpretation Comments RDW (test code = RDW) 13.4 11.5-14.5 [facility] HospitalKqpwsumKYJVCITCBW4184-83-55 07:57:00 Test Item Value Reference Range Interpretation Comments MCH (test code = MCH) 30.2 pg 27.0-31.0 [facility] HospitalUzvvevrYZUKOOIMLN4229-09-78 07:57:00 Test Item Value Reference Range Interpretation Comments WBC (test code = WBC) 14.7 3.7-10.4 [facility]2018-03-28 07:57:00 Test Item Value Reference Range Interpretation Comments Magnesium Lvl (test code = Magnesium 1.8 1.8-2.4 Lvl) [facility]2018-03-28 07:57:00 Test Item Value Reference Range Interpretation Comments eGFR (test code = eGFR) 76 [facility]2018-03-28 07:57:00 Test Item Value Reference Range Interpretation Comments Calcium Lvl (test code = Calcium Lvl) 8.6 8.5-10.5 [facility]2018-03-28 07:57:00 Test Item Value Reference Range Interpretation Comments Creatinine Lvl (test code = Creatinine 1.07 0.50-1.40 Lvl) [facility]2018-03-28 07:57:00 Test Item Value Reference Range Interpretation Comments Sodium Lvl (test code = Sodium Lvl) 142 135-145 [facility]2018-03-28 07:57:00 Test Item Value Reference Range Interpretation Comments Glucose Lvl (test code = Glucose Lvl) 102 70-99 [facility]2018-03-28 07:57:00 Test Item Value Reference Range Interpretation Comments BUN (test code = BUN) 7 7-22 [facility]2018-03-28 07:57:00 Test Item Value Reference Range Interpretation Comments CO2 (test code = CO2) 25 24-32 [facility]2018-03-28 07:57:00 Test Item Value Reference Range Interpretation Comments Chloride Lvl (test code = Chloride Lvl) 111 95-109 [facility]2018-03-28 07:57:00 Test Item Value Reference Range Interpretation Comments Potassium Lvl (test code = Potassium 4.1 3.5-5.1 Lvl) [facility]2018-03-28 07:57:00 Test Item Value Reference Range Interpretation Comments AGAP (test code = AGAP) 10.1 10.0-20.0 [facility]2018-03-28 07:57:00 Test Item Value Reference Range Interpretation Comments Phosphorus (test code = Phosphorus) 3.8 2.5-4.5 [facility] HospitalQvfbapjHJRHFGFKDZ9780-36-44 07:57:00 Test Item Value Reference Range Interpretation Comments Basophils # (test code 0.1 See_Comment [Aut omated message] The = Basophils #) system which generated this result tra nsmitted reference range : <=0.2. The reference r kary was not used to int erpret this result as normal/abnormal . [facility] HospitalTfndymmOMWYXXDNEZ1281-46-49 07:57:00 Test Item Value Reference Range Interpretation Comments Segs-Bands # (test code = Segs-Bands #) 11.4 1.5-8.1 [facility] HospitalKnvjvllKZTUVQHEXD8286-41-61 07:57:00 Test Item Value Reference Range Interpretation Comments Lymphocytes (test code = Lymphocytes) 14.6 20.0-40.0 [facility] HospitalCnitfsiNPOPYDPOMI9569-64-04 07:57:00 Test Item Value Reference Range Interpretation Comments Monocytes # (test code 1.1 See_Comment [Aut omated message] The = Monocytes #) system which generated this result tra nsmitted reference range : <=0.8. The reference r kary was not used to int erpret this result as normal/abnormal . [facility]5025[facility]63-50 07:57:00 Test Item Value Reference Range Interpretation Comments Lymphocytes # (test code = Lymphocytes 2.1 1.0-5.5 #) [facility]gorjttSDYUFJFJRB0722-75-10 07:57:00 Test Item Value Reference Range Interpretation Comments Basophils (test code = 0.5 See_Comment [Aut omated message] The Basophils) system which ge nerated this result tra nsmitted reference range : <=1.0. The reference r kary was not used to int erpret this result as normal/abnormal . [facility]SddmniqMGUXQJAFCX7289-08-41 07:57:00 Test Item Value Reference Range Interpretation Comments Eosinophils (test code = 0.3 See_Comment [A utomated message] The Eosinophils) system which ge nerated this result tra nsmitted reference range : <=4.0. The reference r kary was not used to int erpret this result as normal/abnormal . [facility] HospitalSlczlllLKPGMXWKPF6187-74-89 07:57:00 Test Item Value Reference Range Interpretation Comments Monocytes (test code = Monocytes) 7.7 2.0-12.0 [facility] HospitalHksglojYYGQRNKSTS5170-90-41 07:57:00 Test Item Value Reference Range Interpretation Comments Segs (test code = Segs) 76.9 45.0-75.0 [facility] HospitalLsptqfsUQJQRSXSZF7814-29-71 07:57:00 Test Item Value Reference Range Interpretation Comments Hgb (test code = Hgb) 13.3 12.0-16.0 [facility] HospitalWvkcreeKRVFVXMGCF3486-80-57 07:57:00 Test Item Value Reference Range Interpretation Comments Hct (test code = Hct) 38.9 36.0-48.0 [facility] HospitalLunwnrfHZSBLSVNVG7132-33-63 07:57:00 Test Item Value Reference Range Interpretation Comments RBC (test code = RBC) 4.40 4.20-5.40 [facility] HospitalPryaikhACHOWIAEWI1836-39-78 07:57:00 Test Item Value Reference Range Interpretation Comments Platelet (test code = Platelet) 288 133-450 [facility]MoouodzGUJOOJWLMV1996-95-06 07:57:00 Test Item Value Reference Range Interpretation Comments MCV (test code = MCV) 88.6 80.0-98.0 [facility] HospitalCiwszzsUSALKPEAWE8789-38-40 07:57:00 Test Item Value Reference Range Interpretation Comments MPV (test code = MPV) 8.6 7.4-10.4 [facility] HospitalQungkncMOENHUTZWX0525-99-48 07:57:00 Test Item Value Reference Range Interpretation Comments MCHC (test code = MCHC) 34.1 32.0-36.0 [facility] HospitalGxvqsqxAFZVJVDXDP2988-28-38 07:57:00 Test Item Value Reference Range Interpretation Comments RDW (test code = RDW) 13.4 11.5-14.5 [facility] HospitalPpmgvlzDHTMSBUTXY0990-67-14 07:57:00 Test Item Value Reference Range Interpretation Comments MCH (test code = MCH) 30.2 pg 27.0-31.0 [facility] HospitalKsciwkpDTOXBVDXAR4562-50-80 07:57:00 Test Item Value Reference Range Interpretation Comments WBC (test code = WBC) 14.7 3.7-10.4 [facility]2018-03-28 07:57:00 Test Item Value Reference Range Interpretation Comments Magnesium Lvl (test code = Magnesium 1.8 1.8-2.4 Lvl) [facility]2018-03-28 07:57:00 Test Item Value Reference Range Interpretation Comments eGFR (test code = eGFR) 76 [facility]2018-03-28 07:57:00 Test Item Value Reference Range Interpretation Comments Calcium Lvl (test code = Calcium Lvl) 8.6 8.5-10.5 [facility]2018-03-28 07:57:00 Test Item Value Reference Range Interpretation Comments Creatinine Lvl (test code = Creatinine 1.07 0.50-1.40 Lvl) [facility]2018-03-28 07:57:00 Test Item Value Reference Range Interpretation Comments Sodium Lvl (test code = Sodium Lvl) 142 135-145 [facility]2018-03-28 07:57:00 Test Item Value Reference Range Interpretation Comments Glucose Lvl (test code = Glucose Lvl) 102 70-99 [place] 806488-03-28 07:57:00 Test Item Value Reference Range Interpretation Comments BUN (test code = BUN) 7 7-22 [place] 806488-03-28 07:57:00 Test Item Value Reference Range Interpretation Comments CO2 (test code = CO2) 25 24-32 [facility]2018-03-28 07:57:00 Test Item Value Reference Range Interpretation Comments Chloride Lvl (test code = Chloride Lvl) 111 95-109 [facility]2018-03-28 07:57:00 Test Item Value Reference Range Interpretation Comments Potassium Lvl (test code = Potassium 4.1 3.5-5.1 Lvl) [facility]2018-03-28 07:57:00 Test Item Value Reference Range Interpretation Comments AGAP (test code = AGAP) 10.1 10.0-20.0 [facility]2018-03-28 07:57:00 Test Item Value Reference Range Interpretation Comments Phosphorus (test code = Phosphorus) 3.8 2.5-4.5 [facility] HospitalZnusmwqJVSEXQYUHX3062-75-28 07:57:00 Test Item Value Reference Range Interpretation Comments Basophils # (test code 0.1 See_Comment [Aut omated message] The = Basophils #) system which generated this result tra nsmitted reference range : <=0.2. The reference r kary was not used to int erpret this result as normal/abnormal . [facility] HospitalMvnunrlAFVLRCRPGK1587-33-02 07:57:00 Test Item Value Reference Range Interpretation Comments Segs-Bands # (test code = Segs-Bands #) 11.4 1.5-8.1 [facility] HospitalOlbngcmXRKUSFOZFN8753-77-24 07:57:00 Test Item Value Reference Range Interpretation Comments Lymphocytes (test code = Lymphocytes) 14.6 20.0-40.0 [place] 521608-03-28 07:57:00 Test Item Value Reference Range Interpretation Comments Monocytes # (test code 1.1 See_Comment [Aut omated message] The = Monocytes #) system which generated this result tra nsmitted reference range : <=0.8. The reference r kary was not used to int erpret this result as normal/abnormal . [facility] HospitalHuxqtfcEAXTIDMHMJ6060-46-72 07:57:00 Test Item Value Reference Range Interpretation Comments Lymphocytes # (test code = Lymphocytes 2.1 1.0-5.5 #) [facility] HospitalWjutwuxZPDXODCIRF7245-75-05 07:57:00 Test Item Value Reference Range Interpretation Comments Basophils (test code = 0.5 See_Comment [Aut omated message] The Basophils) system which ge nerated this result tra nsmitted reference range : <=1.0. The reference r kary was not used to int erpret this result as normal/abnormal . [facility] HospitalQlegoleLEPAQIHFYN4161-05-17 07:57:00 Test Item Value Reference Range Interpretation Comments Eosinophils (test code = 0.3 See_Comment [A utomated message] The Eosinophils) system which ge nerated this result tra nsmitted reference range : <=4.0. The reference r kary was not used to int erpret this result as normal/abnormal . [facility] HospitalBeejnpxPAQDMRPGPS9558-52-20 07:57:00 Test Item Value Reference Range Interpretation Comments Monocytes (test code = Monocytes) 7.7 2.0-12.0 [facility] HospitalJitduwiVOVFLYTSTB3058-67-49 07:57:00 Test Item Value Reference Range Interpretation Comments Segs (test code = Segs) 76.9 45.0-75.0 [facility] HospitalTmxaolkRWQNCSSICA1291-34-85 07:57:00 Test Item Value Reference Range Interpretation Comments Hgb (test code = Hgb) 13.3 12.0-16.0 [facility] HospitalMpztpirQCZEBSOWXB3242-72-97 07:57:00 Test Item Value Reference Range Interpretation Comments Hct (test code = Hct) 38.9 36.0-48.0 [facility] HospitalKlxalscAWKFBALVPW3718-20-52 07:57:00 Test Item Value Reference Range Interpretation Comments RBC (test code = RBC) 4.40 4.20-5.40 [facility] HospitalDpyjsbqUUTXLPJJLV5358-63-99 07:57:00 Test Item Value Reference Range Interpretation Comments Platelet (test code = Platelet) 288 133-450 [facility] HospitalAvzlqxpPIXQBHDMKM9587-68-60 07:57:00 Test Item Value Reference Range Interpretation Comments MCV (test code = MCV) 88.6 80.0-98.0 [facility] HospitalVsxuvouFKPGILMXLF2926-78-73 07:57:00 Test Item Value Reference Range Interpretation Comments MPV (test code = MPV) 8.6 7.4-10.4 [facility] HospitalVlkbirdVPHSFCYSKC7051-72-33 07:57:00 Test Item Value Reference Range Interpretation Comments MCHC (test code = MCHC) 34.1 32.0-36.0 [facility] HospitalRgebbrwCCRNIEAWTW2032-60-32 07:57:00 Test Item Value Reference Range Interpretation Comments RDW (test code = RDW) 13.4 11.5-14.5 [facility] HospitalUiyzpcmXAFMRQHHRP9790-05-37 07:57:00 Test Item Value Reference Range Interpretation Comments MCH (test code = MCH) 30.2 pg 27.0-31.0 [facility] HospitalGiurvtpYHQDWXFNQK1621-42-48 07:57:00 Test Item Value Reference Range Interpretation Comments WBC (test code = WBC) 14.7 3.7-10.4 [facility]2018-03-28 07:57:00 Test Item Value Reference Range Interpretation Comments Magnesium Lvl (test code = Magnesium 1.8 1.8-2.4 Lvl) [facility]2018-03-28 07:57:00 Test Item Value Reference Range Interpretation Comments eGFR (test code = eGFR) 76 [facility]2018-03-28 07:57:00 Test Item Value Reference Range Interpretation Comments Calcium Lvl (test code = Calcium Lvl) 8.6 8.5-10.5 [facility]2018-03-28 07:57:00 Test Item Value Reference Range Interpretation Comments Creatinine Lvl (test code = Creatinine 1.07 0.50-1.40 Lvl) [facility]2018-03-28 07:57:00 Test Item Value Reference Range Interpretation Comments Sodium Lvl (test code = Sodium Lvl) 142 135-145 [facility]2018-03-28 07:57:00 Test Item Value Reference Range Interpretation Comments Glucose Lvl (test code = Glucose Lvl) 102 70-99 [facility]2018-03-28 07:57:00 Test Item Value Reference Range Interpretation Comments BUN (test code = BUN) 7 7-22 [facility]2018-03-28 07:57:00 Test Item Value Reference Range Interpretation Comments CO2 (test code = CO2) 25 24-32 [facility]2018-03-28 07:57:00 Test Item Value Reference Range Interpretation Comments Chloride Lvl (test code = Chloride Lvl) 111 95-109 [facility]2018-03-28 07:57:00 Test Item Value Reference Range Interpretation Comments Potassium Lvl (test code = Potassium 4.1 3.5-5.1 Lvl) [facility]2018-03-28 07:57:00 Test Item Value Reference Range Interpretation Comments AGAP (test code = AGAP) 10.1 10.0-20.0 [facility]2018-03-28 07:57:00 Test Item Value Reference Range Interpretation Comments Phosphorus (test code = Phosphorus) 3.8 2.5-4.5 [facility] HospitalPonhluuGVTEPCRVXX5359-06-93 07:57:00 Test Item Value Reference Range Interpretation Comments Basophils # (test code 0.1 See_Comment [Aut omated message] The = Basophils #) system which generated this result tra nsmitted reference range : <=0.2. The reference r kary was not used to int erpret this result as normal/abnormal . [facility] HospitalSaiepbfFMDJGSZFHO1869-30-03 07:57:00 Test Item Value Reference Range Interpretation Comments Segs-Bands # (test code = Segs-Bands #) 11.4 1.5-8.1 [facility] HospitalXhshfymNRAZVCXIYA8326-95-63 07:57:00 Test Item Value Reference Range Interpretation Comments Lymphocytes (test code = Lymphocytes) 14.6 20.0-40.0 [facility] HospitalCnjonvwYWRBUESKBN6780-08-82 07:57:00 Test Item Value Reference Range Interpretation Comments Monocytes # (test code 1.1 See_Comment [Aut omated message] The = Monocytes #) system which generated this result tra nsmitted reference range : <=0.8. The reference r kary was not used to int erpret this result as normal/abnormal . [facility] HospitalHhmpaqtTFVIKKRNUJ5846-04-34 07:57:00 Test Item Value Reference Range Interpretation Comments Lymphocytes # (test code = Lymphocytes 2.1 1.0-5.5 #) [facility] HospitalHwhrsgoXLOEOSWPME1502-20-20 07:57:00 Test Item Value Reference Range Interpretation Comments Basophils (test code = 0.5 See_Comment [Aut omated message] The Basophils) system which ge nerated this result tra nsmitted reference range : <=1.0. The reference r kary was not used to int erpret this result as normal/abnormal . [facility] HospitalXkdhcsrHFFQFNYQCG3755-10-47 07:57:00 Test Item Value Reference Range Interpretation Comments Eosinophils (test code = 0.3 See_Comment [A utomated message] The Eosinophils) system which ge nerated this result tra nsmitted reference range : <=4.0. The reference r kary was not used to int erpret this result as normal/abnormal . [facility] HospitalVcgkwwlQXMPWKVRMS5526-85-26 07:57:00 Test Item Value Reference Range Interpretation Comments Monocytes (test code = Monocytes) 7.7 2.0-12.0 [facility] HospitalRmbujeqQBCGQGRKYM4694-16-00 07:57:00 Test Item Value Reference Range Interpretation Comments Segs (test code = Segs) 76.9 45.0-75.0 [facility] HospitalIrsjdlxHAFMXILKEP5797-23-48 07:57:00 Test Item Value Reference Range Interpretation Comments Hgb (test code = Hgb) 13.3 12.0-16.0 [facility] HospitalKgxvohtDKEMEBKXNW1789-98-61 07:57:00 Test Item Value Reference Range Interpretation Comments Hct (test code = Hct) 38.9 36.0-48.0 [facility] HospitalCgavwijLUMNXBBEPP3507-86-12 07:57:00 Test Item Value Reference Range Interpretation Comments RBC (test code = RBC) 4.40 4.20-5.40 [facility] HospitalZgbbmpuRSQBGBWYIJ4789-38-06 07:57:00 Test Item Value Reference Range Interpretation Comments Platelet (test code = Platelet) 288 133-450 [facility] HospitalBpvtkfvGXIDCHHXIF4952-83-19 07:57:00 Test Item Value Reference Range Interpretation Comments MCV (test code = MCV) 88.6 80.0-98.0 [facility] HospitalXylvcxuZBDNKJERGG8094-65-35 07:57:00 Test Item Value Reference Range Interpretation Comments MPV (test code = MPV) 8.6 7.4-10.4 [facility] HospitalVlyciinWWZZDMCDWV8050-65-02 07:57:00 Test Item Value Reference Range Interpretation Comments MCHC (test code = MCHC) 34.1 32.0-36.0 [facility] HospitalPweabeyCIZUIFILJA9440-93-07 07:57:00 Test Item Value Reference Range Interpretation Comments RDW (test code = RDW) 13.4 11.5-14.5 [facility] HospitalWpixnkgVRAPWVNKWL0272-93-08 07:57:00 Test Item Value Reference Range Interpretation Comments MCH (test code = MCH) 30.2 pg 27.0-31.0 [facility] HospitalActlvrqIKRLTPTNRX8451-55-09 07:57:00 Test Item Value Reference Range Interpretation Comments WBC (test code = WBC) 14.7 3.7-10.4 [facility]2018-03-28 07:57:00 Test Item Value Reference Range Interpretation Comments Magnesium Lvl (test code = Magnesium 1.8 1.8-2.4 Lvl) [facility]2018-03-28 07:57:00 Test Item Value Reference Range Interpretation Comments eGFR (test code = eGFR) 76 [facility]2018-03-28 07:57:00 Test Item Value Reference Range Interpretation Comments Calcium Lvl (test code = Calcium Lvl) 8.6 8.5-10.5 [facility]2018-03-28 02:49:00 Test Item Value Reference Range Interpretation Comments Lactic Acid Lvl (test code = Lactic 1.3 0.5-2.2 Acid Lvl) [facility]2018-03-28 02:49:00 Test Item Value Reference Range Interpretation Comments Lactic Acid Lvl (test code = Lactic 1.3 0.5-2.2 Acid Lvl) [facility]2018-03-28 02:49:00 Test Item Value Reference Range Interpretation Comments Lactic Acid Lvl (test code = Lactic 1.3 0.5-2.2 Acid Lvl) [facility]2018-03-28 02:49:00 Test Item Value Reference Range Interpretation Comments Lactic Acid Lvl (test code = Lactic 1.3 0.5-2.2 Acid Lvl) [facility]2018-03-28 01:04:00 Test Item Value Reference Range Interpretation Comments Lactic Acid Lvl (test code = Lactic 1.6 0.5-2.2 Acid Lvl) [facility]2018-03-28 01:04:00 Test Item Value Reference Range Interpretation Comments S. aureus (test code = Not Detected (01/20/18 S. aureus) 8:04 PM) [facility]2018-03-28 01:04:00 Test Item Value Reference Range Interpretation Comments Andrey Vancomycin Not Detected (01/20/18 Resistance (test code = 8:04 PM) Andrey Vancomycin Resistance) [facility]2018-03-28 01:04:00 Test Item Value Reference Range Interpretation Comments vanB Vancomycin Not Detected (01/20/18 Resistance (test code = 8:04 PM) vanB Vancomycin Resistance) [facility]2018-03-28 01:04:00 Test Item Value Reference Range Interpretation Comments S. anginosus grp (test Not Detected (01/20/18 code = S. anginosus 8:04 PM) grp) [facility]2018-03-28 01:04:00 Test Item Value Reference Range Interpretation Comments S. agalactiae (test code Not Detected (01/20/18 = S. agalactiae) 8:04 PM) [facility]2018-03-28 01:04:00 Test Item Value Reference Range Interpretation Comments S. pyogenes (test code Not Detected (01/20/18 = S. pyogenes) 8:04 PM) [facility]2018-03-28 01:04:00 Test Item Value Reference Range Interpretation Comments S. pneumoniae (test code Not Detected (01/20/18 = S. pneumoniae) 8:04 PM) [facility]2018-03-28 01:04:00 Test Item Value Reference Range Interpretation Comments S. epidermidis (test Detected code = S. epidermidis) *ABN*(01/20/18 8:04 PM) [facility]2018-03-28 01:04:00 Test Item Value Reference Range Interpretation Comments S. lugdunensis (test Not Detected (01/20/18 code = S. lugdunensis) 8:04 PM) [facility]2018-03-28 01:04:00 Test Item Value Reference Range Interpretation Comments Listeria spp. (test Not Detected (01/20/18 code = Listeria spp.) 8:04 PM) [facility]2018-03-28 01:04:00 Test Item Value Reference Range Interpretation Comments mecA Methicillin Not Detected (01/20/18 Resistance (test code = 8:04 PM) mecA Methicillin Resistance) [facility]2018-03-28 01:04:00 Test Item Value Reference Range Interpretation Comments E. faecalis (test code Not Detected (01/20/18 = E. faecalis) 8:04 PM) [facility]2018-03-28 01:04:00 Test Item Value Reference Range Interpretation Comments Streptococcus spp. (test Not Detected code = Streptococcus (01/20/18 8:04 PM) spp.) [facility]2018-03-28 01:04:00 Test Item Value Reference Range Interpretation Comments Staphylococcus spp. (test Detected code = Staphylococcus *ABN*(01/20/18 8:04 spp.) PM) [facility]2018-03-28 01:04:00 Test Item Value Reference Range Interpretation Comments E. faecium (test code Not Detected (01/20/18 = E. faecium) 8:04 PM) [facility]2018-03-28 01:04:00 Test Item Value Reference Range Interpretation Comments Lactic Acid Lvl (test code = Lactic 1.6 0.5-2.2 Acid Lvl) [facility]2018-03-28 01:04:00 Test Item Value Reference Range Interpretation Comments S. aureus (test code = Not Detected (01/20/18 S. aureus) 8:04 PM) [facility]2018-03-28 01:04:00 Test Item Value Reference Range Interpretation Comments Andrey Vancomycin Not Detected (01/20/18 Resistance (test code = 8:04 PM) Andrey Vancomycin Resistance) [facility]2018-03-28 01:04:00 Test Item Value Reference Range Interpretation Comments vanB Vancomycin Not Detected (01/20/18 Resistance (test code = 8:04 PM) vanB Vancomycin Resistance) [facility]2018-03-28 01:04:00 Test Item Value Reference Range Interpretation Comments S. anginosus grp (test Not Detected (01/20/18 code = S. anginosus 8:04 PM) grp) [facility]2018-03-28 01:04:00 Test Item Value Reference Range Interpretation Comments S. agalactiae (test code Not Detected (01/20/18 = S. agalactiae) 8:04 PM) [facility]2018-03-28 01:04:00 Test Item Value Reference Range Interpretation Comments S. pyogenes (test code Not Detected (01/20/18 = S. pyogenes) 8:04 PM) [facility]2018-03-28 01:04:00 Test Item Value Reference Range Interpretation Comments S. pneumoniae (test code Not Detected (01/20/18 = S. pneumoniae) 8:04 PM) [facility]2018-03-28 01:04:00 Test Item Value Reference Range Interpretation Comments S. epidermidis (test Detected code = S. epidermidis) *ABN*(01/20/18 8:04 PM) [facility]2018-03-28 01:04:00 Test Item Value Reference Range Interpretation Comments S. lugdunensis (test Not Detected (01/20/18 code = S. lugdunensis) 8:04 PM) [facility]2018-03-28 01:04:00 Test Item Value Reference Range Interpretation Comments Listeria spp. (test Not Detected (01/20/18 code = Listeria spp.) 8:04 PM) [facility]2018-03-28 01:04:00 Test Item Value Reference Range Interpretation Comments mecA Methicillin Not Detected (01/20/18 Resistance (test code = 8:04 PM) mecA Methicillin Resistance) [facility]2018-03-28 01:04:00 Test Item Value Reference Range Interpretation Comments E. faecalis (test code Not Detected (01/20/18 = E. faecalis) 8:04 PM) [facility]2018-03-28 01:04:00 Test Item Value Reference Range Interpretation Comments Streptococcus spp. (test Not Detected code = Streptococcus (01/20/18 8:04 PM) spp.) [facility]2018-03-28 01:04:00 Test Item Value Reference Range Interpretation Comments Staphylococcus spp. (test Detected code = Staphylococcus *ABN*(01/20/18 8:04 spp.) PM) [facility]2018-03-28 01:04:00 Test Item Value Reference Range Interpretation Comments E. faecium (test code Not Detected (01/20/18 = E. faecium) 8:04 PM) [facility]2018-03-28 01:04:00 Test Item Value Reference Range Interpretation Comments Lactic Acid Lvl (test code = Lactic 1.6 0.5-2.2 Acid Lvl) [facility]2018-03-28 01:04:00 Test Item Value Reference Range Interpretation Comments S. aureus (test code = Not Detected (01/20/18 S. aureus) 8:04 PM) [facility]2018-03-28 01:04:00 Test Item Value Reference Range Interpretation Comments Andrey Vancomycin Not Detected (01/20/18 Resistance (test code = 8:04 PM) Andrey Vancomycin Resistance) [facility]2018-03-28 01:04:00 Test Item Value Reference Range Interpretation Comments vanB Vancomycin Not Detected (01/20/18 Resistance (test code = 8:04 PM) vanB Vancomycin Resistance) [facility]2018-03-28 01:04:00 Test Item Value Reference Range Interpretation Comments S. anginosus grp (test Not Detected (01/20/18 code = S. anginosus 8:04 PM) grp) [facility]2018-03-28 01:04:00 Test Item Value Reference Range Interpretation Comments S. agalactiae (test code Not Detected (01/20/18 = S. agalactiae) 8:04 PM) [facility]2018-03-28 01:04:00 Test Item Value Reference Range Interpretation Comments S. pyogenes (test code Not Detected (01/20/18 = S. pyogenes) 8:04 PM) [facility]2018-03-28 01:04:00 Test Item Value Reference Range Interpretation Comments S. pneumoniae (test code Not Detected (01/20/18 = S. pneumoniae) 8:04 PM) [facility]2018-03-28 01:04:00 Test Item Value Reference Range Interpretation Comments S. epidermidis (test Detected code = S. epidermidis) *ABN*(01/20/18 8:04 PM) [facility]2018-03-28 01:04:00 Test Item Value Reference Range Interpretation Comments S. lugdunensis (test Not Detected (01/20/18 code = S. lugdunensis) 8:04 PM) [facility]2018-03-28 01:04:00 Test Item Value Reference Range Interpretation Comments Listeria spp. (test Not Detected (01/20/18 code = Listeria spp.) 8:04 PM) [facility]2018-03-28 01:04:00 Test Item Value Reference Range Interpretation Comments mecA Methicillin Not Detected (01/20/18 Resistance (test code = 8:04 PM) mecA Methicillin Resistance) [facility]2018-03-28 01:04:00 Test Item Value Reference Range Interpretation Comments E. faecalis (test code Not Detected (01/20/18 = E. faecalis) 8:04 PM) [facility]2018-03-28 01:04:00 Test Item Value Reference Range Interpretation Comments Streptococcus spp. (test Not Detected code = Streptococcus (01/20/18 8:04 PM) spp.) [facility]2018-03-28 01:04:00 Test Item Value Reference Range Interpretation Comments Staphylococcus spp. (test Detected code = Staphylococcus *ABN*(01/20/18 8:04 spp.) PM) [facility]2018-03-28 01:04:00 Test Item Value Reference Range Interpretation Comments E. faecium (test code Not Detected (01/20/18 = E. faecium) 8:04 PM) [facility]2018-03-28 01:04:00 Test Item Value Reference Range Interpretation Comments Lactic Acid Lvl (test code = Lactic 1.6 0.5-2.2 Acid Lvl) [facility]2018-03-28 01:04:00 Test Item Value Reference Range Interpretation Comments S. aureus (test code = Not Detected (01/20/18 S. aureus) 8:04 PM) [facility]2018-03-28 01:04:00 Test Item Value Reference Range Interpretation Comments Andrey Vancomycin Not Detected (01/20/18 Resistance (test code = 8:04 PM) Andrey Vancomycin Resistance) [facility]2018-03-28 01:04:00 Test Item Value Reference Range Interpretation Comments vanB Vancomycin Not Detected (01/20/18 Resistance (test code = 8:04 PM) vanB Vancomycin Resistance) [facility]2018-03-28 01:04:00 Test Item Value Reference Range Interpretation Comments S. anginosus grp (test Not Detected (01/20/18 code = S. anginosus 8:04 PM) grp) [facility]2018-03-28 01:04:00 Test Item Value Reference Range Interpretation Comments S. agalactiae (test code Not Detected (01/20/18 = S. agalactiae) 8:04 PM) [facility]2018-03-28 01:04:00 Test Item Value Reference Range Interpretation Comments S. pyogenes (test code Not Detected (01/20/18 = S. pyogenes) 8:04 PM) [facility]2018-03-28 01:04:00 Test Item Value Reference Range Interpretation Comments S. pneumoniae (test code Not Detected (01/20/18 = S. pneumoniae) 8:04 PM) [facility]2018-03-28 01:04:00 Test Item Value Reference Range Interpretation Comments S. epidermidis (test Detected code = S. epidermidis) *ABN*(01/20/18 8:04 PM) [facility]2018-03-28 01:04:00 Test Item Value Reference Range Interpretation Comments S. lugdunensis (test Not Detected (01/20/18 code = S. lugdunensis) 8:04 PM) [facility]2018-03-28 01:04:00 Test Item Value Reference Range Interpretation Comments Listeria spp. (test Not Detected (01/20/18 code = Listeria spp.) 8:04 PM) [facility]2018-03-28 01:04:00 Test Item Value Reference Range Interpretation Comments mecA Methicillin Not Detected (01/20/18 Resistance (test code = 8:04 PM) mecA Methicillin Resistance) [facility]2018-03-28 01:04:00 Test Item Value Reference Range Interpretation Comments E. faecalis (test code Not Detected (01/20/18 = E. faecalis) 8:04 PM) [facility]2018-03-28 01:04:00 Test Item Value Reference Range Interpretation Comments Streptococcus spp. (test Not Detected code = Streptococcus (01/20/18 8:04 PM) spp.) [facility]2018-03-28 01:04:00 Test Item Value Reference Range Interpretation Comments Staphylococcus spp. (test Detected code = Staphylococcus *ABN*(01/20/18 8:04 spp.) PM) [facility]2018-03-28 01:04:00 Test Item Value Reference Range Interpretation Comments E. faecium (test code Not Detected (01/20/18 = E. faecium) 8:04 PM) [facility]2018-03-27 17:00:00 Test Item Value Reference Range Interpretation Comments Lactic Acid Lvl (test code = Lactic 2.7 0.5-2.2 Acid Lvl) [facility]2018-03-27 17:00:00 Test Item Value Reference Range Interpretation Comments Bili Total (test code = Bili Total) 0.4 0.2-1.3 [facility]2018-03-27 17:00:00 Test Item Value Reference Range Interpretation Comments Alk Phos (test code = Alk Phos) 81 39-136 [facility]2018-03-27 17:00:00 Test Item Value Reference Range Interpretation Comments AST (test code = AST) 68 See_Comment [Auto mated message] The system which ge nerated this result transmit abdoul reference range : <=37. The reference range was not used to interpr et this result as neftali l/abnormal. [facility]2018-03-27 17:00:00 Test Item Value Reference Range Interpretation Comments Albumin Lvl (test code = Albumin Lvl) 4.1 3.5-5.0 [facility]2018-03-27 17:00:00 Test Item Value Reference Range Interpretation Comments Total Protein (test code = Total 8.3 6.4-8.4 Protein) [facility] [id number] 17:00:00 Test Item Value Reference Range Interpretation Comments ALT (test code = ALT) 116 See_Comment [Auto mated message] The system which ge nerated this result transmit abdoul reference range : <=65. The reference range was not used to interpr et this result as neftali l/abnormal. [facility] [id number] 17:00:00 Test Item Value Reference Range Interpretation Comments B/C Ratio (test code = B/C Ratio) 9 1 6-25 [facility] [id number] 17:00:00 Test Item Value Reference Range Interpretation Comments Globulin (test code = Globulin) 4.2 2.7-4.2 [facility]2018-03-27 17:00:00 Test Item Value Reference Range Interpretation Comments A/G Ratio (test code = A/G Ratio) 1.0 1 0.7-1.6 [place] [id number] 17:00:00 Test Item Value Reference Range Interpretation Comments S Preg (test code = S Negative *NA*(01/20/18 Preg) 12:00 PM) [facility] [id number] 17:00:00 Test Item Value Reference Range Interpretation Comments UA Bacteria (test code = UA Occasional /HPF Bacteria) [facility] [id number] 17:00:00 Test Item Value Reference Range Interpretation Comments UA RBC (test code = 52 See_Comment [Automa abdoul message] The UA RBC) system which ge nerated this result transmit abdoul reference range : <=2. The reference range was not used to interpr et this result as neftali l/abnormal. [facility] [id number] 17:00:00 Test Item Value Reference Range Interpretation Comments UA WBC (test code = 4 See_Comment [Automa abdoul message] The UA WBC) system which ge nerated this result transmit abdoul reference range : <=5. The reference range was not used to interpr et this result as neftali l/abnormal. [facility] [id number] 17:00:00 Test Item Value Reference Range Interpretation Comments UA Leuk Est (test Negative (01/20/18 12:00 code = UA Leuk Est) PM) [facility] [id number] 17:00:00 Test Item Value Reference Range Interpretation Comments UA Sq Epi (test code = UA Sq Epi) Few /LPF [facility] [id number] 17:00:00 Test Item Value Reference Range Interpretation Comments UA Nitrite (test code Negative (01/20/18 12:00 = UA Nitrite) PM) [facility] [id number] 17:00:00 Test Item Value Reference Range Interpretation Comments UA Blood (test code = Moderate *ABN*(01/20/18 UA Blood) 12:00 PM) [facility] [id number] 17:00:00 Test Item Value Reference Range Interpretation Comments UA Spec Grav (test code = UA Spec 1.024 1 Grav) [facility] [id number] 17:00:00 Test Item Value Reference Range Interpretation Comments UA pH (test code = UA pH) 5.0 1 5.0-8.0 [facility] [id number] 17:00:00 Test Item Value Reference Range Interpretation Comments UA Protein (test code = UA Protein) 30 mg/dL [facility] [id number] 17:00:00 Test Item Value Reference Range Interpretation Comments UA Color (test code = Yellow *NA*(01/20/18 UA Color) 12:00 PM) [facility] [id number] 17:00:00 Test Item Value Reference Range Interpretation Comments UA Mucus (test code = UA Mucus) Few /LPF [facility] [id number] 17:00:00 Test Item Value Reference Range Interpretation Comments UA Turbidity (test code = Clear (01/20/18 12:00 UA Turbidity) PM) [facility] [id number] 17:00:00 Test Item Value Reference Range Interpretation Comments UA Urobilinogen (test code = UA <=1.0 mg/dL 0.1-1.0 Urobilinogen) [facility] [id number] 17:00:00 Test Item Value Reference Range Interpretation Comments UA Ketones (test code = UA Negative mg/dL Ketones) [facility] [id number] 17:00:00 Test Item Value Reference Range Interpretation Comments UA Bili (test code = Negative *NA*(01/20/18 UA Bili) 12:00 PM) [facility] [id number] 17:00:00 Test Item Value Reference Range Interpretation Comments UA Glucose (test code = UA Negative mg/dL Glucose) [facility]2018-03-27 17:00:00 Test Item Value Reference Range Interpretation Comments Lactic Acid Lvl (test code = Lactic 2.7 0.5-2.2 Acid Lvl) [facility]2018-03-27 17:00:00 Test Item Value Reference Range Interpretation Comments Bili Total (test code = Bili Total) 0.4 0.2-1.3 [facility]2018-03-27 17:00:00 Test Item Value Reference Range Interpretation Comments Alk Phos (test code = Alk Phos) 81 39-136 [facility]2018-03-27 17:00:00 Test Item Value Reference Range Interpretation Comments AST (test code = AST) 68 See_Comment [Auto mated message] The system which ge nerated this result transmit abdoul reference range : <=37. The reference range was not used to interpr et this result as neftali l/abnormal. [facility]2018-03-27 17:00:00 Test Item Value Reference Range Interpretation Comments Albumin Lvl (test code = Albumin Lvl) 4.1 3.5-5.0 [facility]2018-03-27 17:00:00 Test Item Value Reference Range Interpretation Comments Total Protein (test code = Total 8.3 6.4-8.4 Protein) [facility]2018-03-27 17:00:00 Test Item Value Reference Range Interpretation Comments ALT (test code = ALT) 116 See_Comment [Auto mated message] The system which ge nerated this result transmit abdoul reference range : <=65. The reference range was not used to interpr et this result as neftali l/abnormal. [facility]2018-03-27 17:00:00 Test Item Value Reference Range Interpretation Comments B/C Ratio (test code = B/C Ratio) 9 1 6-25 [place] [id number] 17:00:00 Test Item Value Reference Range Interpretation Comments Globulin (test code = Globulin) 4.2 2.7-4.2 [facility] [id number] 17:00:00 Test Item Value Reference Range Interpretation Comments A/G Ratio (test code = A/G Ratio) 1.0 1 0.7-1.6 [id number] 17:00:00 Test Item Value Reference Range Interpretation Comments S Preg (test code = S Negative *NA*(01/20/18 Preg) 12:00 PM) [facility] [id number] 17:00:00 Test Item Value Reference Range Interpretation Comments UA Bacteria (test code = UA Occasional /HPF Bacteria) [facility] [id number] 17:00:00 Test Item Value Reference Range Interpretation Comments UA RBC (test code = 52 See_Comment [Automa abdoul message] The UA RBC) system which ge nerated this result transmit abdoul reference range : <=2. The reference range was not used to interpr et this result as neftali l/abnormal. [facility] [id number] 17:00:00 Test Item Value Reference Range Interpretation Comments UA WBC (test code = 4 See_Comment [Automa abdoul message] The UA WBC) system which ge nerated this result transmit abdoul reference range : <=5. The reference range was not used to interpr et this result as neftali l/abnormal. [facility] [id number] 17:00:00 Test Item Value Reference Range Interpretation Comments UA Leuk Est (test Negative (01/20/18 12:00 code = UA Leuk Est) PM) [facility] [id number] 17:00:00 Test Item Value Reference Range Interpretation Comments UA Sq Epi (test code = UA Sq Epi) Few /LPF [facility] [id number] 17:00:00 Test Item Value Reference Range Interpretation Comments UA Nitrite (test code Negative (01/20/18 12:00 = UA Nitrite) PM) [facility] [id number] 17:00:00 Test Item Value Reference Range Interpretation Comments UA Blood (test code = Moderate *ABN*(01/20/18 UA Blood) 12:00 PM) [facility] [id number] 17:00:00 Test Item Value Reference Range Interpretation Comments UA Spec Grav (test code = UA Spec 1.024 1 Grav) [facility] [id number] 17:00:00 Test Item Value Reference Range Interpretation Comments UA pH (test code = UA pH) 5.0 1 5.0-8.0 [facility] [id number] 17:00:00 Test Item Value Reference Range Interpretation Comments UA Protein (test code = UA Protein) 30 mg/dL [facility] [id number] 17:00:00 Test Item Value Reference Range Interpretation Comments UA Color (test code = Yellow *NA*(01/20/18 UA Color) 12:00 PM) [facility] [id number] 17:00:00 Test Item Value Reference Range Interpretation Comments UA Mucus (test code = UA Mucus) Few /LPF [facility] [id number] 17:00:00 Test Item Value Reference Range Interpretation Comments UA Turbidity (test code = Clear (01/20/18 12:00 UA Turbidity) PM) [facility] [id number] 17:00:00 Test Item Value Reference Range Interpretation Comments UA Urobilinogen (test code = UA <=1.0 mg/dL 0.1-1.0 Urobilinogen) [facility] [id number] 17:00:00 Test Item Value Reference Range Interpretation Comments UA Ketones (test code = UA Negative mg/dL Ketones) [facility] [id number] 17:00:00 Test Item Value Reference Range Interpretation Comments UA Bili (test code = Negative *NA*(01/20/18 UA Bili) 12:00 PM) [facility] [id number] 17:00:00 Test Item Value Reference Range Interpretation Comments UA Glucose (test code = UA Negative mg/dL Glucose) [facility] [id number] 17:00:00 Test Item Value Reference Range Interpretation Comments Lactic Acid Lvl (test code = Lactic 2.7 0.5-2.2 Acid Lvl) [id number]:00 Test Item Value Reference Range Interpretation Comments Bili Total (test code = Bili Total) 0.4 0.2-1.3 [facility] [id number] 17:00:00 Test Item Value Reference Range Interpretation Comments Alk Phos (test code = Alk Phos) 81 39-136 [facility] [id number] 17:00:00 Test Item Value Reference Range Interpretation Comments AST (test code = AST) 68 See_Comment [Auto mated message] The system which ge nerated this result transmit abdoul reference range : <=37. The reference range was not used to interpr et this result as neftali l/abnormal. [facility] [id number] 17:00:00 Test Item Value Reference Range Interpretation Comments Albumin Lvl (test code = Albumin Lvl) 4.1 3.5-5.0 [facility] [id number] 17:00:00 Test Item Value Reference Range Interpretation Comments Total Protein (test code = Total 8.3 6.4-8.4 Protein) [facility] [id number] 17:00:00 Test Item Value Reference Range Interpretation Comments ALT (test code = ALT) 116 See_Comment [Auto mated message] The system which ge nerated this result transmit abdoul reference range : <=65. The reference range was not used to interpr et this result as neftali l/abnormal. [facility] [id number] 17:00:00 Test Item Value Reference Range Interpretation Comments B/C Ratio (test code = B/C Ratio) 9 1 6-[address] [facility] [address] [id number] 17:00:00 Test Item Value Reference Range Interpretation Comments Globulin (test code = Globulin) 4.2 2.7-4.2 [facility] [id number] 17:00:00 Test Item Value Reference Range Interpretation Comments A/G Ratio (test code = A/G Ratio) 1.0 1 0.7-1.6 [id number] 17:00:00 Test Item Value Reference Range Interpretation Comments S Preg (test code = S Negative *NA*(01/20/18 Preg) 12:00 PM) [facility] [id number] 17:00:00 Test Item Value Reference Range Interpretation Comments UA Bacteria (test code = UA Occasional /HPF Bacteria) [facility] [id number] 17:00:00 Test Item Value Reference Range Interpretation Comments UA RBC (test code = 52 See_Comment [Automa abdoul message] The UA RBC) system which ge nerated this result transmit abdoul reference range : <=2. The reference range was not used to interpr et this result as neftali l/abnormal. [facility] [id number] 17:00:00 Test Item Value Reference Range Interpretation Comments UA WBC (test code = 4 See_Comment [Automa abdoul message] The UA WBC) system which ge nerated this result transmit abdoul reference range : <=5. The reference range was not used to interpr et this result as neftali l/abnormal. [facility] [id number] 17:00:00 Test Item Value Reference Range Interpretation Comments UA Leuk Est (test Negative (01/20/18 12:00 code = UA Leuk Est) PM) [facility] [id number] 17:00:00 Test Item Value Reference Range Interpretation Comments UA Sq Epi (test code = UA Sq Epi) Few /LPF [facility] [id number] 17:00:00 Test Item Value Reference Range Interpretation Comments UA Nitrite (test code Negative (01/20/18 12:00 = UA Nitrite) PM) [facility] [id number] 17:00:00 Test Item Value Reference Range Interpretation Comments UA Blood (test code = Moderate *ABN*(01/20/18 UA Blood) 12:00 PM) [facility] [id number] 17:00:00 Test Item Value Reference Range Interpretation Comments UA Spec Grav (test code = UA Spec 1.024 1 Grav) [facility] [id number] 17:00:00 Test Item Value Reference Range Interpretation Comments UA pH (test code = UA pH) 5.0 1 5.0-8.0 [facility] [id number] 17:00:00 Test Item Value Reference Range Interpretation Comments UA Protein (test code = UA Protein) 30 mg/dL [facility] [id number] 17:00:00 Test Item Value Reference Range Interpretation Comments UA Color (test code = Yellow *NA*(01/20/18 UA Color) 12:00 PM) [facility] [id number] 17:00:00 Test Item Value Reference Range Interpretation Comments UA Mucus (test code = UA Mucus) Few /LPF [facility] [id number] 17:00:00 Test Item Value Reference Range Interpretation Comments UA Turbidity (test code = Clear (01/20/18 12:00 UA Turbidity) PM) [facility] [id number] 17:00:00 Test Item Value Reference Range Interpretation Comments UA Urobilinogen (test code = UA <=1.0 mg/dL 0.1-1.0 Urobilinogen) [facility] [id number] 17:00:00 Test Item Value Reference Range Interpretation Comments UA Ketones (test code = UA Negative mg/dL Ketones) [facility] [id number] 17:00:00 Test Item Value Reference Range Interpretation Comments UA Bili (test code = Negative *NA*(01/20/18 UA Bili) 12:00 PM) [facility] [id number] 17:00:00 Test Item Value Reference Range Interpretation Comments UA Glucose (test code = UA Negative mg/dL Glucose) [facility]2018-03-27 17:00:00 Test Item Value Reference Range Interpretation Comments Lactic Acid Lvl (test code = Lactic 2.7 0.5-2.2 Acid Lvl) [facility]2018-03-27 17:00:00 Test Item Value Reference Range Interpretation Comments Bili Total (test code = Bili Total) 0.4 0.2-1.3 [facility]2018-03-27 17:00:00 Test Item Value Reference Range Interpretation Comments Alk Phos (test code = Alk Phos) 81 39-136 [facility]2018-03-27 17:00:00 Test Item Value Reference Range Interpretation Comments AST (test code = AST) 68 See_Comment [Auto mated message] The system which ge nerated this result transmit abdoul reference range : <=37. The reference range was not used to interpr et this result as neftali l/abnormal. [facility]2018-03-27 17:00:00 Test Item Value Reference Range Interpretation Comments Albumin Lvl (test code = Albumin Lvl) 4.1 3.5-5.0 [facility]2018-03-27 17:00:00 Test Item Value Reference Range Interpretation Comments Total Protein (test code = Total 8.3 6.4-8.4 Protein) [facility]2018-03-27 17:00:00 Test Item Value Reference Range Interpretation Comments ALT (test code = ALT) 116 See_Comment [Auto mated message] The system which ge nerated this result transmit abdoul reference range : <=65. The reference range was not used to interpr et this result as neftali l/abnormal. [facility]2018-03-27 17:00:00 Test Item Value Reference Range Interpretation Comments B/C Ratio (test code = B/C Ratio) 9 1 6-25 [facility]2018-03-27 17:00:00 Test Item Value Reference Range Interpretation Comments Globulin (test code = Globulin) 4.2 2.7-4.2 [facility]2018-03-27 17:00:00 Test Item Value Reference Range Interpretation Comments A/G Ratio (test code = A/G Ratio) 1.0 1 0.7-1.6 [place] [id number] 17:00:00 Test Item Value Reference Range Interpretation Comments S Preg (test code = S Negative *NA*(01/20/18 Preg) 12:00 PM) [facility] [id number] 17:00:00 Test Item Value Reference Range Interpretation Comments UA Bacteria (test code = UA Occasional /HPF Bacteria) [facility] [id number] 17:00:00 Test Item Value Reference Range Interpretation Comments UA RBC (test code = 52 See_Comment [Automa abdoul message] The UA RBC) system which ge nerated this result transmit abdoul reference range : <=2. The reference range was not used to interpr et this result as neftali l/abnormal. [facility] [id number] 17:00:00 Test Item Value Reference Range Interpretation Comments UA WBC (test code = 4 See_Comment [Automa abdoul message] The UA WBC) system which ge nerated this result transmit abdoul reference range : <=5. The reference range was not used to interpr et this result as neftali l/abnormal. [facility] [id number] 17:00:00 Test Item Value Reference Range Interpretation Comments UA Leuk Est (test Negative (01/20/18 12:00 code = UA Leuk Est) PM) [facility] AND [id number] 17:00:00 Test Item Value Reference Range Interpretation Comments UA Sq Epi (test code = UA Sq Epi) Few /LPF [facility] AND [id number] 17:00:00 Test Item Value Reference Range Interpretation Comments UA Nitrite (test code Negative (01/20/18 12:00 = UA Nitrite) PM) [facility] [id number] 17:00:00 Test Item Value Reference Range Interpretation Comments UA Blood (test code = Moderate *ABN*(01/20/18 UA Blood) 12:00 PM) [facility] [id number] 17:00:00 Test Item Value Reference Range Interpretation Comments UA Spec Grav (test code = UA Spec 1.024 1 Grav) [facility] [id number] 17:00:00 Test Item Value Reference Range Interpretation Comments UA pH (test code = UA pH) 5.0 1 5.0-8.0 [facility] [id number] 17:00:00 Test Item Value Reference Range Interpretation Comments UA Protein (test code = UA Protein) 30 mg/dL [facility] AND [id number] 17:00:00 Test Item Value Reference Range Interpretation Comments UA Color (test code = Yellow *NA*(01/20/18 UA Color) 12:00 PM) [facility] [id number] 17:00:00 Test Item Value Reference Range Interpretation Comments UA Mucus (test code = UA Mucus) Few /LPF [facility] [id number] 17:00:00 Test Item Value Reference Range Interpretation Comments UA Turbidity (test code = Clear (01/20/18 12:00 UA Turbidity) PM) [facility] [id number] 17:00:00 Test Item Value Reference Range Interpretation Comments UA Urobilinogen (test code = UA <=1.0 mg/dL 0.1-1.0 Urobilinogen) [facility] [id number] 17:00:00 Test Item Value Reference Range Interpretation Comments UA Ketones (test code = UA Negative mg/dL Ketones) [facility] [id number] 17:00:00 Test Item Value Reference Range Interpretation Comments UA Bili (test code = Negative *NA*(01/20/18 UA Bili) 12:00 PM) [facility] [id number] 17:00:00 Test Item Value Reference Range Interpretation Comments UA Glucose (test code = UA Negative mg/dL Glucose) [id number] 20:29:00 Test Item Value Reference Range Interpretation Comments Lipase Lvl (test code = Lipase Lvl) 134 73-393 [facility] RegionVrlafzmCIVZRTMLIRZV9582-92-69 20:29:00 Test Item Value Reference Range Interpretation Comments AGAP (test code = AGAP) 11.7 10.0-20.0 [facility] RegionHwotcfkJYTWMFTTNGFP6072-79-48 20:29:00 Test Item Value Reference Range Interpretation Comments B/C Ratio (test code = B/C Ratio) 9 1 6-25 [facility] RegionGyfjdgzGXNGFQZJUIHR8448-05-38 20:29:00 Test Item Value Reference Range Interpretation Comments A/G Ratio (test code = A/G Ratio) 1.0 1 0.7-1.6 [facility] RegionYffkwntMUMUBABSTAEP4219-65-40 20:29:00 Test Item Value Reference Range Interpretation Comments Globulin (test code = Globulin) 4.5 2.7-4.2 [facility] RegionPlcticmFWBKOFQQEWQB1234-80-53 20:29:00 Test Item Value Reference Range Interpretation Comments eGFR (test code = eGFR) 128 [facility] RegionNlpfrykGFODUWNOSBLI4146-30-06 20:29:00 Test Item Value Reference Range Interpretation Comments Albumin Lvl (test code = Albumin Lvl) 4.4 3.5-5.0 [facility] RegionIqmhwmmKSFFMAQPTJOB0409-29-19 20:29:00 Test Item Value Reference Range Interpretation Comments ALT (test code = ALT) 145 See_Comment [Auto mated message] The system which ge nerated this result transmit abdoul reference range : <=65. The reference range was not used to interpr et this result as neftali l/abnormal. [facility] RegionSkgnuxjXAAMQAIYFMCL0328-54-74 20:29:00 Test Item Value Reference Range Interpretation Comments AST (test code = AST) 84 See_Comment [Auto mated message] The system which ge nerated this result transmit abdoul reference range : <=37. The reference range was not used to interpr et this result as neftali l/abnormal. [facility] RegionEfekssnYFCBWRCHNFYV2216-36-78 20:29:00 Test Item Value Reference Range Interpretation Comments Alk Phos (test code = Alk Phos) 92 39-136 [facility] RegionImdebwmTISZDKQCRLFM8363-37-97 20:29:00 Test Item Value Reference Range Interpretation Comments Bili Total (test code = Bili Total) 0.5 0.2-1.3 [facility] RegionYpaptarNOYJTFNNJQWQ9915-39-63 20:29:00 Test Item Value Reference Range Interpretation Comments Creatinine Lvl (test code = Creatinine 0.69 0.50-1.40 Lvl) [facility] RegionSedukyqKZWZKTWOPGNW8051-22-96 20:29:00 Test Item Value Reference Range Interpretation Comments Sodium Lvl (test code = Sodium Lvl) 139 135-145 [facility] RegionBnpapbnBVZKIENNOZXW9691-97-56 20:29:00 Test Item Value Reference Range Interpretation Comments Chloride Lvl (test code = Chloride Lvl) 104 95-109 [facility] RegionYvpcjfoKNICAMLKKHRZ5285-51-27 20:29:00 Test Item Value Reference Range Interpretation Comments Calcium Lvl (test code = Calcium Lvl) 9.5 8.5-10.5 [facility] RegionYvzkhjaXDWNCMQBFHAU3955-46-34 20:29:00 Test Item Value Reference Range Interpretation Comments Total Protein (test code = Total 8.9 6.4-8.4 Protein) [facility] RegionYybmqqfWLZUBNSELIWC0399-23-50 20:29:00 Test Item Value Reference Range Interpretation Comments CO2 (test code = CO2) 27 24-32 [facility] RegionWatcvjdHWKLYFOFWGBR0881-95-55 20:29:00 Test Item Value Reference Range Interpretation Comments Potassium Lvl (test code = Potassium 3.7 3.5-5.1 Lvl) [facility] RegionQlmqjlqFLZQZBHSDXCC4107-58-97 20:29:00 Test Item Value Reference Range Interpretation Comments BUN (test code = BUN) 6 7-22 [facility] RegionClukxtwVXHKZXNDBDAF3718-67-59 20:29:00 Test Item Value Reference Range Interpretation Comments Glucose Lvl (test code = Glucose Lvl) 95 70-99 [place] [id number] 20:29:00 Test Item Value Reference Range Interpretation Comments S Preg (test code = S Negative *NA*(01/04/18 Preg) 3:29 PM) [facility]rlbiwiZJBTOUJPCB4825-87-59 20:29:00 Test Item Value Reference Range Interpretation Comments Lymphocytes # (test code = Lymphocytes 2.6 1.0-5.5 #) [facility]NadizxxHICIJFQSXR2161-51-46 20:29:00 Test Item Value Reference Range Interpretation Comments Monocytes # (test code 0.6 See_Comment [Aut omated message] The = Monocytes #) system which generated this result tra nsmitted reference range : <=0.8. The reference r kary was not used to int erpret this result as normal/abnormal . [facility] HospitalHnfrrhzHGZEHLPBGQ4971-96-58 20:29:00 Test Item Value Reference Range Interpretation Comments Eosinophils # (test code 0.2 See_Comment [A utomated message] The = Eosinophils #) system whic h generated this result tra nsmitted reference range : <=0.5. The reference r kary was not used to int erpret this result as normal/abnormal . [facility] HospitalBvczixnCAHEJQMSOB9656-59-01 20:29:00 Test Item Value Reference Range Interpretation Comments Basophils # (test code 0.1 See_Comment [Aut omated message] The = Basophils #) system which generated this result tra nsmitted reference range : <=0.2. The reference r kary was not used to int erpret this result as normal/abnormal . [facility] HospitalEkgnlchLGLWYDKJKC1406-53-85 20:29:00 Test Item Value Reference Range Interpretation Comments Eosinophils (test code = 1.8 See_Comment [A utomated message] The Eosinophils) system which ge nerated this result tra nsmitted reference range : <=4.0. The reference r kary was not used to int erpret this result as normal/abnormal . [facility] HospitalIbjjsjyZPISFMXZOW3454-63-85 20:29:00 Test Item Value Reference Range Interpretation Comments Monocytes (test code = Monocytes) 5.7 2.0-12.0 [facility] HospitalRiqurkdZRNXOCWJST6946-56-72 20:29:00 Test Item Value Reference Range Interpretation Comments Lymphocytes (test code = Lymphocytes) 23.3 20.0-40.0 [facility] HospitalIgwjwzpJCDNOQUGTF4334-46-67 20:29:00 Test Item Value Reference Range Interpretation Comments Segs (test code = Segs) 68.7 45.0-75.0 [facility] HospitalAuxgqtkCBGKZIAYZF3327-64-77 20:29:00 Test Item Value Reference Range Interpretation Comments Segs-Bands # (test code = Segs-Bands #) 7.7 1.5-8.1 [facility] HospitalNxnnzwrKQSJXQZSWJ0806-09-38 20:29:00 Test Item Value Reference Range Interpretation Comments Basophils (test code = 0.5 See_Comment [Aut omated message] The Basophils) system which ge nerated this result tra nsmitted reference range : <=1.0. The reference r kary was not used to int erpret this result as normal/abnormal . [facility] HospitalPkhxptoUPGWGNQOMA3984-26-43 20:29:00 Test Item Value Reference Range Interpretation Comments MPV (test code = MPV) 8.4 7.4-10.4 [facility] HospitalAldasboBINIJHPNDC8467-79-38 20:29:00 Test Item Value Reference Range Interpretation Comments WBC (test code = WBC) 11.2 3.7-10.4 [facility] HospitalWnlytqlQSGDTBSJPZ5715-79-01 20:29:00 Test Item Value Reference Range Interpretation Comments Hgb (test code = Hgb) 16.2 12.0-16.0 [facility] HospitalCcwlkizLBITBVKYMX8502-56-93 20:29:00 Test Item Value Reference Range Interpretation Comments RBC (test code = RBC) 5.39 4.20-5.40 [facility] HospitalZcmjmexOTHHWIPGSL6164-91-13 20:29:00 Test Item Value Reference Range Interpretation Comments RDW (test code = RDW) 13.4 11.5-14.5 [facility] HospitalLukadnyJTGSKNXXPR7253-40-63 20:29:00 Test Item Value Reference Range Interpretation Comments MCH (test code = MCH) 30.1 pg 27.0-31.0 [facility] HospitalTvkodvdURRXIKKRTU0437-52-80 20:29:00 Test Item Value Reference Range Interpretation Comments MCHC (test code = MCHC) 33.9 32.0-36.0 [facility] HospitalUmebcqpGXLQOWERME4692-31-42 20:29:00 Test Item Value Reference Range Interpretation Comments Platelet (test code = Platelet) 311 133-450 [facility] HospitalTuqvjkeRESYJKVFBM1996-99-34 20:29:00 Test Item Value Reference Range Interpretation Comments Hct (test code = Hct) 47.8 36.0-48.0 [facility] HospitalOhygqkcLILECLWIMW4203-24-52 20:29:00 Test Item Value Reference Range Interpretation Comments MCV (test code = MCV) 88.6 80.0-98.0 [facility] [id number] 20:29:00 Test Item Value Reference Range Interpretation Comments UA Urobilinogen (test code = UA <=1.0 mg/dL 0.1-1.0 Urobilinogen) [facility] [id number] 20:29:00 Test Item Value Reference Range Interpretation Comments UA Sq Epi (test code = UA Sq Occasional /LPF Epi) [facility] [id number] 20:29:00 Test Item Value Reference Range Interpretation Comments UA Leuk Est (test code Small *ABN*(01/04/18 = UA Leuk Est) 3:29 PM) [facility] [id number] 20:29:00 Test Item Value Reference Range Interpretation Comments UA Nitrite (test code Negative (01/04/18 3:29 = UA Nitrite) PM) [facility] [id number] 20:29:00 Test Item Value Reference Range Interpretation Comments UA Blood (test code = Moderate *ABN*(01/04/18 UA Blood) 3:29 PM) [facility] [id number] 20:29:00 Test Item Value Reference Range Interpretation Comments UA Bacteria (test code = UA Few /HPF Bacteria) [facility] [id number] 20:29:00 Test Item Value Reference Range Interpretation Comments UA RBC (test code = 17 See_Comment [Automa abdoul message] The UA RBC) system which ge nerated this result transmit abdoul reference range : <=2. The reference range was not used to interpr et this result as neftali l/abnormal. [facility] [id number] 20:29:00 Test Item Value Reference Range Interpretation Comments UA WBC (test code = 60 See_Comment [Automa abdoul message] The UA WBC) system which ge nerated this result transmit abdoul reference range : <=5. The reference range was not used to interpr et this result as neftali l/abnormal. [facility] [id number] 20:29:00 Test Item Value Reference Range Interpretation Comments UA [place] Yeast (test code = UA [place] Few /HPF Yeast) [facility] [id number] 20:29:00 Test Item Value Reference Range Interpretation Comments UA Amorph Shanna (test code = Occasional /HPF UA Amorph Shanna) [facility] [id number] 20:29:00 Test Item Value Reference Range Interpretation Comments UA Mucus (test code = UA Mucus) Few /LPF [facility] [id number] 20:29:00 Test Item Value Reference Range Interpretation Comments UA Spec Grav (test code = UA Spec 1.012 1 Grav) [facility] [id number] 20:29:00 Test Item Value Reference Range Interpretation Comments UA pH (test code = UA pH) 7.0 1 5.0-8.0 [facility] [id number] 20:29:00 Test Item Value Reference Range Interpretation Comments UA Protein (test code = UA Negative mg/dL Protein) [facility] [id number] 20:29:00 Test Item Value Reference Range Interpretation Comments UA Glucose (test code = UA Negative mg/dL Glucose) [facility] [id number] 20:29:00 Test Item Value Reference Range Interpretation Comments UA Bili (test code = Negative *NA*(01/04/18 UA Bili) 3:29 PM) [facility] [id number] 20:29:00 Test Item Value Reference Range Interpretation Comments UA Ketones (test code = UA Negative mg/dL Ketones) [facility] [id number] 20:29:00 Test Item Value Reference Range Interpretation Comments UA Color (test code = Yellow *NA*(01/04/18 UA Color) 3:29 PM) [facility] [id number] 20:29:00 Test Item Value Reference Range Interpretation Comments UA Turbidity (test code Slight *ABN*(01/04/18 = UA Turbidity) 3:29 PM) [facility] [id number] 20:29:00 Test Item Value Reference Range Interpretation Comments Lipase Lvl (test code = Lipase Lvl) 134 73-393 [facility] RegionCbohdxzGFSKVBTWPMTH2238-07-10 20:29:00 Test Item Value Reference Range Interpretation Comments AGAP (test code = AGAP) 11.7 10.0-20.0 [facility] RegionWhfrdgyIWYSKKNOEEDX3432-34-56 20:29:00 Test Item Value Reference Range Interpretation Comments B/C Ratio (test code = B/C Ratio) 9 1 6-25 [facility] RegionIctkgugXQTWISXVMPWL5652-23-00 20:29:00 Test Item Value Reference Range Interpretation Comments A/G Ratio (test code = A/G Ratio) 1.0 1 0.7-1.6 [facility] RegionLqqlslrVFXIANSZNLJY3789-84-37 20:29:00 Test Item Value Reference Range Interpretation Comments Globulin (test code = Globulin) 4.5 2.7-4.2 [facility] RegionAtxkvzoWLAWECAFTBGU2512-28-38 20:29:00 Test Item Value Reference Range Interpretation Comments eGFR (test code = eGFR) 128 [facility] RegionLdwmxthSXVVCLTWZAYU4128-12-00 20:29:00 Test Item Value Reference Range Interpretation Comments Albumin Lvl (test code = Albumin Lvl) 4.4 3.5-5.0 [facility] RegionSmqbkfzYYEBBQPEDJLC9123-12-04 20:29:00 Test Item Value Reference Range Interpretation Comments ALT (test code = ALT) 145 See_Comment [Auto mated message] The system which ge nerated this result transmit abdoul reference range : <=65. The reference range was not used to interpr et this result as neftali l/abnormal. [facility] RegionOiwlotvITDMVWMXSCJX6940-07-00 20:29:00 Test Item Value Reference Range Interpretation Comments AST (test code = AST) 84 See_Comment [Auto mated message] The system which ge nerated this result transmit abdoul reference range : <=37. The reference range was not used to interpr et this result as neftali l/abnormal. [facility] RegionHdhmbkxHOZNPQLHPVUJ1290-93-44 20:29:00 Test Item Value Reference Range Interpretation Comments Alk Phos (test code = Alk Phos) 92 39-136 [facility] RegionBruwxnkMYEHUUPTGRBR1064-10-27 20:29:00 Test Item Value Reference Range Interpretation Comments Bili Total (test code = Bili Total) 0.5 0.2-1.3 [facility] RegionYsfgaroEBOXRFGMQQWZ2776-13-43 20:29:00 Test Item Value Reference Range Interpretation Comments Creatinine Lvl (test code = Creatinine 0.69 0.50-1.40 Lvl) [facility] RegionFxpkewtKRPSIAKJUSZX7687-80-58 20:29:00 Test Item Value Reference Range Interpretation Comments Sodium Lvl (test code = Sodium Lvl) 139 135-145 [facility] RegionGhgueczLSQZBKTKMRZB2693-44-01 20:29:00 Test Item Value Reference Range Interpretation Comments Chloride Lvl (test code = Chloride Lvl) 104 95-109 [facility] RegionWqasjajEJXFTQZNXYHT0363-71-84 20:29:00 Test Item Value Reference Range Interpretation Comments Calcium Lvl (test code = Calcium Lvl) 9.5 8.5-10.5 [facility] RegionCfyojfdTHQUDXTYTHMC7867-87-07 20:29:00 Test Item Value Reference Range Interpretation Comments Total Protein (test code = Total 8.9 6.4-8.4 Protein) [facility] RegionVvdwhqaSPLNHNCWISYU9795-96-26 20:29:00 Test Item Value Reference Range Interpretation Comments CO2 (test code = CO2) 27 24-32 [facility] RegionYldkyngBOVZYOEFHZFZ1678-78-21 20:29:00 Test Item Value Reference Range Interpretation Comments Potassium Lvl (test code = Potassium 3.7 3.5-5.1 Lvl) [facility] RegionAbnreltSYMQBSFUQXNV6114-48-88 20:29:00 Test Item Value Reference Range Interpretation Comments BUN (test code = BUN) 6 7-22 [facility] RegionAixubfgAKYPXSXBOSMS9611-32-57 20:29:00 Test Item Value Reference Range Interpretation Comments Glucose Lvl (test code = Glucose Lvl) 95 70-99 [place] 32985018-03-11 20:29:00 Test Item Value Reference Range Interpretation Comments S Preg (test code = S Negative *NA*(01/04/18 Preg) 3:29 PM) [facility]UfehnopYDADYEBCDK8527-12-97 20:29:00 Test Item Value Reference Range Interpretation Comments Lymphocytes # (test code = Lymphocytes 2.6 1.0-5.5 #) [facility] HospitalJorrbtsNCCXHYZNTK3371-97-34 20:29:00 Test Item Value Reference Range Interpretation Comments Monocytes # (test code 0.6 See_Comment [Aut omated message] The = Monocytes #) system which generated this result tra nsmitted reference range : <=0.8. The reference r kary was not used to int erpret this result as normal/abnormal . [facility] HospitalZhxyqqsHSFRWHUEPR4063-24-67 20:29:00 Test Item Value Reference Range Interpretation Comments Eosinophils # (test code 0.2 See_Comment [A utomated message] The = Eosinophils #) system whic h generated this result tra nsmitted reference range : <=0.5. The reference r kary was not used to int erpret this result as normal/abnormal . [facility] HospitalElozzclNULZHIMPTX1455-92-53 20:29:00 Test Item Value Reference Range Interpretation Comments Basophils # (test code 0.1 See_Comment [Aut omated message] The = Basophils #) system which generated this result tra nsmitted reference range : <=0.2. The reference r kary was not used to int erpret this result as normal/abnormal . [facility] HospitalDalgtodGSAHSBWLUB8812-83-99 20:29:00 Test Item Value Reference Range Interpretation Comments Eosinophils (test code = 1.8 See_Comment [A utomated message] The Eosinophils) system which ge nerated this result tra nsmitted reference range : <=4.0. The reference r kary was not used to int erpret this result as normal/abnormal . [facility] HospitalBzqomvcYORCUSIRVR6371-27-76 20:29:00 Test Item Value Reference Range Interpretation Comments Monocytes (test code = Monocytes) 5.7 2.0-12.0 [facility] HospitalLcwqnkvWCCRDQLHCK5090-09-55 20:29:00 Test Item Value Reference Range Interpretation Comments Lymphocytes (test code = Lymphocytes) 23.3 20.0-40.0 [facility] HospitalNuvyklsKKYKHJHUYH4722-59-07 20:29:00 Test Item Value Reference Range Interpretation Comments Segs (test code = Segs) 68.7 45.0-75.0 [facility] HospitalZdwcdmtBCGFBICVLG4541-98-03 20:29:00 Test Item Value Reference Range Interpretation Comments Segs-Bands # (test code = Segs-Bands #) 7.7 1.5-8.1 [facility] HospitalByviwexODOKAJUFPH5918-47-84 20:29:00 Test Item Value Reference Range Interpretation Comments Basophils (test code = 0.5 See_Comment [Aut omated message] The Basophils) system which ge nerated this result tra nsmitted reference range : <=1.0. The reference r kary was not used to int erpret this result as normal/abnormal . [facility] HospitalJmuwnllXOGAMBCRRL0977-13-31 20:29:00 Test Item Value Reference Range Interpretation Comments MPV (test code = MPV) 8.4 7.4-10.4 [facility] HospitalJhhdjegESEGUDTRKT1808-77-22 20:29:00 Test Item Value Reference Range Interpretation Comments WBC (test code = WBC) 11.2 3.7-10.4 [facility] HospitalRmekuxbNANTRJGJBJ8332-04-10 20:29:00 Test Item Value Reference Range Interpretation Comments Hgb (test code = Hgb) 16.2 12.0-16.0 [facility] HospitalVtvfehuCADACASDNM2441-83-87 20:29:00 Test Item Value Reference Range Interpretation Comments RBC (test code = RBC) 5.39 4.20-5.40 [facility] HospitalBrjsnhuAAOVHBKKIK8676-62-77 20:29:00 Test Item Value Reference Range Interpretation Comments RDW (test code = RDW) 13.4 11.5-14.5 [facility] HospitalQnfvixxFBVXDMVFLJ3239-15-68 20:29:00 Test Item Value Reference Range Interpretation Comments MCH (test code = MCH) 30.1 pg 27.0-31.0 [facility] HospitalFgzenwaKCTCJNYFBO3890-39-24 20:29:00 Test Item Value Reference Range Interpretation Comments MCHC (test code = MCHC) 33.9 32.0-36.0 [facility] HospitalVvcpiihKSJEVRFNOR8985-12-99 20:29:00 Test Item Value Reference Range Interpretation Comments Platelet (test code = Platelet) 311 133-450 [facility] HospitalOxewvzeAONSDIPZGN5970-77-74 20:29:00 Test Item Value Reference Range Interpretation Comments Hct (test code = Hct) 47.8 36.0-48.0 [facility] HospitalFgoevhnPYKLTAZGZH0912-00-26 20:29:00 Test Item Value Reference Range Interpretation Comments MCV (test code = MCV) 88.6 80.0-98.0 [facility]2018-03-11 20:29:00 Test Item Value Reference Range Interpretation Comments UA Urobilinogen (test code = UA <=1.0 mg/dL 0.1-1.0 Urobilinogen) [facility]2018-03-11 20:29:00 Test Item Value Reference Range Interpretation Comments UA Sq Epi (test code = UA Sq Occasional /LPF Epi) [facility] [id number] 20:29:00 Test Item Value Reference Range Interpretation Comments UA Leuk Est (test code Small *ABN*(01/04/18 = UA Leuk Est) 3:29 PM) [facility] [id number] 20:29:00 Test Item Value Reference Range Interpretation Comments UA Nitrite (test code Negative (01/04/18 3:29 = UA Nitrite) PM) [facility] [id number] 20:29:00 Test Item Value Reference Range Interpretation Comments UA Blood (test code = Moderate *ABN*(01/04/18 UA Blood) 3:29 PM) [facility] [id number] 20:29:00 Test Item Value Reference Range Interpretation Comments UA Bacteria (test code = UA Few /HPF Bacteria) [facility] [id number] 20:29:00 Test Item Value Reference Range Interpretation Comments UA RBC (test code = 17 See_Comment [Automa abdoul message] The UA RBC) system which ge nerated this result transmit abdoul reference range : <=2. The reference range was not used to interpr et this result as neftali l/abnormal. [facility] BYGHZ2704-08-26 20:29:00 Test Item Value Reference Range Interpretation Comments UA WBC (test code = 60 See_Comment [Automa abdoul message] The UA WBC) system which ge nerated this result transmit abdoul reference range : <=5. The reference range was not used to interpr et this result as neftali l/abnormal. [facility] [id number] 20:29:00 Test Item Value Reference Range Interpretation Comments UA [place] Yeast (test code = UA [place] Few /HPF Yeast) [facility] [id number] 20:29:00 Test Item Value Reference Range Interpretation Comments UA Amorph Shanna (test code = Occasional /HPF UA Amorph Shanna) [facility] [id number] 20:29:00 Test Item Value Reference Range Interpretation Comments UA Mucus (test code = UA Mucus) Few /LPF [facility] [id number] 20:29:00 Test Item Value Reference Range Interpretation Comments UA Spec Grav (test code = UA Spec 1.012 1 Grav) [facility] AND [id number] 20:29:00 Test Item Value Reference Range Interpretation Comments UA pH (test code = UA pH) 7.0 1 5.0-8.0 [facility] [id number] 20:29:00 Test Item Value Reference Range Interpretation Comments UA Protein (test code = UA Negative mg/dL Protein) [facility] [id number] 20:29:00 Test Item Value Reference Range Interpretation Comments UA Glucose (test code = UA Negative mg/dL Glucose) [facility] [id number] 20:29:00 Test Item Value Reference Range Interpretation Comments UA Bili (test code = Negative *NA*(01/04/18 UA Bili) 3:29 PM) [facility] AND [id number] 20:29:00 Test Item Value Reference Range Interpretation Comments UA Ketones (test code = UA Negative mg/dL Ketones) [facility] AND [id number] 20:29:00 Test Item Value Reference Range Interpretation Comments UA Color (test code = Yellow *NA*(01/04/18 UA Color) 3:29 PM) [facility] AND [id number] 20:29:00 Test Item Value Reference Range Interpretation Comments UA Turbidity (test code Slight *ABN*(01/04/18 = UA Turbidity) 3:29 PM) [facility] [id number] 20:29:00 Test Item Value Reference Range Interpretation Comments Lipase Lvl (test code = Lipase Lvl) 134 73-[address] [facility] HospitalQykhfylQWZMBCCWRYSU5501-40-75 20:29:00 Test Item Value Reference Range Interpretation Comments AGAP (test code = AGAP) 11.7 10.0-20.[address] [facility] HospitalUolailyMMTHIMAKAQAK2971-64-45 20:29:00 Test Item Value Reference Range Interpretation Comments B/C Ratio (test code = B/C Ratio) 9 1 6-25 [facility]TfxkbdbWUWHNFBNZTKT9212-03-58 20:29:00 Test Item Value Reference Range Interpretation Comments A/G Ratio (test code = A/G Ratio) 1.0 1 0.7-1.6 [facility] RegionUypefebKYOODWQXDEKX3046-91-15 20:29:00 Test Item Value Reference Range Interpretation Comments Globulin (test code = Globulin) 4.5 2.7-4.2 [facility] RegionXghfpyuCNMRGUTNXWMW6758-96-40 20:29:00 Test Item Value Reference Range Interpretation Comments eGFR (test code = eGFR) 128 [facility] RegionDprscmcADPSCPNZMXRV4730-99-86 20:29:00 Test Item Value Reference Range Interpretation Comments Albumin Lvl (test code = Albumin Lvl) 4.4 3.5-5.0 [facility] RegionRbxthkwVVZPIXMMBOMD0649-13-62 20:29:00 Test Item Value Reference Range Interpretation Comments ALT (test code = ALT) 145 See_Comment [Auto mated message] The system which ge nerated this result transmit abdoul reference range : <=65. The reference range was not used to interpr et this result as neftali l/abnormal. [facility] RegionJvciwafKTDSKATJJVOD4751-85-64 20:29:00 Test Item Value Reference Range Interpretation Comments AST (test code = AST) 84 See_Comment [Auto mated message] The system which ge nerated this result transmit abdoul reference range : <=37. The reference range was not used to interpr et this result as neftali l/abnormal. [facility] RegionAxkwwrsDIPEUXJUTYWQ0194-31-73 20:29:00 Test Item Value Reference Range Interpretation Comments Alk Phos (test code = Alk Phos) 92 39-136 [facility] RegionNtkqukjKLJTZCISZWUT7072-21-18 20:29:00 Test Item Value Reference Range Interpretation Comments Bili Total (test code = Bili Total) 0.5 0.2-1.3 [facility] RegionWbxqhosYDEGCOWSBADC7278-90-23 20:29:00 Test Item Value Reference Range Interpretation Comments Creatinine Lvl (test code = Creatinine 0.69 0.50-1.40 Lvl) [facility] RegionKgjgineVYPYIMMGFUHV6006-79-20 20:29:00 Test Item Value Reference Range Interpretation Comments Sodium Lvl (test code = Sodium Lvl) 139 135-145 [facility] RegionVtnmsqvQHFWUFVVGWWE6364-90-99 20:29:00 Test Item Value Reference Range Interpretation Comments Chloride Lvl (test code = Chloride Lvl) 104 95-109 [facility] RegionMbzimfpRNMKXCJBDSXK5219-29-89 20:29:00 Test Item Value Reference Range Interpretation Comments Calcium Lvl (test code = Calcium Lvl) 9.5 8.5-10.5 [facility] RegionMjrsvquBBVEBYNZFWUQ2585-46-56 20:29:00 Test Item Value Reference Range Interpretation Comments Total Protein (test code = Total 8.9 6.4-8.4 Protein) [facility] RegionYecikmsFNKBIGULOZGK0463-76-79 20:29:00 Test Item Value Reference Range Interpretation Comments CO2 (test code = CO2) 27 24-32 [facility] RegionMzvbzafITBFEKRQLIWI5082-07-04 20:29:00 Test Item Value Reference Range Interpretation Comments Potassium Lvl (test code = Potassium 3.7 3.5-5.1 Lvl) [facility] RegionAvofmjyREPRJPFDBNDH7791-25-38 20:29:00 Test Item Value Reference Range Interpretation Comments BUN (test code = BUN) 6 7-22 [facility] RegionXxyynieNBVEEGZWMTMR6147-93-57 20:29:00 Test Item Value Reference Range Interpretation Comments Glucose Lvl (test code = Glucose Lvl) 95 70-99 [facility]reoFRQIYURJMWXSN5454-77-51 20:29:00 Test Item Value Reference Range Interpretation Comments S Preg (test code = S Negative *NA*(01/04/18 Preg) 3:29 PM) [facility]TtqamjiUZPTGPNHKS2285-34-27 20:29:00 Test Item Value Reference Range Interpretation Comments Lymphocytes # (test code = Lymphocytes 2.6 1.0-5.5 #) [facility] HospitalImmcljoPEVXRZPFAT7306-39-54 20:29:00 Test Item Value Reference Range Interpretation Comments Monocytes # (test code 0.6 See_Comment [Aut omated message] The = Monocytes #) system which generated this result tra nsmitted reference range : <=0.8. The reference r kary was not used to int erpret this result as normal/abnormal . [facility] HospitalKguetnqSLNXBMEYXA8985-77-52 20:29:00 Test Item Value Reference Range Interpretation Comments Eosinophils # (test code 0.2 See_Comment [A utomated message] The = Eosinophils #) system whic h generated this result tra nsmitted reference range : <=0.5. The reference r kary was not used to int erpret this result as normal/abnormal . [facility] HospitalZfhxbnhKUUFHACOKM6269-67-36 20:29:00 Test Item Value Reference Range Interpretation Comments Basophils # (test code 0.1 See_Comment [Aut omated message] The = Basophils #) system which generated this result tra nsmitted reference range : <=0.2. The reference r kary was not used to int erpret this result as normal/abnormal . [facility] HospitalOakeoqcXUQXXGWWXV6970-09-89 20:29:00 Test Item Value Reference Range Interpretation Comments Eosinophils (test code = 1.8 See_Comment [A utomated message] The Eosinophils) system which ge nerated this result tra nsmitted reference range : <=4.0. The reference r kary was not used to int erpret this result as normal/abnormal . [facility] HospitalKaznpbiXTXEHMXDLO6324-54-81 20:29:00 Test Item Value Reference Range Interpretation Comments Monocytes (test code = Monocytes) 5.7 2.0-12.0 [facility] HospitalBgfmamcVTYGEEESFO2848-47-16 20:29:00 Test Item Value Reference Range Interpretation Comments Lymphocytes (test code = Lymphocytes) 23.3 20.0-40.0 [facility] HospitalHqoucfoAKRLVCGXEB8902-11-83 20:29:00 Test Item Value Reference Range Interpretation Comments Segs (test code = Segs) 68.7 45.0-75.0 [facility] HospitalKfieypoAQFIMBVNLJ8643-12-58 20:29:00 Test Item Value Reference Range Interpretation Comments Segs-Bands # (test code = Segs-Bands #) 7.7 1.5-8.1 [facility] HospitalDkgyculIYAGHRTOZI5986-05-61 20:29:00 Test Item Value Reference Range Interpretation Comments Basophils (test code = 0.5 See_Comment [Aut omated message] The Basophils) system which ge nerated this result tra nsmitted reference range : <=1.0. The reference r kary was not used to int erpret this result as normal/abnormal . [facility] HospitalPdelhvhICCPHASSIW3754-30-79 20:29:00 Test Item Value Reference Range Interpretation Comments MPV (test code = MPV) 8.4 7.4-10.4 [facility] HospitalInbywaiLFTUVALXTN5390-29-02 20:29:00 Test Item Value Reference Range Interpretation Comments WBC (test code = WBC) 11.2 3.7-10.4 [facility] HospitalBqfneinDIGRHIDLGP2939-46-27 20:29:00 Test Item Value Reference Range Interpretation Comments Hgb (test code = Hgb) 16.2 12.0-16.0 [facility] HospitalSnlaoqcHCHEKGEABC3223-71-45 20:29:00 Test Item Value Reference Range Interpretation Comments RBC (test code = RBC) 5.39 4.20-5.40 [facility] HospitalOexaasiRXJJBFQKPZ6362-70-10 20:29:00 Test Item Value Reference Range Interpretation Comments RDW (test code = RDW) 13.4 11.5-14.5 [facility] HospitalDxfzzbfXBLZKZFQMU5399-38-28 20:29:00 Test Item Value Reference Range Interpretation Comments MCH (test code = MCH) 30.1 pg 27.0-31.0 [facility] HospitalFzpgcvpMPSOYRWHOV8570-53-85 20:29:00 Test Item Value Reference Range Interpretation Comments MCHC (test code = MCHC) 33.9 32.0-36.0 [facility] HospitalRbvqknuZFAPDDKZGS0728-24-31 20:29:00 Test Item Value Reference Range Interpretation Comments Platelet (test code = Platelet) 311 133-450 [facility] HospitalDjqejkpLICNXHGZJN2693-34-96 20:29:00 Test Item Value Reference Range Interpretation Comments Hct (test code = Hct) 47.8 36.0-48.0 [facility] HospitalKsxnjbwBEPNHNSHIA7797-61-78 20:29:00 Test Item Value Reference Range Interpretation Comments MCV (test code = MCV) 88.6 80.0-98.0 [facility] [id number] 20:29:00 Test Item Value Reference Range Interpretation Comments UA Urobilinogen (test code = UA <=1.0 mg/dL 0.1-1.0 Urobilinogen) [facility] AND LTOBE1812-10-04 20:29:00 Test Item Value Reference Range Interpretation Comments UA Sq Epi (test code = UA Sq Occasional /LPF Epi) [facility] [id number] 20:29:00 Test Item Value Reference Range Interpretation Comments UA Leuk Est (test code Small *ABN*(01/04/18 = UA Leuk Est) 3:29 PM) [facility] AND [id number] 20:29:00 Test Item Value Reference Range Interpretation Comments UA Nitrite (test code Negative (01/04/18 3:29 = UA Nitrite) PM) [facility] [id number] 20:29:00 Test Item Value Reference Range Interpretation Comments UA Blood (test code = Moderate *ABN*(01/04/18 UA Blood) 3:29 PM) [facility] AND [id number] 20:29:00 Test Item Value Reference Range Interpretation Comments UA Bacteria (test code = UA Few /HPF Bacteria) [facility] AND [id number] 20:29:00 Test Item Value Reference Range Interpretation Comments UA RBC (test code = 17 See_Comment [Automa abdoul message] The UA RBC) system which ge nerated this result transmit abdoul reference range : <=2. The reference range was not used to interpr et this result as neftali l/abnormal. [facility] [id number] 20:29:00 Test Item Value Reference Range Interpretation Comments UA WBC (test code = 60 See_Comment [Automa abdoul message] The UA WBC) system which ge nerated this result transmit abdoul reference range : <=5. The reference range was not used to interpr et this result as neftali l/abnormal. [facility] PLCWQ3416-71-05 20:29:00 Test Item Value Reference Range Interpretation Comments UA [place] Yeast (test code = UA [place] Few /HPF Yeast) [facility] [id number] 20:29:00 Test Item Value Reference Range Interpretation Comments UA Amorph Shanna (test code = Occasional /HPF UA Amorph Shanna) [facility] AND [id number] 20:29:00 Test Item Value Reference Range Interpretation Comments UA Mucus (test code = UA Mucus) Few /LPF [facility] AND [id number] 20:29:00 Test Item Value Reference Range Interpretation Comments UA Spec Grav (test code = UA Spec 1.012 1 Grav) [facility] AND [id number] 20:29:00 Test Item Value Reference Range Interpretation Comments UA pH (test code = UA pH) 7.0 1 5.0-8.0 [facility] [id number] 20:29:00 Test Item Value Reference Range Interpretation Comments UA Protein (test code = UA Negative mg/dL Protein) [facility] [id number] 20:29:00 Test Item Value Reference Range Interpretation Comments UA Glucose (test code = UA Negative mg/dL Glucose) [facility] [id number] 20:29:00 Test Item Value Reference Range Interpretation Comments UA Bili (test code = Negative *NA*(01/04/18 UA Bili) 3:29 PM) [facility] [id number] 20:29:00 Test Item Value Reference Range Interpretation Comments UA Ketones (test code = UA Negative mg/dL Ketones) [facility] [id number] 20:29:00 Test Item Value Reference Range Interpretation Comments UA Color (test code = Yellow *NA*(01/04/18 UA Color) 3:29 PM) [facility] [id number] 20:29:00 Test Item Value Reference Range Interpretation Comments UA Turbidity (test code Slight *ABN*(01/04/18 = UA Turbidity) 3:29 PM) [facility] QEHHE5150-79-30 20:29:00 Test Item Value Reference Range Interpretation Comments Lipase Lvl (test code = Lipase Lvl) 134 73-[address] [facility] HospitalDrykyjmAKSBBPCAOOZW9282-67-21 20:29:00 Test Item Value Reference Range Interpretation Comments AGAP (test code = AGAP) 11.7 10.0-20.[address] [facility] HospitalVvtfaygPLJADMEFMFQL2569-09-63 20:29:00 Test Item Value Reference Range Interpretation Comments B/C Ratio (test code = B/C Ratio) 9 1 6-25 [facility]MwwyofcKFPMSRREVUSJ3460-93-91 20:29:00 Test Item Value Reference Range Interpretation Comments A/G Ratio (test code = A/G Ratio) 1.0 1 0.7-1.[address] [facility] HospitalTrppkydWQJDHPFDMVSH2584-64-22 20:29:00 Test Item Value Reference Range Interpretation Comments Globulin (test code = Globulin) 4.5 2.7-4.[address] [facility] HospitalKvwckctMPWPJNBKMCHC2190-50-09 20:29:00 Test Item Value Reference Range Interpretation Comments eGFR (test code = eGFR) [address] [facility] [address] HospitalIfdkpgtPWUJOTTVANJW9015-34-94 20:29:00 Test Item Value Reference Range Interpretation Comments Albumin Lvl (test code = Albumin Lvl) 4.4 3.5-5.[address] [facility] [address] HospitalRhtdbokDWMMHMKYIFQE5384-83-27 20:29:00 Test Item Value Reference Range Interpretation Comments ALT (test code = ALT) 145 See_Comment [Auto mated message] The system which ge nerated this result transmit abdolu reference range : <=65. The reference range was not used to interpr et this result as neftali l/abnormal. [facility] RegionYcuqrtjQHBZRQMQQJSK5220-83-56 20:29:00 Test Item Value Reference Range Interpretation Comments AST (test code = AST) 84 See_Comment [Auto mated message] The system which ge nerated this result transmit abdoul reference range : <=37. The reference range was not used to interpr et this result as neftali l/abnormal. [facility] RegionWezkgubACVYWSSWNGCJ2188-27-61 20:29:00 Test Item Value Reference Range Interpretation Comments Alk Phos (test code = Alk Phos) 92 39-136 [facility] RegionJbesgvmPMEMDAXQPIIW6357-31-39 20:29:00 Test Item Value Reference Range Interpretation Comments Bili Total (test code = Bili Total) 0.5 0.2-1.3 [facility] RegionBtcqryvSSFFTIMEZXKY1785-70-19 20:29:00 Test Item Value Reference Range Interpretation Comments Creatinine Lvl (test code = Creatinine 0.69 0.50-1.40 Lvl) [facility] RegionJnbzutwIWQZTNQGHYLI2295-43-33 20:29:00 Test Item Value Reference Range Interpretation Comments Sodium Lvl (test code = Sodium Lvl) 139 135-145 [facility] RegionMbhmemuTDIHYELKKAMN7648-28-64 20:29:00 Test Item Value Reference Range Interpretation Comments Chloride Lvl (test code = Chloride Lvl) 104 95-109 [facility] RegionDjuhvpsEGIMKWVLHWLM0353-18-42 20:29:00 Test Item Value Reference Range Interpretation Comments Calcium Lvl (test code = Calcium Lvl) 9.5 8.5-10.5 [facility] RegionYxuglpkROTIMCPGUESA9417-09-17 20:29:00 Test Item Value Reference Range Interpretation Comments Total Protein (test code = Total 8.9 6.4-8.4 Protein) [facility] RegionDzyvvudTEDYKEBMPQGW0914-93-01 20:29:00 Test Item Value Reference Range Interpretation Comments CO2 (test code = CO2) 27 24-32 [facility] RegionHasrrsrVPGTTYCFXKGN7400-58-82 20:29:00 Test Item Value Reference Range Interpretation Comments Potassium Lvl (test code = Potassium 3.7 3.5-5.1 Lvl) [facility] RegionGtkygisJFZWPKRODGAE9432-27-69 20:29:00 Test Item Value Reference Range Interpretation Comments BUN (test code = BUN) 6 7-22 [facility] RegionTugkqqqCPJTRTVBWICI6123-52-47 20:29:00 Test Item Value Reference Range Interpretation Comments Glucose Lvl (test code = Glucose Lvl) 95 70-99 [place] 32985018-03-11 20:29:00 Test Item Value Reference Range Interpretation Comments S Preg (test code = S Negative *NA*(01/04/18 Preg) 3:29 PM) [facility] HospitalWtfguduERASXVXBLS4464-89-85 20:29:00 Test Item Value Reference Range Interpretation Comments Lymphocytes # (test code = Lymphocytes 2.6 1.0-5.5 #) [facility] HospitalOtucemfTQMLVLEEZL1145-14-67 20:29:00 Test Item Value Reference Range Interpretation Comments Monocytes # (test code 0.6 See_Comment [Aut omated message] The = Monocytes #) system which generated this result tra nsmitted reference range : <=0.8. The reference r kary was not used to int erpret this result as normal/abnormal . [facility] HospitalLqhgxraTJABIFPRYS3606-03-99 20:29:00 Test Item Value Reference Range Interpretation Comments Eosinophils # (test code 0.2 See_Comment [A utomated message] The = Eosinophils #) system whic h generated this result tra nsmitted reference range : <=0.5. The reference r kary was not used to int erpret this result as normal/abnormal . [facility] HospitalNztwiokZJWYYUTFMR1762-15-52 20:29:00 Test Item Value Reference Range Interpretation Comments Basophils # (test code 0.1 See_Comment [Aut omated message] The = Basophils #) system which generated this result tra nsmitted reference range : <=0.2. The reference r kary was not used to int erpret this result as normal/abnormal . [facility] HospitalEhenpxlIYBTQLUAUK8253-23-75 20:29:00 Test Item Value Reference Range Interpretation Comments Eosinophils (test code = 1.8 See_Comment [A utomated message] The Eosinophils) system which ge nerated this result tra nsmitted reference range : <=4.0. The reference r kary was not used to int erpret this result as normal/abnormal . [facility] HospitalDwswpkdAIEHQDQZTF0276-42-44 20:29:00 Test Item Value Reference Range Interpretation Comments Monocytes (test code = Monocytes) 5.7 2.0-12.0 [facility] HospitalCveueuyZDRJNSCHBK0048-50-76 20:29:00 Test Item Value Reference Range Interpretation Comments Lymphocytes (test code = Lymphocytes) 23.3 20.0-40.0 [facility] HospitalKzneetwSQNCMSQEHO9482-94-06 20:29:00 Test Item Value Reference Range Interpretation Comments Segs (test code = Segs) 68.7 45.0-75.0 [facility] HospitalCkryenfHYZQMDXXPW8938-43-09 20:29:00 Test Item Value Reference Range Interpretation Comments Segs-Bands # (test code = Segs-Bands #) 7.7 1.5-8.1 [facility] HospitalDilhhttEHKKFAFAYG5451-24-53 20:29:00 Test Item Value Reference Range Interpretation Comments Basophils (test code = 0.5 See_Comment [Aut omated message] The Basophils) system which ge nerated this result tra nsmitted reference range : <=1.0. The reference r kary was not used to int erpret this result as normal/abnormal . [facility] HospitalUaaywiiLXIUDEPHTQ2688-11-00 20:29:00 Test Item Value Reference Range Interpretation Comments MPV (test code = MPV) 8.4 7.4-10.4 [facility] HospitalBfgjmofJHNTSXTRRM6025-06-13 20:29:00 Test Item Value Reference Range Interpretation Comments WBC (test code = WBC) 11.2 3.7-10.4 [facility] HospitalBpxbefdKEQQQQXMMJ6568-39-78 20:29:00 Test Item Value Reference Range Interpretation Comments Hgb (test code = Hgb) 16.2 12.0-16.0 [facility] HospitalOlkkgxyVXBUCFYLVE5867-32-41 20:29:00 Test Item Value Reference Range Interpretation Comments RBC (test code = RBC) 5.39 4.20-5.40 [facility] HospitalMliejanIMMSEKVXYB5026-24-67 20:29:00 Test Item Value Reference Range Interpretation Comments RDW (test code = RDW) 13.4 11.5-14.5 [facility] HospitalVxkvtlaZUXJSAGINS7403-86-30 20:29:00 Test Item Value Reference Range Interpretation Comments MCH (test code = MCH) 30.1 pg 27.0-31.0 [facility] HospitalKeicgagCKFYAYBSJA9806-61-66 20:29:00 Test Item Value Reference Range Interpretation Comments MCHC (test code = MCHC) 33.9 32.0-36.0 [facility] HospitalNjlpplqHCDSVUFSVH6002-13-71 20:29:00 Test Item Value Reference Range Interpretation Comments Platelet (test code = Platelet) 311 133-450 [facility] HospitalAatohlzHAWWTOJPPA5254-38-13 20:29:00 Test Item Value Reference Range Interpretation Comments Hct (test code = Hct) 47.8 36.0-48.0 [facility] HospitalFahdqlxSWCFGVELJZ4271-11-53 20:29:00 Test Item Value Reference Range Interpretation Comments MCV (test code = MCV) 88.6 80.0-98.0 [facility] [id number] 20:29:00 Test Item Value Reference Range Interpretation Comments UA Urobilinogen (test code = UA <=1.0 mg/dL 0.1-1.0 Urobilinogen) [facility] [id number] 20:29:00 Test Item Value Reference Range Interpretation Comments UA Sq Epi (test code = UA Sq Occasional /LPF Epi) [facility] [id number] 20:29:00 Test Item Value Reference Range Interpretation Comments UA Leuk Est (test code Small *ABN*(01/04/18 = UA Leuk Est) 3:29 PM) [facility] [id number] 20:29:00 Test Item Value Reference Range Interpretation Comments UA Nitrite (test code Negative (01/04/18 3:29 = UA Nitrite) PM) [facility] [id number] 20:29:00 Test Item Value Reference Range Interpretation Comments UA Blood (test code = Moderate *ABN*(01/04/18 UA Blood) 3:29 PM) [facility] [id number] 20:29:00 Test Item Value Reference Range Interpretation Comments UA Bacteria (test code = UA Few /HPF Bacteria) [facility] [id number] 20:29:00 Test Item Value Reference Range Interpretation Comments UA RBC (test code = 17 See_Comment [Automa abdoul message] The UA RBC) system which ge nerated this result transmit abdoul reference range : <=2. The reference range was not used to interpr et this result as neftali l/abnormal. [facility] [id number] 20:29:00 Test Item Value Reference Range Interpretation Comments UA WBC (test code = 60 See_Comment [Automa abdoul message] The UA WBC) system which ge nerated this result transmit abdoul reference range : <=5. The reference range was not used to interpr et this result as neftali l/abnormal. [facility] [id number] 20:29:00 Test Item Value Reference Range Interpretation Comments UA [place] Yeast (test code = UA [place] Few /HPF Yeast) [facility] [id number] 20:29:00 Test Item Value Reference Range Interpretation Comments UA Amorph Shanna (test code = Occasional /HPF UA Amorph Shanna) [facility] [id number] 20:29:00 Test Item Value Reference Range Interpretation Comments UA Mucus (test code = UA Mucus) Few /LPF [facility] [id number] 20:29:00 Test Item Value Reference Range Interpretation Comments UA Spec Grav (test code = UA Spec 1.012 1 Grav) [facility] [id number] 20:29:00 Test Item Value Reference Range Interpretation Comments UA pH (test code = UA pH) 7.0 1 5.0-8.0 [facility] [id number] 20:29:00 Test Item Value Reference Range Interpretation Comments UA Protein (test code = UA Negative mg/dL Protein) [facility] [id number] 20:29:00 Test Item Value Reference Range Interpretation Comments UA Glucose (test code = UA Negative mg/dL Glucose) [facility] [id number] 20:29:00 Test Item Value Reference Range Interpretation Comments UA Bili (test code = Negative *NA*(01/04/18 UA Bili) 3:29 PM) [facility] [facility] [id number] 20:29:00 Test Item Value Reference Range Interpretation Comments UA Ketones (test code = UA Negative mg/dL Ketones) [facility] AND [id number] 20:29:00 Test Item Value Reference Range Interpretation Comments UA Color (test code = Yellow *NA*(01/04/18 UA Color) 3:29 PM) [facility] AND [id number] 20:29:00 Test Item Value Reference Range Interpretation Comments UA Turbidity (test code Slight *ABN*(01/04/18 = UA Turbidity) 3:29 PM) Miladys Antunez
[2023-01-13 23:44] LABS: Absolute Lymphocytes (CBC) 2.5 K/uL (0.7-4.9); Hematocrit 32.3 % (36.0-45.0); Lymphocytes % 26.2 % (15.3-44.8); MCV 86.5 fL (80-100); MPV 8.1 fL (7.6-11.3); RBC Red Blood Cell Count 3.74 M/uL (3.86-4.86)
[2023-01-13 23:57] LABS: Albumin 3.1 g/dL (3.4-5.0); Bilirubin Total 0.2 mg/dL (0.2-1.0); Potassium 3.7 mEq/L (3.5-5.1); Protein, Total 7.2 g/dL (6.4-8.2)
[2023-01-14 00:44] LABS: Urine Bacteria <20 /HPF (<20); Urine Bilirubin NEGATIVE (Negative); Urine Blood Negative (Negative); Urine Clarity Turbid (Clear); Urine Color Light-Yellow (Yellow); Urine Glucose NEGATIVE (Negative); Urine Mucus 3+ /HPF (None Seen); Urine Protein TRACE (Negative); Urine RBC <5 /HPF (None Seen); Urine Urobilinogen Normal (Normal); Urine pH 6.5 (5.0-7.0)
--- NOTE | 2023-01-14 00:44 | ER ---
Nurse's Notes [facility] Name: Tiffany Chaudhry Age: 22 yrs Sex: Female : 2000 Arrival Date: 01/13/2023 Time: 21:42 Bed 13 Private MD: Diagnosis: related conditions, unspecified, unspecified trimester;Low back pain;Abdominal pain, unspecified Presentation: 01/13 21:57 Chief complaint: Patient states: "I'll be 18 weeks on and yesterday I as6 started having some pains in my right side". Coronavirus screen: At this time, the client does not indicate any symptoms associated with coronavirus-19. Ebola Screen: No symptoms or risks identified at this time. Initial Sepsis Screen: Does the patient meet any 2 criteria? No. Patient's initial sepsis screen is negative. Does the patient have a suspected source of infection? No. Patient's initial sepsis screen is negative. Risk Assessment: Do you want to hurt yourself or someone else? Patient reports no desire to harm self or others. Onset of symptoms was January 12, 2023. 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 - Social history:: Smoking status: Patient denies any tobacco usage or history of. Screenin:00 [facility] ED Fall Risk Assessment (Adult) History of falling in the last 3 months, pf1 including since admission No falls in past 3 months (0 pts) Confusion or Disorientation No (0 pts) Intoxicated or Sedated No (0 pts) Impaired Gait No (0 pts) Mobility Assist Device Used No (0 pt) Altered Elimination No (0 pt) Score/Fall Risk Level 0 - 2 = Low Risk Oriented to surroundings, Maintained a safe environment, Educated pt \\T\\ family on fall prevention, incl call for assistance when getting out of bed, Assessed \\T\\ reinforced patient's understanding of fall precautions, Provided non-skid footwear, Hourly rounding (assess needs \\T\\ fall precautionary measures) done, Used ambulatory aids as needed (educated on \\T\\ assisted with), Used gait belt as appropriate. 23:00 Abuse screen: Denies threats or abuse. Nutritional screening: No deficits noted. pf1 Tuberculosis screening: No symptoms or risk factors identified. Assessment: 23:00 General: Appears in no apparent distress. comfortable, well groomed, well developed, pf1 Behavior is calm, cooperative, appropriate for age, quiet. 23:00 Pain: Complains of pain in back Pain currently is 6 out of 10 on a pain scale. Pain pf1 began yesterday. Neuro: No deficits noted. Level of Consciousness is awake, alert, obeys commands, Oriented to person, place, time, situation. Cardiovascular: No deficits noted. Capillary refill < 3 seconds Patient's skin is warm and dry. Respiratory: No deficits noted. Airway is patent Trachea midline Respiratory effort is even, unlabored, Respiratory pattern is regular, symmetrical. GI: No deficits noted. Abdomen is round non-distended, Bowel sounds present X 4 quads. : No deficits noted. No signs and/or symptoms were reported regarding the genitourinary system. EENT: No deficits noted. No signs and/or symptoms were reported regarding the EENT system. Derm: No deficits noted. No signs and/or symptoms reported regarding the dermatologic system. Musculoskeletal: Reports pain in back since yesterday. 01/14 00:00 Reassessment: Patient appears in no apparent distress at this time. Patient and/or pf1 family updated on plan of care and expected duration. Pain level reassessed. Patient is alert, oriented x 3, equal unlabored respirations, skin warm/dry/pink. Patient states feeling better. Patient states symptoms have improved. Vital Signs: 01/13 21:57 BP 112 / 64; Pulse 84; Resp 18 S; Temp 98(O); Pulse Ox 99% on R/A; Weight 80.74 kg (R); as6 Height 5 ft. 3 in. (R); Pain 8/10; 23:00 BP 110 / 69; Pulse 72; Resp 18; Pulse Ox 100% on R/A; Pain 6/10; pf1 01/14 00:00 BP 114 / 67; Pulse 72; Resp 16; Pulse Ox 100% on R/A; Pain 4/10; pf1 01/13 21:57 Body Mass Index 31.53 (80.74 kg, 160.02 cm) as6 01/13 21:57 Pain Scale: Adult as6 23:00 Pain Scale: Adult pf1 01/14 00:00 Pain Scale: Adult pf1 ED Course: 01/13 21:42 Patient arrived in ED. ja2 21:52 Medardo Arita PA is PHCP. cp 21:52 Jose De Los Santos MD is Attending Physician. cp 22:00 Triage completed. as6 22:00 Arm band placed on. as6 23:00 Patient has correct armband on for positive identification. Placed in gown. Bed in low pf1 position. Call light in reach. 23:05 Inserted saline lock: 20 gauge in right antecubital area, using aseptic technique. as6 Blood collected. 01/14 00:08 Ivelisse dubon, JUAQUIN is Primary Nurse. pf1 00:50 No provider procedures requiring assistance completed. IV discontinued, intact, pf1 bleeding controlled, No redness/swelling at site. Pressure dressing applied. Administered Medications: No medications were administered Medication: 00:00 VIS not applicable for this client. pf1 Outcome: 00:43 Discharge ordered by MD. cp 00:50 Discharged to home ambulatory. pf1 00:50 Condition: stable 00:50 Discharge instructions given to patient, Instructed on discharge instructions, follow up and referral plans. Demonstrated understanding of instructions, follow-up care. 00:51 Patient left the ED. pf1 Signatures: Medardo Arita PA PA cp Alexander, Jessica 2 Kendrick Triana RN RN as6 Ivelisse dubon, JUAQUIN RN pf1 Corrections: (The following items were deleted from the chart) 06:36 06:36 General: Appears pf1 pf1
--- NOTE | 2023-01-14 00:44 | EDPHYS ---
Physician Documentation [facility] Name: Tiffany Chaudhry Age: 22 yrs Sex: Female : 2000 Arrival Date: 01/13/2023 Time: 21:42 Bed 13 Private MD: ED Physician Jose De Los Santos HPI: 01/13 22:30 This 22 yrs old Female presents to ER via Ambulatory with complaints of Flank cp Pain. 22:30 The patient complains of pain in the right flank. cp 22:30 The pain radiates to the right upper quadrant. Onset: The symptoms/episode cp began/occurred yesterday, and became worse today. Associated signs and symptoms: Pertinent negatives: diarrhea, dysuria, fever, urinary frequency, hematuria, pain radiating to the lower extremities, vomiting. Severity of pain: in the emergency department the pain is unchanged despite home interventions. Patient reports she is approximately 18 weeks gestation. Patient denies vaginal bleeding, denies leakage of fluids. 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 - Social history:: Smoking status: Patient denies any tobacco usage or history of. ROS: 22:35 Constitutional: Negative for body aches, chills, fever, poor PO intake. cp 22:35 Back: Positive for flank pain, on the right. 22:35 Eyes: Negative for injury, pain, redness, and discharge. cp 22:35 ENT: Negative for drainage from ear(s), ear pain, sore throat, difficulty swallowing, difficulty handling secretions. 22:35 Cardiovascular: Negative for chest pain, palpitations. 22:35 Respiratory: Negative for cough, shortness of breath, wheezing. 22:35 Abdomen/GI: Positive for abdominal pain, of the right upper quadrant, Negative for vomiting, diarrhea, constipation, anorexia. 22:35 : Negative for urinary symptoms, pelvic pain, vaginal bleeding, vaginal discharge. 22:35 Skin: Negative for cellulitis, rash. Exam: 22:40 Constitutional: The patient appears in no acute distress, alert, awake, non-toxic, well cp developed, well nourished. 22:40 Head/Face: Normocephalic, atraumatic. cp 22:40 Eyes: Periorbital structures: appear normal, Conjunctiva: normal, no exudate, no injection, Sclera: no appreciated abnormality, Lids and lashes: appear normal, bilaterally. 22:40 ENT: External ear(s): are unremarkable, Nose: is normal, Mouth: Lips: moist, Oral mucosa: moist, Posterior pharynx: is normal, airway is patent, no erythema, no exudate. 22:40 Chest/axilla: Inspection: normal. 22:40 Cardiovascular: Rate: normal, Rhythm: regular. 22:40 Respiratory: the patient does not display signs of respiratory distress, Respirations: normal, no use of accessory muscles, no retractions, labored breathing, is not present, Breath sounds: are clear throughout, no decreased breath sounds, no stridor, no wheezing. 22:40 Abdomen/GI: Inspection: abdomen appears normal, Bowel sounds: active, all quadrants, Palpation: soft, in all quadrants, mild abdominal tenderness, in the right upper quadrant and right upper lateral abdomen, rebound tenderness, is not appreciated, involuntary guarding, is not appreciated. 22:40 Back: pain, that is mild, of the right mid back, ROM is normal. 22:40 Skin: cellulitis, is not appreciated, no rash present. 22:40 Neuro: Orientation: to person, place \T\ time. Mentation: is normal, Motor: moves all fours, strength is normal, Sensation: is normal, Gait: is steady, at a normal pace, without difficulty. Vital Signs: 21:57 BP 112 / 64; Pulse 84; Resp 18 S; Temp 98(O); Pulse Ox 99% on R/A; Weight 80.74 kg (R); as6 Height 5 ft. 3 in. (R); Pain 8/10; 23:00 BP 110 / 69; Pulse 72; Resp 18; Pulse Ox 100% on R/A; Pain 6/10; pf1 01/14 00:00 BP 114 / 67; Pulse 72; Resp 16; Pulse Ox 100% on R/A; Pain 4/10; pf1 01/13 21:57 Body Mass Index 31.53 (80.74 kg, 160.02 cm) as6 01/13 21:57 Pain Scale: Adult as6 23:00 Pain Scale: Adult pf1 01/14 00:00 Pain Scale: Adult pf1 MDM: 01/13 22:03 Patient medically screened. cp 23:00 Differential diagnosis: nephrolithiasis, pyelonephritis, UTI, cholelithiasis, cp cholecystitis. 01/14 00:41 Data reviewed: vital signs, nurses notes, lab test result(s). ED course: Discussed cp results of returned labs. Patient reports she would like to be discharged at this time and does not want to wait to have radiology studies done. 00:42 Counseling: I had a detailed discussion with the patient and/or guardian regarding: the cp historical points, exam findings, and any diagnostic results supporting the discharge/admit diagnosis, lab results, the need for outpatient follow up, an OB/Gyne specialist, to return to the emergency department if symptoms worsen or persist or if there are any questions or concerns that arise at home. Special discussion: Based on the patient's Hx, exam, and Dx evaluation, there is no indication for emergent surgery or inpatient Tx. It is understood by the patient/guardian that if the Sx's persist or worsen they need to return immediately for re-evaluation. 01/13 22:08 Order name: CBC with Diff; Complete Time: 00:19 cp 01/14 00:20 Interpretation: Normal except: RBC 3.74; HGB 10.8; HCT 32.3; RDW 16.1. cp 01/13 22:08 Order name: CMP; Complete Time: 00:20 cp 01/14 00:20 Interpretation: Normal except: GLUC 107; BUN 5; AST 10; ALB 3.1; GLOB 4.1; A/G 0.8. cp 01/13 22:08 Order name: Lipase; Complete Time: 00:20 cp 01/13 22:08 Order name: Abo/rh Typing; Complete Time: 00:20 cp 01/13 22:08 Order name: Basic Metabolic Panel cp 01/13 22:08 Order name: Test, Urine; Complete Time: 23:45 cp 01/14 00:21 Order name: Urinalysis W/Microscopic; Complete Time: 00:45 cp 01/14 00:45 Interpretation: Normal except: UCLA Turbid; UKET 4+; UPROT TRACE; SQEPI 20-50; MUCUS cp 3+; JULIA Cx 1+. 01/14 00:22 Order name: LAB Add On cp 01/13 22:08 Order name: IV Saline Lock; Complete Time: 23:05 cp 01/13 22:08 Order name: Labs collected and sent; Complete Time: 23:05 cp 01/13 22:08 Order name: NPO; Complete Time: 23:05 cp 01/13 23:45 Order name: FHT's cp Administered Medications: No medications were administered Disposition Summary: 01/14/23 00:43 Discharge Ordered Location: Home cp Problem: new cp Symptoms: have improved cp Condition: Stable cp Diagnosis - related conditions, unspecified, unspecified trimester cp - Low back pain cp - Abdominal pain, unspecified cp Followup: cp - With: Private Physician - When: 1 - 2 days - Reason: Recheck today's complaints Discharge Instructions: - Discharge Summary Sheet cp - Abdominal Pain During cp - Back Pain in cp Forms: - Medication Reconciliation Form cp - Thank You Letter cp - Antibiotic Education cp - Prescription Opioid Use cp Signatures: Dispatcher [employer] EDMS Medardo Arita PA PA cp Kendrick Triana RN RN as6 Corrections: (The following items were deleted from the chart) 20:07 01/13 20:30 Constitutional: Negative for body aches, chills, fever, poor PO intake, cp cp 01/14 20:07 01/13 20:30 Back: Positive for flank pain, on the right, cp cp 01/14 23:47 21:30 The patient complains of pain in the right flank, cp cp
[2023-01-14 09:33] VITALS: BP 112/64; TEMP 98; O2SAT 99
== END 2023-01-14 00:51 | disposition home or self-care (01) ==
LOC: ER 21:38
DX: O26.892 Other specified pregnancy related conditions, second trimester (principal); Z3A.18 18 weeks gestation of pregnancy
CPT/HCPCS: 36415; 80053; 81001; 81025; 83690; 85025; 86900; 86901; 99283